=== PATIENT | male | born 1945 | race Caucasian/White ===

== ENCOUNTER 2017-10-17 12:38 | Outpatient (CLI) | payer MEDICARE ==
--- NOTE | 2017-10-17 15:01 | PET ---
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 Exam requested for restaging following chemoradiation therapy. TECHNIQUE: PET scanning with CT attenuation correction was performed from the base of the brain through the prox imal thighs following the intravenous administration of 11.2 mCi [id number] in the right antecubital fossa. Imaging was performed after an uptake interval of 49 minutes. COMPARISON: PET CT dated 11/20/16. FINDINGS: No lux hypermetabolism is seen in the neck, mediastinum, hilar regions, axillary, abdomen, pelvis, or inguinal regions. No hypermetabolic pulmonary nodules, liver, adrenal, or skeletal lesions are id entified. There is a focus of increased uptake in the sigmoid colon with an SUV of 5.8. There is physiologic activity in the GI and tracts and the visualized portions of the brain. The CT scan used for attenuation correction demonstrates no evidence of pleural effusions or ascites. An old left posterior rib fracture and sebaceous cyst in the upper right back are again seen. IMPRESSION: 1. No evidence of recurrent or metastatic disease. 2. Focal increased uptake in the sigmoid colon may either be due to an adenoma or cancer. Further e valuation with colonoscopy is recommended. POS: NEW
== END 2017-10-17 12:39 | disposition home or self-care (01) ==
LOC: PET 12:38
PROVIDERS: ATTEND Internal Medicine Hematology & Oncology
DX: C15.4 Malignant neoplasm of middle third of esophagus (principal)
CPT/HCPCS: 78815; A9552

== ENCOUNTER 2017-12-05 14:23 | Inpatient (IN) | payer MEDICARE ==
[2017-12-05 15:53] LABS: #Basophils 0.1 thou/uL (0.0-0.2); #Eosinphils 0.3 thou/uL (0.0-0.7); #Lymphocytes 1.6 thou/uL (1.20-3.40); #Monocytes 0.7 thou/uL (0.11-0.59); #Neutrophils 3.7 thou/uL (1.40-6.50); %Basophils 1.1 % (0.0-1.0); %Eosinophils 4.1 % (0.0-10.0); %Lymphocytes 24.9 % (21.0-51.0); %Monocytes 10.8 % (0.0-10.0); %Neutrophils 59.1 % (42.0-75.0); Hemoglobin 11.8 g/dL (14.0-18.0); Mean Corpuscular HGB CONC 32.3 g/dL (32.0-36.0); Mean Corpuscular Hemoglobin 30.2 pg (27.0-31.0); Mean Corpuscular Volume 93.3 fl (80.0-94.0); Mean Platelet Volume 6.1 fL (7.4-10.4); Platelet Count 282 thou/uL (130-400); RBC Distribution Width 14.2 % (11.5-14.5); Red Blood Cell (RBC) Count 3.93 mill/uL (4.70-6.10); White Blood Cell (WBC) Count 6.2 thou/uL (4.8-10.8)
[2017-12-05 16:12] LABS: ALT (SGPT) 21 U/L (8-55); AST (SGOT) 18 U/L (5-34); Albumin 3.8 g/dL (3.4-4.8); Alkaline Phosphatase 82 U/L (40-150); Anion Gap 13 mmol/L (10-20); BUN (Urea Nitrogen) 11 mg/dL (8.4-25.7); Bilirubin, Total 0.7 mg/dL (0.2-1.2); Calc. Creatinine Clearance 0 mL/min (70-130); Calcium 9.1 mg/dL (7.8-10.44); Carbon Dioxide 26 mmol/L (23-31); Chloride 99 mmol/L (98-107); Estimated GFR-MDRD 73; Globulin 3.5 g/dL (2.4-3.5); Glucose 95 mg/dL (83-110); Potassium 4.9 mmol/L (3.5-5.1); Protein, Total 7.3 g/dL (5.8-8.1); Sodium 133 mmol/L (136-145)
[2017-12-05] MEDS ORDERED: Gadobenate Dimeglumine 529 MG/1 ML (20ML VIAL) ONE (16:31)
[2017-12-05 16:43] LABS: INR-International Normal Ratio 1.1; Prothrombin Time 13.9 SEC (12.0-14.7)
[2017-12-05 16:44] LABS: PTT 29.1 SEC (22.9-36.1)
--- NOTE | 2017-12-05 18:01 | CT ---
BRAIN CT WITHOUT IV CONTRAST: 12/05/17 HISTORY: 72-year-old male with history of gradual onset of numbness and right leg weakness. No focal mass or midline shift. No intra or extra-axial hemorrhage. Sinuses and mastoids are clear. IMPRESSION: No acute intracranial process. No mass or bleed. POS: [facility]
[2017-12-05 19:48] LABS: Bilirubin Negative (Negative); Blood, Urine Trace (Negative); Clarity CLEAR (Clear); Glucose, Urine (Dipstick) Negative (Negative); Leukocyte Negative (Negative); Nitrite Negative (Negative); Protein, Urine (Dipstick) Negative (Neg-Trace); Specific Gravity, Urine 1.007 (1.002-1.036)
[2017-12-05 19:49] LABS: Bacteria/HPF None Seen HPF (None Seen); Hyaline Casts/LPF 0-3 HYALINE CAST LPF (0-3 Hyaline); Squamous Epithelial None Seen HPF (0-3); WBC/HPF None Seen HPF (0-3)
--- NOTE | 2017-12-05 20:48 | MRI ---
LUMBAR SPINE MRI WITH AND WITHOUT IV CONTRAST 12/05/17 HISTORY: 72-year-old male with right leg numbness with decreased rectal tone. History of esophageal cancer wit h prior chemotherapy and radiation which ended in September 2016. Multiplanar and multisequence MRI examination of the lumbar spine is performed. There is significant multilevel disc osteophytosis. The conus medullaris region is unremarkable terminating at L1. There i s some minimal disc bulging at T12-L1 with slight lateral recess narrowing. At L1-L2, there is diffuse disc bulging with mild lateral recess narrowing and mild foraminal narrowi ng. At L2-L3, there is moderate disc bulging with moderate central canal and bilateral lateral recess and bilateral foraminal stenosis. At L3-L4, there is diffuse disc bulging with moderate central canal, lateral recess, and foraminal st enosis. There is associated annular fissures. At L4-L5, there is diffuse disc bulging with moderate central canal and lateral recess stenosis and f oraminal stenosis. At L5-S1, there is diffuse disc bulging with bilateral foraminal stenosis, severe on the left side an d moderately severe on the right side. No abnormal contrast enhancement to suggest metastatic disease. There is some minimal type I end plat e changes involving the inferior aspect of T12. Very small bilateral renal T2 hyperintense, T1 hypoin tense foci, evidence for small bilateral renal cysts. IMPRESSION: Multilevel moderate to severe central canal, lateral recess, and foraminal stenosis as above. Minimal type I end plate changes involving the inferior aspect of T12. No evidence for metastatic disease. POS: NEW
[2017-12-05] MEDS ORDERED: Acetaminophen/Codeine 30-300mg Tablet PO PRN ×2 (22:15)
[2017-12-05] MEDS ORDERED: Morphine 4 MG/ML Carpuject SLOW IVP PRN (22:15)
[2017-12-05] MEDS ORDERED: Ondansetron HCl/PF 4 MG/2 ML Vial IVP PRN (22:16)
--- NOTE | 2017-12-05 22:44 | MRI ---
MRI CERVICAL SPINE WITHOUT CONTRAST: 12/05/17 This exam is labeled without contrast; however, patient was given IV gadolinium three hours ago for an MRI lumbar spine with and without study. The administration of IV contrast complicates interpretation of this study which shows high T2 signal within the cord. HISTORY: Right leg weakness and numbness. FINDINGS: Cervical vertebrae show degenerative change. There is loss of disc space at C4-5, C5-6, and C6-7. Ant erior osteophytes. Posterior disc bulge and spondylosis is seen throughout the cervical spine. These changes efface the anterior subarachnoid space abut the cord at C4-5, C5-6, and C6-7. There is abnormal cord signal. There is high T2 signal in the cord at C6 through T1 suggesting diffus e edema. There is also high T2 signal in the cord at the T2 level and below. T1 images show increased T1 signal in the cord at T1, T2 and T3 which may represent residual enhancement given the recent zoran olinium administration; however, other considerations include hemorrhage within the cord with high T1 signal. There is enlargement of the cord at the T1 and T2 level suggesting mass effect within the co rd which could be from either neoplasm or hemorrhage. There is evidence of diffuse cord edema below T 1. See the accompanying MRI of thoracic spine. IMPRESSION: 1. Spondylitic changes in the cervical spine with cervical canal stenosis at C3-4, C4-5 and C5-6 due to spondylosis as described above. 2. Abnormal cord signal is present. The recent administration of IV gadolinium three hours ago c omplicates interpretation of this study. There is evidence of cord edema extending from C6 through T2 . There is abnormal high T1 signal in the cord at T1, T2 and T3 which could represent residual enhanc ement which would indicate cord neoplasm. This degree of enhancement; however, is incomplete given th e three hour delay in contrast administration. Recommend a repeat exam with and without contrast for more accurate evaluation of the cord abnormality. POS: [facility]
--- NOTE | 2017-12-05 22:55 | MRI ---
MRI THORACIC SPINE WITHOUT CONTRAST: 12/05/17 Multiplanar and multisequential imaging obtained. This scan was designated without contrast; however, patient had recent IV gadolinium three hours ago which complicates the interpretation. HISTORY: Right leg weakness and numbness. FINDINGS: Thoracic vertebrae maintain height and alignment. Degenerative changes are seen throughout the thorac ic spine. There are disc bulges at several levels. A disc bulge/protrusion at T3-T4 impinges on the a nterior cord. Disc bulges are seen at T4-5, T5-6, T6-7, T7-8, and T8-9. These bulges at these levels efface the anterior subarachnoid space and are most pronounced at T7-8 and T8-9. There is abnormal cord signal identified. There is high T1 signal within the cord extending from T1 t hrough T3. This presumably represents residual contrast enhancement from the recent gadolinium admini stration. However, other considerations include hemorrhage with met hemoglobin in the cord producing high T1 signal. A true with and without study is necessary to adequately assess this signal. There is abnormal signal in the cord below the areas of enhancement which suggests diffuse cord edema . This diffuse increased T2 signal extends to the T5-T6 disc. The cord below T5-T6 disc appears unrem arkable on T2 imaging. IMPRESSION: The interpretation of the cord signal is complicated due to the recent administration of IV gadoliniu m three hours ago. There appears to be residual enhancement in the cord extending from T1 through T3, although accurate enhancement is not assessed due to the three hour delay and contrast administratio n. Other considerations include hemorrhage within the cord producing high T1 signal. There is evidenc e of cord edema below the contrast enhancement extending to the T5-T6 disc level. Recommend patient h ave a repeat MRI with and without contrast to get an accurate assessment of the T1 signal without rec ent contrast enhancement and to better assess true contrast enhancement with immediate contrast admin istration. POS: [facility]
--- NOTE | 2017-12-05 23:08 | PDOC.FPRHP ---
- History of Present Illness Chief Complaint: R leg weakness and numbness History of Present Illness: Stable 72 yo M comes in for evaluation of R leg numbness/weakness. He has a history of esophageal cancer with mets to the lung treated in 2016. Last PET in Oct 2017 showed no suspicion for lesions. Was referred from clinic for Neurology evaluation 1 weak ago. Sent to ER from Neurology clinic for neurosurgery evaluation. Patient states he has had progressively worsening numbness to the inside thigh of his R leg for the last month. Just this week he has started to use a walker because his leg was feeling weak. He denies any pain. He states he has had occasional muscle spasms in the legs bilaterally. He states he has had some constipation this week but no incontinence. States he has had no urinary incontinence or retention. ED Course: MRI of spine and called neurosurgery team for recommendations. - Allergies/Adverse Reactions Allergies Allergy/AdvReac Type Severity Reaction Status Date / Time No Known Allergies Allergy Verified 12/06/17 00:59 - Home Medications Medication Instructions Recorded Confirmed Type Aspirin [Ecotrin] 81 mg PO DAILY 11/11/15 12/06/17 History Budesonide-Formoterol [Symbicort 2 puff INH BID 11/11/15 12/06/17 History 80-4.5] Dapsone 100 mg PO DAILY 11/11/15 12/06/17 History Enalapril Maleate [Vasotec] 5 mg PO DAILY 11/11/15 12/06/17 History - History PMHx: Esophogeal cancer- has been cleared for months. Last PET scan was normal. See 's Dr. Armstrong. treated with radiation and chemo HTN PSHx: none FHx: Social: Patient smokes about a pack a day for 57 years. patient drinks 3-5 beers a night. denies recreational drugs. - Review of Systems General: denies: fever/chills, weight/appetite/sleep changes, night sweats, fatigue Eyes: denies: eye pain, vision changes ENT: denies: nasal congestion, rhinorrhea Respiratory: denies: cough, congestion, shortness of breath Cardiovascular: denies: chest pain, palpitation, edema Gastrointestinal: reports: constipation (difficulty forcing out. no incontinence). denies: nausea, vomiting, diarrhea, GI bleeding Genitourinary: denies: incontinence, dysuria, polyuria, discharge Skin: denies: rashes, lesions Musculoskeletal: denies: pain, tenderness Neurological: reports: numbness, weakness. denies: syncope, seizure Psychological: denies: anxiety, depression - Vital signs BP: 141/85 HR: 89 RR: 20 Tmax: 97.8 Pox: 96% on room air Wt: 96 kg - Physical Exam Constitutional: NAD, awake, alert and oriented HEENT: normocephalic and atraumatic, PERRLA, EOMI, MMM Neck: supple, FROM Heart: RRR, normal S1/S2, no murmurs/rubs/gallops Lungs: CTAB, no respiratory distress, good air movement Abdomen: soft, non-tender, bowel sounds present Musculoskeletal: normal structure, normal tone Neurological: no focal deficit, CN II-XII intact -Neurological: decreased sensation on the R calf, intact on R thigh strength 4/4 on L lower extremity, 3/4 on R DTRs +2 bilaterally Babinski unappreciable bilaterally FMR H&P: Results - Labs Result Diagrams: 12/06/17 03:16 12/06/17 03:16 Lab results: WBC 6.2 thou/uL (4.8-10.8) 12/05/17 15:43 Hgb 11.8 g/dL (14.0-18.0) L 12/05/17 15:43 Hct 36.6 % (42.0-52.0) L 12/05/17 15:43 MCV 93.3 fl (80.0-94.0) 12/05/17 15:43 Plt Count 282 thou/uL (130-400) 12/05/17 15:43 Neutrophils % 59.1 % (42.0-75.0) 12/05/17 15:43 ESR Westergren 11 mm/hr (Less than 20) 12/05/17 15:43 Sodium 133 mmol/L (136-145) L 12/05/17 15:43 Potassium 4.9 mmol/L (3.5-5.1) 12/05/17 15:43 Chloride 99 mmol/L (98-107) 12/05/17 15:43 Carbon Dioxide 26 mmol/L (23-31) 12/05/17 15:43 BUN 11 mg/dL (8.4-25.7) 12/05/17 15:43 Creatinine 1.00 mg/dL (0.6-1.3) 12/05/17 15:43 Glucose 95 mg/dL (83-110) 12/05/17 15:43 Calcium 9.1 mg/dL (7.8-10.44) 12/05/17 15:43 Total Bilirubin 0.7 mg/dL (0.2-1.2) 12/05/17 15:43 AST 18 U/L (5-34) 12/05/17 15:43 ALT 21 U/L (8-55) 12/05/17 15:43 Alkaline Phosphatase 82 U/L (40-150) 12/05/17 15:43 C-Reactive Protein Less than 0.50 mg/dL (= or < 0.5) 12/05/17 15:43 Serum Total Protein 7.3 g/dL (5.8-8.1) 12/05/17 15:43 Albumin 3.8 g/dL (3.4-4.8) 12/05/17 15:43 Urine Ketones Negative mg/dL (Negative) 12/05/17 19:25 Urine Blood Trace (Negative) H 12/05/17 19:25 Urine Nitrite Negative (Negative) 12/05/17 19:25 Ur Leukocyte Esterase Negative (Negative) 12/05/17 19:25 Urine RBC 4-6 HPF (0-3) 12/05/17 19:25 Urine WBC None Seen HPF (0-3) 12/05/17 19:25 Ur Squamous Epith Cells None Seen HPF (0-3) 12/05/17 19:25 Urine Bacteria None Seen HPF (None Seen) 12/05/17 19:25 - Radiology Interpretation Other Status: report reviewed by me Additional comment: MRI of spine- Cord enhancement concerning for cord swelling. T1-T3 but complicated by previous gadolinium. see full report for details. FMR H&P: A/P - Problem List (1) Hx of esophageal malignancy Current Visit: Yes Status: Acute Code(s): Z85.01 - PERSONAL HISTORY OF MALIGNANT NEOPLASM OF ESOPHAGUS (2) HTN (hypertension) Current Visit: Yes Status: Acute Code(s): I10 - ESSENTIAL (PRIMARY) HYPERTENSION (3) Right leg numbness Current Visit: Yes Status: Acute Code(s): R20.0 - ANESTHESIA OF SKIN (4) Dermatitis herpetiformis Current Visit: Yes Status: Acute Code(s): L13.0 - DERMATITIS HERPETIFORMIS (5) Alcohol abuse Current Visit: Yes Status: Acute Code(s): F10.10 - ALCOHOL ABUSE, UNCOMPLICATED - Plan # R leg numbness - suspected thoracic spine lesion - MRI lumbar shows central stenosis no acute process - thoracic spine MRI unappreciable 2/2 prior contrast - repeat in AM - PET negative oct 2017 - Hx of esophageal cancer w/ mets to lungs, 57 pack-year smoker - consult Onc Dr. Armstrong in AM - Neurosurgery consulted, recs appreciated - decadron, flexeril # Alcohol abuse - ASE protocol # COPD - home symbicort # Dermatits Herpetiformis - home dapsone # HTN - home enalapril # Code - full #PPx - lovenox # Dispo - >= 2 nights FMR H&P: Upper Level - Pertinent history Patient has R leg parasthesia for several months. This has been gradually worsening and expanding until he began to have shani weakness in his R leg in the last few days. He has not had pain in has back. He went to his primary care doctor who sent him to a neurologist who sent him to [facility] for neurosurgery consultation. - Pertinent findings Gen: WD/WN male in no acute distress HEENT: NC/AT, MANNY,EOMI, MMM Resp: CTA, normal work of breathing CV: RRR, normal S1, S2, no murmur ABD: Soft nontender, nondistended Extremities: no edema, pulses 2+ Psych: calm, normal affect and mood Neuro: CN exam normal. Normal touch sensation throughout. Normal strength in Left leg and bilateral UE. Patient is weak in r foot flexion and especially in great to strength 2/5. R hip flexors and extensors are 5/5. Knee flexors are 5 /5. Loss of proprioception in R toes. DTRs 2+. - Plan Date/Time: 12/05/17 [id number] Teresa Pastrana, have evaluated this patient and agree with findings/plan as outlined by quality assurance intern resident. Pertinent changes/additions are listed here. 1. Left leg weakness, concern for spinal lesions- Evaluated by neurosurgery who is recommending repeat scans tomorrow. Will await their reocmmendations. Patient is having some muscle cramping. Neurosurgery has added flexeril which has been helpful for this symptom. DDX on spinal lesions is pointed at malignancy. ESR and CRP are negative, so abscess or infectious process is unlikely. 2. hx of esophogeal cancer-will involve onc depending on results of repeat MRI 3. HTN- continue enalapril 4. COPD- continue home symbicort 5. Tobacco abuse- the [place] on cessation 6. Etoh abuse- Will start ASE protocol and the [place]. Attending Addendum - Attending Addendum Date/Time: 12/06/17 [id number] I personally evaluated the patient and discussed the management with Dr. Palmer/ [place]. I agree with the History, Examination, Assessment and Plan documented above with any addition or exceptions noted below. Patient with history of GI cancer admitted with subjective and objective R LE weakness that has been progressive. He had MRI overnight that showed potential for neoplastic process but unclear due to contrast issues. NSGY on board and has patient on steroids (that have led to some objective improvement in strength ) and recommending repeat MRI. That is scheduled for sometime today. Further recs and mgmt per results of MRI.
[2017-12-06] MEDS ORDERED: Cyclobenzaprine 10 MG TAB ONE (00:03)
[2017-12-06] MEDS: Sodium Chloride 0.9% 1,000 ML IV SCH ×3 (00:48→12:57)
[2017-12-06 00:53] VITALS: BMI 29.2
[2017-12-06] MEDS: Dexamethasone 4 MG in Sodium Chloride 0.9% 50 ML IVPB SCH ×5 (01:39→23:44)
[2017-12-06 04:21] LABS: #Eosinphils 0.2 thou/uL (0.0-0.7); #Lymphocytes 0.9 thou/uL (1.20-3.40); #Monocytes 0.6 thou/uL (0.11-0.59); %Basophils 0.6 % (0.0-1.0); %Eosinophils 3.1 % (0.0-10.0); %Lymphocytes 11.6 % (21.0-51.0); %Monocytes 7.5 % (0.0-10.0); %Neutrophils 77.2 % (42.0-75.0); Hemoglobin 10.8 g/dL (14.0-18.0); Mean Corpuscular HGB CONC 32.5 g/dL (32.0-36.0); Mean Corpuscular Hemoglobin 30.2 pg (27.0-31.0); Mean Corpuscular Volume 92.7 fl (80.0-94.0); Mean Platelet Volume 6.4 fL (7.4-10.4); Platelet Count 270 thou/uL (130-400); RBC Distribution Width 14.2 % (11.5-14.5); Red Blood Cell (RBC) Count 3.58 mill/uL (4.70-6.10); White Blood Cell (WBC) Count 7.7 thou/uL (4.8-10.8)
[2017-12-06 04:26] LABS: Anion Gap 11 mmol/L (10-20); BUN (Urea Nitrogen) 9 mg/dL (8.4-25.7); Calc. Creatinine Clearance 87 mL/min (70-130); Calcium 8.9 mg/dL (7.8-10.44); Carbon Dioxide 26 mmol/L (23-31); Chloride 102 mmol/L (98-107); Estimated GFR-MDRD 70; Glucose 90 mg/dL (83-110); Sodium 135 mmol/L (136-145)
--- NOTE | 2017-12-06 07:35 | PRG ---
DATE OF SERVICE: 12/06/2017 Mr. Hernandez is a 72-year-old male who I saw in his room this morning. There are no new neurologic defi cits on exam. He continues to have cramping in bilateral lower extremities and a right L5 radicular pain with paresthesias in the L5 dermatome. This morning whenever he can receive a new dose of gadol inium, we will get a repeat MRI scan with contrast of the thoracic and cervical spine as we investiga te for possible metastatic disease. We will wait until those results have arrived for further plans. Overnight his vital signs have been stable and labs are normal. If there are any further questions, please feel free to contact Neurosurgery.
[2017-12-06] MEDS: Folic Acid 1 MG TAB PO SCH (09:28)
[2017-12-06] MEDS: Thiamine HCl 200 MG/2 ML VIAL SLOW IVP SCH (09:37)
--- NOTE | 2017-12-06 10:18 | CON ---
DATE OF CONSULTATION: 12/06/2017 HISTORY OF PRESENT ILLNESS: Mr. Hernandez is a 72-year-old male who I saw in the ER this evening. He pr esents with history of numbness, pain into the right groin and right lower extremity for the past 6 d ays. The numbness is worse at the top of his feet and hypoesthesia is present in the hip. He states that he fell 3 days ago due to his unsteady gait. He currently denies incontinence and denies bowel and bladder incontinence. He is tender to palpation in midline of thoracic and lumbar spine. He cabezas s pain and paresthesias in the right L5 dermatome with weakness in the right tibialis anterior and ex tensor hallucis longus. Neurosurgery was consulted after MRI was completed of the lumbar spine. Lum bar spine showed a disk herniation at L4-L5 with contact of the right L5 dermatome. ALLERGIES: No known drug allergies. CURRENT MEDICATIONS: 1. Enalapril maleate 5 mg oral. 2. Symbicort HFA aerosol with adapter 80 mcg/4.5 mcg attenuation 2 puffs a day. 3. Aspirin 81 mg oral. PAST MEDICAL HISTORY: Includes hypertension, COPD, dermatitis, squamous cell cancer and esophagus an d lymph nodes, flu vaccine up-to-date, tetanus vaccine not up-to-date, pneumococcal vaccine not up-to -date. PAST SURGICAL HISTORY: Includes esophageal stretching performed 1 month ago. REVIEW OF SYSTEMS: Patient positive for right lower extremity paresthesias, weakness to the right ti bialis anterior and extensor hallus longus muscle. The patient reports being off balance. All other review of systems is negative, unless stated above HPI. PHYSICAL EXAMINATION: VITAL SIGNS: Blood pressure 149/91, pulse 89, respirations 18, temperature 97.9, O2 sat is 98% on ro om air. HEENT: Normocephalic, atraumatic. Hearing intact. Moist mucous membranes. Trachea is midline. Ey es: Pupils are equal and reactive to light. Extraocular muscles are intact. Sclerae are white, non icteric. CARDIOVASCULAR: The patient has regular rate and rhythm. Normal S1, S2 heart sounds. No distal cya nosis or clubbing noted. RESPIRATORY: Patient has bilateral symmetric chest rise. Appears to have no shortness of breath. NEUROLOGIC: Cranial nerves II through XII are grossly intact. Speech is fluent. He answers my ques tions appropriately. Right lower extremity, has paresthesias in the right L5 dermatome. He has 3/5 weakness in the right tibialis anterior, extensor hallucis longus compared to the left. The patient has unsteady gait and station. The patient also has some urinary retention. Mena was placed this e vening and 1100 mL was retrieved of urine. ASSESSMENT: Mr. Hernandez is a 72-year-old male with right lower extremity pain, weakness in the L5 derm atome and urinary retention. PLAN: Given Mr. 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 I will start Decadron, Protonix, consult Radiation Oncology. Dr. Canela will talk to him tomorrow and his family. However, the contrast MRI scan of the cervical and thoracic spine when he is able to have gadolinium. If there are any further questions, please feel free to contact Neuro surgery.
--- NOTE | 2017-12-06 11:04 | PRG ---
DATE OF SERVICE: 12/06/2017 I personally interviewed and examined the patient and agree with documentation of Lane Rubio PA-C, d ated 12/05/2017. Briefly, Ricky Hernandez is a 72-year-old gentleman with a year and a half history of stage IV esophagea l carcinoma, for which he has had chemoradiotherapy. A recent PET scan was positive in the sigmoid c olon, but not markedly positive elsewhere. It is with this history that he has had a subacute progre ssive myelopathy, especially weakness in the right lower extremity. Imaging of the lumbar spine done yesterday was unrevealing, but imaging of the cervical and thoracic spine showed a lesion in the spi nal cord lesion extends from T1 to the top of T3. There is extensive edema above and below the lesio n in the center of the cord. This is causing a myelopathy. Today, on examination, Mr. Dodd feels better with the steroids that we started. He has improving ant igravity strength in the right lower extremity. I had a long discussion with Mr. Hernandez and his daughter. 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 Other possibilities include ependymoma, astrocytoma, hemangioblastoma, or some other r are entities. However, it is primary lesions in the spinal cord have amenable to moderate vasogenic edema. This lesion has extensive vasogenic edema above and below it. I believe it represents a meta stasis. We are asking the oncology team to come restage him and talked about prognosis going forward. I edgar g to revisit with the patient myself on Saturday and talked at length about the removal of spinal cord tumors. There is a significant risk of permanent and complete paralysis with that operation. There is also a significant risk of temporary weakness that would require rehabilitation. If his tumor bur den elsewhere is low and his prognosis is for an extended period of a healthy life, but for this lesi on, then we may consider surgical intervention. We will need to arrange neuro monitoring for the van miller and get him on the schedule.
[2017-12-06] MEDS ORDERED: Sodium Chloride 0.9% 110 ML ONE (12:11)
--- NOTE | 2017-12-06 16:58 | CON ---
DATE OF CONSULTATION: 12/06/2017 REASON FOR CONSULTATION: Esophageal cancer. HISTORY OF PRESENT ILLNESS: Mr. 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 In 2016, he had a left pulmonary nodules and regional lymph nodes at time of diagnosis. He underwent treatment with carboplatin and Taxol. He e ventually had radiation to his esophagus in late 2015 early 2016. He has been in remission over the past year. He had a PET scan in 10/2017 which showed a focal increased uptake in the sigmoid colon w ith an SUV of 5.8. There was no hypermetabolic activity in the lung, liver, adrenal or skeletal suraj ons. He then underwent a colonoscopy by Dr. Jain, who found a large tubulovillous adenoma in the sig moid colon. It was removed as were several other polyps. The patient presented to the emergency [facility] yesterday with acute onset of inability to walk with right lower extremity weakness, numbness and t ingling. The patient admits that he initially felt numbness in his right leg over 2 months ago, but in the last several days it has progressively worsened to the point where he is unable to bear weight and walk. In the emergency room, he had a brain CT which was negative for any intracranial process. He was started on IV steroids admitted and Neurosurgery has seen the patient. He underwent a lumba r spine MRI, which showed a moderate to severe central canal, lateral recess and foraminal stenosis. Several hours later, he underwent a thoracic and cervical spine MRI, there was an abnormal cord sign al in T1 through T3; however, it was felt that imaging was inadequate and a repeat MRI has been sche duled. The patient denies any complaints at this time. He has no shortness of breath, no chest pain , no abdominal discomfort. He is taking p.o. without any problem. He has a significant weakness in his right leg. He is able to move his toes and lift his leg off the bed with maximal effort. PAST MEDICAL HISTORY: 1. 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 2. Hypertension. 3. Chronic obstructive pulmonary disease. 4. Dermatitis herpetiformis. PAST SURGICAL HISTORY: Esophageal dilation. ALLERGIES: No known drug allergies. HOME MEDICATIONS: 1. Aspirin 81 mg daily. 2. Symbicort daily. 3. Dapsone 100 mg daily. 4. Vasotec 5 mg daily. FAMILY HISTORY: Daughter has melanoma. SOCIAL HISTORY: . Has 3 children, lives alone. Current everyday smoker. No alcohol or illi cit drug use. REVIEW OF SYSTEMS: Twelve point review of systems is negative except for noted in HPI. PHYSICAL EXAMINATION: VITAL SIGNS: Temperature is 98.2, pulse is 89, respiratory rate 18, BP is 162/93. He is 92% on room air. GENERAL: Well-developed, well-nourished male, in no acute distress. HEENT: Normocephalic, atraumatic. Pupils equal and reactive to light. NECK: Supple. CARDIOVASCULAR: Regular rate and rhythm. LUNGS: Clear. ABDOMEN: Soft, nontender, bowel sounds are positive. EXTREMITIES: No clubbing, cyanosis or edema. SKIN: No rash. HEMATOLOGIC: No petechia or purpura. NEUROLOGIC: Right lower extremity weakness. PSYCHIATRIC: The patient is alert and oriented and appropriate. PERTINENT LABORATORY AND X-RAYS: Current WBCs are 7.7, hemoglobin 10.8, hematocrit 33.2, platelet co unt is 270,000. He has got 77% neutrophils, 12% lymphocytes. Sodium is 135, potassium 4.0, chloride 102, CO2 is 26, BUN 9, creatinine 1.04, calcium is 8.9, bilirubin is 0.7, AST is 18, ALT is 21, jerri line phosphatase is 682. C-reactive protein is less than 0.5. Serum total protein 7.3, albumin 3.8, globulin 3.1. Urine is negative for bacteria. Radiology per HPI. IMPRESSION: 1. Stage IV esophageal cancer. 2. 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 DISCUSSION: The patient is having repeat MRI this afternoon for a closer look at this thoracic lesio n. On the PET scan in October, he had no evidence of disease other than the sigmoid colon which was explained by this adenoma that has been removed. We will get a CT scan of his chest to confirm no o ther metastatic disease and I will consult Dr. Qiu for his opinion. Thank you for the consult.
--- NOTE | 2017-12-06 18:13 | CON ---
DATE OF CONSULTATION: 12/06/2017 REASON FOR CONSULTATION: Mr. Hernandez is a 72-year-old gentleman, known to me from his previous treatme nt for his esophageal cancer. He presents with a possible spinal cord lesion. HISTORY OF PRESENT ILLNESS: Mr. Hernandez is well known to me. 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 He was found to have lung metastasis at his initial presentation. He was treated with chemotherapy with resolution o f all of his disease. He then developed recurrent disease in the mid esophagus. He was treated with chemoradiotherapy with his radiation completed on 09/04/2016. He received 50.4 Huertas. Since that ti il, he has been disease free and been followed with PET scans. He just had a recent PET scan in 10/04. This PET scan showed some hypermetabolic activity in the sigmoid colon. He saw Dr. Jain for ev aluation of that. He was having some mild dysphagia at that time, and he underwent an EGD with dilat atbren. No evidence of cancer was seen in the esophagus. A large adenoma was removed from the sigmoi d colon with no evidence of cancer seen there. He presents with what he says is a several-month hist ory of progressive numbness in the right lower extremity. This began a couple months ago and was ini tially just a small spot on his thigh, but has progressed. He has had right leg weakness and more di fficulty with walking, especially over the past week. This led him to be evaluated and admitted for workup. He reports he was not having any difficulty with urination or with bowel movements prior to this admission. He did have some difficulty with urination when he was first admitted, which he attr ibutes to the crowd that was around him. He does have a Mena catheter placed. He underwent an MRI of the cervical and thoracic and lumbar spine. The MRIs were somewhat difficult to interpret, shey e he had had a gadolinium 3 hours before, which made the interpretation difficult. There was suggest ion of a lesion in the spinal cord extending from T1 through T3. However, the enhancement was also f elt that could be from hemorrhage. He had edema above and below the lesion. It was recommended that he have a repeat MRI, which is scheduled for later today. The patient has been seen by Neurosurgery . He has also been seen by Medical Oncology. I have been asked to see the patient also. Other than his right leg numbness and weakness, he denies any other complaints. He has no pain. He is eating and swallowing without difficulty. He has no shortness of breath. He has no recent weight loss and voices no other complaints. PAST MEDICAL HISTORY: 1. Hypertension. 2. Chronic obstructive pulmonary disease. 3. Dermatitis herpetiformis. 4. He denies other medical or surgical problems. MEDICATIONS: Symbicort, aspirin, dapsone, and Vasotec. ALLERGIES: No known medical allergies. SOCIAL HISTORY: He previously smoked 1-2 packs per day for 55 years. He also used to drink an appro ximate 6-pack per day. He lives by himself in [place], [place]. 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 FAMILY HISTORY: His daughter had melanoma. His father from myocardial infarction. There is no other family history of malignancy. REVIEW OF SYSTEMS: A 12-system review of systems is otherwise negative. PHYSICAL EXAMINATION: VITAL SIGNS: Height 5 feet 11 inches, weight 210 pounds, blood pressure is 109/68, pulse is 84, resp irations are 15, temperature is 98.5, O2 saturation is 89% on room air. GENERAL: He is alert and oriented and in no apparent distress. He is well-developed and well-nouris hed. Karnofsky performance status is 70%. HEENT: Eyes: Pupils are equal, round, and react to light. Extraocular movements are intact. ENT: Oral cavity and oropharynx normal without lesion or erythema. Palate elevates symmetrically. Gingiv a is intact. NECK: Supple, without or cervical adenopathy. No thyromegaly. Larynx midline. LUNGS: Breathing nonlabored. Clear to auscultation and percussion. CARDIOVASCULAR: Heart, regular rate and rhythm without murmur. No lower extremity edema. BACK: No tenderness on fist percussion of the spine. LYMPHATIC: No axillary or inguinal adenopathy. ABDOMEN: Bowel sounds present. Soft, nontender, nondistended, without mass or hepatosplenomegaly. Liver percussed to normal size. SKIN: Without rash or purpura. NEUROLOGIC: Cranial nerves II-XII grossly intact. Motor strength is 5/5 in both upper extremities i n all muscle groups tested. In the left lower extremity, motor strength is 5/5 in all groups tested. In the right lower extremity, his hip flexors are 2/5. Plantar flexion and dorsiflexion are 2/5. Reflexes are diminished, but symmetrical. Gait was not tested. LABORATORY AND X-RAY FINDINGS: CBC revealed a white blood count of 7700 with hemoglobin of 10.8, hem atocrit of 33.2, platelet count of 270,000. Chemistry group revealed normal electrolytes. Creatinin e was normal. PT was normal at 13.9. RADIOLOGIC: Recent PET scan was personally reviewed and again showed no evidence of systemic disease . It did show hypermetabolic activity in his sigmoid colon, which was later proved to be adenoma. M RI of the cervical and thoracic and lumbar spine were all personally reviewed. Again, there is some enhancement at the T1 through T3. There is edema above and below the cord. Because of the timing of the gadolinium contrast, it is not clear if this enhancement is residual enhancement from tumor vers us enhancement from hemorrhage. No other concerning lesion was identified. ASSESSMENT: Mr. Hernandez is a 72-year-old gentleman, who presents with a somewhat unusual situation. Rikki jimenez has a previous history of a stage 4 metastatic squamous cell carcinoma of the esophagus when he pre sented with a lung metastasis at diagnosis. However, these all resolved with treatment. He has not been on treatment for some time and has been disease free. PLAN: I had a discussion today with Mr. Hernandez regarding his present situation. The lesion in the sp inal cord is somewhat unusual. Esophageal cancer would be somewhat unusual to metastasize to the spi nal cord, but certainly there is a possibility that this could occur. I have reviewed his previous r adiation records. The area in question was partially in this previously radiated parham. I do not t hink the area in question is related to his previous radiation. This could be metastasis versus a ne w primary spinal cord tumor versus an area of hemorrhage. I agree with the dexamethasone that has be en administered. I agree with repeating the MRI of the thoracic spine to better evaluate this lesion . I have discussed the case with Dr. Canela in Neurosurgery and Dr. Mirian Miles in Medical Oncol ogy. We are going to stage him systemically, although I think there is a good chance that he is stil l going to be disease free systemically based on just a PET scan that is 2 months old. Since he had metastatic disease to the lungs to begin with, we will repeat a CT scan of the chest and make sure th at he does not have additional metastatic disease in the lungs or the liver. Once we get the MRI, we can better evaluate and characterize the lesion. In discussion with Dr. Canela a neurosurgical i ntervention with operation is a possibility depending on how his disease is doing systemically. Othe r options may be to consider radiation therapy. This radiation would partially overlap into his prev iously treated parham. Of course if this is hemorrhage, then radiation therapy would not be indicate d, but likely just a course of rehabilitation. If he is systemically disease free and does have what appears to be tumor in a spinal cord, then we may need to consider surgery just to make a diagnosis, also if it is feasible to make sure this is not a primary spinal cord lesion as opposed to metastati c disease. We will get the above tests and I will continue to follow the patient as well. We will d iscuss the case with Dr. Canela in Medical Oncology as more information becomes available and make decisions as to his treatment course. In the interim, he will continue with his dexamethasone. Thank you for this interesting consultation.
[2017-12-06] MEDS ORDERED: Ondansetron ODT 4 MG TAB PO PRN (20:46)
[2017-12-06] MEDS: Docusate 100 MG CAP PO SCH (21:21)
[2017-12-07] MEDS: Sodium Chloride 0.9% 1,000 ML IV SCH ×2 (02:09→13:24)
[2017-12-07] MEDS: Dexamethasone 4 MG in Sodium Chloride 0.9% 50 ML IVPB SCH ×4 (05:02→23:26)
--- NOTE | 2017-12-07 07:38 | PDOC.FM ---
- Subjective Subjective: Patient's main complaint this AM is in regards to his R leg. He reports decreased control of his R leg with weakness and decreased sensation. He has not had a BM since being in the hospital. He is tolerating PO well and not having any N/V. - Objective MAR Reviewed: Yes Vital Signs & Weight: Vital Signs (12 hours) Temp Pulse Resp BP BP Pulse Ox 12/07/17 04:05 98.2 F 73 15 147/71 H 93 L 12/07/17 00:19 98.5 F 85 13 149/74 H 92 L 12/06/17 20:12 98.7 F 97 12 146/80 H 90 L 12/06/17 20:00 98.7 F 97 12 Weight Weight 95.254 kg I&O: 12/06/17 12/07/17 12/08/17 06:59 06:59 06:59 Intake Total 450 2100 Output Total 1250 2150 Balance -800 -50 Result Diagrams: 12/06/17 03:16 12/06/17 03:16 <Randa Currie - Last Filed: 12/07/17 07:36> - Objective Vital Signs & Weight: Vital Signs (12 hours) Temp Pulse Resp BP BP Pulse Ox 12/08/17 11:09 97.9 F 72 16 134/71 92 L 12/08/17 08:57 147/83 H 12/08/17 07:58 69 18 92 L 12/08/17 07:28 97.8 F 68 16 147/83 H 92 L 12/08/17 03:52 97.8 F 66 16 157/73 H 93 L 12/07/17 23:36 98.3 F 77 20 135/74 90 L Weight Weight 210 lb I&O: 12/07/17 12/08/17 12/09/17 06:59 06:59 06:59 Intake Total 2100 2310 Output Total 2150 3550 Balance -50 -1240 Result Diagrams: 12/06/17 03:16 12/06/17 03:16 <Rivera Whyte - Last Filed: 12/08/17 11:15> Phys Exam - Physical Examination Constitutional: NAD HEENT: moist MMs Respiratory: no wheezing, no rales, no rhonchi, clear to auscultation bilateral Cardiovascular: RRR, no significant murmur, no rub Gastrointestinal: soft, non-tender, no distention, positive bowel sounds Musculoskeletal: no edema, pulses present decreased sensation on RLE, 3/5 mm strength on RLE, 5/5 on all other limbs Psychiatric: normal affect, A&O x 3 Skin: normal turgor, cap refill <2 seconds <Randa Currie - Last Filed: 12/07/17 07:36> Dx/Plan (1) Right leg numbness Code(s): R20.0 - ANESTHESIA OF SKIN Status: Acute (2) Right leg weakness Code(s): R29.898 - OTH SYMPTOMS AND SIGNS INVOLVING THE MUSCULOSKELETAL SYSTEM Status: Acute (3) Alcohol abuse Code(s): F10.10 - ALCOHOL ABUSE, UNCOMPLICATED Status: Acute (4) 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 - DERMATITIS HERPETIFORMIS Status: Acute (5) HTN (hypertension) Code(s): I10 - ESSENTIAL (PRIMARY) HYPERTENSION Status: Acute QualifierTitle: Hypertension type: essential hypertension Qualified Code( s): I10 - Essential (primary) hypertension (6) Hx of esophageal malignancy Code(s): Z85.01 - PERSONAL HISTORY OF MALIGNANT NEOPLASM OF ESOPHAGUS Status: Acute - Plan Plan: R Leg Numbness and Weakness Patient has a h/o Esophageal ca with mets to the lungs, 57 pack-year smoker. He has a suspected thoracic spine lesion. MRI lumbar shows central stenosis no acute process. Repeat cervical and thoracic spine MRI reads pending, there is concern on the initial for some lesion, but difficult to fully assess due to prior contrast that was given. Patient had a negative PET in Oct 2017. -Onc consulted, appreciate recs -Neurosurgery consulted, appreciate recs -Continue decadron per neurosurg -Continue flexeril -f/u pending MRI results Esophageal Ca w/ mets to the lungs See prior plan -Protonix Alcohol abuse -ASE protocol -Thiamine, folic acid COPD -home symbicort Dermatits Herpetiformis -home dapsone HTN -home enalapril <Randa Currie - Last Filed: 12/07/17 07:36> Attending Addendum - Attending Addendum Date/Time: 12/08/17 1113 I personally evaluated the patient and discussed the management with Dr. Currie I agree with the History, Examination, Assessment and Plan documented above with any addition or exceptions noted below. The patient is being evaluated for RLE numbness, weakness, and saddle anesthesia. Neurosurgery, Oncology, and Radiation Oncology have been consulted for concern for a spinal cord lesion. Repeat MRI has been performed, but the official read is not back yet. CT chest has been done to restage and showed no signs of metastasis. <Rivera Whyte - Last Filed: 12/08/17 11:15>
[2017-12-07] MEDS: Mometasone/Formoterol 120 PUFF INHALER INH SCH ×2 (08:01→18:45)
[2017-12-07] MEDS: Folic Acid 1 MG TAB PO SCH (09:45)
[2017-12-07] MEDS: Docusate 100 MG CAP PO SCH ×2 (09:45→20:14)
--- NOTE | 2017-12-07 10:38 | CT ---
CT CHEST WITH IV CONTRAST: Date: 12/07/17 Time: 0241 hours HISTORY: Chest pain. Esophageal cancer. COMPARISON: 05/07/17. FINDINGS: Lungs are hyperinflated with scattered small bullae and parenchymal scarring, most pronounced at the bases. Old, ununited left posterior rib fracture is again demonstrated. No mediastinal masses or mass es of the esophagus are apparent. No enlarged lymph nodes. Arterial calcification. Within the partial ly visualized upper abdomen, tiny cystic lesions are noted within the partially visualized liver. IMPRESSION: 1. No evidence of metastatic disease of the chest. 2. Atherosclerosis. 3. COPD. POS: [facility]
--- NOTE | 2017-12-07 11:34 | MRI ---
MRI CERVICAL SPINE WITH AND WITHOUT CONTRAST MRI THORACIC SPINE WITH AND WITHOUT CONTRAST: Date: 12/06/17 Time: 1782-6821 hours HISTORY: 72-year-old male with right lower extremity weakness and hypesthesia (numbness). Abnormal noncontrast MRI of cervical spine, obtained soon after IV Gadolinium contrast injection for MRI of lumbar spine with and without contrast. Repeat study. TECHNIQUE: Unfortunately, the waiting time between the previous study and current study was less than 24 hours. It would have been better to wait at least 36 hours after the prior Gadolinium injection. The degree of enhancement of the intramedullary lesion on the current study is not as strong as that of yesterda y's study. FINDINGS: Again noted is the cervical spondylosis, with multilevel high grade central spinal canal stenosis and high grade bilateral neural foraminal stenosis. Images are degraded by patient motion. The cervical spondylosis was described on the prior study. There is a heterogeneously enhancing intramedullary lesion that occupies almost the entire cross-sect ional area of the spinal cord, and expands the spinal cord, extending from upper C7 level to lower T3 . (The enhancement pattern is stronger on yesterday's MRI than on the current one for reasons mention ed above.) This appears to be a mass, with mixed intermediate and hyperintense T2 signal. There are n onenhancing T2-hyperintense intramedullary signal abnormalities, consistent with cord edema, that ext end cranially up to the lower C6 level, and continues inferiorly down to the upper T6 level, where it tapers off. The levels of upper cord edema (without enhancement) are also expanded. In the thoracic spine, as in the cervical spine, there is multilevel mild and moderate degenerative d isc disease, including disc-osteophyte complexes that abut and slightly indent the ventral surface of the spinal cord, at T2-3, T3-4, T4-5, and to a lesser degree at other levels in the mid and lower th oracic spine. There are Modic Type I end plate marrow changes at T7-8. Vertebral body heights are tristen ntained at all levels in the cervical and thoracic spine. There are also Modic Type I end plate juan pablo ow changes at C5-6 and T2-3 and T3-4. IMPRESSION: 1. Evidence for primary cord neoplasm, either astrocytoma or ependymoma (less likely hemangioblastom a). The enhancing portion of the tumor is from upper T1 to T3 level. Cord edema extends cranially and caudally many levels. 2. Cervical and thoracic spondylosis, with multilevel high grade central spinal canal stenosis and s evere bilateral neural foraminal stenosis. CODE T. ] POS: [facility]
[2017-12-07] MEDS: Thiamine HCl 200 MG/2 ML VIAL SLOW IVP SCH (13:22)
[2017-12-08] MEDS: Sodium Chloride 0.9% 1,000 ML IV SCH ×3 (04:54→21:11)
[2017-12-08] MEDS: Dexamethasone 4 MG in Sodium Chloride 0.9% 50 ML IVPB SCH ×3 (06:04→17:04)
--- NOTE | 2017-12-08 07:43 | PDOC.FM ---
- Subjective Subjective: Patient doing well this AM. Reports that he feels pins and needles in his R leg. He got up to the bedside commode yesterday and describes that he couldn't feel his bottom at all and it felt like he was sitting on a pillow. The patient reports some movement of his R leg, but very little and very little control when he does move it. He has no pain. He has not had a BM since Saturday. - Objective MAR Reviewed: Yes Vital Signs & Weight: Vital Signs (12 hours) Temp Pulse Resp BP Pulse Ox 12/08/17 07:28 97.8 F 68 16 147/83 H 92 L 12/08/17 03:52 97.8 F 66 16 157/73 H 93 L 12/07/17 23:36 98.3 F 77 20 135/74 90 L 12/07/17 20:14 98.4 F 82 20 Weight Weight 95.254 kg I&O: 12/07/17 12/08/17 12/09/17 06:59 06:59 06:59 Intake Total 2100 2310 Output Total 2150 3550 Balance -50 -1240 Result Diagrams: 12/06/17 03:16 12/06/17 03:16 <Randa Currie - Last Filed: 12/08/17 07:42> - Objective Vital Signs & Weight: Vital Signs (12 hours) Temp Pulse Resp BP BP Pulse Ox 12/08/17 11:09 97.9 F 72 16 134/71 92 L 12/08/17 08:57 147/83 H 12/08/17 08:30 97.8 F 69 18 12/08/17 07:58 69 18 92 L 12/08/17 07:28 97.8 F 68 16 147/83 H 92 L 12/08/17 03:52 97.8 F 66 16 157/73 H 93 L 12/07/17 23:36 98.3 F 77 20 135/74 90 L Weight Weight 210 lb I&O: 12/07/17 12/08/17 12/09/17 06:59 06:59 06:59 Intake Total 2100 2310 Output Total 2150 3550 Balance -50 -1240 Result Diagrams: 12/06/17 03:16 12/06/17 03:16 <Rivera Whyte - Last Filed: 12/08/17 11:17> Phys Exam - Physical Examination Constitutional: NAD HEENT: moist MMs Respiratory: no wheezing, no rales, no rhonchi, clear to auscultation bilateral Cardiovascular: RRR, no significant murmur, no rub Gastrointestinal: soft, non-tender, positive bowel sounds mildly distended Musculoskeletal: no edema, pulses present decreased sensation on RLE, 3/5 movement on RLE Psychiatric: normal affect, A&O x 3 Skin: normal turgor, cap refill <2 seconds <Randa Currie - Last Filed: 12/08/17 07:42> Dx/Plan (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 Code(s): C72.0 - MALIGNANT NEOPLASM OF SPINAL CORD Status: Acute (2) Right leg numbness Code(s): R20.0 - ANESTHESIA OF SKIN Status: Acute (3) Right leg weakness Code(s): R29.898 - OTH SYMPTOMS AND SIGNS INVOLVING THE MUSCULOSKELETAL SYSTEM Status: Acute (4) Alcohol abuse Code(s): F10.10 - ALCOHOL ABUSE, UNCOMPLICATED Status: Acute (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 Patient had a negative PET in Oct 2017. MRI showed primary cord neoplasm at level of T1-T3 with cord edema extending cranially and caudally. This is likely the cause of the patients RLE numbness, weakness, and saddle anesthesia. CT chest showed no signs of metastasis -Onc consulted, appreciate recs -Neurosurgery consulted, appreciate recs -Continue decadron per neurosurg -Continue flexeril h/o Esophageal Ca w/ mets to the lungs CT chest showed no signs of mets. Negative PET in Oct 2017. -Protonix Alcohol abuse -ASE protocol -Thiamine, folic acid COPD -home symbicort Dermatits Herpetiformis -home dapsone HTN -home enalapril Constipation Likely 2/2 saddle anesthesia. Patient having good bowel sounds and no N/V at this time. -Senna/Docusate -Miralax <Randa Currie - Last Filed: 12/08/17 07:42> Attending Addendum - Attending Addendum Date/Time: 12/08/17 1115 I personally evaluated the patient and discussed the management with Dr. Currie I agree with the History, Examination, Assessment and Plan documented above with any addition or exceptions noted below. The patient was found on MRI to have T1-T3 primary spinal cord lesion with surrounding edema. Will continue decadron per neurosurgery and await recommendations from neurosurgery and onc. Will give bowel regimen for constipation. <Rivera Whyte - Last Filed: 12/08/17 11:17>
[2017-12-08] MEDS: Mometasone/Formoterol 120 PUFF INHALER INH SCH ×2 (07:58→19:23)
[2017-12-08] MEDS: Folic Acid 1 MG TAB PO SCH (08:57)
[2017-12-08] MEDS: Docusate 100 MG CAP PO SCH ×2 (08:57→21:11)
[2017-12-08] MEDS: Polyethylene Glycol 3350 17 GM Packet PO SCH (08:58)
[2017-12-08] MEDS: Thiamine HCl 200 MG/2 ML VIAL SLOW IVP SCH (09:39)
[2017-12-09] MEDS: Dexamethasone 4 MG in Sodium Chloride 0.9% 50 ML IVPB SCH ×4 (01:21→19:58)
--- NOTE | 2017-12-09 05:57 | PDOC.FM ---
- Subjective Subjective: Patient doing well this AM. No significant overnight events. Patient states that the weakness in RLE is improving. He is now able to lift his leg. He still endorses weakness compared to his baseline, but has notable improvement with the steroids. Patient is in good spirits. He spoke to neurosurgery this morning. They are deciding whether to pursue surgical intervention vs. radiation. Patient states that he experiences numbness and tingling in right lower extremity, but sensation is intact to touch. - Objective MAR Reviewed: Yes Vital Signs & Weight: Vital Signs (12 hours) Temp Pulse Resp BP Pulse Ox 12/08/17 23:51 98.1 F 89 18 157/81 H 93 L 12/08/17 20:00 98.4 F 80 16 160/84 H 95 12/08/17 19:23 83 16 95 Weight Weight 95.254 kg I&O: 12/07/17 12/08/17 12/09/17 06:59 06:59 06:59 Intake Total 2100 2310 Output Total 2150 3550 2100 Balance -50 1240 -2099 Result Diagrams: 12/06/17 03:16 12/06/17 03:16 EKG Reviewed by me: No Radiology Reviewed by me: Yes <Rach Connors - Last Filed: 12/09/17 08:29> - Objective Vital Signs & Weight: Vital Signs (12 hours) Temp Pulse Pulse Resp BP BP BP 12/09/17 15:59 98.5 F 88 16 154/86 H 12/09/17 11:59 77 134/75 12/09/17 11:28 98.1 F 78 16 136/74 12/09/17 08:29 98.3 F 82 15 156/87 H 12/09/17 08:26 158/87 H 12/09/17 08:00 98.5 F 88 16 Pulse Ox Pulse Ox 12/09/17 15:59 91 L 12/09/17 11:59 94 L 12/09/17 11:28 94 L 12/09/17 08:29 94 L 12/09/17 08:26 12/09/17 08:00 94 L Weight Weight 95.254 kg I&O: 12/08/17 12/09/17 12/10/17 06:59 06:59 06:59 Intake Total 2310 1430 Output Total 3550 4550 Balance -1240 -3120 Result Diagrams: 12/06/17 03:16 12/06/17 03:16 <Manuela Dumont - Last Filed: 12/09/17 18:53> Phys Exam - Physical Examination Constitutional: NAD HEENT: moist MMs Neck: no nodes Respiratory: clear to auscultation bilateral Cardiovascular: RRR, no significant murmur Gastrointestinal: soft, non-tender, no distention, positive bowel sounds Musculoskeletal: no edema Neurological: normal sensation Weakness with dorsiflexion and plantarflexion against resistance on RLE Strength 2/5 on RLE Psychiatric: normal affect Skin: no rash, normal turgor <Rach Connors - Last Filed: 12/09/17 08:29> Dx/Plan (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 Code(s): C72.0 - MALIGNANT NEOPLASM OF SPINAL CORD Status: Acute (2) Right leg weakness Code(s): R29.898 - OTH SYMPTOMS AND SIGNS INVOLVING THE MUSCULOSKELETAL SYSTEM Status: Acute (3) Right leg numbness Code(s): R20.0 - ANESTHESIA OF SKIN Status: Acute (4) Alcohol abuse Code(s): F10.10 - ALCOHOL ABUSE, UNCOMPLICATED Status: Chronic (5) HTN (hypertension) Code(s): I10 - ESSENTIAL (PRIMARY) HYPERTENSION Status: Chronic QualifierTitle: Hypertension type: essential hypertension Qualified Code( s): I10 - Essential (primary) hypertension (6) Hx of esophageal malignancy Code(s): Z85.01 - PERSONAL HISTORY OF MALIGNANT NEOPLASM OF ESOPHAGUS Status: Chronic - Plan Plan: 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 Patient had a negative PET in Oct 2017. MRI showed primary cord neoplasm at level of T1-T3 with cord edema extending cranially and caudally. This is likely the cause of the patients RLE numbness, weakness, and saddle anesthesia. CT chest showed no signs of metastasis -Onc consulted, appreciate recs -Neurosurgery consulted, appreciate recs -Continue decadron per neurosurg -Continue flexeril -Will put in for case management and rehab screening -Patient showing some improvement in strength -Spoke with neurosurgery this AM; awaiting oncology recs regarding radiation vs. neurosurgery intervention h/o Esophageal Ca w/ mets to the lungs CT chest showed no signs of mets. Negative PET in Oct 2017. -Protonix Alcohol abuse -No signs of withdrawal since hospitalization -Thiamine, folic acid -Protonix COPD -Home symbicort Dermatitis Herpetiformis -Home dapsone HTN -Home enalapril Constipation Likely 2/2 saddle anesthesia. Patient having good bowel sounds and no N/V at this time. -No BM since Saturday -Senna/Docusate -Miralax -Add Milk of magnesia -If no BM despite above interventions, will consider enema Dispo: Patient doing well. Will follow recommendations of neurosurgery and oncology regarding further management of spinal cord lesion. <Rach Connors - Last Filed: 12/09/17 08:29> Attending Addendum - Attending Addendum Date/Time: 12/09/171851 I personally evaluated the patient and discussed the management with Dr. Connors. I agree with the History, Examination, Assessment and Plan documented above with any addition or exceptions noted below. The patient has gotten a little bit better strength in his lower extremities following steroids. He has met with both Dr. Qiu and Dr. Canela and is leaning towards biopsy. <Manuela Dumont - Last Filed: 12/09/17 18:53>
[2017-12-09] MEDS: Mometasone/Formoterol 120 PUFF INHALER INH SCH ×2 (06:34→18:49)
[2017-12-09] MEDS: Docusate 100 MG CAP PO SCH (08:26)
[2017-12-09] MEDS: Folic Acid 1 MG TAB PO SCH (08:26)
[2017-12-09] MEDS: Thiamine HCl 200 MG/2 ML VIAL SLOW IVP SCH (08:28)
[2017-12-09] MEDS: Polyethylene Glycol 3350 17 GM Packet PO SCH (08:28)
--- NOTE | 2017-12-09 09:34 | PRG ---
DATE OF SERVICE: 12/09/2017 SUBJECTIVE: Mr. Hernandez is feeling better this morning. He has been on steroids over the weekend, and his right leg is getting stronger. He is having a little less numbness. He has no new pain and voi marivel no new complaints. OBJECTIVE: VITAL SIGNS: Blood pressure 156/87, pulse is 82, respirations are 15, temperature is 98.3, O2 satura tion is 94%. GENERAL: He is alert and oriented and in no apparent distress. He is well-developed and well-nouris hed. Karnofsky performance status is 70%. NECK: Supple, without cervical or supraclavicular adenopathy. LUNGS: Breathing nonlabored. Clear to auscultation. HEART: Regular rate and rhythm without murmur. No lower extremity edema. ABDOMEN: Soft, nontender, nondistended, without mass or hepatosplenomegaly. Liver percussed to norm al size. Bowel sounds present. NEUROLOGIC: Cranial nerves II-XII grossly intact. Motor strength is 5/5 in both upper extremities i n all muscle groups tested. Motor strength in left lower extremity is normal also. In the right low er extremity he is able to lift his leg off the bed for a longer period of time and even offer some r esistance to strength testing. He can certainly hold it longer against gravity. Dorsiflexion is sti ll weak. Plantar flexion is stronger. A CT scan of the chest was personally reviewed as was his MRI of the cervical and thoracic spine whic h were done over the weekend. CT scan of the chest was negative for metastatic disease. MRI shows a lesion from C7 through T3. There is spinal cord edema. ASSESSMENT: Mr. Hernandez is a 72-year-old gentleman with a previously known esophageal cancer who appea rs to have no evidence of recurrence at the primary site or systemic disease from his esophageal canc er. He has a spinal cord lesion which is new and could be a metastasis from his esophageal cancer or alternatively could be a primary spinal cord tumor. PLAN: I think Mr. Hernandez's prognosis from his esophageal cancer is likely quite good. He has no evid ence of disease recurrence at the primary site or distantly. Therefore, I think we should be aggress jerrica regarding the spinal cord lesion. He has seen Dr. Canela, who has discussed with him possible surgical intervention. I am leaning towards surgical intervention. There are significant risks for surgical intervention, but surgical intervention would allow us to 1) establish a diagnosis and 2) p ossibly provide better long-term control. The lesion in question was partially in his previously rad iated field. [employer] customer [employer] control with radiation therapy would be difficult anyway, but certainly the f act that it had been previously treated before will limit some what we can do with radiation. Also, there would still be the uncertainty as to exactly what we were treating. If we do not get long-term control of the lesion then he is going to end up with paralysis. Therefore, the risks with surgery which are significant actually in the long-term may still be less than other options for treatment. Thus, I am favoring a possible surgical intervention. Ultimately this will be decided by Dr. Rowan floyd as well. I will discuss the case with Dr. Canela and Medical Oncology and we can come to a rec ommendation. We will continue to follow the patient with you.
--- NOTE | 2017-12-09 10:04 | PRG ---
DATE OF SERVICE: 12/09/2017 I saw Mr. Hernandez this morning in his hospital room. Over the weekend he had a postcontrast repeat MRI scan of the cervical and thoracic spine to delineate the area of abnormal tissue within the spinal c ord. His oral steroids have made a difference in his neurological function and he awaits decision mora gray with his family. On examination this morning he has good antigravity strength, he is weaker on the right lower extremi ty than the left; however, there is upper motor neuron weakness that is rather significant. I reviewed MR imaging and I see contrast enhancement within the spinal cord from the bottom of C7 to the top of T3. It is mostly behind T1 and T2. T2 signal change extends in the cord superiorly to th e mid cervical region and inferiorly to the mid thoracic region. On postcontrast images, there is T1 brightness and the T7 vertebral body. These may be endplate changes, but these lesions look comple tely dark on precontrast T1. This is in an area where previous radiation was delivered and there are marrow changes from that radiation. I reviewed with Mr. Hernandez my feelings about surgical intervention and the need for expert staging to understand his prognosis before putting him through a surgery that will require significant rehabilit ation. Surgical intervention will also delay any radiation treatment to that area as the spinal cord will need to recover. INFORMED CONSENT: I discussed the indications, risks, benefits, and alternatives to spinal cord tumo r resection. The risks I discussed included, but were not limited to paralysis, wheelchair dependenc e, incontinence, impotence, decubitus ulcers, loss of bladder control, pneumonia, wound healing issue s, CSF leak, bleeding, infection, cardiopulmonary complications of anesthesia and . He understa nds the risks. There is a significant for spinal cord dysfunction following surgery, but without treatment I believe the tumor will cause a precise dysfunction. He is going to decide with his family, Dr. Qiu and Dr Luz Maria Armstrong how to proceed. If he elects for surgical intervention and is willing to take the risks th ereof and understands that there will be a protracted rehabilitation, then we will get him on the [facility] this week with SSEP and MEP monitoring. As soon as that monitoring can be arranged we can brittny n the surgical intervention. We will do a laminectomy including C7, T1 and T2 and the reason to exte nd up to the top of C7 is there is some stenosis there, if he has postop radiation, he might need a l ittle bit of room for cord expansion. I do not find any instrumentation. I am going to revisit with David tomorrow morning.
--- NOTE | 2017-12-09 15:07 | PRG ---
DATE OF SERVICE: 12/09/2017 Mr. Hernandez is a 72-year-old male who I saw in his room this morning. Over the weekend, there have been no acute events. He has been afebrile and slightly hypertensive. His blood pressure this morning is 157/81. There are no new neurologic deficits on exam; however, he is still complaining of the right- sided L5 radicular pain and weakness. He is able to get up to bedside commode. He had some complaints this morning about a burning sensation around the catheter site in how it is very irritating to him. Since he is able to get up at the bedside commode. He would like his Mena catheter discontinued this morning. Cervical and thoracic MRI with gadolinium was completed and Dr. Qiu and Mirian Miles from Oncology and Radiation Oncology have assessed him. Dr. Canela will talk to him this morning about options for treatment, for the lesions of the cervical and upper thoracic spine. If there are any further questions, please feel free to contact Neurosurgery. ANCELMO
[2017-12-09] MEDS: Sodium Chloride 0.9% 1,000 ML IV SCH (15:58)
[2017-12-09] MEDS: Milk Of Magnesia 30 ML UDCUP PO SCH (17:55)
[2017-12-10] MEDS: Dexamethasone 4 MG in Sodium Chloride 0.9% 50 ML IVPB SCH ×2 (00:25→06:35)
[2017-12-10] MEDS: Docusate 100 MG CAP PO SCH ×3 (00:26→20:50)
--- NOTE | 2017-12-10 06:15 | PDOC.FM ---
- Subjective Subjective: Patient doing well this AM. No significant overnight events. Patient's lower extremity weakness on right is similar to what it was yesterday. He did have a spell when trying to transfer to toilet where he felt particularly weak and had to sit himself down on the floor. He denies any abdominal pain, dysuria, chest pain, cough or shortness of breath. Discussed surgical options with neurosurgery yesterday and this AM and is leaning toward surgery. - Objective MAR Reviewed: Yes Vital Signs & Weight: Vital Signs (12 hours) Temp Pulse Resp BP Pulse Ox 12/10/17 04:00 98.4 F 72 16 163/89 H 90 L 12/09/17 20:00 98.2 F 77 16 142/82 H 91 L 12/09/17 18:49 76 18 92 L Weight Weight 95.254 kg I&O: 12/08/17 12/09/17 12/10/17 06:59 06:59 06:59 Intake Total 2310 1430 2050 Output Total 3550 4550 1750 Balance -1240 -3120 300 Result Diagrams: 12/06/17 03:16 12/06/17 03:16 EKG Reviewed by me: No Radiology Reviewed by me: Yes <Rach Connors - Last Filed: 12/10/17 08:49> - Objective Vital Signs & Weight: Vital Signs (12 hours) Temp Pulse Resp BP BP Pulse Ox 12/10/17 15:55 98.4 F 78 16 152/87 H 94 L 12/10/17 11:39 98.1 F 79 15 160/90 H 92 L 12/10/17 08:27 117/67 12/10/17 08:00 98.2 F 87 17 117/67 95 Weight Weight 95.254 kg I&O: 12/09/17 12/10/17 12/11/17 06:59 06:59 06:59 Intake Total 1430 2747 Output Total 4550 2350 Balance -3120 397 Result Diagrams: 12/06/17 03:16 12/06/17 03:16 <Manuela Dumont - Last Filed: 12/10/17 17:50> Phys Exam - Physical Examination Constitutional: NAD HEENT: moist MMs, sclera anicteric Neck: supple Right anterior lobe rhonchi Cardiovascular: RRR, no significant murmur Gastrointestinal: soft, non-tender, positive bowel sounds mild distention Musculoskeletal: no edema, pulses present RLE weakness; strength 2/5 Psychiatric: normal affect Skin: no rash <Rach Connors - Last Filed: 12/10/17 08:49> Dx/Plan (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 Code(s): C72.0 - MALIGNANT NEOPLASM OF SPINAL CORD Status: Acute (2) Right leg weakness Code(s): R29.898 - OTH SYMPTOMS AND SIGNS INVOLVING THE MUSCULOSKELETAL SYSTEM Status: Acute (3) Right leg numbness Code(s): R20.0 - ANESTHESIA OF SKIN Status: Acute (4) Alcohol abuse Code(s): F10.10 - ALCOHOL ABUSE, UNCOMPLICATED Status: Chronic (5) HTN (hypertension) Code(s): I10 - ESSENTIAL (PRIMARY) HYPERTENSION Status: Chronic QualifierTitle: Hypertension type: essential hypertension Qualified Code( s): I10 - Essential (primary) hypertension (6) Hx of esophageal malignancy Code(s): Z85.01 - PERSONAL HISTORY OF MALIGNANT NEOPLASM OF ESOPHAGUS Status: Chronic - Plan Plan: 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 Patient had a negative PET in Oct 2017. MRI showed primary cord neoplasm at level of T1-T3 with cord edema extending cranially and caudally. This is likely the cause of the patients RLE numbness, weakness, and saddle anesthesia. 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 Negative PET in Oct 2017. 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 Patient having good bowel sounds and no N/V at this time. -No BM since Saturday -Senna/Docusate -Miralax -Milk of magnesia added yesterday -Fleet enema today Dispo: Patient doing well. Will follow recommendations of neurosurgery and oncology regarding further management of spinal cord lesion. <Rach Connors - Last Filed: 12/10/17 08:49> Attending Addendum - Attending Addendum Date/Time: 12/10/17 861 I personally evaluated the patient and discussed the management with Dr. Connors. I agree with the History, Examination, Assessment and Plan documented above with any addition or exceptions noted below. The patient is stable. He will have a biopsy tomorrow with neurosurgery. <Manuela Dumont - Last Filed: 12/10/17 17:50>
[2017-12-10] MEDS: Mometasone/Formoterol 120 PUFF INHALER INH SCH ×2 (06:51→19:11)
--- NOTE | 2017-12-10 07:07 | HP ---
DATE OF SERVICE: 12/10/2017 There were no acute events overnight for Mr. Hernandez. Dr. Canela talked to him this morning about possible surgery and doing a laminectomy from C7-T2 and tumor removal. He also expressed interest in the surgery as well. Overnight, there have been no acute events. He is hypertensive at 163/89. This morning there are no new labs. Today will go through the process of consenting him for surgery. I will make him n.p.o. after midnight in preparation for his surgery likely tomorrow. If there are any further questions, please feel free to contact Neurosurgery. ANCELMO
[2017-12-10] MEDS: Sodium Chloride 0.9% 1,000 ML IV SCH ×2 (07:17→20:50)
[2017-12-10] MEDS ORDERED: Fleet Enema 133 ML BOT FS SCH (07:45)
[2017-12-10 07:55] LABS: INR-International Normal Ratio 1.1; PTT 26.2 SEC (22.9-36.1); Prothrombin Time 14.3 SEC (12.0-14.7)
[2017-12-10] MEDS: Folic Acid 1 MG TAB PO SCH (08:30)
[2017-12-10] MEDS: Polyethylene Glycol 3350 17 GM Packet PO SCH (08:32)
[2017-12-10] MEDS ORDERED: Clopidogrel Bisulfate 75 MG TAB ONE (09:37)
[2017-12-10] MEDS: Thiamine HCl 200 MG/2 ML VIAL SLOW IVP SCH (10:23)
[2017-12-10] MEDS: Dexamethasone 4 mg/ml Vial SLOW IVP SCH ×2 (12:27→18:20)
--- NOTE | 2017-12-10 13:53 | PRG ---
NEUROSURGERY PROGRESS NOTE DATE OF SERVICE: 12/10/2017 I have spoke with Dr. Qiu yesterday, reviewed imaging once again. Spoke with the patient this john maier who had a chance to discuss things with his family. Due to limited disease elsewhere and the [facility] ertainty of diagnosis, I have offered Mr. Hernandez surgery. Overnight, his vitals have been stable. Hi s neurological examination is unchanging. He has a significant myelopathy affecting the lower extrem ities with imbalance, weakness, and decreased sensation. Contrast enhanced scan suggests a lesion in the center of the cord from T1-T3 with edema stretching a ll the way up to C5-C6 and down to T6. INFORMED CONSENT: I discussed indications, risks, benefits, alternatives expected outcomes from surg rose mary. The risks I discussed her included, but were not limited to complete paralysis, loss of leg fun ction, loss of hand function, wheelchair dependence, incontinence, resulting in bed sores and pneumon ia, resulting DVT, infection, CSF bleeding, cardiopulmonary complications of anesthesia, and . He understands all the risks. He understands this is a high risk surgery and that paralysis is one o f the outcomes that could be anticipated. He would like to proceed with surgery. He was taken to the operating room tomorrow for a laminectomy from the top of T7-T3. We will perform durotomy with monitoring and tumor removal. He will be n.p.o. after midnight. We will send antibiotics with the patient to the operating room wi th some steroids to the operating room. I will set up SSEP and MEP monitoring.
[2017-12-11] MEDS: Dexamethasone 4 mg/ml Vial SLOW IVP SCH ×4 (00:07→16:40)
--- NOTE | 2017-12-11 05:18 | PDOC.FM ---
- Subjective Subjective: Patient down for surgery this AM. Unable to evaluate. Will follow up with patient post-surgery. - Objective MAR Reviewed: Yes Vital Signs & Weight: Vital Signs (12 hours) Temp Pulse Resp BP Pulse Ox 12/11/17 04:26 97.9 F 73 16 167/82 H 91 L 12/10/17 23:31 98.2 F 72 15 153/81 H 92 L 12/10/17 20:24 98.8 F 75 16 158/80 H 92 L 12/10/17 20:00 98.2 F 72 15 92 L 12/10/17 19:11 78 16 93 L Weight Weight 95.254 kg I&O: 12/09/17 12/10/17 12/11/17 06:59 06:59 06:59 Intake Total 1430 2747 1650 Output Total 4550 2350 1830 Balance -3120 397 -180 Result Diagrams: 12/06/17 03:16 12/06/17 03:16 EKG Reviewed by me: No Radiology Reviewed by me: Yes <Rach Connors - Last Filed: 12/11/17 08:25> - Subjective Subjective: Pt seen in PACU at 1400 after surgery. He is responsive to questions, moving all extremities, states he has some pain in his back. - Objective Vital Signs & Weight: Vital Signs (12 hours) Temp Pulse Resp BP Pulse Ox 12/11/17 04:26 97.9 F 73 16 167/82 H 91 L Weight Weight 95.254 kg I&O: 12/10/17 12/11/17 12/12/17 06:59 06:59 06:59 Intake Total 2747 2900 Output Total 2350 4155 Balance 397 -1255 Result Diagrams: 12/06/17 03:16 12/06/17 03:16 <Jennifer Chi - Last Filed: 12/11/17 14:03> Phys Exam - Physical Examination Constitutional: NAD On facemask O2, still somewhat groggy after surgery, but responsive and follow commands HEENT: PERRLA, moist MMs Respiratory: no wheezing, no rales, no rhonchi, clear to auscultation bilateral Cardiovascular: RRR, no significant murmur Gastrointestinal: soft, non-tender Musculoskeletal: no edema Neurological: non-focal, normal sensation, moves all 4 limbs <Jennifer Chi - Last Filed: 12/11/17 14:03> Dx/Plan (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 Code(s): C72.0 - MALIGNANT NEOPLASM OF SPINAL CORD Status: Acute (2) Right leg weakness Code(s): R29.898 - OTH SYMPTOMS AND SIGNS INVOLVING THE MUSCULOSKELETAL SYSTEM Status: Acute (3) Right leg numbness Code(s): R20.0 - ANESTHESIA OF SKIN Status: Acute (4) Alcohol abuse Code(s): F10.10 - ALCOHOL ABUSE, UNCOMPLICATED Status: Chronic (5) HTN (hypertension) Code(s): I10 - ESSENTIAL (PRIMARY) HYPERTENSION Status: Chronic QualifierTitle: Hypertension type: essential hypertension Qualified Code( s): I10 - Essential (primary) hypertension (6) Hx of esophageal malignancy Code(s): Z85.01 - PERSONAL HISTORY OF MALIGNANT NEOPLASM OF ESOPHAGUS Status: Chronic - Plan Plan: 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 Patient had a negative PET in Oct 2017. MRI showed primary cord neoplasm at level of T1-T3 with cord edema extending cranially and caudally. This is likely the cause of the patients RLE numbness, weakness, and saddle anesthesia. CT chest showed no signs of metastasis -Onc consulted, appreciate recs -Neurosurgery consulted, appreciate recs -Continue decadron per neurosurg -Continue flexeril -Will put in for case management and rehab screening -Patient showing some improvement in strength with steroids; rn long term care prognosis poor without intervention -Patient down for surgery this AM h/o Esophageal Ca w/ mets to the lungs CT chest showed no signs of mets. Negative PET in Oct 2017. 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 Patient having good bowel sounds and no N/V at this time. -No BM since Saturday -Senna/Docusate -Miralax -Milk of magnesia -s/p BM x1 after fleet enema Dispo: Patient doing well. Will follow recommendations of neurosurgery and oncology regarding further management of spinal cord lesion. Plan for neurosurgical intervention today. <Rach Connors - Last Filed: 12/11/17 08:25>
[2017-12-11] MEDS ORDERED: Midazolam HCl 2 mg/2 ml Vial ONE (06:09)
[2017-12-11] MEDS ORDERED: Fentanyl 250 MCG/5 ML VIAL ONE (06:09)
[2017-12-11] MEDS ORDERED: Sodium Chloride 0.9% 30 ML ONE (06:16)
[2017-12-11] MEDS ORDERED: Bupivacaine HCl 0.5%/Epinephrine 1:200,000/PF 30 ml Vial ONE (06:16)
[2017-12-11] MEDS ORDERED: Bacitracin Zinc Ointment 30 gm TUBE ONE (06:17)
[2017-12-11] MEDS ORDERED: Thrombin 5000 UNITS/5 ML VIAL ONE (06:17)
[2017-12-11] MEDS ORDERED: CEFAZOLIN/Water 2 GM/20 ML SYRINGE ONE ×2 (06:27→15:28)
[2017-12-11] MEDS ORDERED: Propofol 1,000 MG/100 ML VIAL IV ONE (06:29)
[2017-12-11] MEDS ORDERED: Ketamine 50 MG/ML VIAL ONE (06:29)
[2017-12-11] MEDS ORDERED: Ondansetron HCl/PF 4 MG/2 ML Vial ONE ×2 (07:13→15:28)
[2017-12-11] MEDS: Mometasone/Formoterol 120 PUFF INHALER INH SCH ×2 (07:24→19:02)
[2017-12-11] MEDS ORDERED: Pantoprazole 40 MG VIAL ONE ×2 (08:17)
[2017-12-11] MEDS: Docusate 100 MG CAP PO SCH ×2 (11:47→21:22)
[2017-12-11] MEDS: Polyethylene Glycol 3350 17 GM Packet PO SCH (11:48)
[2017-12-11] MEDS: Folic Acid 1 MG TAB PO SCH (11:48)
[2017-12-11] MEDS: Thiamine HCl 200 MG/2 ML VIAL SLOW IVP SCH (11:48)
[2017-12-11] MEDS ORDERED: Fentanyl 100 MCG/2 ML VIAL ONE ×2 (12:17→13:44)
[2017-12-11] MEDS ORDERED: Morphine Sulfate 2 MG/ML SYRINGE SLOW IVP PRN ×2 (12:24)
[2017-12-11] MEDS ORDERED: Promethazine HCl 25 MG/ML VIAL SLOW IVP PRN ×2 (12:24)
[2017-12-11] MEDS ORDERED: Midazolam HCl 2 mg/2 ml Vial SLOW IVP PRN (13:48)
[2017-12-11] MEDS: Sodium Chloride 0.9% 1,000 ML IV SCH (14:14)
--- NOTE | 2017-12-11 14:49 | OP ---
DATE OF SURGERY: 12/11/2017 SURGEON: Yeimy Canela M.D. [facility] TECH: Lane Rubio PA-C. PREOPERATIVE INDICATION: Prevent neurological deterioration. 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 OPERATIVE PROCEDURE: Decompressive laminectomy, medial facetectomy and foraminotomy, C7, T1, T2, T3, durotomy, myelotomy, intramedullary spinal cord lesion, partial resection/biopsy, removal of posteri or shoulder sebaceous cyst. PREOPERATIVE MEDICATIONS: Ancef 2 grams IV, Decadron 20 mg IV, Protonix 40 mg IV. DRAIN NUMBER: Zero. DRAIN TYPE: None. OPERATIVE DICTATION: The patient was brought to the operating room. General endotracheal anesthesia was induced. The patient was positioned prone on the operating table with gel-filled chest rolls vera pporting the chest and hips. Under anesthesia in this position, we ran SSEPs and MEPs. There was no signal below the level of the hands in any of the neural monitoring. This was in spite of increase in the blood pressure, repositioning, removing the more proximal area of the lower extremities. We t ook a lateral fluoro radiograph to plan our incision. We planned a midline incision that would give us access from C6-T3 as well as an incision lateral to the posterior right shoulder sebaceous cyst on his back. The back of the neck and shoulder sterilely prepped and draped. We opened a midline inci caitlin with a 10 blade knife and controlled bleeding with bipolar cautery. We used monopolar cautery t o dissect through subcutaneous tissues to the ligamentum nuchae and the thoracodorsal fascia. We inc ised the fascia in the midline and reflected the paraspinal muscles off the spinous process and kamron a from C6-T3. Self-retaining retractors were placed and a lateral fluoro radiograph confirmed the le vels upon which we were operating. We then performed a laminectomy by first removing the spinous pro cesses of C7, T1, T2, and the top of T3 and then removed the lamina with Kerrison rongeurs, we widene d our laminectomy defect until we were flushed with the pedicles. At C6-C7, we removed the yellow li gament, inferior portion of C6 as well because of cervical spondylosis and stenosis at that segment a nd the possible need for future radiation. After decompression was secured, we turned our attention to myelotomy. The operative microscope was brought in the field. Using 15 blade knife, we opened the dura. We cecil gthened our dural opening until we are open from C7 to the top of T3 and then we tacked the dura late rally with silk tackup sutures. We incised the arachnoid and clipped it to the open dural leaflets a nd then using a monitoring probe, we stimulated the dorsal columns. We stimulated above where there was good signal on the left and the right to find the midline of the posterior cord and this was stim ulated below the lesion and there was signal through the level of the lesion on the right and the lef t, and this helped us identify the midline as well. There was some tamped fleshy tissue just under t he surface of the cord in the midline at bottom of T1. We opened here and extended myelotomy superio rly and inferiorly in the midline and reflected the dorsal columns away from each other. We entered a neoplastic looking tissue. This did not have that clear demarcating plane; however, the healthy wh ite spinal cord was a completely different color from the reddish, tannish neoplastic tissue in the c enter of the cord within 1 fragments for frozen section and pathology felt this was consistent mostly with necrosis, but there were some small round blue cells, packed closely together suggestive of agg ressive neoplasm. Multiple more fragments and we sent them for permanent section, rather than doing any frozen section on them. We debulked the center of the spinal cord in the area where a myelotomy was performed, but we did not extend superiorly and inferiorly. Because after discussion with the pa thologist, we both felt this was very unlikely to represent an ependymoma and the plane was not suita ble for a complete circumferential dissection. We irrigated copiously with bacitracin irrigation. W e controlled bleeding with gentle bipolar cautery. We closed the dura with a running 6-0 Prolene. W e reinforced our dural closure with DuraSeal tissue sealant. Vancomycin powder was used to treat the wound and we closed the wound in anatomic layers. We then turned our attention and sebaceous cyst r emoval. We made incision lateral to the cyst dissected around it and removed in its entirety. This was also sent to pathology. We irrigated here with bacitracin irrigation and closed this wound as well. Ster ile dressings were applied. This was a clean case and no contamination.
[2017-12-11] MEDS ORDERED: PROPOFOL 200 MG/20 ML VIAL ONE ×2 (15:28→15:30)
[2017-12-11] MEDS ORDERED: Dexamethasone 20 MG/5 ML VIAL ONE ×2 (15:28)
[2017-12-11] MEDS ORDERED: Succinylcholine Chloride 20 MG/ML 10 ml SYRINGE FS ONE (15:28)
[2017-12-11] MEDS ORDERED: Lidocaine 1% PF 5 ML VIAL ONE (15:28)
[2017-12-11] MEDS ORDERED: PHENYLEPHRINE-NS 100 MCG/ML 10 ML SYRINGE ONE (15:28)
[2017-12-11] MEDS ORDERED: Labetalol HCl 100 MG/20 ML VIAL SLOW IVP PRN (15:34)
[2017-12-11] MEDS: Cyclobenzaprine 10 MG TAB PO PRN (16:04)
[2017-12-11] MEDS: Morphine 4 MG/ML VIAL SLOW IVP PRN (16:39)
[2017-12-11] MEDS: hydrALAZINE 20 MG/ML VIAL SLOW IVP PRN (17:00)
[2017-12-12] MEDS: Dexamethasone 4 mg/ml Vial SLOW IVP SCH ×5 (00:32→23:38)
[2017-12-12] MEDS: Sodium Chloride 0.9% 1,000 ML IV SCH ×2 (00:34→16:29)
--- NOTE | 2017-12-12 01:34 | CON ---
DATE OF CONSULTATION: 12/11/2017 SERVICE: Pulmonary medicine. REASON FOR CONSULTATION: ICU patient. HISTORY OF PRESENT ILLNESS: The patient is a 72-year-old white male who presented to the hospital about a week ago with onset of right leg numbness and weakness. He does have a history of esophageal cancer. It was treated in 2016 , he was under surveillance period of roughly 1 week ago, he had onset of above- mentioned neurologic changes. He currently denies any fevers, chills, nausea, vomiting, or shortness of breath. He underwent for spine surgery today for evaluation the culprit lesion. PAST MEDICAL HISTORY: 1. Esophageal cancer. 2. Hypertension. 3. COPD. 4. Dermatitis herpetiformis. PAST SURGICAL HISTORY: Decompressive laminectomy, medial fasciotomy, and foraminotomy of C7, T1, T2, T3. Intramedullary spinal cord lesion with partial resection and biopsy with subsequent removal of posterior shoulder sebaceous cyst. FAMILY HISTORY: Noncontributory. SOCIAL HISTORY: He drinks 3-4 beers on a nightly basis. He has a greater than [id number] history of smoking, but none currently do so. He denies any illicit drug use. There is no exposure to chemicals, dust asbestos, or tuberculosis. REVIEW OF SYSTEMS: General, head, ears, eyes, nose, throat, cardiovascular, respiratory, GI, , musculoskeletal, neurologic, and skin are negative except as mentioned in the HPI. PHYSICAL EXAMINATION: VITAL SIGNS: Afebrile, pulse 84, blood pressure 140/58, respirations 18, saturation 92% on room air. GENERAL: The patient is awake, alert, in no apparent distress. LUNGS: Decent air entry. There is no prolonged expiratory phase, wheezing, rhonchi, or crackles present. HEART: Normal rate, regular. ABDOMEN: Soft, nontender, nondistended. Bowel sounds are positive. MUSCULOSKELETAL: No cyanosis or clubbing. There is no pitting in the bilateral lower extremities. NEUROLOGIC: Grossly nonfocal. He demonstrates symmetric strength in the bilateral lower extremities and upper extremities. Sensation was not tested, however. Reflexes are symmetric currently. LABORATORY DATA: WBC 7.7, hemoglobin 10.8, platelets 270,000. ESR 11. INR 1.1. Basic metabolic profile and liver function studies were previously unremarkable. CRP is below the assay limit of 0.50. Urinalysis is completely unremarkable. IMAGIN. CT of the chest demonstrates findings consistent with COPD. There is no evidence of metastatic disease of the chest. Atherosclerosis is otherwise identified. 2. His T-spine MRI demonstrates evidence of primary cord neoplasm, either astrocytoma or ependymoma. The enhancing portion of the tumor is from T1-T3 level. Cord edema is also present. Cervical and thoracic spondylosis also identified. 3. CT of the C-spine demonstrates the same findings. 4. CT of brain demonstrates no acute intracranial abnormality. ASSESSMENT: 1. History of esophageal cancer, currently in remission. 2. Spinal cord lesion, status post biopsy and partial resection. 3. Chronic obstructive pulmonary disease without current exacerbation. PLAN: We will continue nebulized medications. The steroids are on board for the cord edema associated with this mass. Currently, pathology is pending. We will keep him in the ICU and try to maintain blood pressures greater than 130 systolic. Pulmonary Critical Care will continue to follow while he remains in this location, but if things remain stable over the next 24 hours, we will transition him out of the ICU to the medical unit. 70 minutes have been devoted to this patient in various activities. I personally reviewed all imaging studies and laboratory data noted within this document. For fifty percent of this time, I was interacting with the patient at the bedside or coordinating care with the care team. For the remainder of the time I was immediately available to the patient in the hospital unit. ANCELMO
--- NOTE | 2017-12-12 06:23 | EKG ---
Test Reason : PREOP Blood Pressure : / mmHG Vent. Rate : 070 BPM Atrial Rate : 070 BPM P-R Int : 162 ms QRS Dur : 090 ms QT Int : 408 ms P-R-T Axes : -18 -36 040 degrees QTc Int : 440 ms Normal sinus rhythm Left axis deviation Abnormal ECG When compared with ECG of 11-NOV-2015 12:52, No significant change was found Confirmed by DAV PALM ([id number]) on 12/12/2017 6:12:39 AM Referred By: JENS Confirmed By:DAV PALM
--- NOTE | 2017-12-12 06:31 | PDOC.FM ---
- Subjective Subjective: Patient doing well. No significant overnight events. He is in good spirits. Pain is being managed appropriately. He is working well with nurses to help with early mobilization. - Objective MAR Reviewed: Yes Vital Signs & Weight: Vital Signs (12 hours) Temp Pulse Resp Pulse Ox 12/12/17 01:00 98.7 F 12/11/17 23:50 86 14 95 12/11/17 23:36 95 12/11/17 23:00 98.7 F 12/11/17 21:00 98.5 F 12/11/17 20:00 98.8 F 91 23 H 93 L 12/11/17 19:02 91 23 H 95 12/11/17 19:00 98.8 F Weight Weight 95.254 kg Most Recent Monitor Data Heart Rate from ECG 79 NIBP 133/69 NIBP BP-Mean 75 Respiration from ECG 17 SpO2 96 I&O: 12/10/17 12/11/17 12/12/17 06:59 06:59 06:59 Intake Total 7557 2900 371 Output Total 2409 6781 9394 Balance 815 -0697 -1593 Result Diagrams: 12/06/17 03:16 12/06/17 03:16 EKG Reviewed by me: No Radiology Reviewed by me: Yes <Rach Connors - Last Filed: 12/12/17 08:39> - Objective Vital Signs & Weight: Vital Signs (12 hours) Temp Pulse Pulse Pulse Resp BP BP 12/12/17 17:09 97.7 F 102 H 20 12/12/17 16:08 97.7 F 102 H 20 12/12/17 13:46 92 16 12/12/17 12:00 98.6 F 12/12/17 11:10 98 157/91 H 12/12/17 10:51 95 100 142/91 H 12/12/17 10:30 140/84 12/12/17 08:00 98.1 F 97 20 12/12/17 07:00 98.1 F 12/12/17 06:47 12/12/17 06:44 93 17 BP BP Pulse Ox Pulse Ox Pulse Ox 12/12/17 17:09 12/12/17 16:08 138/73 92 L 12/12/17 13:46 12/12/17 12:00 12/12/17 11:10 12/12/17 10:51 157/91 H 96 93 L 12/12/17 10:30 12/12/17 08:00 93 L 12/12/17 07:00 12/12/17 06:47 99 12/12/17 06:44 99 Weight Weight 95.254 kg Most Recent Monitor Data Heart Rate from ECG 98 NIBP 104/61 NIBP BP-Mean 75 Respiration from ECG 16 SpO2 96 I&O: 12/11/17 12/12/17 12/13/17 06:59 06:59 06:59 Intake Total 2900 451 519 Output Total 4155 2410 765 Balance -1255 -1959 -246 Result Diagrams: 12/12/17 09:46 12/12/17 09:46 <Manuela Dumont - Last Filed: 12/12/17 18:44> Phys Exam - Physical Examination Constitutional: NAD HEENT: moist MMs Neck: supple Respiratory: clear to auscultation bilateral Cardiovascular: RRR, no significant murmur Gastrointestinal: soft, non-tender, positive bowel sounds Musculoskeletal: no edema Minimal mobilization of RLE mostly at the level of the hip Able to withdrawal to pain and plantarflex Psychiatric: normal affect, A&O x 3 Skin: no rash Deviation from normal: Steristrips over posterior right shoulder where nayan. 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 Code(s): C72.0 - MALIGNANT NEOPLASM OF SPINAL CORD Status: Acute (2) Right leg weakness Code(s): R29.898 - OTH SYMPTOMS AND SIGNS INVOLVING THE MUSCULOSKELETAL SYSTEM Status: Acute (3) Right leg numbness Code(s): R20.0 - ANESTHESIA OF SKIN Status: Acute (4) Alcohol abuse Code(s): F10.10 - ALCOHOL ABUSE, UNCOMPLICATED Status: Chronic (5) HTN (hypertension) Code(s): I10 - ESSENTIAL (PRIMARY) HYPERTENSION Status: Chronic QualifierTitle: Hypertension type: essential hypertension Qualified Code( s): I10 - Essential (primary) hypertension (6) Hx of esophageal malignancy Code(s): Z85.01 - PERSONAL HISTORY OF MALIGNANT NEOPLASM OF ESOPHAGUS Status: Chronic - Plan Plan: 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 Partial resection/biopsy, removal of posterior shoulder sebaceous cyst -Plan for early mobilization and PT starting between now and next week -Stable for transfer to floor today -Await pathology results to guide further treatment h/o Esophageal Ca w/ mets to the lungs CT chest showed no signs of mets. Negative PET in Oct 2017. 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 Patient having good bowel sounds and no N/V at this time. -Senna/Docusate -Miralax -Milk of magnesia -s/p BM x1 after fleet enema Dispo: Patient doing well. Will follow recommendations of neurosurgery and oncology regarding further management of spinal cord lesion. Post-op day #1. <Rach Connors - Last Filed: 12/12/17 08:39> Attending Addendum - Attending Addendum Date/Time: 12/12/17 8204 I personally evaluated the patient and discussed the management with Dr. Connors. I agree with the History, Examination, Assessment and Plan documented above with any addition or exceptions noted below. The patient is s/p biopsy. Blood pressure is stable. Pathology report pending. Neuro mgmt per NS. <Manuela Dumont - Last Filed: 12/12/17 18:44>
[2017-12-12] MEDS: Cyclobenzaprine 10 MG TAB PO PRN ×2 (06:46→18:09)
[2017-12-12] MEDS: Morphine 4 MG/ML VIAL SLOW IVP PRN ×2 (06:46→16:37)
--- NOTE | 2017-12-12 07:45 | PRG ---
DATE OF SERVICE: 12/12/2017 NEUROSURGERY PROGRESS NOTE SUBJECTIVE: I saw Mr. Hernandez this morning. He is 1 day out from a cervical thoracic laminectomy for both stenosis and tumor as well as an intramedullary spinal cord tumor, partial resection/biopsy. Mr. Hernandez is recovering from a surgery in the ICU. We have kept his blood pressure between 130 and 1 60 overnight. He is now not requiring any medication to do so. Mr. Hernandez has some soreness from his surgery, which is understandable. He feels his leg function is the same as it was before surgery on examination, I agree with them. He has good antigravity strengt h in the left lower extremity. He has slow weakness on the right lower extremity upper motor neuron fashion and some spasticity, right greater than left. Mr. Hernandez's tumor, unfortunately, did not have a clear delineating plane that allow microdissection b etween the tumor and spinal cord and therefore a significant portion was left behind in order to pres erve neurological function. He will need chemoradiotherapy depending on final histopathology. Between now and next week, he will need physical therapy and mobilization. We will await pathology a nd then Dr. Qiu and Dr. Armstrong can design a treatment plan based on tissue diagnosis.
--- NOTE | 2017-12-12 07:56 | PRG ---
DATE OF SERVICE: 12/12/2017 The patient is doing reasonably well postoperatively. PHYSICAL EXAMINATION: VITAL SIGNS: Temperature is 98.1, pulse 96, blood pressure 127/98, currently on no vasopressors. 24 hour intake 451, output 2410. HEENT: Unremarkable. NECK: No JVD. CHEST: Chest with diffuse crackles. CARDIAC: S1 and S2 regular. ABDOMEN: Soft. EXTREMITIES: No edema. NEUROLOGIC: He has poor movement of his lower extremities. ASSESSMENT 1. History of esophageal cancer. 2. Spinal cord lesion, status post biopsy and partial resection. 3. Chronic obstructive pulmonary disease. PLAN: He should be stable for transfer to the floor today. Continue nebulization treatments. I francine l go ahead and restart Dulera as he is on Symbicort at home.
--- NOTE | 2017-12-12 08:39 | PRG ---
DATE OF SERVICE: 12/12/2017 SUBJECTIVE: Mr. Hernandez is status post 1 day from a cervical thoracic laminectomy and resection of int ramedullary spinal cord tumor. Mr. Hernandez is recovering well in the ICU. His systolic blood pressure s overnight have been between 130 and 160. He has a 3/5 strength in the left lower extremity and 1/5 strength in the right lower extremity. Bilateral upper extremities are unaffected, there are no new neurologic deficits in the upper extremity. He has some motor neuron spasticity in the right greate r than the left. Most of his symptoms are related to a preoperative neurologic condition of nerve co mpression and myelopathy. He will likely need radiation therapy depending on his histopathology. On cology and Radiation Oncology will be able to make further plans with treatment based on pathology. If there are any further questions, please feel free to contact Neurosurgery.
[2017-12-12 09:58] LABS: #Lymphocytes 0.6 thou/uL (1.20-3.40); #Monocytes 1.8 thou/uL (0.11-0.59); #Neutrophils 12.5 thou/uL (1.40-6.50); %Basophils 0.1 % (0.0-1.0); %Lymphocytes 3.8 % (21.0-51.0); %Monocytes 11.9 % (0.0-10.0); %Neutrophils 84.2 % (42.0-75.0); Hemoglobin 12.1 g/dL (14.0-18.0); Mean Corpuscular HGB CONC 32.1 g/dL (32.0-36.0); Mean Corpuscular Hemoglobin 29.9 pg (27.0-31.0); Mean Corpuscular Volume 93.2 fl (80.0-94.0); Platelet Count 202 thou/uL (130-400); RBC Distribution Width 14.3 % (11.5-14.5); Red Blood Cell (RBC) Count 4.05 mill/uL (4.70-6.10); White Blood Cell (WBC) Count 14.9 thou/uL (4.8-10.8)
[2017-12-12] MEDS: Folic Acid 1 MG TAB PO SCH (10:30)
[2017-12-12] MEDS: Polyethylene Glycol 3350 17 GM Packet PO SCH (10:30)
[2017-12-12] MEDS: Docusate 100 MG CAP PO SCH ×2 (10:30→20:14)
[2017-12-12 10:37] LABS: Anion Gap 12 mmol/L (10-20); BUN (Urea Nitrogen) 25 mg/dL (8.4-25.7); Calc. Creatinine Clearance 93 mL/min (70-130); Carbon Dioxide 26 mmol/L (23-31); Chloride 104 mmol/L (98-107); Estimated GFR-MDRD 76; Potassium 4.5 mmol/L (3.5-5.1); Sodium 137 mmol/L (136-145)
[2017-12-12 10:38] LABS: ALT (SGPT) 15 U/L (8-55); AST (SGOT) 14 U/L (5-34); Albumin 3.3 g/dL (3.4-4.8); Alkaline Phosphatase 69 U/L (40-150); Bilirubin, Total 0.9 mg/dL (0.2-1.2); Calcium 8.3 mg/dL (7.8-10.44); Glucose 108 mg/dL (83-110); Protein, Total 6.3 g/dL (5.8-8.1)
[2017-12-12] MEDS: Thiamine HCl 200 MG/2 ML VIAL SLOW IVP SCH (13:13)
[2017-12-12] MEDS: Mometasone/Formoterol 120 PUFF INHALER INH SCH (19:05)
[2017-12-13] MEDS: hydrALAZINE 20 MG/ML VIAL SLOW IVP PRN (00:22)
[2017-12-13] MEDS: Dexamethasone 4 mg/ml Vial SLOW IVP SCH ×4 (05:05→23:14)
[2017-12-13] MEDS: Sodium Chloride 0.9% 1,000 ML IV SCH ×2 (05:05→18:42)
[2017-12-13 06:02] LABS: Anion Gap 7 mmol/L (10-20); BUN (Urea Nitrogen) 26 mg/dL (8.4-25.7); Calc. Creatinine Clearance 106 mL/min (70-130); Calcium 8.4 mg/dL (7.8-10.44); Carbon Dioxide 28 mmol/L (23-31); Chloride 102 mmol/L (98-107); Estimated GFR-MDRD 89; Glucose 119 mg/dL (83-110); Potassium 4.2 mmol/L (3.5-5.1); Sodium 133 mmol/L (136-145)
[2017-12-13 06:05] LABS: Band 2 % (5-11); Hemoglobin 11.3 g/dL (14.0-18.0); Lymphocytes 3 % (21-51); MDiff Complete? YES; Mean Corpuscular HGB CONC 31.6 g/dL (32.0-36.0); Mean Corpuscular Hemoglobin 29.3 pg (27.0-31.0); Mean Corpuscular Volume 92.8 fl (80.0-94.0); Mean Platelet Volume 6.2 fL (7.4-10.4); Monocytes 9 % (0-10); Neutrophil 86 % (42-75); Platelet Count 171 thou/uL (130-400); RBC Distribution Width 14.2 % (11.5-14.5); Red Blood Cell (RBC) Count 3.87 mill/uL (4.70-6.10); White Blood Cell (WBC) Count 16.9 thou/uL (4.8-10.8)
[2017-12-13] MEDS: Mometasone/Formoterol 120 PUFF INHALER INH SCH ×2 (06:15→19:07)
--- NOTE | 2017-12-13 06:22 | PDOC.FM ---
- Subjective Subjective: No significant overnight events. Patient stable from yesterday. He was transferred to the surgical floor from the ICU. Patient endorses weakness and numbness of right lower extremity. He understands that at this point we are awaiting pathology results to guide further management. Patient is in good spirits despite his current situation. He denies any chest pain, shortness of breath, or lower extremity pain. - Objective MAR Reviewed: Yes Vital Signs & Weight: Vital Signs (12 hours) Temp Pulse Resp BP BP Pulse Ox 12/13/17 06:17 85 16 90 L 12/13/17 06:15 85 20 90 L 12/13/17 05:06 98 174/73 H 12/13/17 03:17 97.6 F 98 16 174/73 H 92 L 12/13/17 00:22 94 165/91 H 12/13/17 00:20 16 12/12/17 23:49 97.9 F 94 16 165/91 H 93 L 12/12/17 20:14 98.3 F 108 H 20 93 L 12/12/17 19:21 98.3 F 108 H 20 130/78 93 L 12/12/17 18:46 85 16 96 Weight Weight 95.254 kg Most Recent Monitor Data Heart Rate from ECG 98 NIBP 104/61 NIBP BP-Mean 75 Respiration from ECG 16 SpO2 96 I&O: 12/11/17 12/12/17 12/13/17 06:59 06:59 06:59 Intake Total 2900 451 519 Output Total 4155 2410 765 [facility] -1255 -1959 -246 Result Diagrams: 12/13/17 05:28 12/13/17 05:28 EKG Reviewed by me: No Radiology Reviewed by me: Yes <Rach Connors - Last Filed: 12/13/17 08:45> - Objective Vital Signs & Weight: Vital Signs (12 hours) Temp Pulse Resp BP BP Pulse Ox 12/13/17 12:59 104 H 18 92 L 12/13/17 11:00 97.6 F 100 18 148/84 H 96 12/13/17 09:03 159/89 H 12/13/17 08:00 97.6 F 90 19 159/89 H 93 L 12/13/17 06:17 85 16 90 L 12/13/17 06:15 85 20 90 L 12/13/17 05:30 145/89 H 94 L 12/13/17 05:06 98 174/73 H 12/13/17 03:17 97.6 F 98 16 174/73 H 92 L Weight Weight 95.254 kg Most Recent Monitor Data Heart Rate from ECG 98 NIBP 104/61 NIBP BP-Mean 75 Respiration from ECG 16 SpO2 96 I&O: 12/12/17 12/13/17 12/14/17 06:59 06:59 06:59 Intake Total 451 1119 Output Total 2410 4875 Balance -9 596 Result Diagrams: 12/13/17 05:28 12/13/17 05:28 <Manuela Dumont - Last Filed: 12/13/17 14:27> Phys Exam - Physical Examination Constitutional: NAD Lying flat in bed. Appears mildly uncomfortable. 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 Code(s): C72.0 - MALIGNANT NEOPLASM OF SPINAL CORD Status: Acute (2) Right leg weakness Code(s): R29.898 - OTH SYMPTOMS AND SIGNS INVOLVING THE MUSCULOSKELETAL SYSTEM Status: Acute (3) Right leg numbness Code(s): R20.0 - ANESTHESIA OF SKIN Status: Acute (4) Alcohol abuse Code(s): F10.10 - ALCOHOL ABUSE, UNCOMPLICATED Status: Chronic (5) HTN (hypertension) Code(s): I10 - ESSENTIAL (PRIMARY) HYPERTENSION Status: Chronic QualifierTitle: Hypertension type: essential hypertension Qualified Code( s): I10 - Essential (primary) hypertension (6) Hx of esophageal malignancy Code(s): Z85.01 - PERSONAL HISTORY OF MALIGNANT NEOPLASM OF ESOPHAGUS Status: Chronic - Plan Plan: 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 Negative PET in Oct 2017. 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 -Senna/Docusate -Miralax -Milk of magnesia Dispo: Patient doing well. Will follow recommendations of neurosurgery and oncology regarding further management of spinal cord lesion. Post-op day #2. <Rach Connors - Last Filed: 12/13/17 08:45> Attending Addendum - Attending Addendum Date/Time: 12/13/17 9787 I personally evaluated the patient and discussed the management with Dr. Connors. I agree with the History, Examination, Assessment and Plan documented above with any addition or exceptions noted below. The patient's rle weakness is unchanged. Increasing enalapril to better control bp. Further mgmt per neurosurgery and oncology. 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 <Manuela Dumont - Last Filed: 12/13/17 14:27>
--- NOTE | 2017-12-13 07:29 | PRG ---
DATE OF SERVICE: 12/13/2017 Mr. Hernandez is a 72-year-old male who I saw in his room this morning. Neurologically, there have been no new changes overnight and he has no new neurologic deficits. He does have some peripheral neuropa thy in the feet and he has some paresthesias around the pelvic area with no dermatomal sensory level in the low back or thoracic region. He is able to move his left lower extremity against gravity; how ever, he is able to move his right lower extremity against gravity. He is unable to move his left lo wer extremity against gravity. He is status post 2 days from a spinal cord tumor removal/biopsy. We currently still waiting for a path report for him. He can work with physical therapy today and they get him up out of bed into a chair. If there are any further questions, please feel free to contact Neurosurgery.
--- NOTE | 2017-12-13 08:07 | PRG ---
DATE OF SERVICE: 12/13/2017 NEUROSURGERY PROGRESS NOTE SUBJECTIVE: I saw Mr. Andre Hernandez in his hospital room today. He is 2 days out from a spinal cord surgery where we did a partial resection/biopsy of intramedullary spinal cord tumor. Mr. Hernandez's neurological examination is stable. He has relatively good strength in the left lower ex tremity, poor strength in the right lower extremity, spasticity and decreased sensation on the feet a nd including joint position sense. None of these are empirically changed from before his operation. We are awaiting final pathology and we should be vigilant in watching for any DVT.
--- NOTE | 2017-12-13 08:33 | PRG ---
DATE OF SERVICE: 12/13/2017 The patient has been moved to the 3rd floor. He is breathing well, has no complaints. PHYSICAL EXAMINATION: VITAL SIGNS: Temperature is 97.6, pulse 90, respirations 19, O2 sat 93%, blood pressure 159/89. HEENT: Unremarkable. NECK: No JVD. LUNGS: Clear. CARDIAC: S1 and S2 regular. ABDOMEN: Soft. EXTREMITIES: No edema. ASSESSMENT: 1. History of esophageal cancer. 2. Spinal cord metastasis - status post biopsy and partial resection. 3. Chronic obstructive pulmonary disease. PLAN: Continue nebulization therapy. Pulmonary status seems stable at this time. The remainder of his hospital course will be dictated by the need for therapy for strengthening. Pulmonary will be av ailable over the weekend as needed. Please call Dr. Davalos if anything comes up.
[2017-12-13] MEDS: Thiamine HCl 200 MG/2 ML VIAL SLOW IVP SCH (09:02)
[2017-12-13] MEDS: Polyethylene Glycol 3350 17 GM Packet PO SCH (09:03)
[2017-12-13] MEDS: Docusate 100 MG CAP PO SCH ×2 (09:03→22:45)
[2017-12-13] MEDS: Folic Acid 1 MG TAB PO SCH (09:03)
[2017-12-13] MEDS: Morphine 4 MG/ML VIAL SLOW IVP PRN (14:42)
--- NOTE | 2017-12-13 17:49 | PRG ---
DATE OF SERVICE: 12/13/2017 SUBJECTIVE: Mr. Hernandez was seen today. He underwent surgery for his spinal cord tumor. This was don e 2 days ago. He is having expected postoperative pain from his procedure, but this seems to be well controlled. He is having more pain at the present just because they got him out of bed and set him up. He does feel like he needs to go to the bathroom. OBJECTIVE: VITAL SIGNS: Blood pressure is 138/85, pulse is 106, respirations are 18, temperature is 98.0, O2 sa turation is 94% on 2 liters O2. Height 5 feet 11 inches, weight 210 pounds. CONSTITUTIONAL: He is alert and oriented, in no apparent distress. Karnofsky performance status is a 60%-70%, but expected to improve. NECK: Supple without adenopathy. LUNGS: Clear to auscultation. HEART: Regular rate and rhythm without murmur. ABDOMEN: Soft, nontender, nondistended without mass or hepatosplenomegaly. NEUROLOGIC: Motor strength is 5/5 in both upper extremities and all muscle groups tested. In the le ft lower extremity, his strength is 5/5. Right lower extremity strength is 3/5. This appears to be the same as preoperative. LABORATORY DATA: Today revealed a white blood count of 16,900 with a hemoglobin of 11.3, hematocrit of 35.9, platelet count 171,000. Chemistry group revealed sodium of 133. Potassium was 4.2. Creati nine was 0.85. Pathology from the spinal cord tumor returned today as metastatic poorly differentiated squamous cell carcinoma. ASSESSMENT: Mr. 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 He now has what appears to be an isolated metastasis to the spinal cord. Th is appears to be his only site of disease. PLAN: In reading Dr. Canela's operative report, the lesion was debulked but the entirety of the l esion was not removed because of concerns for damage to the spinal cord and the fact that intraoperat ively, it appeared by frozen section to be metastasis rather than a primary cord tumor. He is likely going to need a postoperative treatment. Likely, he is going to need some radiation therapy in the future. There is some difficulty since he has had some radiation to this area before, but additional radiation may need to be considered. It is my understanding that the patient will be going soon to rehabilitation. Hopefully, he can recover some strength in his right lower extremity. I would like to see him again as an outpatient in 2-3 weeks. We can then decide what treatment he will need with radiation therapy or even chemotherapy. He will need to fully heal from the surgery before any radia tion therapy could be initiated.
[2017-12-14] MEDS: Sodium Chloride 0.9% 1,000 ML IV SCH (06:00)
[2017-12-14] MEDS: Dexamethasone 4 mg/ml Vial SLOW IVP SCH ×4 (06:09→23:29)
[2017-12-14] MEDS: Mometasone/Formoterol 120 PUFF INHALER INH SCH ×2 (06:53→19:23)
--- NOTE | 2017-12-14 07:13 | PDOC.FM ---
- Subjective Subjective: Patient doing well this AM. No significant overnight events. Denies chest pain, calf pain, shortness of breath, nausea or vomiting. Awaiting placement at rehab. - Objective MAR Reviewed: Yes Vital Signs & Weight: Vital Signs (12 hours) Temp Pulse Resp BP Pulse Ox 12/14/17 06:53 88 16 95 12/14/17 03:06 98.2 F 91 16 129/75 92 L 12/14/17 00:26 89 16 95 12/13/17 23:29 98 F 99 16 135/75 96 12/13/17 20:00 98.1 F 109 H 16 95 12/13/17 19:31 98.1 F 109 H 20 136/82 95 Weight Weight 95.254 kg Most Recent Monitor Data Heart Rate from ECG 98 NIBP 104/61 NIBP BP-Mean 75 Respiration from ECG 16 SpO2 96 I&O: 12/13/17 12/14/17 12/15/17 06:59 06:59 06:59 Intake Total 1119 Output Total 1710 1840 Balance -111 -6767 Result Diagrams: 12/13/17 05:28 12/13/17 05:28 EKG Reviewed by me: Yes Radiology Reviewed by me: Yes <Rach Connors - Last Filed: 12/14/17 11:26> - Objective Vital Signs & Weight: Vital Signs (12 hours) Temp Pulse Resp BP BP Pulse Ox 12/14/17 12:07 86 16 96 12/14/17 11:58 98.2 F 98 18 140/79 94 L 12/14/17 08:40 174/95 H 12/14/17 08:39 98.2 F 92 16 174/95 H 93 L 12/14/17 08:23 98.2 F 92 16 178/93 H 93 L 12/14/17 06:53 88 16 95 Weight Weight 95.254 kg Most Recent Monitor Data Heart Rate from ECG 98 NIBP 104/61 NIBP BP-Mean 75 Respiration from ECG 16 SpO2 96 I&O: 12/13/17 12/14/17 12/15/17 06:59 06:59 06:59 Intake Total 1119 Output Total 1715 1840 Balance -754 -4433 Result Diagrams: 12/13/17 05:28 12/13/17 05:28 <Juni Mercado - Last Filed: 12/14/17 15:28> Phys Exam - Physical Examination Constitutional: NAD HEENT: moist MMs, sclera anicteric Neck: supple Respiratory: no wheezing Cardiovascular: RRR, no significant murmur Gastrointestinal: soft, non-tender, positive bowel sounds Musculoskeletal: no edema, pulses present Decreased strength against gravity RLE Psychiatric: normal affect Skin: no rash, cap refill <2 seconds <Waylon,Rach - Last Filed: 12/14/17 11:26> Dx/Plan (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 Code(s): C72.0 - MALIGNANT NEOPLASM OF SPINAL CORD Status: Acute (2) Right leg weakness Code(s): R29.898 - OTH SYMPTOMS AND SIGNS INVOLVING THE MUSCULOSKELETAL SYSTEM Status: Acute (3) Right leg numbness Code(s): R20.0 - ANESTHESIA OF SKIN Status: Acute (4) Alcohol abuse Code(s): F10.10 - ALCOHOL ABUSE, UNCOMPLICATED Status: Chronic (5) HTN (hypertension) Code(s): I10 - ESSENTIAL (PRIMARY) HYPERTENSION Status: Chronic QualifierTitle: Hypertension type: essential hypertension Qualified Code( s): I10 - Essential (primary) hypertension (6) Hx of esophageal malignancy Code(s): Z85.01 - PERSONAL HISTORY OF MALIGNANT NEOPLASM OF ESOPHAGUS Status: Chronic - Plan Plan: Spinal cord neoplasm at T1-T# -Onc consulted, appreciate recs -Neurosurgery consulted, appreciate recs -Continue decadron per neurosurg -Continue flexeril -Case management and rehab screen pending for placement -Post op day #3: decompressive laminectomy, medial facetectomy and foraminectomy of C7, T1, T2, and T3, durotomy, myelotomy, intramedullary spinal cord lesion. 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 Negative PET in Oct 2017. 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 -Senna/Docusate -Miralax -Milk of magnesia Dispo: Patient doing well. Will follow recommendations of neurosurgery and oncology regarding further management of spinal cord lesion. Post-op day #3. Plan for rehab with radiation/chemo to follow a few weeks later. Discharge pending rehab placement. <Rach Connors - Last Filed: 12/14/17 11:26> Attending Addendum - Attending Addendum Date/Time: 12/14/17 8810 I personally evaluated the patient and discussed the management with Dr. Connors. I agree with the History, Examination, Assessment and Plan documented above with any addition or exceptions noted below. He is doing ok. Ready to get on with therapy/treatment. Some flexion R knee, minimal movement R foot and toes. Post Op Day 3: decompressive laminectomy, medial facetectomy and foraminectomy of C7, T1, T2, and T3, for an intramedullary spinal cord lesion. Partial resection/biopsy. Path showed Metastatic Poorly Differentiated Squamous Cell Carcinoma, most likely esophageal due to his prior hx. P: He needs a few weeks to heal from the spinal surgery, undergo rehab and then come back to oncology for recommendations on treatment: radiation and/or chemotherapy. MD Rigo <Juni Mercado - Last Filed: 12/14/17 15:28>
[2017-12-14] MEDS ORDERED: Milk Of Magnesia 30 ML UDCUP PO SCH (07:15)
[2017-12-14] MEDS: Docusate 100 MG CAP PO SCH ×2 (08:39→20:02)
[2017-12-14] MEDS: Polyethylene Glycol 3350 17 GM Packet PO SCH (08:40)
[2017-12-14] MEDS: Folic Acid 1 MG TAB PO SCH (08:40)
[2017-12-14] MEDS: hydrALAZINE 20 MG/ML VIAL SLOW IVP PRN (08:40)
[2017-12-14] MEDS: Thiamine HCl 200 MG/2 ML VIAL SLOW IVP SCH (08:40)
[2017-12-14] MEDS: Cyclobenzaprine 10 MG TAB PO PRN (20:08)
[2017-12-15] MEDS: Sodium Chloride 0.9% 1,000 ML IV SCH ×3 (00:51→23:22)
[2017-12-15] MEDS: Dexamethasone 4 mg/ml Vial SLOW IVP SCH ×4 (05:09→23:25)
[2017-12-15] MEDS: Milk Of Magnesia 30 ML UDCUP PO SCH (05:09)
[2017-12-15] MEDS: Cyclobenzaprine 10 MG TAB PO PRN ×2 (05:17→20:45)
--- NOTE | 2017-12-15 06:26 | PDOC.FM ---
- Subjective Subjective: Patient doing well this AM. No significant overnight events. Patient has yet to have a BM since surgery despite bowel regimen. He does endorse feeling as though he needs to go. Patient complaining of mild amount of abdominal pain. Still awaiting placement at rehab. - Objective MAR Reviewed: Yes Vital Signs & Weight: Vital Signs (12 hours) Temp Pulse Resp BP Pulse Ox 12/15/17 03:31 97.8 F 84 16 131/79 93 L 12/15/17 00:41 95 12/15/17 00:05 97.8 F 86 16 120/74 94 L 12/14/17 20:02 98.3 F 100 16 99 12/14/17 19:43 98.3 F 100 16 110/75 99 12/14/17 19:24 95 12/14/17 19:23 95 12/14/17 19:22 95 Weight Weight 95.254 kg Most Recent Monitor Data Heart Rate from ECG 98 NIBP 104/61 NIBP BP-Mean 75 Respiration from ECG 16 SpO2 96 I&O: 12/13/17 12/14/17 12/15/17 06:59 06:59 06:59 Intake Total 1119 2230 Output Total 171 1840 1300 Balance -596 -1840 930 Result Diagrams: 12/15/17 06:37 12/15/17 06:37 EKG Reviewed by me: No Radiology Reviewed by me: Yes <Rach Connors - Last Filed: 12/15/17 07:45> - Objective Vital Signs & Weight: Vital Signs (12 hours) Temp Pulse Resp BP BP Pulse Ox 12/15/17 11:40 98.0 F 85 16 136/82 95 12/15/17 09:05 159/84 H 12/15/17 08:07 97.5 F L 83 18 159/84 H 93 L 12/15/17 07:47 97.5 F L 83 18 93 L 12/15/17 06:37 89 16 94 L 12/15/17 03:31 97.8 F 84 16 131/79 93 L 12/15/17 00:41 95 Weight Weight 95.254 kg Most Recent Monitor Data Heart Rate from ECG 98 NIBP 104/61 NIBP BP-Mean 75 Respiration from ECG 16 SpO2 96 I&O: 12/14/17 12/15/17 12/16/17 06:59 06:59 06:59 Intake Total 2230 Output Total 1840 1300 Balance -1840 930 Result Diagrams: 12/15/17 06:37 12/15/17 06:37 <Juni Mercado - Last Filed: 12/15/17 12:21> Phys Exam - Physical Examination Constitutional: NAD HEENT: moist MMs Neck: supple Respiratory: clear to auscultation bilateral Cardiovascular: RRR, no significant murmur Gastrointestinal: soft, no distention, positive bowel sounds mildly tendder Musculoskeletal: no edema, pulses present Decreased RLE strength; some flexion of right leg Psychiatric: normal affect Skin: no rash <Rach Connors - Last Filed: 12/15/17 07:45> Dx/Plan (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 Code(s): C72.0 - MALIGNANT NEOPLASM OF SPINAL CORD Status: Acute (2) Right leg weakness Code(s): R29.898 - OTH SYMPTOMS AND SIGNS INVOLVING THE MUSCULOSKELETAL SYSTEM Status: Acute (3) Right leg numbness Code(s): R20.0 - ANESTHESIA OF SKIN Status: Acute (4) Alcohol abuse Code(s): F10.10 - ALCOHOL ABUSE, UNCOMPLICATED Status: Chronic (5) HTN (hypertension) Code(s): I10 - ESSENTIAL (PRIMARY) HYPERTENSION Status: Chronic QualifierTitle: Hypertension type: essential hypertension Qualified Code( s): I10 - Essential (primary) hypertension (6) Hx of esophageal malignancy Code(s): Z85.01 - PERSONAL HISTORY OF MALIGNANT NEOPLASM OF ESOPHAGUS Status: Chronic - Plan Plan: Spinal cord neoplasm at T1-T# -Onc consulted, appreciate recs -Neurosurgery consulted, appreciate recs -Continue decadron per neurosurg -Continue flexeril -Case management and rehab screen pending for placement -Post op day #4: decompressive laminectomy, medial facetectomy and foraminectomy of C7, T1, T2, and T3, durotomy, myelotomy, intramedullary spinal cord lesion. 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 Negative PET in Oct 2017. 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 -Senna/Docusate -Miralax -Milk of magnesia -May consider enema today -May consider KUB Dispo: Patient doing well. Post-op day #4. Plan for rehab with radiation/chemo to follow a few weeks later. Discharge pending rehab placement. <Rach Connors - Last Filed: 12/15/17 07:45> Attending Addendum - Attending Addendum Date/Time: 12/15/17 1216 I personally evaluated the patient and discussed the management with Dr. Connors. I agree with the History, Examination, Assessment and Plan documented above with any addition or exceptions noted below. He feels all stopped up with constipation. Otherwise doing ok. Abdomen is distended. Agree with giving and enema and continuing oral Milk of Magnesia and Miralax. MD Rigo <Juni Mercado - Last Filed: 12/15/17 12:21>
[2017-12-15] MEDS: Mometasone/Formoterol 120 PUFF INHALER INH SCH ×2 (06:40→18:28)
[2017-12-15 06:47] LABS: #Lymphocytes 0.6 thou/uL (1.20-3.40); #Monocytes 1.3 thou/uL (0.11-0.59); #Neutrophils 10.7 thou/uL (1.40-6.50); %Basophils 0.1 % (0.0-1.0); %Eosinophils 0.1 % (0.0-10.0); %Lymphocytes 4.9 % (21.0-51.0); %Monocytes 10.3 % (0.0-10.0); %Neutrophils 84.7 % (42.0-75.0); Hemoglobin 11.6 g/dL (14.0-18.0); Mean Corpuscular HGB CONC 32.5 g/dL (32.0-36.0); Mean Corpuscular Hemoglobin 30.2 pg (27.0-31.0); Mean Corpuscular Volume 92.7 fl (80.0-94.0); Mean Platelet Volume 6.6 fL (7.4-10.4); Platelet Count 159 thou/uL (130-400); RBC Distribution Width 14.7 % (11.5-14.5); Red Blood Cell (RBC) Count 3.84 mill/uL (4.70-6.10); White Blood Cell (WBC) Count 12.7 thou/uL (4.8-10.8)
[2017-12-15 07:10] LABS: ALT (SGPT) 13 U/L (8-55); AST (SGOT) 7 U/L (5-34); Albumin 3.1 g/dL (3.4-4.8); Alkaline Phosphatase 64 U/L (40-150); Anion Gap 11 mmol/L (10-20); BUN (Urea Nitrogen) 33 mg/dL (8.4-25.7); Bilirubin, Total 1.1 mg/dL (0.2-1.2); Calc. Creatinine Clearance 108 mL/min (70-130); Calcium 8.7 mg/dL (7.8-10.44); Carbon Dioxide 27 mmol/L (23-31); Chloride 102 mmol/L (98-107); Estimated GFR-MDRD Greater than 90; Globulin 3.1 g/dL (2.4-3.5); Glucose 115 mg/dL (83-110); Magnesium 2.2 mg/dL (1.6-2.6); Phosphorus 3.9 mg/dL (2.3-4.7); Potassium 4.7 mmol/L (3.5-5.1); Protein, Total 6.2 g/dL (5.8-8.1); Sodium 135 mmol/L (136-145)
[2017-12-15] MEDS: Polyethylene Glycol 3350 17 GM Packet PO SCH (09:00)
[2017-12-15] MEDS: Folic Acid 1 MG TAB PO SCH (09:00)
[2017-12-15] MEDS: Docusate 100 MG CAP PO SCH ×2 (09:00→20:45)
[2017-12-15] MEDS: Thiamine HCl 200 MG/2 ML VIAL SLOW IVP SCH (09:01)
[2017-12-15] MEDS ORDERED: Fleet Enema 133 ML BOT PR SCH (11:00)
[2017-12-16] MEDS: Dexamethasone 4 mg/ml Vial SLOW IVP SCH ×2 (05:21→13:59)
[2017-12-16] MEDS: Cyclobenzaprine 10 MG TAB PO PRN (05:26)
--- NOTE | 2017-12-16 06:05 | PDOC.FM ---
- Subjective Subjective: Patient doing well this AM. No significant overnight events. Patient requesting to go home today with HH as opposed to rehab. He says this was discussed with neurosurgery and they were on board. I told patient I would run this by case management. Will discuss options today. - Objective MAR Reviewed: Yes Vital Signs & Weight: Vital Signs (12 hours) Temp Pulse Resp BP Pulse Ox 12/16/17 03:52 97.6 F 81 18 96 12/16/17 02:22 94 L 12/16/17 00:37 16 12/16/17 00:00 98 F 84 18 119/74 97 12/15/17 20:00 98 F 100 16 146/81 H 95 12/15/17 18:30 85 12 12/15/17 18:28 85 12 Weight Weight 95.254 kg Most Recent Monitor Data Heart Rate from ECG 98 NIBP 104/61 NIBP BP-Mean 75 Respiration from ECG 16 SpO2 96 I&O: 12/14/17 12/15/17 12/16/17 06:59 06:59 06:59 Intake Total 2230 1850 Output Total 1840 1300 700 Balance -6091 485 6238 Result Diagrams: 12/15/17 06:37 12/15/17 06:37 EKG Reviewed by me: No Radiology Reviewed by me: Yes Phys Exam - Physical Examination Constitutional: NAD HEENT: moist MMs Neck: supple Respiratory: clear to auscultation bilateral Cardiovascular: RRR, no significant murmur Gastrointestinal: soft, no distention, positive bowel sounds Musculoskeletal: no edema, pulses present Decreased strength in RLE (cannot lift against resistance). Some flexion at knee and hip Psychiatric: normal affect Skin: no rash, cap refill <2 seconds Dx/Plan (1) Spinal cord compression due to malignant neoplasm metastatic to spine Code(s): G95.20 - UNSPECIFIED CORD COMPRESSION; C79.51 - SECONDARY MALIGNANT NEOPLASM OF BONE Status: Acute (2) Right leg weakness Code(s): R29.898 - OTH SYMPTOMS AND SIGNS INVOLVING THE MUSCULOSKELETAL SYSTEM Status: Acute (3) Right leg numbness Code(s): R20.0 - ANESTHESIA OF SKIN Status: Acute (4) Alcohol abuse Code(s): F10.10 - ALCOHOL ABUSE, UNCOMPLICATED Status: Chronic (5) HTN (hypertension) Code(s): I10 - ESSENTIAL (PRIMARY) HYPERTENSION Status: Chronic Qualifiers: Hypertension type: essential hypertension Qualified Code(s): I10 - Essential (primary) hypertension (6) Hx of esophageal malignancy Code(s): Z85.01 - PERSONAL HISTORY OF MALIGNANT NEOPLASM OF ESOPHAGUS Status: Chronic - Plan Plan: Spinal cord neoplasm 2/2 SCC likely mets from esophageal cancer at T1-T3 -Onc consulted, appreciate recs -Neurosurgery consulted, appreciate recs -Continue decadron per neurosurg -Continue flexeril -Case management and rehab screen pending for placement -Post op day #5: decompressive laminectomy, medial facetectomy and foraminectomy of C7, T1, T2, and T3, durotomy, myelotomy, intramedullary spinal cord lesion. Partial resection/biopsy, removal of posterior shoulder sebaceous cyst -Early mobilization -Poorly differentiated squamous cell carcinoma likely from esophageal cancer mets; will likely need chemo/radiation after several weeks of rehab -Plan for rehab and chemo/radiation to follow a few weeks later; patient voiced desire to go home today. He states this was ok'd through neurosurgery. Will discuss options with CM. 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 Negative PET in Oct 2017. 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 -Senna/Docusate -Miralax -Milk of magnesia -Enema given yesterday -BM x2 yesterday Dispo: Patient doing well. Post-op day #5. Initial plan for rehab with radiation /chemo to follow a few weeks later. Discharge pending rehab placement/HH.
--- NOTE | 2017-12-16 06:40 | PRG ---
DATE OF SERVICE: 12/16/2017 Mr. 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 Mr. Hernandez had a reasonable weekend. He continues to have antigravity streng th in the left lower extremity and he can move it against some resistance. Right lower extremity dis jae muscles are performed better than the hip flexors. Joint position sense is poor. Mr. Hernandez's pathology has been reviewed. 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 Mr. Hernandez will need chemoradiotherapy. If there is a reasonable radiation window then that is the tr eatment of choice for local control and the systemic disease can be managed with chemotherapy for now . I am going to defer the arrangement of those treatments to Dr. Armstrong and Dr. Qiu and they can start soon. Full wound healing will take some time, but will leave the vertical mattress sutures in 3 weeks rather than 2 if the treatment starts. Mr. Hernandez's disposition is up in the air. He would like to go home. He has some hydraulic lifts at home and a hospital bed. He has a wheelchair that he can transfer himself into. He states he will g et more exercise at home than he will in the hospital. I think that is something to think about. We will talk to our physical therapist, mental health social worker about getting home health at home and to ensure t hat he is safe doing so.
--- NOTE | 2017-12-16 06:44 | PRG ---
DATE OF SERVICE: 12/16/2017 Mr. Hernandez is a 72-year-old male I saw in his room this morning. He is status post from a thoracic de compression and removal of spinal cord tumor. This morning he continues to have weakness in his righ t leg. He is unable to move it against gravity. He is able to move his left lower extremity against gravity. He has 5/5 strength in bilateral upper extremities and there are no new neurologic deficit s. Mr. Hernandez did not get up yesterday with physical therapy. I encouraged physical therapy to get h im up today and continue to keep him active. Mr. Hernandez would like to go home for a few days before h e starts chemotherapy and radiation therapy. I will talk this plan over with Dr. Canela and if th is seems reasonable we will make further disposition plans regarding his disposition. If there are any further questions, please feel free to contact Neurosurgery.
[2017-12-16] MEDS: Mometasone/Formoterol 120 PUFF INHALER INH SCH ×2 (06:59→19:06)
[2017-12-16] MEDS: Polyethylene Glycol 3350 17 GM Packet PO SCH (09:36)
[2017-12-16] MEDS: Docusate 100 MG CAP PO SCH ×2 (09:37→20:20)
[2017-12-16] MEDS: Folic Acid 1 MG TAB PO SCH (09:37)
--- NOTE | 2017-12-16 09:49 | PRG ---
DATE OF SERVICE: 12/16/2017 SUBJECTIVE: Mr. Hernandez thinks that his legs may be weaker today. He does voice some concerns about g oing to rehab. He is not sure that rehab is going to help him that much. He does state that he has plenty of help at home. He has no other complaints. His pain seems to be well controlled at the pre sent. OBJECTIVE: VITAL SIGNS: Blood pressure 138/75, pulse is 88, respirations are 15, temperature 98, O2 saturation is 93%. GENERAL: He is alert and oriented and in no apparent distress. He is well-developed and well-nouris hed. Karnofsky performance status is 60%. NEUROLOGIC: He is able to lift leg against gravity for a short period of time. He can offer some re sistance. His right lower extremity he cannot lift against gravity. He can move it and he does seem to have a little more strength distally than he does proximally. Pathology showed metastatic squamous cell carcinoma. LABORATORY: CBC yesterday showed a white blood cell count of 12,700 with hemoglobin 11.6, hematocrit 35.7, platelet count of 159,000. Chemistry group showed a sodium of 135 with a potassium of 4.7. C reatinine was 0.83. BUN was 33. Albumin was 3.1. ASSESSMENT: Mr. 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 This was debulked at the time of surgery. PLAN: I have some concerns since his leg strength may be weaker. He is on dexamethasone and will ne ed to be maintained on dexamethasone. I will discuss with Dr. Canela his situation. If his legs are getting weaker, we may have no choice, but to go on and start his radiation therapy. Ideally, we would wait for his incisions to completely healed, which would take a minimum of 2 weeks before star ting treatment. However, we may have to initiate treatment sooner if he is getting weaker. We may h ave to check our techniques and see if we can avoid his incision. I also have some concerns about hi m going to rehab, especially if he goes to [facility] in [place]. I have some concerns that he may not sta rt his radiation therapy timely and ultimately may progress and become paralyzed without having radia tion therapy initiated timely. He may still end up with paralysis even with radiation therapy, but c ertainly we would hate to delay the initiation of radiation therapy because of rehab. I will also di scuss this with Dr. Canela. The patient does not appear to want to go to rehab at this time. He does state that he has plenty of help and states even as an outpatient he would have people that woul d be able to bring him for treatment. This will all have to be considered.
--- NOTE | 2017-12-16 12:13 | ADD-PRG ---
DATE OF SERVICE: 12/16/2017 This is an addendum to the note of Dr. Rach Connors. Neurosurgery and radiation therapy have decided to begin Mr. Hernandez's treatments now as he is developi ng some weakness in the lower extremities. He will therefore be with us a few more days to initiate treatment. He, however, otherwise is doing well and anxious to go home. He has a metastatic lesion in the thoracic spine from esophageal cancer.
[2017-12-16] MEDS: Thiamine HCl 200 MG/2 ML VIAL SLOW IVP SCH (13:58)
[2017-12-16] MEDS: Sodium Chloride 0.9% 1,000 ML IV SCH (13:59)
[2017-12-16] MEDS: Dexamethasone 4 MG TAB PO SCH ×2 (18:37→23:36)
[2017-12-17] MEDS: Sodium Chloride 0.9% 1,000 ML IV SCH ×2 (00:59→03:45)
[2017-12-17] MEDS: Dexamethasone 4 MG TAB PO SCH ×3 (05:27→17:31)
[2017-12-17] MEDS: Mometasone/Formoterol 120 PUFF INHALER INH SCH ×2 (06:19→19:18)
--- NOTE | 2017-12-17 06:50 | PDOC.FM ---
- Subjective Subjective: Patient doing well this AM. No significant overnight events. Patient spoke with neurosurgery and oncology yesterday, and they both agree that radiation prior to rehab would be the best option. Patient is currently awaiting HH to be discharged home. Patient has new O2 requirement since hospitalization. He denies chest pain, shortness of breath, nausea or vomiting. - Objective MAR Reviewed: Yes Vital Signs & Weight: Vital Signs (12 hours) Temp Pulse Resp BP BP Pulse Ox 12/17/17 06:20 90 16 12/17/17 04:31 98.0 F 87 16 120/69 93 L 12/17/17 00:02 95 12/16/17 23:40 97.5 F L 89 16 116/70 91 L 12/16/17 19:49 97.9 F 101 H 16 119/70 93 L 12/16/17 19:34 98.1 F 96 16 95 12/16/17 19:11 95 12/16/17 19:06 95 Weight Admit Weight 95.254 kg Weight 95.254 kg Most Recent Monitor Data Heart Rate from ECG 98 NIBP 104/61 NIBP BP-Mean 75 Respiration from ECG 16 SpO2 96 I&O: 12/15/17 12/16/17 12/17/17 06:59 06:59 06:59 Intake Total 2230 2200 730 Output Total 1300 1350 700 Balance 930 850 30 Result Diagrams: 12/15/17 06:37 12/15/17 06:37 EKG Reviewed by me: No Radiology Reviewed by me: Yes Phys Exam - Physical Examination Constitutional: NAD HEENT: moist MMs Neck: supple Respiratory: clear to auscultation bilateral Cardiovascular: RRR, no significant murmur Gastrointestinal: soft, non-tender, positive bowel sounds Musculoskeletal: no edema, pulses present Cannot lift RLE against gravity. Some flexion at hip and knee. Decreased sensatio in b/l LE's Psychiatric: normal affect Skin: no rash, cap refill <2 seconds Dx/Plan (1) Spinal cord compression due to malignant neoplasm metastatic to spine Code(s): G95.20 - UNSPECIFIED CORD COMPRESSION; C79.51 - SECONDARY MALIGNANT NEOPLASM OF BONE Status: Acute (2) Acute respiratory failure with hypoxia Code(s): J96.01 - ACUTE RESPIRATORY FAILURE WITH HYPOXIA Status: Acute (3) Right leg weakness Code(s): R29.898 - [facility] SYMPTOMS AND SIGNS INVOLVING THE MUSCULOSKELETAL SYSTEM Status: Acute (4) Right leg numbness Code(s): R20.0 - ANESTHESIA OF SKIN Status: Acute (5) Alcohol abuse Code(s): F10.10 - ALCOHOL ABUSE, UNCOMPLICATED Status: Chronic (6) HTN (hypertension) Code(s): I10 - ESSENTIAL (PRIMARY) HYPERTENSION Status: Chronic Qualifiers: Hypertension type: essential hypertension Qualified Code(s): I10 - Essential (primary) hypertension (7) Hx of esophageal malignancy Code(s): Z85.01 - PERSONAL HISTORY OF MALIGNANT NEOPLASM OF ESOPHAGUS Status: Chronic (8) Urinary retention Code(s): R33.9 - RETENTION OF URINE, UNSPECIFIED Status: Acute - Plan Plan: 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 Partial resection/biopsy, removal of posterior shoulder sebaceous cyst -Early mobilization -Poorly differentiated squamous cell carcinoma likely from esophageal cancer mets; decision made by onc and neurosurgery to wait on rehab and start radiation /chemo right away due to progressive nature of tumor -Looks to be SCC, likely from esophageal cancer mets Acute hypoxic respiratory failure -Requiring 1-3 L of O2 since hospitalization -Attempts have been made at weaning O2, and patient's O2 sats have fallen into the 70's -Patient asymptomatic and no evidence of infection -Patient immobile and has malignancy; high risk for PE -Will first evaluate with D-dimer -Patient started back on lovenox for DVT/PE ppx h/o Esophageal Ca w/ mets to the lungs CT chest showed no signs of mets. Negative PET in Oct 2017. 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 -Senna/Docusate -Miralax -Milk of magnesia -Enema given yesterday -BM x3 since hospitalization; requiring enemas to have BM -Likely 2/2 spinal cord lesion Urinary retention -Requiring renee catheter -Will need to go home with renee -Likely 2/2 spinal cord lesion Dispo: Patient doing well. Post-op day #6. New plan to be sent home with . Discharge pending approval. Patient to receive radiation while hospitalized.
--- NOTE | 2017-12-17 07:08 | PRG ---
DATE OF SERVICE: 12/17/2017 Mr. Hernandez is a 72-year-old male who I saw in his room this morning. Overnight, there have been no ac [place] events. His vital signs have been stable and he has been afebrile. He started radiation therapy yesterday with Dr. Qiu. He still has significant weakness in his right leg and cannot lift it aga inst gravity. The left leg has full range of motion and he is able to lift it against gravity. He d oes have some sensation on the right leg, but it is blunted. We will continue to see Mr. Hernandez while he is in the hospital. If there are any further questions, please feel free to contact Neurosurgery. He will likely need re hab; however, he would like to go home. I will talk to Dr. Canela today about that possibility an d once we have a final plan for discharge disposition we can proceed.
--- NOTE | 2017-12-17 07:09 | PRG ---
DATE OF SERVICE: 12/17/2017 I saw Mr. Hernandez, he has been transferred to our oncology unit. He is preparing for external beam rad iation therapy today. He is pleased that treatment will start. He feels weaker in the legs. On exa mination, he still antigravity in the left lower extremity and moves that leg against resistance. Th e right lower extremity is marginally antigravity. He has better strength distally, neither leg has good joint position sense. These changes are stable from yesterday. I am pleased Mr. Dodd will start his radiation therapy. Dr. Qiu will do his best to keep the radia tion beams off of the incision and the muscle beneath it. We need this to heal. We will continue to follow while he is in the hospital.
[2017-12-17] MEDS ORDERED: Enoxaparin Sodium 40 MG/0.4 ML SYRINGE SC SCH (09:00)
[2017-12-17] MEDS: Docusate 100 MG CAP PO SCH ×2 (09:34→21:45)
[2017-12-17] MEDS: Folic Acid 1 MG TAB PO SCH (09:35)
[2017-12-17] MEDS: Polyethylene Glycol 3350 17 GM Packet PO SCH (09:36)
--- NOTE | 2017-12-17 11:27 | ADD-PRG ---
DATE OF SERVICE: 12/17/2017 This is an addendum to the note of Dr. Rach Connors. Mr. Hernandez is sitting quietly in bed this morning. He is in no distress. He does not complain of any shortness of breath or chest pain. However, his oxygen requirements have gradually increased and he is at risk for pulmonary embolus. In addition his D-dimer is elevated to greater than 20. We will probably go ahead and proceed with a CTA to rule out pulmonary embolus, even though at this time othe r than the increased oxygen requirements he is asymptomatic.
[2017-12-17] MEDS: Thiamine HCl 200 MG/2 ML VIAL SLOW IVP SCH (12:01)
--- NOTE | 2017-12-17 14:02 | CT ---
CTA CHEST WITH CONTRAST: HISTORY: Pulmonary embolism. Low O2 sats. COMPARISON: CT chest from 12/07/2017. TECHNIQUE: CT angiogram of the chest was performed after the intravenous administration of contrast, and 3D rend ering was provided. FINDINGS: New from the comparison examination there is what appears to be some post surgical changes from kamron ectomies of the thoracic spine with hematoma. This is incompletely evaluated on this examination. There is a large volume embolus within the left lung. There are emboli within the lingula, as well a left lower lobe pulmonary arteries, as well as right lower and right upper lobe segmental and right middle lobe pulmonary arteries. No significant bowing of the intraventricular septum. Minimal reflux of contrast on the IVC. The as cending aorta measures 43 mm. Severe emphysematous changes throughout the lungs. From the right lung base, there are some parenchy mal opacities. There are also some tree-in-bud opacities of the left lower lobe. IMPRESSION: 1. Extensive pulmonary emboli with a large volume burden throughout the segmental pulmonary arteries bilaterally. No significant bowing of the intraventricular septum, although it is mildly straighten ed and there is some very minimal contrast in the inferior vena cava, suggesting very low grade right heart strain. 2. Severe chronic obstructive pulmonary disease. 3. Worsening parenchymal opacity in the right lung base, as well as tree-in-bud opacities in the lef t lower lobe may be the sequelae of aspiration or infection. Followup is recommended. There is some mucus within the distal trachea and right mainstem bronchus. 4. Evidence of recent laminectomy changes above the thoracic spine, incompletely evaluated. POS: NWE
[2017-12-17] MEDS: Cyclobenzaprine 10 MG TAB PO PRN (15:52)
[2017-12-17] MEDS ORDERED: Iopamidol 370 76% 100 ML VIAL ONE (16:08)
[2017-12-17] MEDS: Morphine 4 MG/ML VIAL SLOW IVP PRN (16:45)
[2017-12-17] MEDS ORDERED: Enoxaparin Sodium 100 MG/ML SYRINGE SC SCH (21:00)
[2017-12-18] MEDS: Dexamethasone 4 MG TAB PO SCH ×5 (01:28→23:41)
[2017-12-18 05:05] LABS: Hemoglobin 11.5 g/dL (14.0-18.0); Platelet Count 136 thou/uL (130-400)
[2017-12-18] MEDS: Morphine 4 MG/ML VIAL SLOW IVP PRN ×4 (05:09→23:40)
[2017-12-18] MEDS: Cyclobenzaprine 10 MG TAB PO PRN ×2 (05:12→20:09)
[2017-12-18 05:14] LABS: Calc. Creatinine Clearance 117 mL/min (70-130); Estimated GFR-MDRD Greater than 90
--- NOTE | 2017-12-18 06:11 | PDOC.FM ---
- Subjective Subjective: Patient doing well this AM. No significant overnight events. Patient resting comfortably. Patient denies shortness of breath or chest pain. - Objective MAR Reviewed: Yes Vital Signs & Weight: Vital Signs (12 hours) Temp Pulse Resp BP Pulse Ox 12/17/17 21:00 98.3 F 106 H 16 93 L 12/17/17 19:49 98.3 F 106 H 16 132/85 93 L 12/17/17 19:03 92 16 94 L Weight Admit Weight 95.254 kg Weight 95.254 kg Most Recent Monitor Data Heart Rate from ECG 98 NIBP 104/61 NIBP BP-Mean 75 Respiration from ECG 16 SpO2 96 I&O: 12/16/17 12/17/17 12/18/17 06:59 06:59 06:59 Intake Total 2200 730 970 Output Total 7969 309 9485 Balance 850 30 -30 Result Diagrams: 12/18/17 04:53 12/18/17 04:53 EKG Reviewed by me: No Radiology Reviewed by me: Yes Phys Exam - Physical Examination Constitutional: NAD HEENT: moist MMs Neck: supple Respiratory: clear to auscultation bilateral Cardiovascular: RRR, no significant murmur Gastrointestinal: soft, no distention, positive bowel sounds Musculoskeletal: no edema, pulses present Unable to lift RLE against gravity. Progressive LLE decreased strength. Psychiatric: normal affect Skin: no rash, cap refill <2 seconds Dx/Plan (1) Pulmonary embolism Code(s): I26.99 - OTHER PULMONARY EMBOLISM WITHOUT ACUTE COR PULMONALE Status : Acute (2) Spinal cord compression due to malignant neoplasm metastatic to spine Code(s): G95.20 - UNSPECIFIED CORD COMPRESSION; C79.51 - SECONDARY MALIGNANT NEOPLASM OF BONE Status: Acute (3) Acute respiratory failure with hypoxia Code(s): J96.01 - ACUTE RESPIRATORY FAILURE WITH HYPOXIA Status: Acute (4) Right leg weakness Code(s): R29.898 - OTH SYMPTOMS AND SIGNS INVOLVING THE MUSCULOSKELETAL SYSTEM Status: Acute (5) Right leg numbness Code(s): R20.0 - ANESTHESIA OF SKIN Status: Acute (6) Alcohol abuse Code(s): F10.10 - ALCOHOL ABUSE, UNCOMPLICATED Status: Chronic (7) HTN (hypertension) Code(s): I10 - ESSENTIAL (PRIMARY) HYPERTENSION Status: Chronic Qualifiers: Hypertension type: essential hypertension Qualified Code(s): I10 - Essential (primary) hypertension (8) Hx of esophageal malignancy Code(s): Z85.01 - PERSONAL HISTORY OF MALIGNANT NEOPLASM OF ESOPHAGUS Status: Chronic (9) Urinary retention Code(s): R33.9 - RETENTION OF URINE, UNSPECIFIED Status: Acute - Plan Plan: Acute hypoxic respiratory failure 2/2 pulmonary emboli and possible infection -Requiring up to 3 L of O2 since hospitalization -Attempts have been made at weaning O2, and patient's O2 sats have fallen into the 70's -Patient asymptomatic and no evidence of infection clinically -Patient immobile and has malignancy; high risk for PE -D-dimer 20; CTA positive for multiple PE -Started therapeutic lovenox; will transition to eliquis for outpatient treatment -Patient stable at this time -Pulmonology consulted; appreciate recs -Patient will need follow up with pulmonology Spinal cord neoplasm 2/2 SCC likely mets from esophageal cancer at T1-T3 -Onc consulted, appreciate recs -Neurosurgery consulted, appreciate recs -Continue decadron per neurosurg; switched to PO -Continue flexeril -Waiting for HH to be set up -Post op day #7: decompressive laminectomy, medial facetectomy and foraminectomy of C7, T1, T2, and T3, durotomy, myelotomy, intramedullary spinal cord lesion. 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 Negative PET in Oct 2017. 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 -Senna/Docusate -Miralax -Milk of magnesia -Enema given yesterday -BM x3 since hospitalization; requiring enemas to have BM -Likely 2/2 spinal cord lesion Urinary retention -Requiring renee catheter -Will need to go home with renee -Likely 2/2 spinal cord lesion Dispo: Patient doing well. Post-op day #7. New plan to be sent home with . Discharge pending approval. Patient to receive radiation while hospitalized. Patient now being treated for pulmonary emboli. Can send home on therapeutic anticoagulation with close pulmonology follow up.
[2017-12-18] MEDS: Mometasone/Formoterol 120 PUFF INHALER INH SCH ×2 (07:22→19:18)
--- NOTE | 2017-12-18 07:57 | PRG ---
DATE OF SERVICE: 12/18/2017 Mr. Hernandez is 1 week out from laminectomy and spinal cord tumor partial resection/biopsy. Mr. Hernandez started radiation therapy yesterday and it went well. Mr. Hernandez is unaware of how many doses of radiation he is going to get or the duration of the treatme nt. He is not sure if he will stay in the hospital to finish his treatment or go to a senior care o r go home. Our office can make arrangements for suture removal. This should not be done until at least 3 weeks after his operation. We are 1 week out now, 2 more weeks from now, would be the earliest and somewhe re between 3 and 4 weeks seems reasonable, make sure by taking 1 or 2 sutures out that the rest of th e skin is going to hold after being irradiated.
--- NOTE | 2017-12-18 08:40 | PRG ---
DATE OF SERVICE: 12/18/2017 Mr. Hernandez is a 72-year-old male that I saw in his room this morning. It was found yesterday that he has an extensive bilateral PEs and he was treated with therapeutic Lovenox. This morning his incisio n is clean, dry, and intact with vertical mattress sutures. I talked to him about incisional care an d removing the sutures in approximately 3 weeks. We will leave the sutures in a little bit longer be cause he is getting radiation therapy and this may delay his wound healing. He has had slightly low O2 sats over the past day. This morning he is at 94% , he is afebrile. His pulse 98, respirations 1 8. He is on 3 liters of oxygen. He is still unable to lift his right leg off the bed; however, he d oes have some sensation in the right lower extremity. He is able to lift the left leg off the bed co mpletely and has no sensory deficits in the left leg. We will follow up in 3 weeks to remove the sut ures. If there are any further questions, please feel free to contact Neurosurgery.
[2017-12-18] MEDS: Apixaban 5 MG TAB PO SCH ×2 (09:29→20:10)
[2017-12-18] MEDS: Docusate 100 MG CAP PO SCH ×2 (09:33→20:10)
[2017-12-18] MEDS: Folic Acid 1 MG TAB PO SCH (09:34)
[2017-12-18] MEDS: Polyethylene Glycol 3350 17 GM Packet PO SCH (09:34)
--- NOTE | 2017-12-18 09:53 | PRG ---
DATE OF SERVICE: 12/18/2017 Mr. Hernandez is a 72-year-old male who I saw in his room this morning. In regards to the question of anticoagulation for extensive bilateral pulmonary embolism and being status post surgery. The use of therapeutic dose of low molecular weight heparin 1 week after intramedullary spinal cord surgery carries a significant risk of permanent paralysis from hematoma formation. This risk needs to be balanced against the risk of from a pulmonary embolism. Taking into account the current, cardiopulmonary function, source of pulmonary embolism and risk for more PEs and other types of prevention for future PEs, when the risk of not treating outweigh the risk of treatment, then the medication should be given. The ultimate decision will be made by the medical team and the patient. If there are any further questions, please feel free to contact Neurosurgery. ANCELMO
--- NOTE | 2017-12-18 11:36 | ADD-PRG ---
DATE OF SERVICE: 12/18/2017 This is an addendum to the note of Dr. Rach Connors. Mr. Hernandez was indeed found to have multiple pulmonary emboli yesterday. Dr. Connors had obtained a CTA of the chest, given that the patient's O2 sats were dropping and he was requiring more O2. He n ever had shortness of breath or chest pain. In any event, he was initiated treatment with Lovenox an d is now on Eliquis p.o. This will need to be maintained for at least 3 months or as long as he has active malignancy.
[2017-12-18] MEDS: Milk Of Magnesia 30 ML UDCUP PO SCH (23:41)
[2017-12-18] MEDS ORDERED: Morphine 4 MG/ML VIAL SLOW IVP SCH (23:45)
[2017-12-19] MEDS: Morphine 4 MG/ML VIAL SLOW IVP PRN ×3 (03:34→21:04)
--- NOTE | 2017-12-19 05:53 | PDOC.FM ---
- Subjective Subjective: Patient doing well this AM. No significant overnight events. Patient had an episode yesterday where he was being moved and suddenly had pain at the incision site. That has since resolved, and he is no longer in pain. We had a long discussion about the risks and benefits of using anticoagulation given his recent surgery. He understood the necessity of using anticoagulation for pulmonary emboli, and understood the risk of hematoma development and possible paralysis. At this point in time he is willing to take the risk of hematoma development to help treat the blood clots. Patient has not had a BM in several days. I offered to order him an enema, but he said he did not feel too distended or uncomfortable at this time. - Objective MAR Reviewed: Yes Vital Signs & Weight: Vital Signs (12 hours) Temp Pulse Resp BP BP Pulse Ox 12/19/17 04:59 90 L 12/19/17 02:02 103 H 18 90 L 12/18/17 23:26 98.0 F 88 16 122/77 92 L 12/18/17 20:00 97.9 F 76 16 116/93 H 92 L 12/18/17 19:22 103 H 18 92 L 12/18/17 19:18 103 H 18 92 L Weight Admit Weight 95.254 kg Weight 95.254 kg Most Recent Monitor Data Heart Rate from ECG 98 NIBP 104/61 NIBP BP-Mean 75 Respiration from ECG 16 SpO2 96 I&O: 12/17/17 12/18/17 12/19/17 06:59 06:59 06:59 Intake Total 438 862 3439 Output Total 700 1600 1550 Balance 30 630 -320 Result Diagrams: 12/18/17 04:53 12/18/17 04:53 EKG Reviewed by me: No Radiology Reviewed by me: Yes Phys Exam - Physical Examination Constitutional: NAD HEENT: moist MMs Neck: supple Respiratory: no wheezing, clear to auscultation bilateral Cardiovascular: RRR, no significant murmur Gastrointestinal: soft, non-tender, no distention, positive bowel sounds Musculoskeletal: no edema, pulses present Cannot lift RLE against gravity. Decreased sensation bilaterally. 4/5 strength LLE. Psychiatric: normal affect Skin: no rash, cap refill <2 seconds Dx/Plan (1) Pulmonary embolism Code(s): I26.99 - OTHER PULMONARY EMBOLISM WITHOUT ACUTE COR PULMONALE Status : Acute (2) Spinal cord compression due to malignant neoplasm metastatic to spine Code(s): G95.20 - UNSPECIFIED CORD COMPRESSION; C79.51 - SECONDARY MALIGNANT NEOPLASM OF BONE Status: Acute (3) Acute respiratory failure with hypoxia Code(s): J96.01 - ACUTE RESPIRATORY FAILURE WITH HYPOXIA Status: Acute (4) Right leg weakness Code(s): R29.898 - OTH SYMPTOMS AND SIGNS INVOLVING THE MUSCULOSKELETAL SYSTEM Status: Acute (5) Right leg numbness Code(s): R20.0 - ANESTHESIA OF SKIN Status: Acute (6) Alcohol abuse Code(s): F10.10 - ALCOHOL ABUSE, UNCOMPLICATED Status: Chronic (7) HTN (hypertension) Code(s): I10 - ESSENTIAL (PRIMARY) HYPERTENSION Status: Chronic Qualifiers: Hypertension type: essential hypertension Qualified Code(s): I10 - Essential (primary) hypertension (8) Hx of esophageal malignancy Code(s): Z85.01 - PERSONAL HISTORY OF MALIGNANT NEOPLASM OF ESOPHAGUS Status: Chronic (9) Urinary retention Code(s): R33.9 - RETENTION OF URINE, UNSPECIFIED Status: Acute - Plan Plan: Acute hypoxic respiratory failure 2/2 pulmonary emboli and possible infection -Requiring up to 3 L of O2 since hospitalization. Will need continuous O2 upon discharge for multiple pulmonary emboli. 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 Negative PET in Oct 2017. 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 -Senna/Docusate -Miralax -Milk of magnesia -BM x3 since hospitalization; requiring enemas to have BM -Likely 2/2 spinal cord lesion -Consider enema today -Patient will likely need enemas as outpatient as he is unable to have BM Urinary retention -Requiring renee catheter -Will need to go home with renee -Likely 2/2 spinal cord lesion Dispo: Patient doing well. Post-op day #8. New plan to be sent home with . Discharge pending approval. Patient to receive radiation while hospitalized. Patient now being treated for pulmonary emboli. Can send home on therapeutic anticoagulation with close pulmonology follow up. Risks and benefits of anticoagulation discussed with patient. Plan for d/c home today.
[2017-12-19] MEDS: Dexamethasone 4 MG TAB PO SCH ×3 (05:59→17:33)
[2017-12-19] MEDS: Mometasone/Formoterol 120 PUFF INHALER INH SCH ×2 (06:31→18:46)
[2017-12-19] MEDS: Polyethylene Glycol 3350 17 GM Packet PO SCH (10:21)
[2017-12-19] MEDS: Apixaban 5 MG TAB PO SCH ×2 (10:21→21:03)
[2017-12-19] MEDS: Docusate 100 MG CAP PO SCH ×2 (10:22→21:03)
[2017-12-19] MEDS: Folic Acid 1 MG TAB PO SCH (10:22)
--- NOTE | 2017-12-19 12:30 | ADD-PRG ---
Addendum to the note of Dr. Connors. Mr. Hernandez is resting quietly in no distress. He is not short of breath nor is he experiencing any ch est discomfort. His vital signs are stable with a blood pressure of 124/69, his pulse rate is 87 and regular. He is currently on Eliquis 10 mg b.i.d. for his multiple pulmonary emboli. Also receiving radiation therapy to the lesion on his back. We will continue to follow with Oncology and monitor h is PE status.
[2017-12-20] MEDS: Dexamethasone 4 MG TAB PO SCH ×3 (00:45→12:34)
[2017-12-20 05:48] LABS: Calc. Creatinine Clearance 114 mL/min (70-130); Estimated GFR-MDRD Greater than 90
--- NOTE | 2017-12-20 06:29 | PDOC.FM ---
- Subjective Subjective: Patient doing well this AM. No significant overnight events. Patient is ready to go home. Plan is for him to go home with family. - Objective MAR Reviewed: Yes Vital Signs & Weight: Vital Signs (12 hours) Temp Pulse Resp BP Pulse Ox 12/20/17 00:29 16 12/19/17 20:00 99.4 F 112 H 16 92 L 12/19/17 19:56 99.4 F 112 H 16 127/58 L 93 L Weight Admit Weight 95.254 kg Weight 95.254 kg Most Recent Monitor Data Heart Rate from ECG 98 NIBP 104/61 NIBP BP-Mean 75 Respiration from ECG 16 SpO2 96 I&O: 12/18/17 12/19/17 12/20/17 06:59 06:59 06:59 Intake Total 970 1230 1280 Output Total 1600 1550 1650 Balance -630 -320 -879 Result Diagrams: 12/18/17 04:53 12/20/17 05:11 EKG Reviewed by me: No Radiology Reviewed by me: No Phys Exam - Physical Examination Constitutional: NAD HEENT: moist MMs Neck: supple Respiratory: clear to auscultation bilateral Cardiovascular: RRR, no significant murmur Gastrointestinal: soft, no distention, positive bowel sounds Musculoskeletal: no edema Cannot lift right leg against gravity. Decreased strength in LLE. Psychiatric: A&O x 3 Skin: no rash, cap refill <2 seconds Dx/Plan (1) Pulmonary embolism Code(s): I26.99 - OTHER PULMONARY EMBOLISM WITHOUT ACUTE COR PULMONALE Status : Acute (2) Spinal cord compression due to malignant neoplasm metastatic to spine Code(s): G95.20 - UNSPECIFIED CORD COMPRESSION; C79.51 - SECONDARY MALIGNANT NEOPLASM OF BONE Status: Acute (3) Acute respiratory failure with hypoxia Code(s): J96.01 - ACUTE RESPIRATORY FAILURE WITH HYPOXIA Status: Acute (4) Right leg weakness Code(s): R29.898 - OTH SYMPTOMS AND SIGNS INVOLVING THE MUSCULOSKELETAL SYSTEM Status: Acute (5) Right leg numbness Code(s): R20.0 - ANESTHESIA OF SKIN Status: Acute (6) Alcohol abuse Code(s): F10.10 - ALCOHOL ABUSE, UNCOMPLICATED Status: Chronic (7) HTN (hypertension) Code(s): I10 - ESSENTIAL (PRIMARY) HYPERTENSION Status: Chronic Qualifiers: Hypertension type: essential hypertension Qualified Code(s): I10 - Essential (primary) hypertension (8) Hx of esophageal malignancy Code(s): Z85.01 - PERSONAL HISTORY OF MALIGNANT NEOPLASM OF ESOPHAGUS Status: Chronic (9) Urinary retention Code(s): R33.9 - RETENTION OF URINE, UNSPECIFIED Status: Acute - Plan Plan: Acute hypoxic respiratory failure 2/2 pulmonary emboli and possible infection -Requiring up to 3 L of O2 since hospitalization. Will need continuous O2 upon discharge for multiple pulmonary emboli. 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 Negative PET in Oct 2017. 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 -Senna/Docusate -Miralax -Milk of magnesia -BM x3 since hospitalization; requiring enemas to have BM -Likely 2/2 spinal cord lesion -Consider enema today -Patient will likely need enemas as outpatient as he is unable to have BM Urinary retention -Requiring renee catheter -Will need to go home with renee -Likely 2/2 spinal cord lesion Dispo: Patient doing well. Post-op day #9. New plan to be sent home with . Discharge pending approval. Patient to receive radiation while hospitalized. Patient now being treated for pulmonary emboli. Can send home on therapeutic anticoagulation with close pulmonology follow up. Risks and benefits of anticoagulation discussed with patient. Plan for d/c home today.
[2017-12-20] MEDS: Mometasone/Formoterol 120 PUFF INHALER INH SCH (06:37)
[2017-12-20 08:08] VITALS: TEMP 97.7
[2017-12-20] MEDS: Apixaban 5 MG TAB PO SCH (09:55)
[2017-12-20] MEDS: Docusate 100 MG CAP PO SCH (09:56)
[2017-12-20] MEDS: Folic Acid 1 MG TAB PO SCH (09:56)
[2017-12-20] MEDS: Polyethylene Glycol 3350 17 GM Packet PO SCH (09:56)
[2017-12-20 09:57] VITALS: BP 124/69
--- NOTE | 2017-12-20 10:23 | PQF ---
MARIO MARTINEZALONDRA [id number] [facility] [id number] CLINICAL DOCUMENTATION IMPROVEMENT CLARIFICATION FORM: ICD-10 Updated PLEASE DO AN ADDENDUM TO THE PROGRESS NOTE WITH ANY DOCUMENTATION UPDATES OR ADDITIONS AND CARRY THROUGH TO DC SUMMARY. THANK YOU. DATE: 12-20-17 ATTN: DR. BAZZI Please exercise your independent, professional judgment in responding to the clarification form. Clinical indicators are provided on the bottom of this form for your review Please check appropriate box(s): [ ] Multiple Pulmonary Embolism related to current/recent surgery [ ] Multiple Pulmonary Embolism not related to current/recent surgery [ ] Other diagnosis [x] Unable to determine In addition, please specify: Present on Admission (POA): [ ] Yes [ ] No [x] Unable to determine CLINICAL INDICATORS - SIGNS / SYMPTOMS / LABS H&P: O2 SAT 96% ON RA W/ NO RESP DISTRESS 4-7 CHEST CAT SCAN: NO EVIDENCE OF METASTATIC DX OF THE CHEST; ATHEROSCLEROSIS; COPD 4-[address] BAZZI: DENIES CP OR SOB 4-[address] BAZZI: DENIES CP; CALF PAIN, SOB 4-[address] BAZZI: PT HAS NEW O2 REQUIREMENT SINCE HOSPITALIZATION - ACUTE HYPOXIA RESP FAILURE 12-17 CAT SCAN CHEST: EXTENSIVE PULMONARY EMBOLI W/ LARGE VOLUME BURDEN THROUGHOUT THE SEGMENTAL PULMONARY ARTERIES BILATERALLY 4-[address] BAZZI: D-DIMER 20; CTA POSITIVE FOR MULTIPLE PE RISK FACTORS H&P: COPD H/O ESOPHAGEAL MALIGNANCY W/ MET TO THE LUNGS - PET NEGATIVE 12-08 PRIMARY SPINAL CORD NEOPLASM TO T1 - T3 4-11 OP NOTE: DECOMPRESSIVE LAMINECTOMY; MEDIAL FACETECTOMY AND FORAMINOTOMY, C7, T1 , T2, T3, DUROTOMY, MYELOTOMY, INTRAMEDULLARY SPINAL CORD LESION, PARTIAL RESECTION/BIOPSY 4-[address] BAZZI: POST OP DAY #6;PATIENT IMMOBILE AND HAD MALIGNANCY; DARIN RISK FOR PE TREATMENT: H&P: LOVENOX 4-[address] BAZZI: ENCOURAGE SPIROMETRY 4-[address] BAZZI: EVALUATE D-DIMER; START BACK ON LOVENOX FOR DVT/PE PPX 4-[address] BAZZI: STARTED THERAPEUTIC LOVENOX; WILL TRANSITION TO ELIQUIS FOR OP TREATMENT MAR: ELIQUIS 12-18 / -/ 12-20 LOVENOX -17 THANK YOU, MARQUITA (This form is maintained as a part of the permanent medical record) 2015 [employer]. All Rights Reserved Marquita Santana RN, BS [email or web address] [facility]
[2017-12-20] MEDS: Morphine 4 MG/ML VIAL SLOW IVP PRN ×2 (12:33→16:26)
[2017-12-20] MEDS: Fleet Enema 133 ML BOT PR SCH ×2 (13:00→13:33)
--- NOTE | 2017-12-20 14:02 | ADD-PRG ---
DATE OF SERVICE: 12/20/2017 ADDENDUM This is an addendum to the note of Dr. Rach Connors. Mr. Hernandez is fine this morning. He is awake, alert, in no distress. He will be discharged today for at least 3 months of anticoagulation with Eliquis given his recent multiple pulmonary emboli. He wi ll continue outpatient radiation therapy to the metastatic lesion in his back. He will follow up [facility] Oncology as well. Clinically, he is stable and improved, ready for discharge.
--- NOTE | 2017-12-20 17:41 | DIS-2 ---
DATE OF ADMISSION: 12/05/2017 DATE OF DISCHARGE: 12/20/2017 ADMITTING ATTENDING: Cecilio Herrera M.D. DISCHARGE ATTENDING: Jeovany Ricardo MD. RESIDENT: Rach Connors DO. CONSULTS: 1. Neurosurgery, Dr. Christian Canela. 2. Oncology, Sandee Main M.D. 3. Pulmonology, Andrae Morales M.D. PROCEDURES: 1. Brain CT, no acute intracranial process, no mass or bleed. 2. Initial lumbar spine MRI with and without IV contrast showed multilevel [id number]-[id number] centra l canal, lateral recess and foraminal stenosis. Minimal type 1 endplate changes involving the inferi or aspect of T12. No evidence for metastatic disease. 3. Initial thoracic spine MRI without contrast. The interpretation of the cord signal was complicat ed due to recent administration of IV gadolinium 3 hours prior to study. There appears to be residua l enhancement in the cord extending from T1 through T3, although accurate enhancement is not assessed due to 3-hour delay in contrast administration. Other considerations included hemorrhage within the cord producing high T1 signal. There was evidence of cord edema below the contrast enhancement exte nding to the T5-T6 disk level. 4. Initial cervical spine MRI showed spondylytic change in the cervical spine with cervical canal st enosis at C3-C4, C4-C5 and C5-C6 due to spondylosis. Abnormal cord signal present. Recent administr ation of IV gadolinium 3 hours prior to study complicates interpretation of study. There is evidence of cord edema extending from C6 through T2. There is abnormal high T1 signal at the cord at T1, T2 and T3, which could represent residual enhancement, which would indicate cord neoplasm. 5. Repeat cervical and thoracic spine MRI with and without contrast, there is evidence for primary c ord neoplasm, either astrocytoma or ependymoma (less likely hemangioblastoma). The enhancing portion of the tumor is from upper T1-T3 level. Cord edema extends cranially and caudally, many levels. Ce rvical and thoracic spondylosis with multilevel high grade central spinal canal stenosis and severe b ilateral neural foraminal stenosis is present. 6. Chest CT, no evidence of metastatic disease of the chest. There is evidence of COPD and atherosc lerosis. 7. Decompressive laminectomy, medial facetectomy and foraminotomy, C7, T1, T2, T3, durotomy, myeloto my, intramedullary spinal cord lesion, partial resection/biopsy, removal of posterior shoulder sebace ous cyst, was performed by Neurosurgery. 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 8. Chest/thorax CTA: Extensive pulmonary emboli with a large volume burden throughout the segmental pulmonary arteries bilaterally. No significant bowing of the intraventricular septum, although it i s mildly straightened and there is some very minimal contrast in the inferior cava, suggesting very l ow grade right heart strain. Severe chronic obstructive pulmonary disease. Worsening parenchymal op acity in right lung base, as well as tree-in-bud opacities in left lower lobe, which may be sequelae of aspiration or infection. There is evidence of recent laminectomy changes above the thoracic spine , which was incompletely evaluated. PRIMARY DIAGNOSES: 1. 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 2. Acute hypoxic respiratory failure secondary to pulmonary emboli. 3. History of esophageal cancer. 4. Urinary retention secondary to spinal cord lesion. SECONDARY DIAGNOSES: 1. Chronic obstructive pulmonary disease. 2. Dermatitis herpetiformis. 3. Hypertension. 4. Constipation. DISCHARGE MEDICATIONS: 1. Eliquis 10 mg p.o. b.i.d. for 4 days and then 5 mg p.o. b.i.d. thereafter. 2. Cyclobenzaprine 10 mg p.o. q.8 hours for muscle spasms. 3. Decadron 4 mg p.o. q.6 hours. The patient is to take this until follow up with Neurosurgery in 2 weeks. 4. Colace 100 mg p.o. b.i.d. 5. Folic acid 1 mg p.o. daily. 6. Polyethylene glycol 3350, 17 g p.o. daily. 7. Thiamine 100 mg p.o. daily. 8. Aspirin 81 mg daily. 9. Budesonide/formoterol 80 mg/4.5 mg aerosol 2 puffs inhalation b.i.d. 10. Dapsone 50 mg p.o. q.2 days. 11. Enalapril maleate 5 mg p.o. daily. 12. Magnesium hydroxide 30 mL p.o. daily. HISTORY OF PRESENT ILLNESS/HOSPITAL COURSE: This is a 72-year-old male that came in for evaluation o f right leg numbness and weakness. He has a history of esophageal cancer with metastasis to the lung s, treated in 2016. Last PET scan in 10/2017 showed no suspicion for lesions. He was referred from his primary care physician to Neurology for evaluation approximately 1 week ago. From Neurology, he was then sent to the ER for neurosurgical evaluation. The patient states he has had progressively wo rsening numbness in the inside thigh of his right leg the last month. Just the week prior to admissi on, he had to use a walker because his leg was feeling weak. He denied any pain. He did endorse occ asional muscle spasms in the legs bilaterally. He also has had some constipation with no incontinenc e. He denied any urinary incontinence or retention at that time. MRI of the spine was performed in the emergency department and Neurosurgery team was consulted for recommendations. The patient was then admitted to the hospital. He was evaluated by Neurosurgery who repeated MRI of the cervical and thoracic spine to better assess the spinal cord lesion. Upon reevaluation of the im ages, it was presumed that there was a primary spinal cord neoplasm in the levels of T1 through T3. The patient was started on Decadron immediately and this did help with some of his right lower extrem ity weakness initially; however, over the course of the next few days, the lower extremity weakness s tarted to progress. Neurosurgery took the patient back for surgical evaluation at which time they we re able to perform a biopsy. The biopsy resulted as poorly differentiated squamous cell carcinoma, l ikely secondary from esophageal metastasis. Radiation Oncology was already on the case and they dete rmined that likely the patient would need radiation and/or chemotherapy in addition to the neurosurgi frandy intervention. The initial plan was to have the patient go to [facility] for inpatient and rehabilitation to regain some s trength prior to radiation; however, the patient did start to have worsening lower extremity weakness that was progressing bilaterally and thus Neurosurgery and Radiation Oncology decided to go through with immediate radiation as opposed to trying rehabilitation first. The patient received several ses sions of radiation therapy while hospitalized and decision was made for the patient to go home with [facility] at the patient and the patient's family's request. They do have all the necessary modalit ies to help care for the patient at home and PT will be involved to help with some rehabilitation whi le patient is undergoing radiation therapy. During the course of his hospital stay, the patient was noted to have gradually increasing oxygen req uirement. The patient did not come in on oxygen and has not needed it in the past. He does have a h istory of COPD, although he never appeared to be in exacerbation. Additionally, the patient did not appear to have an infection that could explain these findings both clinically or on laboratory findin gs. The patient never complained of shortness of breath or chest pain at any point during his hospit alization, but due to this new oxygen requirement, a D-dimer was performed to rule out pulmonary embo lism as the patient is high risk secondary to surgery and cancer history. D-dimer was noted to be el evated at 20, thus a CTA was performed, which did show evidence for multiple segmental pulmonary embo li. Due to the nature of these pulmonary emboli, it was recommended that the patient be started on t herapeutic Lovenox and/or Eliquis. After talking to Neurosurgery, they agreed that the patient would likely need anticoagulation, but they did warn that the patient could develop a hematoma at the site of the neurosurgical site that could further lead to paralysis. The risks and benefits were explain ed to patient in detail by both the neurosurgical team as well as the primary team and the patient ag tara that treating the pulmonary emboli was in his best interest at this time. Thus, the therapy was continued and the patient will be discharged home on Eliquis to take 10 mg p.o. b.i.d. for a total o f 7 days and then 5 mg b.i.d. for the remainder of the time. Dr. Reyes is the patient's pulmonolog ist and he had seen the patient while he was here in the hospital on several occasions. It was recom mended that the patient follow very closely with Dr. Reyes to follow the course of his pulmonary em boli and to ensure that there is some sort of resolution. The patient was discharged home with oxyge n as we were unable to wean him from the oxygen during his hospital stay, likely secondary to the pul monary emboli that he had developed. Of note, the patient was having trouble with urinary retention as well as bowel function during his h ospital stay. A Mena catheter had to be placed. It was removed at one point, but the patient was u nable to void. Thus, it was decided to keep the Mena catheter in place as his urinary retention is likely secondary to spinal cord lesion and thus would likely not improve at this time. The patient w as understanding that he had to be sent home with the Mena and home health was notified also that he would have Mena care. Additionally, the patient was unable to have bowel movements on his own duri ng the hospitalization. He is on extensive bowel regimen, but required several enemas in order to cabezas ve a bowel movement. It was explained to the patient that he would likely need these upon going home . This was also explained to the home health agency to help further guide the patient's care once he leaves the hospital. Likely, this constipation is related to spinal cord lesion as well as exacerba tommy by the fact that the patient required opiates for pain control. The patient did remain stable throughout his hospital course despite the unfortunate circumstances th at surrounded his stay. He has been discharged home and will continue with radiation therapy schedul ed by Dr. Qiu, his radiation oncologist. The patient is to follow up with Neurosurgery in 2 weeks to have his stitches removed. He will also benefit from following closely with Dr. Reyes, his pulm onologist as well as Dr. Armstrong, his oncologist. DISPOSITION: Fair. DISCHARGE INSTRUCTIONS: 1. Location: Home with home health and PT. 2. Activity: Orthopedic limitations secondary to lower extremity weakness. 3. Diet: Regular. 4. Followup: The patient is to follow up with his primary care physician within 7 days of discharge from the hospital. Additionally, he is to continue radiation therapy per Dr. Qiu and to follow wi th him accordingly. The patient is to follow up with Dr. Armstrong, his oncologist as well as Dr. Shanna manzo, his ammonia technician shortly after discharge from the hospital. The patient will have an appointme nt 14 days from discharge to have stitches removed per Neurosurgery. This was all explained with the patient at length and he was in understanding and agreeable with the plan.
== END 2017-12-20 17:08 | disposition home health service (06) | DRG 28 ==
LOC: ERS 14:23 → SJJU 23:00 → SURG A 12-06 18:20 → CCU 12-11 14:25 → SURG A 12-12 14:23 → ONC 12-16 14:06
PROVIDERS: ADMIT Family Medicine; ATTEND Family Medicine
PROC: 00NX0ZZ Release Thoracic Spinal Cord, Open Approach (ICD-10-PCS; principal; 2017-12-11)
PROC: 008 Central Nervous System and Cranial Nerves, Division (ICD-10-PCS; 2017-12-11)
PROC: 0PB40ZX Excision of Thoracic Vertebra, Open Approach, Diagnostic (ICD-10-PCS; 2017-12-11)
PROC: 0HBBXZX Excision of Right Upper Arm Skin, External Approach, Diagnostic (ICD-10-PCS; 2017-12-11)
DX: G95.9 Disease of spinal cord, unspecified (principal); J96.01 Acute respiratory failure with hypoxia; I26.99 Other pulmonary embolism without acute cor pulmonale; C79.51 Secondary malignant neoplasm of bone; C78.89 Secondary malignant neoplasm of other digestive organs; C78.00 Secondary malignant neoplasm of unspecified lung; G95.20 Unspecified cord compression; C44.92 Squamous cell carcinoma of skin, unspecified; R33.9 Retention of urine, unspecified; J44.9 Chronic obstructive pulmonary disease, unspecified; L13.0 Dermatitis herpetiformis; I10 Essential (primary) hypertension; K59.00 Constipation, unspecified; Z79.82 Long term (current) use of aspirin; R20.0 Anesthesia of skin; F10.10 Alcohol abuse, uncomplicated; Z99.81 Dependence on supplemental oxygen; R53.1 Weakness; F17.210 Nicotine dependence, cigarettes, uncomplicated; Z79.01 Long term (current) use of anticoagulants; Z92.3 Personal history of irradiation; M54.16 Radiculopathy, lumbar region; L72.3 Sebaceous cyst
CPT/HCPCS: 36415; 51702; 51798; 70450; 71260; 71275; 72141; 72146; 72156; 72157; 72158; 76001; 77014; 77280; 77290; 77334; 77336; 77412; 80048; 80053; 81003; 81015; 82565; 83735; 84100; 85014; 85018; 85025; 85049; 85379; 85610; 85652; 85730; 86140; 86850; 86900; 86901; 88304; 88307; 88313; 88331; 88341; 88342; 93005; 93010; 94640; 94760; A4216; A9579; C9113; G8978-GP-CM; G8979-GP-CJ; G8979-GP-CL; G8987-GO-CK; G8987-GO-CL; G8988-GO-CI; G8988-GO-CJ; J0360; J0670; J1100; J1642; J1650; J2001; J2250; J2270; J2405; J2704; J3010; J3370; J3411; J3490; J7050; J7620; J8540

== ENCOUNTER 2018-01-13 11:01 | Emergency (ER) | payer MEDICARE ==
[2018-01-13 11:49] LABS: Bilirubin Moderate (Negative); Blood, Urine Large (Negative); Clarity TURBID (Clear); Glucose, Urine (Dipstick) Negative (Negative); Leukocyte Large (Negative); Nitrite Positive (Negative); Protein, Urine (Dipstick) 100 mg/dL (Neg-Trace); Specific Gravity, Urine 1.022 (1.002-1.036); pH, Urine 6.5 (5.0-9.0)
[2018-01-13 11:52] LABS: Bacteria/HPF Rare-Few HPF (None Seen); Hyaline Casts/LPF 4-6 HYALINE CAST LPF (0-3 Hyaline); Pathc Cast-AUWi Flag 0.91 (0-2.49); Squamous Epithelial None Seen HPF (0-3)
[2018-01-13 11:54] LABS: Yeast-AUWi Flag 133.9 (0-25.0)
[2018-01-13 12:06] LABS: RBC/HPF GREATER THAN 50-TNTC HPF (0-3)
[2018-01-13 13:30] LABS: #Eosinphils 0.1 thou/uL (0.0-0.7); #Lymphocytes 0.8 thou/uL (1.20-3.40); #Monocytes 0.9 thou/uL (0.11-0.59); #Neutrophils 10.1 thou/uL (1.40-6.50); %Eosinophils 0.6 % (0.0-10.0); %Lymphocytes 6.3 % (21.0-51.0); %Monocytes 7.7 % (0.0-10.0); %Neutrophils 85.3 % (42.0-75.0); Hemoglobin 9.9 g/dL (14.0-18.0); Mean Corpuscular HGB CONC 31.8 g/dL (32.0-36.0); Mean Corpuscular Hemoglobin 32.2 pg (27.0-31.0); Mean Platelet Volume 5.6 fL (7.4-10.4); Platelet Count 329 thou/uL (130-400); RBC Distribution Width 17.9 % (11.5-14.5); Red Blood Cell (RBC) Count 3.07 mill/uL (4.70-6.10); White Blood Cell (WBC) Count 11.9 thou/uL (4.8-10.8)
[2018-01-13 13:49] LABS: ALT (SGPT) 25 U/L (8-55); AST (SGOT) 11 U/L (5-34); Albumin 2.6 g/dL (3.4-4.8); Alkaline Phosphatase 112 U/L (40-150); Anion Gap 9 mmol/L (10-20); BUN (Urea Nitrogen) 22 mg/dL (8.4-25.7); Bilirubin, Total 0.7 mg/dL (0.2-1.2); Calc. Creatinine Clearance 0 mL/min (70-130); Calcium 8.3 mg/dL (7.8-10.44); Carbon Dioxide 27 mmol/L (23-31); Chloride 100 mmol/L (98-107); Estimated GFR-MDRD Greater than 90; Globulin 3.8 g/dL (2.4-3.5); Glucose 93 mg/dL (83-110); Potassium 4.3 mmol/L (3.5-5.1); Protein, Total 6.4 g/dL (5.8-8.1); Sodium 132 mmol/L (136-145)
== END 2018-01-13 14:36 | disposition home or self-care (01) ==
LOC: ERS 11:01
DX: N39.0 Urinary tract infection, site not specified (principal); R31.9 Hematuria, unspecified; I10 Essential (primary) hypertension; J44.9 Chronic obstructive pulmonary disease, unspecified; Z87.891 Personal history of nicotine dependence
CPT/HCPCS: 36415; 80053; 81003; 81015; 83605; 85025; 87040; 87077; 87086; 87186; 96361; 96374; J0696

== ENCOUNTER 2018-01-22 16:33 | Emergency (ER) | payer MEDICARE ==
[2018-01-22 17:20] LABS: #Basophils 0.1 thou/uL (0.0-0.2); #Eosinphils 0.2 thou/uL (0.0-0.7); #Neutrophils 7.6 thou/uL (1.40-6.50); %Basophils 0.6 % (0.0-1.0); %Eosinophils 1.6 % (0.0-10.0); %Lymphocytes 18.4 % (21.0-51.0); %Neutrophils 70.4 % (42.0-75.0); Hemoglobin 11.8 g/dL (14.0-18.0); Mean Corpuscular HGB CONC 31.7 g/dL (32.0-36.0); Mean Corpuscular Hemoglobin 31.8 pg (27.0-31.0); Mean Platelet Volume 5.4 fL (7.4-10.4); Platelet Count 435 thou/uL (130-400); RBC Distribution Width 17.3 % (11.5-14.5); Red Blood Cell (RBC) Count 3.73 mill/uL (4.70-6.10); White Blood Cell (WBC) Count 10.8 thou/uL (4.8-10.8)
[2018-01-22 17:43] LABS: ALT (SGPT) 31 U/L (8-55); AST (SGOT) 16 U/L (5-34); Alkaline Phosphatase 135 U/L (40-150); Anion Gap 12 mmol/L (10-20); BUN (Urea Nitrogen) 23 mg/dL (8.4-25.7); Bilirubin, Total 0.6 mg/dL (0.2-1.2); Calc. Creatinine Clearance 0 mL/min (70-130); Calcium 8.8 mg/dL (7.8-10.44); Carbon Dioxide 27 mmol/L (23-31); Chloride 99 mmol/L (98-107); Estimated GFR-MDRD 74; Globulin 4.3 g/dL (2.4-3.5); Glucose 84 mg/dL (83-110); Potassium 4.3 mmol/L (3.5-5.1); Protein, Total 7.3 g/dL (5.8-8.1); Sodium 134 mmol/L (136-145)
--- NOTE | 2018-01-22 18:56 | RAD ---
PORTABLE CHEST: Date: 01-22-18 Provided Clinical History: Swelling. FINDINGS: Comparison 11-14-15. Cardiac and mediastinal silhouette is unchanged in appearance. Right sided implan tommy port is seen in similar position. There is no focal consolidation, pleural fluid, or pneumothorax apparent. IMPRESSION: No evidence for an acute cardiopulmonary process. POS: [facility]
[2018-01-22 20:01] LABS: Bilirubin Negative (Negative); Blood, Urine Trace (Negative); Glucose, Urine (Dipstick) Negative (Negative); Leukocyte Negative (Negative); Nitrite Negative (Negative); Protein, Urine (Dipstick) Trace mg/dL (Neg-Trace); Urobilinogen 0.2 mg/dL (0.2-1.0)
[2018-01-22 20:03] LABS: Clarity CLEAR (Clear)
[2018-01-22 20:04] LABS: Specific Gravity, Urine Greater than 1.060 (1.002-1.036)
[2018-01-22 20:10] LABS: Bacteria/HPF Rare-Few HPF (None Seen); Crystals/HPF 1+ CA OXALATE HPF (Negative); Hyaline Casts/LPF NONE SEEN LPF (0-3 Hyaline); RBC/HPF None Seen HPF (0-3); Squamous Epithelial 0-3 HPF (0-3); WBC/HPF None Seen HPF (0-3)
--- NOTE | 2018-01-22 20:28 | CT ---
CT THORACIC SPINE WITH CONTRAST: 01/22/2018 PROVIDED CLINICAL HISTORY: Status post recent spine surgery with swelling and redness. FINDINGS: Postoperative changes of posterior element removal are noted from C7 through T2. There is partial re section of the posterior elements of T3. There is a large fluid collection, which is contiguous with the dorsal aspect of the spinal canal within the subcutaneous tissues dorsal to the upper thoracic a nd lower cervical spine. This extends from approximately C3 through approximately T4. This measures about 11.5 x 7.6 cm in greatest axial dimensions and at least 15.4 cm in craniocaudal dimension. Th ere is no peripheral enhancement identified. The relationship of this fluid collection with the thec al sac is not well established by CT. There are emphysematous changes seen involving the lung parenchyma. There are bilateral pleural effu sions partially visualized. Degenerative changes are seen involving the thoracic spine and lower cervical spine. No lytic or jen stic bony processes are seen. No inflammatory fat stranding is evident. IMPRESSION: 1. Postoperative changes of the lower cervical and upper thoracic spine, as described above, with a large dorsal soft tissue fluid collection. This does not demonstrate CT features typical for an infe cted fluid collection. A seroma or cerebrospinal fluid leak could be considered. 2. Small bilateral pleural effusions. POS: [facility]
[2018-01-22 21:00] LABS: Lactic Acid 1.1 mmol/L (0.5-2.2)
== END 2018-01-22 21:53 | disposition home or self-care (01) ==
LOC: ERS 16:33
DX: M96.89 Other intraoperative and postprocedural complications and disorders of the musculoskeletal system (principal); R00.0 Tachycardia, unspecified; I10 Essential (primary) hypertension; J44.9 Chronic obstructive pulmonary disease, unspecified; Z98.890 Other specified postprocedural states; Z87.891 Personal history of nicotine dependence
CPT/HCPCS: 36415; 71045; 72129; 80053; 81003; 81015; 83605; 85025; 87040; 93005; 94760; 96360; 96361

== ENCOUNTER 2018-01-25 14:23 | Inpatient (IN) | payer MEDICARE ==
[2018-01-25] MEDS ORDERED: traMADol HCl 50 MG TAB PO PRN (15:04)
[2018-01-25] MEDS ORDERED: Morphine 4 MG/ML VIAL SLOW IVP PRN (15:04)
[2018-01-25] MEDS ORDERED: Mag-Al 1200 mg/1200 mg/30 ML UDCUP PO PRN (15:04)
[2018-01-25] MEDS ORDERED: Milk Of Magnesia 30 ML UDCUP PO PRN (15:04)
[2018-01-25] MEDS ORDERED: Ondansetron HCl/PF 4 MG/2 ML Vial IVP PRN (15:04)
[2018-01-25] MEDS ORDERED: Bisacodyl 10 MG SUPP PR PRN (15:04)
[2018-01-25] MEDS ORDERED: diphenhydrAMINE 50 MG/ML VIAL IVP PRN (15:04)
[2018-01-25 15:21] LABS: #Eosinphils 0.2 thou/uL (0.0-0.7); #Lymphocytes 1.5 thou/uL (1.20-3.40); #Neutrophils 7.6 thou/uL (1.40-6.50); %Basophils 0.1 % (0.0-1.0); %Eosinophils 1.9 % (0.0-10.0); %Lymphocytes 14.3 % (21.0-51.0); %Monocytes 9.9 % (0.0-10.0); %Neutrophils 73.8 % (42.0-75.0); Hemoglobin 10.7 g/dL (14.0-18.0); Mean Corpuscular HGB CONC 31.7 g/dL (32.0-36.0); Mean Corpuscular Hemoglobin 32.1 pg (27.0-31.0); Mean Platelet Volume 5.4 fL (7.4-10.4); Platelet Count 376 thou/uL (130-400); RBC Distribution Width 17.1 % (11.5-14.5); Red Blood Cell (RBC) Count 3.34 mill/uL (4.70-6.10); White Blood Cell (WBC) Count 10.3 thou/uL (4.8-10.8)
[2018-01-25 15:31] LABS: INR-International Normal Ratio 1.3; PTT 40.6 SEC (22.9-36.1); Prothrombin Time 16.5 SEC (12.0-14.7)
--- NOTE | 2018-01-25 15:35 | CT ---
HEAD CT WITHOUT CONTRAST: HISTORY: Previous spine surgery. Worsening swelling. COMPARISON: None. TECHNIQUE: Noncontrast head CT is performed from the skull base to the skull vertex. FINDINGS: No parenchymal hemorrhage. No extraaxial hematoma. No midline shift. Basilar cisterns are patent. Brain volume is age appropriate. Cortical medina-white matter differentiation is preserved. There is right maxillary sinus mucosal disease. Adequate aeration of the mastoid air cells. Calvari um is intact. IMPRESSION: No acute intracranial process. POS: [facility]
[2018-01-25 15:48] LABS: Anion Gap 10 mmol/L (10-20); BUN (Urea Nitrogen) 14 mg/dL (8.4-25.7); Calc. Creatinine Clearance 0 mL/min (70-130); Calcium 8.6 mg/dL (7.8-10.44); Carbon Dioxide 25 mmol/L (23-31); Chloride 99 mmol/L (98-107); Estimated GFR-MDRD Greater than 90; Glucose 100 mg/dL (83-110); Potassium 4.7 mmol/L (3.5-5.1); Sodium 129 mmol/L (136-145)
[2018-01-25 16:56] LABS: Hemoglobin 10.7 g/dL (14.0-18.0); Platelet Count 383 thou/uL (130-400)
[2018-01-25] MEDS: Sodium Chloride 0.9% 1,000 ML IV SCH (17:06)
[2018-01-25] MEDS ORDERED: Cyclobenzaprine 10 MG TAB PO PRN (17:12)
[2018-01-25 17:13] LABS: CKMB 0.9 ng/mL (0-6.6); Troponin I Less than 0.010 ng/mL (< 0.028)
[2018-01-25] MEDS: Mometasone/Formoterol 120 PUFF INHALER INH SCH (19:17)
--- NOTE | 2018-01-25 21:24 | HP ---
ATTENDING PHYSICIAN: Angel West MD HISTORY OF PRESENT ILLNESS: The patient is a 72-year-old male with a past medical history of esophageal squamous cell carcinoma, COPD who presented to the ER tonight for incisional swelling. The patient is status post T1-T2 tumor resection for squamous cell carcinoma metastases. During his prior admission, his case was complicated by development of pulmonary embolism seen on CT on 018, and the patient is currently on Eliquis for this event. He was seen in the ER on 01/22/2018 for evaluation of some incisional swelling and a CT of the thoracic spine was done at that time, which s howed a large fluid collection, seroma versus CSF collection. He was discharged to home later that d ay and planned for office followup on 02/03/2018; however, he reports significantly increased swellin g at the site with development of postural headache, which prompted his return to the ER tonight. I am seeing the patient at the bedside. He is awake and alert. He appears to be in no acute distres s. He is tachycardic in the 130s and 91% on 2 liters nasal cannula. There is a large fluctuant soft tissue swelling beneath the incision site in the lower cervical and upper thoracic spine region. Th ere is slight redness overlying the incision, but it is not warm and not tender to palpation. The pa mary has significant lower extremity weakness consistent with his prior admission. PAST MEDICAL HISTORY: Esophageal cancer with metastases to the thoracic spine at T1-T2, status post resection on 12/11/2017; hypertension; COPD; dermatitis herpetiform; pulmonary embolism seen on CTA o n 12/17/2017, currently on Eliquis. PAST SURGICAL HISTORY: Decompressive laminectomy, medial fasciotomy and foraminotomy of C7, T1, T2, and T3 for intramedullary spinal cord lesion, suspected to be esophageal cancer metastases. FAMILY HISTORY: Noncontributory. SOCIAL HISTORY: The patient drinks 3-4 beers a day. He is a former smoker, approximately 50-pack-ye ar history. He does not use any drugs. REVIEW OF SYSTEMS: Per HPI. ALLERGIES: The patient has no known drug allergies. PHYSICAL EXAMINATION: CONSTITUTIONAL: Awake, alert, in no acute distress. HEENT: Normocephalic, atraumatic. EYES: PERRLA. Extraocular movements are intact. ENT: Oral mucosa is pink, intact, and moist. CARDIAC: He is tachycardic. Regular rhythm. LUNGS: He is breathing comfortably. He does not appear to have any dyspnea. He is saturating 91% o n 2 liters nasal cannula. NECK: Incision is intact over the lower cervical and upper thoracic spine. There is a large fluctua nt collection over this region. It is nontender to palpation. It is slightly red. It is not warm. MUSCULOSKELETAL: The patient has significant lower extremity weakness and dysesthesias. This is unc hanged from his baseline per the family. NEUROLOGIC: He is A&O x4. Lower extremity weakness and sensation changes consistent with his prior admission. 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 PLAN: We will admit to the IMCU for monitoring. We will get MRI of the C and T-spine for evaluation of suspected pseudomeningocele. I have consulted my medical colleagues for evaluation of tachycardi a and hypoxia with a known pulmonary embolism. I suspect the patient will require eventual placement of lumbar drain versus surgical revision of the surgical site. This would require the patient to be off Eliquis for a time. We will get my medical colleagues opinion in this regard. I have discussed this plan with Dr. West, who is in agreement. Please reach out to Neurosurgery for additional ques tions or concerns.
[2018-01-25] MEDS ORDERED: CEFAZOLIN/Water 2 GM/20 ML SYRINGE SLOW IVP SCH (22:00)
--- NOTE | 2018-01-25 23:32 | CON ---
DATE OF CONSULTATION: 01/25/2018 PRIMARY CARE PHYSICIAN: Out of town. CONSULTING PHYSICIAN: Aury Martin for Dr. West is the primary team. REASON FOR CONSULTATION: Pulmonary embolism, on anticoagulation, needing surgery. 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 He had a decompressive laminectomy and partial resection and biopsy of the mass in the spinal cord. During his last hospitalization, he also was diagnosed with bilateral extensive pulmonary emboli, placed on Eliquis, and was eventually discharged. He has been doing well with some minimal improvement in the feeling and strength in his lower extremities, but still not able to walk or even sit up. He was just able to use his upper extremities, and then a few days ago, he developed a swelling over his upper T-spine. This progressed rapidly over the last few days and so he was seen in the emergency room. Neurosurgery was consulted and are admitting him for a possible pseudomeningocele that will require drainage. The patient was discharged on Eliquis and at some point, the patient and his family thought he was supposed to be on 2 tablets of the 5 mg once a day in the morning for a while, and then he was switched to 1 tablet in the morning. As far as I know, he has never been on twice a day Eliquis. In the emergency room, he was noted to be severely tachycardic in the 120s-130s, although is asymptomatic at this time. He is not having shortness of breath or chest pain. PAST MEDICAL HISTORY: Reviewed with the patient and from chart. 1. 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 2. Hypertension. 3. Dermatitis herpetiformis. 4. Chronic obstructive pulmonary disease. 5. Constipation. 6. 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 PAST SURGICAL HISTORY: 1. Decompressive laminectomy, medial facetectomy, foraminotomy, durotomy, myotomy, and intramedullary spinal cord lesion partial resection and biopsy. 2. Removal of posterior shoulder sebaceous cyst. SOCIAL HISTORY: The patient used to smoke cigarettes, a pack per day for 57 years, quit last year. No illicit drug use. Previously drank 3-5 beers a night. He is a . FAMILY HISTORY: Grandmother had diabetes. No other significant family history. ALLERGIES: No known drug allergies. CURRENT MEDICATIONS: 1. Eliquis 5 mg p.o. daily each morning, last one this morning. 2. Cyclobenzaprine 10 mg every 8 hours as needed for muscle spasms. 3. Enalapril 5 mg daily. 4. Folic acid 1 mg daily. 5. Thiamine 100 mg daily. 6. Docusate 100 mg twice a day. 7. Jorje Aspirin 81 mg daily. 8. Dapsone 50 mg every other day. 9. Dexamethasone, unknown dose currently. REVIEW OF SYSTEMS: Constitutional: No fevers, no chills. Eyes: He had a little bit of blurred vision, seems to be worse recently. No double vision. ENT: No congestion, drainage, sore throat. Cardiac: No chest pain. No palpitations or racing heart. Pulmonary: No coughing, wheezing, or shortness of breath. Gastrointestinal: No abdominal pain. No nausea or vomiting. No diarrhea. He does have some constipation, which was controlled with Colace. Genitourinary: The patient has indwelling Mena. Musculoskeletal: No muscle aches or joint pains. He does have the swelling behind his T-spine, but is not tender. Skin: No rashes or other lesions noted. Neurologic: He has numbness from his nipples down, worse on the right side. His right leg is still very numb and had significantly decreased strength. He is able to move his left leg , but not lift it up in air with better strength and has improved sensation on that side. No trouble swallowing or speaking. No confusion. He did have a little headache earlier, which has resolved now. PHYSICAL EXAMINATION: VITAL SIGNS: Blood pressure 104/71, pulse 137, temperature 99.3, respirations 20, O2 sat 95% on 3 liters of oxygen. GENERAL: This is a well-developed, well-nourished, white male in no apparent distress. HEENT: Pupils equal, round, reactive to light. Oropharynx is clear without lesions, erythema, or exudate. NECK: Supple. No lymphadenopathy. No thyroid nodules or enlargement. HEART: Regular rhythm. He has tachycardic rate. No murmurs. LUNGS: Clear to auscultation bilaterally. No wheezes, crackles, or rhonchi. ABDOMEN: Soft. Nontender to palpation. Normoactive bowel sounds. No hepatosplenomegaly or masses. EXTREMITIES: No clubbing, cyanosis, or edema. SKIN: No rashes or other lesions noted. He does have some very soft swelling of about 10 cm in length over his T-spine. This appears fluid filled, but has no redness or external lesions and is not tender to palpation. NEUROLOGIC: The patient has 2/5 strength in his right lower extremity, 3/5 strength in his left lower extremity. He has deep tendon reflexes 2+ in bilateral lower extremities and 1+ in bilateral upper extremities. Strength 5/ 5 in bilateral upper extremities, a little bit weaker on the right. Cranial nerves intact and equal bilaterally without any facial droop. LABORATORY DATA: Basic metabolic panel was notable only for a sodium of 129. This is actually down from his previous admission and even from 3 days ago when it was 134. Coagulation profile shows an INR of 1.3. CBC shows a white blood cell count of 10, hemoglobin of 10, hematocrit of 33, platelet count of 376. CT of the brain done in the emergency room showed no evidence of intracranial process. EKG done in the emergency room shows sinus tachycardia without any ST- segment changes or T-wave inversions. Normal axis. No evidence of other arrhythmias or sinus tachycardia. ASSESSMENT: 1. Pseudomeningocele. Neurosurgery is planning for surgery as soon as the patient is stable, possibly in the next 1-2 days. 2. Persistent tachycardia likely secondary to inadequately treated pulmonary embolism. We will go ahead and get an echocardiogram, check his brain natriuretic peptide as well. There is always a concern for progression of pulmonary emboli with development of heart failure. 3. Bilateral pulmonary emboli on inadequate Eliquis dose. The patient will need to be switched to a short-acting anticoagulant anyway to allow for him to have surgery. I will go ahead and bolus heparin, IV heparin infusion. Has not been quite few hours after last dose of medicine, but he was inadequately treated with his Eliquis. So, we will go ahead and start the heparin now. I did discuss the case with Dr. Cedeno and he will see the patient as well. We will give oxygen as needed. 4. Hyponatremia. Possibly related to the pulmonary emboli. Will recheck after fluids bolused in the ER. 5. Hypertension. Resume the patient's home blood pressure medications. 6. Chronic obstructive pulmonary disease. We will give breathing treatments as needed. I think we will also continue the patient who is supposed to be on budesonide/formoterol from his last hospitalization. We will continue that. 7. Dermatitis herpetiformis. We will continue the patient's dapsone. 8. Gastrointestinal prophylaxis. We will put the patient on Protonix. 9. Code status. I did discuss this with the patient. He is a FULL CODE. Should he be incapacitated, he states that his medical decision maker would be his sister, Mary Anne Garcia. [email or web address]
--- NOTE | 2018-01-26 00:31 | CON ---
DATE OF CONSULTATION: 01/25/2018 SERVICE: Pulmonary Medicine. REASON FOR CONSULTATION: Recent pulmonary embolism. HISTORY OF PRESENT ILLNESS: The patient is a 72-year-old white male with past medical history significant for esophageal cancer. He was in his usual state of health until he started having neurologic changes. He presented to the emergency department and ultimately, underwent an elective resection of the tumor off the spinal cord. Later on that hospital stay, he developed increasing hypoxemic failure. He was sent for a CTA of the chest, which demonstrated extensive pulmonary emboli. He was discharged from the hospital on Eliquis. He was supposed to be on full-dose anticoagulation, but for some reason, he was only taking 5 mg once daily. He was discharged from the hospital roughly 1 month prior to this admission. Over the last month, he noticed increasing swelling in the back of his neck. There was concern for a myelocele. He was tucked into the hospital, but he was being asked to be cleared for moving forward with the surgical procedure. He currently denies any shortness of breath or chest discomfort. He has no wheezing, rhonchi, or crackles. Otherwise, he feels like he is in his usual state of health. PAST MEDICAL HISTORY: 1. Esophageal cancer. 2. Hypertension. 3. Dermatitis herpetiformis. 4. Chronic obstructive pulmonary disease. 5. History of pulmonary embolism, recent. PAST SURGICAL HISTORY: Decompressive laminectomy, mediastinal fasciotomy, and foraminotomy of C7, T1, T2, and T3. Intramedullary spinal cord lesion with partial resection and biopsy with subsequent removal of posterior shoulder sebaceous cyst. FAMILY HISTORY: Noncontributory. SOCIAL HISTORY: He drinks 3-4 beers on a nightly basis. He has a greater than [id number] history of smoking, but quit roughly one month ago. He denies any illicit drug use. He has no exposure to chemicals, dust, asbestos, or tuberculosis. REVIEW OF SYSTEMS: General, head, ears, eyes, nose, throat, cardiovascular, respiratory, GI, , musculoskeletal, neurologic, and skin is negative except as mentioned in the HPI. ALLERGIES: No known drug allergies. MEDICATIONS: List of his inpatient medications were reviewed. No specific updates were made. PHYSICAL EXAMINATION: VITAL SIGNS: Afebrile, pulse 76, blood pressure 145/82, respirations 18, saturation 98% on 3 liters nasal cannula. GENERAL: The patient is awake and alert, in no apparent distress. LUNGS: Decent air entry bilaterally. There is no prolonged expiratory phase, wheezing, rhonchi, or crackles present. HEART: Normal rate, regular. ABDOMEN: Soft, nontender, nondistended. Bowel sounds are positive. MUSCULOSKELETAL: No cyanosis or clubbing. There is no pitting in the bilateral lower extremities. NEUROLOGIC: Grossly nonfocal. LABORATORY DATA: CBC is essentially unremarkable with the hemoglobin stable at 10.7, platelets 376,000. INR is 1.3. Basic metabolic profile is unremarkable. Recent liver function studies were also unremarkable. Lactate is negative. Cardiac enzyme is negative x1. TSH and BNP are unremarkable. Urinalysis was recently negative. Recent blood cultures are negative to date. IMAGIN. CT of the brain demonstrates no acute intracranial process. 2. CT of the thoracic spine demonstrates postoperative changes in the lower cervical and upper thoracic spine with large dorsal soft tissue fluid collection. This does not appear to be an infected fluid. Seroma or CSF leak is suspected. Small bilateral pleural effusions are noted. Heart structures could not be identified. 3. Chest x-ray from 01/22/2018 demonstrates no acute cardiopulmonary abnormality. Heart is small. There is a port catheter, which terminates in good position without migration. No obvious pleural effusions or parenchymal opacifications are identified. ASSESSMENT: 1. Acute hypoxic respiratory failure. 2. Recent pulmonary embolism, requiring anticoagulation, recently on subtherapeutic dose of Eliquis. 3. Pseudomeningocele. 4. Recent resection of tumor from spinal cord. 5. Esophageal cancer, metastatic. DISCUSSION AND PLAN: Ideally, the patient will be on anticoagulation for a brief period of time before proceeding with any type of elective procedure. That being said, this is an urgent procedure. As such, I agree with the heparin window. We will have to discuss with Neurosurgery when it is going to be safe to resume anticoagulation following the procedure. Ultimately, on discharge from the hospital, he will need a therapeutic dose of Eliquis. We will need to reload him with that medication for a week prior to dropping back down to the maintenance dose. There does not appear to be any stress on the right ventricle as his BNP and troponin are normal. We will get a limited echocardiogram looking at RV function to make certain that it does not appear to be under any stress. If it is not, he will be optimized for a surgical procedure. Of note, after the patient was on full-dose anticoagulation for several days, he was discharged from the hospital with a heart rate of 112, so the current tachycardia is unlikely to represent exacerbation of the embolus. Pulmonary Critical Care will continue to follow along while the patient remains in this hospital. 70 minutes have been devoted to this patient in various activities. I personally reviewed all imaging studies and laboratory data noted within this document. For fifty percent of this time, I was interacting with the patient at the bedside or coordinating care with the care team. For the remainder of the time I was immediately available to the patient in the hospital unit. ANCELMO
[2018-01-26] MEDS: Docusate 100 MG CAP PO SCH ×3 (01:00→22:01)
[2018-01-26] MEDS: Heparin 10,000 UNITS/ 10 ML VIAL SLOW IVP SCH (01:00)
[2018-01-26] MEDS: Heparin 25,000 units/D5W 500 ML IVPB SCH (01:06)
[2018-01-26] MEDS: Sodium Chloride 0.9% 1,000 ML IV SCH ×2 (06:30→17:35)
[2018-01-26 07:13] LABS: INR-International Normal Ratio 1.3; Prothrombin Time 16.4 SEC (12.0-14.7)
[2018-01-26 07:33] LABS: PTT Greater than 250.0 SEC (22.9-36.1)
[2018-01-26] MEDS: Mometasone/Formoterol 120 PUFF INHALER INH SCH ×2 (07:54→18:24)
[2018-01-26] MEDS ORDERED: Chloraseptic Spray 180 ml Bottle PO PRN (08:12)
[2018-01-26] MEDS ORDERED: Ondansetron ODT 4 MG TAB PO PRN (08:12)
[2018-01-26] MEDS ORDERED: Sodium Chloride 0.65% Nasal 44 ML BOT EA NARE PRN (08:12)
[2018-01-26] MEDS ORDERED: Diabetic Tussin 200 MG/10 ML UDCUP PO PRN (08:12)
[2018-01-26] MEDS ORDERED: Temazepam 15 MG CAP PO PRN (08:12)
[2018-01-26] MEDS ORDERED: Eucerin (Mineral Oil/Petrolatum,White) 30 gm Jar TOP PRN (08:12)
[2018-01-26] MEDS ORDERED: Loratadine 10 MG TAB PO PRN (08:12)
[2018-01-26] MEDS ORDERED: Loperamide HCl 2 MG CAP PO PRN (08:12)
[2018-01-26] MEDS ORDERED: Artificial Tears 18 DROP/0.9 ML EA EYE PRN (08:12)
[2018-01-26] MEDS ORDERED: hydrALAZINE 20 MG/ML VIAL SLOW IVP PRN (08:12)
[2018-01-26] MEDS: Famotidine 20 MG TAB PO SCH ×2 (09:20→22:01)
[2018-01-26] MEDS: Folic Acid 1 MG TAB PO SCH (09:20)
[2018-01-26] MEDS: Polyethylene Glycol 3350 17 GM Packet PO SCH (09:21)
--- NOTE | 2018-01-26 11:13 | PDOC.PN ---
- Subjective Encounter Start Date: 01/26/18 Encounter Start Time: 08:10 -: old records requested/rev Patient seen and examined for pulmonary embolism. No new complaints. No overnight events - Objective MAR Reviewed: Yes Vital Signs & Weight: Vital Signs (12 hours) Temp Pulse Resp BP Pulse Ox 01/26/18 07:58 93 L 01/26/18 07:54 105 H 12 01/26/18 07:53 97.9 F 99 16 137/86 92 L 01/26/18 04:00 98.0 F 105 H 20 133/82 93 L 01/26/18 00:00 98.2 F 89 16 113/74 93 L Weight Weight 197 lb 7 oz I&O: 01/25/18 01/26/18 01/27/18 06:59 06:59 06:59 Intake Total 1542 Output Total 650 Balance 892 Result Diagrams: 01/25/18 14:55 01/25/18 14:55 Phys Exam - Physical Examination Constitutional: NAD HEENT: PERRLA, moist MMs, sclera anicteric Neck: no JVD, supple Respiratory: no wheezing, no rales, no rhonchi Cardiovascular: RRR, no significant murmur, no rub Gastrointestinal: soft, non-tender, no distention, positive bowel sounds Musculoskeletal: no edema, pulses present Neurological: non-focal, normal sensation pt has reduced sensation below umbilicus Lymphatic: no nodes Psychiatric: normal affect, A&O x 3 Skin: no rash, normal turgor Dx/Plan (1) Acute respiratory failure with hypoxia Code(s): J96.01 - ACUTE RESPIRATORY FAILURE WITH HYPOXIA Status: Acute (2) Fluid collection at surgical site Code(s): T88.8XXA - OTH COMPLICATIONS OF SURGICAL AND MEDICAL CARE, NEC, INIT Status: Acute (3) History of pulmonary embolism Code(s): Z86.711 - PERSONAL HISTORY OF PULMONARY EMBOLISM Status: Acute (4) Hyponatremia Code(s): E87.1 - HYPO-OSMOLALITY AND HYPONATREMIA Status: Acute (5) Alcohol abuse Code(s): F10.10 - ALCOHOL ABUSE, UNCOMPLICATED Status: Chronic (6) COPD (chronic obstructive pulmonary disease) Status: Chronic (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 - DERMATITIS HERPETIFORMIS Status: Chronic (8) HTN (hypertension) Code(s): I10 - ESSENTIAL (PRIMARY) HYPERTENSION Status: Chronic Qualifiers: (9) Hx of esophageal malignancy Code(s): Z85.01 - PERSONAL HISTORY OF MALIGNANT NEOPLASM OF ESOPHAGUS Status: Chronic (10) Macrocytic anemia Code(s): D53.9 - NUTRITIONAL ANEMIA, UNSPECIFIED Status: Chronic (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 - OTHER DISORDERS OF MENINGES, NOT ELSEWHERE CLASSIFIED Status : Suspected - Plan cont current plan of care, PT/OT, social worker * continue heparin drip for now as per protocol * today plan for MRI spine * if there is no need or plan for surgery, then will resume elliquis at therapeutic dose if neurosurgeon allows * medication reviewed as below * symptomatic treatment. * echo pending result Review of Systems - Review of Systems Eyes: negative: Pain, Vision Change, Conjunctivae Inflammation, Eyelid Inflammation, Redness, Other ENT: negative: Ear Pain, Ear Discharge, Nose Pain, Nose Discharge, Nose Congestion, Mouth Pain, Mouth Swelling, Throat Pain, Throat Swelling, Other Respiratory: negative: Cough, Dry, Shortness of Breath, Hemoptysis, SOB with Excertion, Pleuritic Pain, Sputum, Wheezing Cardiovascular: negative: chest pain, palpitations, orthopnea, paroxysmal nocturnal dyspnea, edema, light headedness, other Gastrointestinal: negative: Nausea, Vomiting, Abdominal Pain, Diarrhea, Constipation, Melena, Hematochezia, Other Genitourinary: negative: Dysuria, Frequency, Incontinence, Hematuria, Retention , Other Musculoskeletal: negative: Neck Pain, Shoulder Pain, Arm Pain, Back Pain, Hand Pain, Leg Pain, Foot Pain, Other Skin: negative: Rash, Lesions, Oren, Bruising, Other Neurological: Numbness. negative: Weakness, Incoordination, Change in Speech, Confusion, Seizures, Other - Medications/Allergies Allergies/Adverse Reactions: Allergies Allergy/AdvReac Type Severity Reaction Status Date / Time No Known Allergies Allergy Verified 12/06/17 00:59 Medications: Current Medications Acetaminophen (Tylenol) 650 mg PO Q4H PRN PRN Reason: WILLIAM/Fever Or Mild Pain (1-3) Hydrocodone Bitart/Acetaminophen ([place] 10/325) 1 tab PO Q4H PRN PRN Reason: Mild Pain (1-3) Al Hydroxide/Mg Hydroxide (Maalox) 30 ml PO Q4H PRN PRN Reason: Indigestion Albuterol/Ipratropium (Duoneb) 3 ml NEB [id number] PRN PRN Reason: SOB &/or Wheezing Artificial Tears (Tears Naturale) 0 drop EA EYE PRN PRN PRN Reason: Dry Eyes Bisacodyl (Dulcolax) [address] Q12H PRN PRN Reason: Constipation Cyclobenzaprine HCl (Flexeril) 10 mg PO Q8H PRN PRN Reason: Muscle Spasm Dapsone (Dapsone) 50 mg PO Q2D@0900 NGUYEN Diphenhydramine HCl (Benadryl) 25 mg IVP Q6H PRN PRN Reason: Itching Docusate Sodium (Colace) 100 mg PO BID [facility] Last Admin: 01/26/18 09:20 Dose: 100 mg Enalapril Maleate (Vasotec) 5 mg PO DAILY [facility] Last Admin: 01/26/18 09:19 Dose: 5 mg Famotidine (Pepcid) 20 mg PO BID [facility] Last Admin: 01/26/18 09:20 Dose: 20 mg Folic Acid (Folvite) 1 mg PO DAILY [facility] Last Admin: 01/26/18 09:20 Dose: 1 mg Guaifenesin (Robitussin Sf) 200 mg PO Q4H PRN PRN Reason: Cough Heparin Sodium (Porcine) (Heparin 1,000 Units/Ml (10 Ml)) 0 units SLOW IVP ASDIR NGUYEN PRN Reason: Protocol Last Admin: 01/26/18 01:00 Dose: 7,164.48 unit Hydralazine HCl (Apresoline) 10 mg SLOW IVP Q4H PRN PRN Reason: Systolic BP > 180 Sodium Chloride (Normal Saline 0.9%) 1,000 mls @ 75 mls/hr IV [id number] [facility] Last Admin: 01/26/18 06:30 Dose: 1,000 mls Heparin Sodium/Dextrose (Heparin 25,000 Units/D5w 500 Ml) 500 mls @ 0 mls/hr IVPB INF NGUYEN; Per Protocol PRN Reason: Protocol Last Admin: 01/26/18 01:06 Dose: 500 mls Loperamide HCl (Imodium) 2 mg PO PRN PRN PRN Reason: Diarrhea/Loose Stools Loratadine (Claritin) 10 mg PO DAILYPRN PRN PRN Reason: Sinus Symptoms Magnesium Hydroxide (Milk Of Magnesium) 30 ml PO Q12H PRN PRN Reason: Constipation Mineral Oil/White Petrolatum (Eucerin Cream) 0 gm TOP BIDPRN PRN PRN Reason: Dry Skin Mometasone Furoate/Formoterol Fumar (Dulera 100 Mcg/5 Mcg Inhaler) 2 puff INH BID-RT [facility] Last Admin: 01/26/18 07:54 Dose: 2 puff Morphine Sulfate (Morphine) 2 mg SLOW IVP Q1H PRN PRN Reason: Moderate Breakthrough Pain Ondansetron HCl (Zofran) 4 mg IVP DAILYPRN PRN PRN Reason: Nausea Ondansetron HCl (Zofran Odt) 4 mg PO Q6H PRN PRN Reason: Nausea/Vomiting Pantoprazole Sodium (Protonix) 40 mg PO DAILY [facility] Last Admin: 01/26/18 09:20 Dose: 40 mg Phenol (Chloraseptic [place] 180 Ml Bot) 0 ml PO PRN PRN PRN Reason: Sore Throat Polyethylene Glycol (Miralax) 17 gm PO DAILY [facility] Last Admin: 01/26/18 09:21 Dose: 17 gm Sodium Chloride (Flush - Normal Saline) 10 ml IVF PRN PRN PRN Reason: Saline Flush Sodium Chloride ([place] Nasal [place] 0.65%) 0 ml EA NARE QIDPRN PRN PRN Reason: Nasal Congestion Temazepam (Restoril) 15 mg PO HSPRN PRN PRN Reason: Insomnia Thiamine HCl (Thiamine) 100 mg PO DAILY [facility] Last Admin: 01/26/18 09:20 Dose: 100 mg Tramadol HCl (Ultram) 50 mg PO Q6H PRN PRN Reason: Mild Pain (1-3)
--- NOTE | 2018-01-26 11:32 | PRG ---
DATE OF SERVICE: 01/26/2018 Mr. Hernandez was admitted yesterday for enlarging cervicothoracic pseudomeningocele. He had presented a few days prior to the ER for the same problem, although at that time it was much smaller in nature. He had a CT scan performed at that time which did show fluid collection consistent with meningocele. This had continued to enlarge and he had started to develop postural headache. We brought him into the hospital for further management. Of note, he did develop a pulmonary embolus at the time of the last admission, at which time he was p laced on Eliquis. He had been taking that in the outpatient setting. He is now off the Eliquis and we are now bridging him with unfractionated heparin. Neurologically, he is intact. The incision is quite protuberant, but it is intact and there is no leakage of spinal fluid. The pulmonary critical care colleagues as well as her Hospitalist colleagues are seeing Mr. Hernandez as well to continue evalua te him with respect to his pulmonary embolism. He is scheduled to undergo additional studies today i nclude an MRI scan as well as echo. Anticipate Mr. Hernandez will need surgical revision of this pseudom eningocele. This is not likely to happen before Saturday or Saturday of next week.
--- NOTE | 2018-01-26 12:51 | PRG ---
DATE OF SERVICE: 01/26/2018 SERVICE: Pulmonary Medicine. INTERVAL HISTORY: The patient is doing fine from a cardiovascular and respiratory standpoint. He is breathing comfortably. Denies any chest pain, nausea, vomiting, fevers or chills. Otherwise, there has been no interval change to his condition. He went down for an MRI of the neck today. He did not know the results of that. PHYSICAL EXAMINATION: VITAL SIGNS: Afebrile, pulse 99, blood pressure 137/86, respirations 16, saturation 92% on 3 liters nasal cannula. GENERAL: The patient is awake and alert, in no apparent distress. LUNGS: Decent air entry without prolonged expiratory phase, wheezing, rhonchi or crackles. HEART: Normal rate and regular. ABDOMEN: Soft, nontender, and nondistended. Bowel sounds are positive. MUSCULOSKELETAL: No cyanosis or clubbing. No pitting in the bilateral lower extremities. NEUROLOGIC: Grossly nonfocal. LABORATORY DATA: PTT greater than 250. Troponin negative, BNP unremarkable. TSH is also unremarkable. Blood cultures x2 and urine culture remain negative to date. ASSESSMENT: 1. Acute hypoxic respiratory failure. 2. Recent pulmonary embolism requiring anticoagulation, recently on a subtherapeutic dose of Eliquis, currently on heparin drip. 3. Pseudomeningocele following recent T-spine surgery. 4. Esophageal cancer with recent resection of tumor metastasis from spinal cord. PLAN: We will continue heparin window. The patient will need to be back on anticoagulation as soon as he can tolerate it after his surgical intervention. From a lung standpoint, he is a high-risk patient for a medium risk procedure. That being said, he is currently optimized from a respiratory standpoint to proceed with this procedure. There does not appear to be any RV dysfunction on the echocardiogram. MTDD
--- NOTE | 2018-01-26 12:55 | MRI ---
MRI CERVICAL SPINE WITH AND WITHOUT CONTRAST: HISTORY: Status post surgery for tumor removal. Posterior neck mass. COMPARISON: 12/06/17. TECHNIQUE: MRI cervical spine was performed with and without intravenous Gadolinium administration. Multisequen tial, multiplanar imaging is performed. FINDINGS: Interval surgery with posterior decompression at C6, C7, T1, T2, and T3. There is a large fluid sonali ection with CSF signal intensity that spans the posterior midline structures from C4 down to T3. Thi s collection measures 0.6 cm craniocaudal x 8.7 cm mediolateral x 9.5 cm anterior posterior. There i s peripheral enhancement. This fluid collection abuts the posterior margin of the thecal sac and may represent a large pseudomeningocele. There is also evidence of prominent cerebrospinal fluid in the extraaxial space in the left and right posterior fossa. There is stable degenerative change throughout the cervical spine. With regard to the cervical cord, there is no T2 hyperintensity. No abnormal enhancement. There is intramedullary enhancement involving the upper thoracic cord at the T1 and T2 level. The de gree of enhancement has slightly decreased when compared to the previous examination. IMPRESSION: 1. Large cerebrospinal fluid signal intensity collection in the posterior midline soft tissues corre sponding to recent CT. 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 Postoperative changes defined above. 2. Enhancement of the upper thoracic cord may represent residual tumor. Scar tissue could not be com pletely excluded. POS: NEW
[2018-01-26 18:45] LABS: PTT 241.6 SEC (22.9-36.1)
[2018-01-27 03:56] LABS: #Eosinphils 0.3 thou/uL (0.0-0.7); #Lymphocytes 1.1 thou/uL (1.20-3.40); #Monocytes 0.6 thou/uL (0.11-0.59); #Neutrophils 4.2 thou/uL (1.40-6.50); %Basophils 0.6 % (0.0-1.0); %Eosinophils 4.2 % (0.0-10.0); %Lymphocytes 17.8 % (21.0-51.0); %Monocytes 9.8 % (0.0-10.0); %Neutrophils 67.6 % (42.0-75.0); Hemoglobin 9.3 g/dL (14.0-18.0); Mean Corpuscular HGB CONC 32.4 g/dL (32.0-36.0); Mean Platelet Volume 5.5 fL (7.4-10.4); Platelet Count 308 thou/uL (130-400); RBC Distribution Width 16.7 % (11.5-14.5); Red Blood Cell (RBC) Count 2.82 mill/uL (4.70-6.10); White Blood Cell (WBC) Count 6.1 thou/uL (4.8-10.8)
[2018-01-27 04:12] LABS: ALT (SGPT) 16 U/L (8-55); AST (SGOT) 10 U/L (5-34); Albumin 2.3 g/dL (3.4-4.8); Alkaline Phosphatase 111 U/L (40-150); Anion Gap 7 mmol/L (10-20); BUN (Urea Nitrogen) 12 mg/dL (8.4-25.7); Bilirubin, Total 0.6 mg/dL (0.2-1.2); Calc. Creatinine Clearance 139 mL/min (70-130); Carbon Dioxide 25 mmol/L (23-31); Chloride 102 mmol/L (98-107); Estimated GFR-MDRD Greater than 90; Glucose 99 mg/dL (83-110); Protein, Total 5.3 g/dL (5.8-8.1); Sodium 130 mmol/L (136-145)
[2018-01-27] MEDS: Heparin 10,000 UNITS/ 10 ML VIAL SLOW IVP SCH (04:40)
[2018-01-27] MEDS: Heparin 25,000 units/D5W 500 ML IVPB SCH (04:41)
[2018-01-27] MEDS: Mometasone/Formoterol 120 PUFF INHALER INH SCH ×2 (08:01→18:34)
[2018-01-27] MEDS: Sodium Chloride 0.9% 1,000 ML IV SCH ×2 (09:18→20:49)
[2018-01-27] MEDS: Famotidine 20 MG TAB PO SCH ×2 (09:18→20:51)
[2018-01-27] MEDS: Folic Acid 1 MG TAB PO SCH (09:19)
[2018-01-27] MEDS: Polyethylene Glycol 3350 17 GM Packet PO SCH (09:19)
[2018-01-27] MEDS: Docusate 100 MG CAP PO SCH ×2 (09:19→20:52)
--- NOTE | 2018-01-27 10:02 | PDOC.PN ---
- Subjective Encounter Start Date: 01/27/18 Encounter Start Time: 08:10 Patient seen and examined for pulmonary embolism. No new complaints. No overnight events - Objective MAR Reviewed: Yes Vital Signs & Weight: Vital Signs (12 hours) Temp Pulse Resp BP Pulse Ox 01/27/18 08:02 98 01/27/18 08:01 74 12 01/27/18 08:00 97.7 F 88 16 167/85 H 92 L 01/27/18 04:00 97.8 F 83 16 162/90 H 91 L 01/27/18 00:00 98.3 F 90 16 136/80 90 L Weight Weight 197 lb 7 oz I&O: 01/26/18 01/27/18 01/28/18 06:59 06:59 06:59 Intake Total 1542 3550 Output Total 650 1925 Balance 892 1625 Result Diagrams: 01/27/18 03:01 01/27/18 03:01 Radiology Reviewed by me: Yes (MRI cervical spine noted) Phys Exam - Physical Examination Constitutional: NAD HEENT: PERRLA, moist MMs, sclera anicteric Neck: no JVD, supple pseudomenigocele Respiratory: no wheezing, no rales, no rhonchi Cardiovascular: RRR, no significant murmur, no rub Gastrointestinal: soft, non-tender, no distention, positive bowel sounds Musculoskeletal: no edema, pulses present he has numbness below chest Psychiatric: normal affect, A&O x 3 Skin: no rash, normal turgor Dx/Plan (1) Acute respiratory failure with hypoxia Code(s): J96.01 - ACUTE RESPIRATORY FAILURE WITH HYPOXIA Status: Acute (2) Fluid collection at surgical site Code(s): T88.8XXA - OT COMPLICATIONS OF SURGICAL AND MEDICAL CARE, NEC, INIT Status: Acute Comment: pseudomenigocele (3) History of pulmonary embolism Code(s): Z86.711 - PERSONAL HISTORY OF PULMONARY EMBOLISM Status: Acute (4) Hyponatremia Code(s): E87.1 - HYPO-OSMOLALITY AND HYPONATREMIA Status: Acute (5) Alcohol abuse Code(s): F10.10 - ALCOHOL ABUSE, UNCOMPLICATED Status: Chronic (6) COPD (chronic obstructive pulmonary disease) Status: Chronic (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 - DERMATITIS HERPETIFORMIS Status: Chronic (8) HTN (hypertension) Code(s): I10 - ESSENTIAL (PRIMARY) HYPERTENSION Status: Chronic Qualifiers: (9) Hx of esophageal malignancy Code(s): Z85.01 - PERSONAL HISTORY OF MALIGNANT NEOPLASM OF ESOPHAGUS Status: Chronic (10) Macrocytic anemia Code(s): D53.9 - NUTRITIONAL ANEMIA, UNSPECIFIED Status: Chronic (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 Review of Systems - Review of Systems Constitutional: negative: fever, chills, sweats, weakness, malaise, other Eyes: negative: Pain, Vision Change, Conjunctivae Inflammation, Eyelid Inflammation, Redness, Other ENT: negative: Ear Pain, Ear Discharge, Nose Pain, Nose Discharge, Nose Congestion, Mouth Pain, Mouth Swelling, Throat Pain, Throat Swelling, Other Respiratory: negative: Cough, Dry, Shortness of Breath, Hemoptysis, SOB with Excertion, Pleuritic Pain, Sputum, Wheezing Cardiovascular: negative: chest pain, palpitations, orthopnea, paroxysmal nocturnal dyspnea, edema, light headedness, other Gastrointestinal: negative: Nausea, Vomiting, Abdominal Pain, Diarrhea, Constipation, Melena, Hematochezia, Other Genitourinary: negative: Dysuria, Frequency, Incontinence, Hematuria, Retention , Other Musculoskeletal: negative: Neck Pain, Shoulder Pain, Arm Pain, Back Pain, Hand Pain, Leg Pain, Foot Pain, Other Skin: negative: Rash, Lesions, Oren, Bruising, Other Neurological: Numbness. negative: Weakness, Incoordination, Change in Speech, Confusion, Seizures, Other - Medications/Allergies Allergies/Adverse Reactions: Allergies Allergy/AdvReac Type Severity Reaction Status Date / Time No Known Allergies Allergy Verified 12/06/17 00:59 Medications: Current Medications Acetaminophen (Tylenol) 650 mg PO Q4H PRN PRN Reason: WILLIAM/Fever Or Mild Pain (1-3) Hydrocodone Bitart/Acetaminophen ([place] 10/325) 1 tab PO Q4H PRN PRN Reason: Mild Pain (1-3) Al Hydroxide/Mg Hydroxide (Maalox) 30 ml PO Q4H PRN PRN Reason: Indigestion Albuterol/Ipratropium (Duoneb) 3 ml NEB [id number] PRN PRN Reason: SOB &/or Wheezing Artificial Tears (Tears Naturale) 0 drop EA EYE PRN PRN PRN Reason: Dry Eyes Bisacodyl (Dulcolax) 10 mg DC Q12H PRN PRN Reason: Constipation Cyclobenzaprine HCl (Flexeril) 10 mg PO Q8H PRN PRN Reason: Muscle Spasm Dapsone (Dapsone) 50 mg PO Q2D@0900 NGUYEN Diphenhydramine HCl (Benadryl) 25 mg IVP Q6H PRN PRN Reason: Itching Docusate Sodium (Colace) 100 mg PO BID [facility] Last Admin: 01/27/18 09:19 Dose: 100 mg Enalapril Maleate (Vasotec) 5 mg PO DAILY [facility] Last Admin: 01/27/18 09:18 Dose: 5 mg Famotidine (Pepcid) 20 mg PO BID [facility] Last Admin: 01/27/18 09:18 Dose: 20 mg Folic Acid (Folvite) 1 mg PO DAILY [facility] Last Admin: 01/27/18 09:19 Dose: 1 mg Guaifenesin (Robitussin Sf) 200 mg PO Q4H PRN PRN Reason: Cough Heparin Sodium (Porcine) (Heparin 1,000 Units/Ml (10 Ml)) 0 units SLOW IVP ASDIR NGUYEN PRN Reason: Protocol Last Admin: 01/27/18 04:40 Dose: 3,582.24 unit Hydralazine HCl (Apresoline) 10 mg SLOW IVP Q4H PRN PRN Reason: Systolic BP > 180 Sodium Chloride (Normal Saline 0.9%) 1,000 mls @ 75 mls/hr IV .[id number] [facility] Last Admin: 01/27/18 09:18 Dose: 1,000 mls Heparin Sodium/Dextrose (Heparin 25,000 Units/D5w 500 Ml) 500 mls @ 0 mls/hr IVPB INF NGUYEN; Per Protocol PRN Reason: Protocol Last Admin: 01/27/18 04:41 Dose: 500 mls Loperamide HCl (Imodium) 2 mg PO PRN PRN PRN Reason: Diarrhea/Loose Stools Loratadine (Claritin) 10 mg PO DAILYPRN PRN PRN Reason: Sinus Symptoms Magnesium Hydroxide (Milk Of Magnesium) 30 ml PO Q12H PRN PRN Reason: Constipation Mineral Oil/White Petrolatum (Eucerin Cream) 0 gm TOP BIDPRN PRN PRN Reason: Dry Skin Mometasone Furoate/Formoterol Fumar (Dulera 100 Mcg/5 Mcg Inhaler) 2 puff INH BID-RT [facility] Last Admin: 01/27/18 08:01 Dose: 2 puff Morphine Sulfate (Morphine) 2 mg SLOW IVP Q1H PRN PRN Reason: Moderate Breakthrough Pain Ondansetron HCl (Zofran) 4 mg IVP DAILYPRN PRN PRN Reason: Nausea Ondansetron HCl (Zofran Odt) 4 mg PO Q6H PRN PRN Reason: Nausea/Vomiting Pantoprazole Sodium (Protonix) 40 mg PO DAILY [facility] Last Admin: 01/27/18 09:19 Dose: 40 mg Phenol (Chloraseptic [place] 180 Ml Bot) 0 ml PO PRN PRN PRN Reason: Sore Throat Polyethylene Glycol (Miralax) 17 gm PO DAILY [facility] Last Admin: 01/27/18 09:19 Dose: 17 gm Sodium Chloride (Flush - Normal Saline) 10 ml IVF PRN PRN PRN Reason: Saline Flush Sodium Chloride ([place] Nasal Newborn 0.65%) 0 ml EA NARE QIDPRN PRN PRN Reason: Nasal Congestion Temazepam (Restoril) 15 mg PO HSPRN PRN PRN Reason: Insomnia Thiamine HCl (Thiamine) 100 mg PO DAILY [facility] Last Admin: 01/27/18 09:19 Dose: 100 mg Tramadol HCl (Ultram) 50 mg PO Q6H PRN PRN Reason: Mild Pain (1-3)
--- NOTE | 2018-01-27 10:42 | PRG ---
DATE OF SERVICE: 01/27/2018 SUBJECTIVE: Mr. Hernandez has now been in the hospital for 2 days. He has been transitioning off of his Eliquis to a heparin drip. He has a pulmonary embolism and presented with tachycardia as well as an enlarging cervical, thoracic myelomeningocele. He had an MRI of the cervical spine performed yester day, which shows what is almost certainly to be a spinal fluid collection consistent with a myelomeni ngocele. Neurologically, he has remained unchanged. The incision remains intact without evidence of leakage. He is undergoing additional medical testing from our sounds, colleagues and our pulmonary colleagues. I anticipate he will be able to undergo potential elective surgical repair as deemed carlyn ropriate this week with respect to his myelomeningocele.
[2018-01-27 11:42] VITALS: BMI 27.5
--- NOTE | 2018-01-27 12:33 | PRG ---
DATE OF SERVICE: 01/27/2018 SUBJECTIVE: Mr. Hernandez has no complaints, afebrile, heart rate 80, respiratory rate 16, oximetry is 9 2 on 3 liters, blood pressure 167/85. LUNGS: Clear. LABORATORY DATA: PTT today is 59 at 3:00 this morning, 96 at 11:00 this morning. IMPRESSION: Anticoagulation. PLAN: We are awaiting surgery for a pseudomeningocele. Continue with heparin drip for now.
[2018-01-27 17:02] LABS: Hemoglobin 9.6 g/dL (14.0-18.0); Platelet Count 284 thou/uL (130-400)
[2018-01-27] MEDS: Nitrofurantoin Monohyd/M-Cryst 100 MG CAP PO SCH (20:51)
[2018-01-28] MEDS: Heparin 25,000 units/D5W 500 ML IVPB SCH (00:52)
[2018-01-28 06:14] LABS: PTT 124.9 SEC (22.9-36.1)
[2018-01-28] MEDS: Mometasone/Formoterol 120 PUFF INHALER INH SCH ×2 (07:10→20:13)
--- NOTE | 2018-01-28 07:23 | PRG ---
DATE OF SERVICE: 01/28/2018 I saw Mr. Hernandez this morning in his hospital room. He was admitted over the weekend. On Saturday he came to the emergency department with increased swelling at the site of his previous spinal cord van angela and imaging has documented a pseudomeningocele. When I ask Mr. Hernandez this morning whether this is painful, he says only when pressure is applied to t he skin and sleeping, does get a headache if he rolls from one shoulder to the other and does not carlyn lied pressure there are no symptoms. He continues to have the leg weakness he had before his operati on. There has been no significant improvement with radiation therapy. He has done with that radiati on, but has not yet started chemotherapy. On examination this morning I do not find the profound upper motor neuron weakness in the lower extre mities that he had before. It is worse on the right than the left. There is swelling in the right l eg. He has a known DVT there for which he was taking Eliquis therapy prior to his readmission. He i s now on heparin therapy. ASSESSMENT: 1. 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 2. Radiated parham complicating healing. I am not planning on operating until he has been off Eliquis for a week. The very earliest that I wo uld consider operation would be this Saturday and perhaps even safer the following Saturday. He can be i n the hospital until then. However, we need to think carefully about the operation. Reopening the upper thoracic incision and trying to reclose the dura either with a fascia beth patch graft or a bovine pericardial patch would be complicated by the radiation of the tissues there. The radiation is most likely the reason for that his dura did not heal in the first place and the lack of healing could continue the CSF leak, even after attempts to repair it directly. In fact, I think th at risk is a rather high. The operation may contain pseudomeningocele into 1 leaking through the inc ision which would put him at risk for meningitis. I honestly do not like that idea. Other ideas include aspiration of the fluid and attempted blood patch with taping of the skin to see if a nonoperative treatment would seal this. I think there is a low chance of helping, but is low ri sk compared to other interventions and something to consider. Another option would be to shunt the pseudomeningocele into the peritoneal cavity. We can leave a va lveless tube connecting those two areas under the skin to divert any fluid that collects outside the spinal region into the peritoneal cavity for reabsorption. Adding a valve to that system may provide a small bit of back pressure to encourage healing of the dura, but I think it would be unnecessary. Two final options would be a lumbar peritoneal shunt or ventriculoperitoneal shunt to lower the CSF pressure to a point that it is not leaking. I think this has the added advantage of decreasing impe tus for CSF to accumulate. Given the Eliquis therapy and conversion to heparin, I think we have some time to think about the bes t intervention and I will continue to do so. In the meantime cancer staging seems reasonable. If he has widely metastatic cancer now and multiple organs that were not previously affected then we could consider not doing anything at all. I will have his oncologist visit while he is in the hospital.
[2018-01-28] MEDS: Folic Acid 1 MG TAB PO SCH (08:19)
[2018-01-28] MEDS: Famotidine 20 MG TAB PO SCH ×2 (08:19→20:34)
[2018-01-28] MEDS: Nitrofurantoin Monohyd/M-Cryst 100 MG CAP PO SCH ×2 (08:19→20:35)
[2018-01-28] MEDS: Docusate 100 MG CAP PO SCH ×2 (08:25→20:35)
[2018-01-28] MEDS: Polyethylene Glycol 3350 17 GM Packet PO SCH (08:30)
--- NOTE | 2018-01-28 08:49 | PRG ---
DATE OF SERVICE: 01/28/2018 Mr. Hernandez is in good spirits. He is currently on the floor on a heparin drip. He showed me an area swelling in his neck which is from CSF leak. PHYSICAL EXAMINATION: VITAL SIGNS: On exam, his temperature 98.0, pulse 86, respiratory 16, O2 sat 94% on 2 liters, blood pressure 130/75. HEENT: Unremarkable. NECK: No JVD. CHEST: Fairly clear. CARDIAC: S1 and S2 regular. ABDOMEN: Soft. EXTREMITIES: No edema. LABORATORY DATA: PTT is 124.9. Last hemoglobin 29.6, platelet count 284. ASSESSMENT: 1. History of pulmonary embolus and deep venous thrombosis. 2. Pseudomeningocele. PLAN: Continuing heparin drip. I read Dr. Canela's note, he is not planning on operating until l ater this week or early next week because of the recent Eliquis use.
--- NOTE | 2018-01-28 09:32 | PDOC.PN ---
- Subjective Encounter Start Date: 01/28/18 Encounter Start Time: 08:20 Patient seen and examined for pulmonary embolism. No new complaints. No overnight events - Objective MAR Reviewed: Yes Vital Signs & Weight: Vital Signs (12 hours) Temp Pulse Resp BP Pulse Ox 01/28/18 08:00 98.0 F 86 16 138/75 94 L 01/28/18 05:11 95 01/28/18 03:43 98.1 F 89 14 148/82 H 91 L 01/27/18 23:41 98.3 F 87 12 139/75 97 Weight Admit Weight 197 lb 7 oz Weight 197 lb 7 oz I&O: 01/27/18 01/28/18 01/29/18 06:59 06:59 06:59 Intake Total 3550 3153 Output Total 1925 4150 Balance 1625 -997 Result Diagrams: 01/27/18 16:51 01/27/18 03:01 Phys Exam - Physical Examination Constitutional: NAD HEENT: PERRLA, moist MMs, sclera anicteric Neck: no JVD, supple Respiratory: no wheezing, no rales, no rhonchi mediport+ Cardiovascular: RRR, no significant murmur, no rub Gastrointestinal: soft, non-tender, no distention, positive bowel sounds renee+ Musculoskeletal: no edema, pulses present numbness below chest Psychiatric: normal affect, A&O x 3 Skin: no rash, normal turgor Dx/Plan (1) Acute respiratory failure with hypoxia Code(s): J96.01 - ACUTE RESPIRATORY FAILURE WITH HYPOXIA Status: Resolved (2) Fluid collection at surgical site Code(s): T88.8XXA - OTH COMPLICATIONS OF SURGICAL AND MEDICAL CARE, NEC, INIT Status: Acute Comment: pseudomenigocele (3) History of pulmonary embolism Code(s): Z86.711 - PERSONAL HISTORY OF PULMONARY EMBOLISM Status: Acute (4) Hyponatremia Code(s): E87.1 - HYPO-OSMOLALITY AND HYPONATREMIA Status: Acute (5) Alcohol abuse Code(s): F10.10 - ALCOHOL ABUSE, UNCOMPLICATED Status: Chronic (6) COPD (chronic obstructive pulmonary disease) Status: Chronic (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 - DERMATITIS HERPETIFORMIS Status: Chronic (8) HTN (hypertension) Code(s): I10 - ESSENTIAL (PRIMARY) HYPERTENSION Status: Chronic Qualifiers: (9) Hx of esophageal malignancy Code(s): Z85.01 - PERSONAL HISTORY OF MALIGNANT NEOPLASM OF ESOPHAGUS Status: Chronic (10) Macrocytic anemia Code(s): D53.9 - NUTRITIONAL ANEMIA, UNSPECIFIED Status: Chronic (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 Review of Systems - Review of Systems Eyes: negative: Pain, Vision Change, Conjunctivae Inflammation, Eyelid Inflammation, Redness, Other ENT: negative: Ear Pain, Ear Discharge, Nose Pain, Nose Discharge, Nose Congestion, Mouth Pain, Mouth Swelling, Throat Pain, Throat Swelling, Other Respiratory: negative: Cough, Dry, Shortness of Breath, Hemoptysis, SOB with Excertion, Pleuritic Pain, Sputum, Wheezing Cardiovascular: negative: chest pain, palpitations, orthopnea, paroxysmal nocturnal dyspnea, edema, light headedness, other Gastrointestinal: negative: Nausea, Vomiting, Abdominal Pain, Diarrhea, Constipation, Melena, Hematochezia, Other Genitourinary: negative: Dysuria, Frequency, Incontinence, Hematuria, Retention , Other Musculoskeletal: negative: Neck Pain, Shoulder Pain, Arm Pain, Back Pain, Hand Pain, Leg Pain, Foot Pain, Other Skin: negative: Rash, Lesions, Oren, Bruising, Other Neurological: Numbness. negative: Weakness, Incoordination, Change in Speech, Confusion, Seizures, Other - Medications/Allergies Allergies/Adverse Reactions: Allergies Allergy/AdvReac Type Severity Reaction Status Date / Time No Known Allergies Allergy Verified 12/06/17 00:59 Medications: Current Medications Acetaminophen (Tylenol) 650 mg PO Q4H PRN PRN Reason: WILLIAM/Fever Or Mild Pain (1-3) Hydrocodone Bitart/Acetaminophen ([place] 10/325) 1 tab PO Q4H PRN PRN Reason: Mild Pain (1-3) Al Hydroxide/Mg Hydroxide (Maalox) 30 ml PO Q4H PRN PRN Reason: Indigestion Albuterol/Ipratropium (Duoneb) 3 ml NEB [id number] PRN PRN Reason: SOB &/or Wheezing Artificial Tears (Tears Naturale) 0 drop EA EYE PRN PRN PRN Reason: Dry Eyes Bisacodyl (Dulcolax) 10 mg UT Q12H PRN PRN Reason: Constipation Cyclobenzaprine HCl (Flexeril) 10 mg PO Q8H PRN PRN Reason: Muscle Spasm Dapsone (Dapsone) 50 mg PO Q2D@0900 [facility] Last Admin: 01/27/18 10:33 Dose: 50 mg Diphenhydramine HCl (Benadryl) 25 mg IVP Q6H PRN PRN Reason: Itching Docusate Sodium (Colace) 100 mg PO BID [facility] Last Admin: 01/28/18 08:25 Dose: 100 mg Enalapril Maleate (Vasotec) 5 mg PO DAILY [facility] Last Admin: 01/28/18 08:40 Dose: 5 mg Famotidine (Pepcid) 20 mg PO BID [facility] Last Admin: 01/28/18 08:19 Dose: 20 mg Folic Acid (Folvite) 1 mg PO DAILY [facility] Last Admin: 01/28/18 08:19 Dose: 1 mg Guaifenesin (Robitussin Sf) 200 mg PO Q4H PRN PRN Reason: Cough Heparin Sodium (Porcine) (Heparin 1,000 Units/Ml (10 Ml)) 0 units SLOW IVP ASDIR [facility] PRN Reason: Protocol Last Admin: 01/27/18 04:40 Dose: 3,582.24 unit Hydralazine HCl (Apresoline) 10 mg SLOW IVP Q4H PRN PRN Reason: Systolic BP > 180 Heparin Sodium/Dextrose (Heparin 25,000 Units/D5w 500 Ml) 500 mls @ 0 mls/hr IVPB INF [facility]; Per Protocol PRN Reason: Protocol Last Admin: 01/28/18 00:52 Dose: 500 mls Loperamide HCl (Imodium) 2 mg PO PRN PRN PRN Reason: Diarrhea/Loose Stools Loratadine (Claritin) 10 mg PO DAILYPRN PRN PRN Reason: Sinus Symptoms Magnesium Hydroxide (Milk Of Magnesium) 30 ml PO Q12H PRN PRN Reason: Constipation Mineral Oil/White Petrolatum (Eucerin Cream) 0 gm TOP BIDPRN PRN PRN Reason: Dry Skin Mometasone Furoate/Formoterol Fumar (Dulera 100 Mcg/5 Mcg Inhaler) 2 puff INH BID-RT [facility] Last Admin: 01/28/18 07:10 Dose: 2 puff Morphine Sulfate (Morphine) 2 mg SLOW IVP Q1H PRN PRN Reason: Moderate Breakthrough Pain Nitrofurantoin Macrocrystals (Macrobid) 100 mg PO BID [facility] Last Admin: 01/28/18 08:19 Dose: 100 mg Ondansetron HCl (Zofran) 4 mg IVP DAILYPRN PRN PRN Reason: Nausea Ondansetron HCl (Zofran Odt) 4 mg PO Q6H PRN PRN Reason: Nausea/Vomiting Pantoprazole Sodium (Protonix) 40 mg PO DAILY [facility] Last Admin: 01/28/18 08:19 Dose: 40 mg Phenol (Chloraseptic [place] 180 Ml Bot) 0 ml PO PRN PRN PRN Reason: Sore Throat Polyethylene Glycol (Miralax) 17 gm PO DAILY [facility] Last Admin: 01/28/18 08:30 Dose: Not Given Sodium Chloride (Flush - Normal Saline) 10 ml IVF PRN PRN PRN Reason: Saline Flush Sodium Chloride ([place] Nasal [place] 0.65%) 0 ml EA NARE QIDPRN PRN PRN Reason: Nasal Congestion Temazepam (Restoril) 15 mg PO HSPRN PRN PRN Reason: Insomnia Thiamine HCl (Thiamine) 100 mg PO DAILY [facility] Last Admin: 01/28/18 08:19 Dose: 100 mg Tramadol HCl (Ultram) 50 mg PO Q6H PRN PRN Reason: Mild Pain (1-3)
[2018-01-28] MEDS: Heparin 10,000 UNITS/ 10 ML VIAL SLOW IVP SCH (16:35)
--- NOTE | 2018-01-28 18:51 | CON ---
DATE OF CONSULTATION: 01/28/2018 REASON FOR CONSULTATION: Metastatic esophageal carcinoma. HISTORY OF PRESENT ILLNESS: Mr. Hernandez is a pleasant 72-year-old male with a past history of squamous cell carcinoma of the esophagus. Approximately 2 months ago, he had a right lower extremity weakness and motor dysfunction. He was admitted to this facility and a CT scan showed a lesion on his spinal cord. He had a decompressive laminectomy, medial fasciotomy and foraminotomy with a partial resection and biopsy. Pathology revealed an invasive squamous cell carcinoma likely from his esophageal cancer. Patient underwent radiation to this lesion and was completed on 01/09/2018. He has been at home with family recovering. Approximately 1 week ago, he began to have swelling in his neck area. He was seen in the ER on 01/22/[address] of the thoracic spine revealed a large fluid collection. He was discharged home to follow up in the clinic with Dr. Canela. Unfortunately, he had increased swelling and presented again to the emergency room, he was not having headaches. He underwent a brain CT which showed no acute findings and a cervical spine MRI which showed a myelomeningocele. Patient had a recent pulmonary embolism and was on Eliquis. Dr. Canela had the patient and his Eliquis has been held and he is currently on heparin drip. PAST MEDICAL HISTORY: 1. Metastatic esophageal squamous cell carcinoma. 2. Recent pulmonary embolism. 3. Hypertension. 4. COPD. 5. Dermatitis herpetiformis. 6. Urinary retention. PAST SURGICAL HISTORY: 1. Recent spinal cord surgery for an intramedullary lesion. 2. Esophageal dilation. ALLERGIES: No known drug allergies. HOME MEDICATIONS: 1. Eliquis 5 mg b.i.d. 2. Aspirin 81 mg daily. 3. Dapsone 50 mg every other day. 4. Decadron 4 mg q.6 hours. 5. Colace b.i.d. 6. Folic acid daily. 7. MiraLax daily. 8. Thiamine daily. FAMILY HISTORY: Daughter had melanoma. SOCIAL HISTORY: . Has 3 children, lives with his daughter. No alcohol , tobacco or illicit drug use. REVIEW OF SYSTEMS: Ten-point review of systems is negative except for noted in HPI. PHYSICAL EXAMINATION: VITAL SIGNS: Temperature is 98.5, pulse is 90, respiratory rate 16, BP is 146/ 86. He is 92% on 2 liters. GENERAL: Well-developed, well-nourished male in no acute distress. HEENT: He is normocephalic, atraumatic. Pupils equal and reactive to light. He has poor dentition. NECK: Supple. He has a large swelling on posterior neck and spine. CARDIOVASCULAR: Regular rate and rhythm. LUNGS: Clear. ABDOMEN: Soft, nontender, bowel sounds are positive. GENITOURINARY: He has a Mena catheter in place with clear yellow urine. EXTREMITIES: No clubbing, cyanosis or edema. SKIN: No rash. HEMATOLOGIC: No petechia or purpura. NEUROLOGIC: Bilateral lower extremity weakness, right greater than left. PSYCHIATRIC: He is alert and oriented and appropriate. PERTINENT LABORATORY AND X-RAYS: Current WBCs are 6.1, hemoglobin 9.6, hematocrit 29.6, platelet count is 284,000, 67% neutrophils, 18% lymphocytes. Sodium is 130, potassium 4.0, chloride 102, CO2 is 25, BUN is 12, creatinine 0.61, calcium is 8.0, total bilirubin is 0.6, AST is 10, ALT 16, alkaline phosphatase is 111. Serum total protein is 5.3, albumin 2.3, globulin 3. RADIOLOGY: Per HPI. IMPRESSION: 1. New pseudomeningocele. 2. 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 3. Recent pulmonary embolism, on anticoagulation. DISCUSSION: Patient's oral anticoagulation has been stopped and he is on IV heparin. Dr. Canela had seen the patient and patient will likely need procedure for his pseudomeningocele at which point he can go to rehabilitation to gain some upper body strength. Chemotherapy may be an option at some point, if he can regain his function. The hope is that this surgical procedure and radiation has destroyed the spinal cord lesion. We will provide supportive care while he is in the hospital. Thank you for the consultation. ANCELMO
[2018-01-29] MEDS: Heparin 25,000 units/D5W 500 ML IVPB SCH ×2 (01:40→23:29)
[2018-01-29] MEDS: Mometasone/Formoterol 120 PUFF INHALER INH SCH ×2 (06:21→18:20)
--- NOTE | 2018-01-29 07:00 | PRG ---
DATE OF SERVICE: 01/29/2018 I saw Mr. Hernandez in his hospital room this morning. He remains on his heparin drip. He has been off Eliquis since Saturday. His neurological examination is unchanging. His vital signs have been stabl e overnight. Pseudomeningocele is the same as it was yesterday. The open reexploration of his durotomy and biopsy site carries risk. The main one would be a nonheal ing wound, continued CSF leak due to radiation to the dura and possible external leak of CSF which co uld put him at risk for meningitis. I would prefer not to explore the wound again. Tomorrow I will attempt Radiology assist with a tapping procedure where CSF could be removed in the pseudomeningocele and fresh blood added to have formed an inflammatory patch over the leak which may work. We will tr y to tape down the skin at the same time. If this does not work, we could place a lumboperitoneal sh unt to decrease the CSF pressure within the spinal canal. I plan on ordering imaging of the rest of the neural axis to make sure there are no drop metastases or other lesions in the spinal canal preven ting CSF circulation.
[2018-01-29] MEDS: Folic Acid 1 MG TAB PO SCH (08:32)
[2018-01-29] MEDS: Famotidine 20 MG TAB PO SCH ×2 (08:32→20:20)
[2018-01-29] MEDS: Docusate 100 MG CAP PO SCH ×2 (08:32→20:20)
[2018-01-29] MEDS: Nitrofurantoin Monohyd/M-Cryst 100 MG CAP PO SCH ×2 (08:32→20:20)
[2018-01-29] MEDS: Polyethylene Glycol 3350 17 GM Packet PO SCH (08:33)
--- NOTE | 2018-01-29 10:49 | PDOC.PN ---
- Subjective Encounter Start Date: 01/29/18 Encounter Start Time: 08:40 Patient seen and examined. No new complaints. No overnight events - Objective MAR Reviewed: Yes Vital Signs & Weight: Vital Signs (12 hours) Temp Pulse Resp BP Pulse Ox 01/29/18 09:12 97.4 F L 86 18 92 L 01/29/18 08:00 97.4 F L 86 18 136/75 92 L 01/29/18 03:38 97.7 F 74 16 128/79 92 L 01/29/18 00:17 94 L 01/29/18 00:00 97.8 F 79 14 134/78 94 L Weight Admit Weight 197 lb 7 oz Weight 197 lb 7 oz I&O: 01/28/18 01/29/18 01/30/18 06:59 06:59 06:59 Intake Total 3153 Output Total 4157 Balance -459 -3433 Result Diagrams: 01/27/18 16:51 01/27/18 03:01 Phys Exam - Physical Examination Constitutional: NAD HEENT: PERRLA, moist MMs, sclera anicteric Neck: no JVD, supple Respiratory: no wheezing, no rales, no rhonchi Cardiovascular: RRR, no significant murmur, no rub Gastrointestinal: soft, non-tender, no distention, positive bowel sounds numbness in below chest area Psychiatric: normal affect Skin: no rash, normal turgor Dx/Plan (1) Acute respiratory failure with hypoxia Code(s): J96.01 - ACUTE RESPIRATORY FAILURE WITH HYPOXIA Status: Resolved (2) Fluid collection at surgical site Code(s): T88.8XXA - [facility] COMPLICATIONS OF SURGICAL AND MEDICAL CARE, NEC, INIT Status: Acute Comment: pseudomenigocele (3) History of pulmonary embolism Code(s): Z86.711 - PERSONAL HISTORY OF PULMONARY EMBOLISM Status: Acute (4) Hyponatremia Code(s): E87.1 - HYPO-OSMOLALITY AND HYPONATREMIA Status: Acute (5) Alcohol abuse Code(s): F10.10 - ALCOHOL ABUSE, UNCOMPLICATED Status: Chronic (6) COPD (chronic obstructive pulmonary disease) Status: Chronic (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 - DERMATITIS HERPETIFORMIS Status: Chronic (8) HTN (hypertension) Code(s): I10 - ESSENTIAL (PRIMARY) HYPERTENSION Status: Chronic Qualifiers: (9) Hx of esophageal malignancy Code(s): Z85.01 - PERSONAL HISTORY OF MALIGNANT NEOPLASM OF ESOPHAGUS Status: Chronic (10) Macrocytic anemia Code(s): D53.9 - NUTRITIONAL ANEMIA, UNSPECIFIED Status: Chronic (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 - OTHER DISORDERS OF MENINGES, NOT ELSEWHERE CLASSIFIED Status : Suspected - Plan cont current plan of care * medication reviewed as below * symptomatic treatment * continue heparin drip for now * neurosurgeon planning to do intervention for pseudomenigomyelocele * stop heparin drip for 12 hours before surgical intervention. Review of Systems - Review of Systems Eyes: negative: Pain, Vision Change, Conjunctivae Inflammation, Eyelid Inflammation, Redness, Other ENT: negative: Ear Pain, Ear Discharge, Nose Pain, Nose Discharge, Nose Congestion, Mouth Pain, Mouth Swelling, Throat Pain, Throat Swelling, Other Respiratory: negative: Cough, Dry, Shortness of Breath, Hemoptysis, SOB with Excertion, Pleuritic Pain, Sputum, Wheezing Cardiovascular: negative: chest pain, palpitations, orthopnea, paroxysmal nocturnal dyspnea, edema, light headedness, other Gastrointestinal: negative: Nausea, Vomiting, Abdominal Pain, Diarrhea, Constipation, Melena, Hematochezia, Other Genitourinary: negative: Dysuria, Frequency, Incontinence, Hematuria, Retention , Other Musculoskeletal: negative: Neck Pain, Shoulder Pain, Arm Pain, Back Pain, Hand Pain, Leg Pain, Foot Pain, Other - Medications/Allergies Allergies/Adverse Reactions: Allergies Allergy/AdvReac Type Severity Reaction Status Date / Time No Known Allergies Allergy Verified 12/06/17 00:59 Medications: Current Medications Acetaminophen (Tylenol) 650 mg PO Q4H PRN PRN Reason: WILLIAM/Fever Or Mild Pain (1-3) Hydrocodone Bitart/Acetaminophen ([place] 10/325) 1 tab PO Q4H PRN PRN Reason: Mild Pain (1-3) Al Hydroxide/Mg Hydroxide (Maalox) 30 ml PO Q4H PRN PRN Reason: Indigestion Albuterol/Ipratropium (Duoneb) 3 ml NEB [id number] PRN PRN Reason: SOB &/or Wheezing Artificial Tears (Tears Naturale) 0 drop EA EYE PRN PRN PRN Reason: Dry Eyes Bisacodyl (Dulcolax) 10 mg MO Q12H PRN PRN Reason: Constipation Cyclobenzaprine HCl (Flexeril) 10 mg PO Q8H PRN PRN Reason: Muscle Spasm Dapsone (Dapsone) 50 mg PO Q2D@0900 [facility] Last Admin: 01/29/18 08:32 Dose: 50 mg Diphenhydramine HCl (Benadryl) 25 mg IVP Q6H PRN PRN Reason: Itching Docusate Sodium (Colace) 100 mg PO BID [facility] Last Admin: 01/29/18 08:32 Dose: 100 mg Enalapril Maleate (Vasotec) 5 mg PO DAILY [facility] Last Admin: 01/29/18 08:32 Dose: 5 mg Famotidine (Pepcid) 20 mg PO BID [facility] Last Admin: 01/29/18 08:32 Dose: 20 mg Folic Acid (Folvite) 1 mg PO DAILY [facility] Last Admin: 01/29/18 08:32 Dose: 1 mg Guaifenesin (Robitussin Sf) 200 mg PO Q4H PRN PRN Reason: Cough Heparin Sodium (Porcine) (Heparin 1,000 Units/Ml (10 Ml)) 0 units SLOW IVP ASDIR [facility] PRN Reason: Protocol Last Admin: 01/28/18 16:35 Dose: 3,582.24 unit Hydralazine HCl (Apresoline) 10 mg SLOW IVP Q4H PRN PRN Reason: Systolic BP > 180 Heparin Sodium/Dextrose (Heparin 25,000 Units/D5w 500 Ml) 500 mls @ 0 mls/hr IVPB INF [facility]; Per Protocol PRN Reason: Protocol Last Admin: 01/29/18 01:40 Dose: 500 mls Loperamide HCl (Imodium) 2 mg PO PRN PRN PRN Reason: Diarrhea/Loose Stools Loratadine (Claritin) 10 mg PO DAILYPRN PRN PRN Reason: Sinus Symptoms Magnesium Hydroxide (Milk Of Magnesium) 30 ml PO Q12H PRN PRN Reason: Constipation Mineral Oil/White Petrolatum (Eucerin Cream) 0 gm TOP BIDPRN PRN PRN Reason: Dry Skin Mometasone Furoate/Formoterol Fumar (Dulera 100 Mcg/5 Mcg Inhaler) 2 puff INH BID-RT [facility] Last Admin: 01/29/18 06:21 Dose: 2 puff Morphine Sulfate (Morphine) 2 mg SLOW IVP Q1H PRN PRN Reason: Moderate Breakthrough Pain Nitrofurantoin Macrocrystals (Macrobid) 100 mg PO BID [facility] Last Admin: 01/29/18 08:32 Dose: 100 mg Ondansetron HCl (Zofran) 4 mg IVP DAILYPRN PRN PRN Reason: Nausea Ondansetron HCl (Zofran Odt) 4 mg PO Q6H PRN PRN Reason: Nausea/Vomiting Pantoprazole Sodium (Protonix) 40 mg PO DAILY [facility] Last Admin: 01/29/18 08:32 Dose: 40 mg Phenol (Chloraseptic [place] 180 Ml Bot) 0 ml PO PRN PRN PRN Reason: Sore Throat Polyethylene Glycol (Miralax) 17 gm PO DAILY [facility] Last Admin: 01/29/18 08:33 Dose: Not Given Sodium Chloride (Flush - Normal Saline) 10 ml IVF PRN PRN PRN Reason: Saline Flush Sodium Chloride ([place] Nasal [place] 0.65%) 0 ml EA NARE QIDPRN PRN PRN Reason: Nasal Congestion Temazepam (Restoril) 15 mg PO HSPRN PRN PRN Reason: Insomnia Thiamine HCl (Thiamine) 100 mg PO DAILY [facility] Last Admin: 01/29/18 08:32 Dose: 100 mg Tramadol HCl (Ultram) 50 mg PO Q6H PRN PRN Reason: Mild Pain (1-3)
--- NOTE | 2018-01-29 11:03 | PRG ---
DATE OF SERVICE: 01/29/2018 SUBJECTIVE: The patient is doing well, has no complaints except for the swelling on the back side of his neck. He continues on a heparin drip for DVT/PE. OBJECTIVE: VITAL SIGNS: Temperature 97.4, pulse 86, respiratory rate 18, O2 sat 93% on 3 liters, blood pressure 136/75. HEENT: Unremarkable. NECK: No JVD. CHEST: Clear. CARDIAC: S1 and S2 regular. ABDOMEN: Soft. EXTREMITIES: No edema. ASSESSMENT: History of pulmonary embolism, deep venous thrombosis, pseudomeningocele. PLAN: Continue with heparin drip until the time of his operation where he can be held for several ho urs. 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 He is supposed to have a blood patch put in tomorro w to see if this will seal the pseudomeningocele.
--- NOTE | 2018-01-29 13:34 | MRI ---
MRI LUMBAR SPINE WITH AND WITHOUT CONTRAST: INDICATIONS: Spinal metastasis. Staging. History of esophageal cancer. COMPARISON: MRI lumbar spine dated 12/05/2017. TECHNIQUE: Multiplanar, multisequence imaging of the lumbar spine obtained. FINDINGS: Lumbar vertebrae maintain normal height and alignment. There are degenerative disk changes at all le vels. Loss of disk space most prominent at L1-L2 and at L2-L3. Vertebral body signal appears normal with no evidence of bony metastasis. L1-L2: There is increased T2 signal in the disk space since the prior study of unknown significance. No evidence of endplate erosion or destruction. Mild disk bulge with mild central canal stenosis. L2-L3: Disk bulge and facet hypertrophy result in mild to moderate central canal stenosis, stable. L3-L4: Annular fissure with diffuse disk bulge and facet hypertrophy result in mild to moderate cent ral canal stenosis, stable from prior exam. L4-L5: Diffuse disk bulge and facet hypertrophy. Posterior laminectomy change. Mild central canal stenosis. Foraminal encroachment due to diffuse disk bulge, more prominent on the right. L5-S1: Diffuse disk bulge and facet arthrosis. No significant central canal stenosis. Left foramin al stenosis secondary to asymmetric disk bulge and facet hypertrophy. IMPRESSION: 1. Multilevel degenerative disk change with central canal and foraminal stenosis at multiple levels, as described above, similar to prior exam of 12/05/2017. 2. No evidence of osseous metastasis. POS: NEW
--- NOTE | 2018-01-29 13:35 | MRI ---
PRE AND POST CONTRAST ENHANCED MRI IMAGES OF THE THORACIC SPINE: Date: 01-29-18 Comparison: 12-06-17 Technique: Multiplanar, multisequence pre and post contrast enhanced MRI images of the thoracic spine . FINDINGS: There is extensive cervicothoracic posterior decompression. There has been posterior decompression ex tending from the posterior aspect of C7 involving T1, T2, and portions of the T3 level. Previously noted area of cord heterogeneity has significantly reduced when compared to the previous e xam. The overall expansile and T2 signal characteristics within the cord have significantly reduced. However, there is extensive motion artifact which does degrade this exam in the cervicothoracic regio n. There is a post-operative seroma which compresses the exposed posterior aspect of the thecal sac w hich extends from the laminectomy site at the C2 level extending inferiorly all the way to the T4 lev el. I cannot determine whether this collection of fluid represents post-surgical seroma versus a pseu domeningocele. There does appear to be decreased signal within the vertebral bodies on the contrast enhanced images and some slight marrow increased fatty changes extending from the C5 level all the way to the T9 leve l. This may represent possible post radiation changes. IMPRESSION: Extensive posterior cervicothoracic decompression with post-operative seroma or pseudomeningocele. POS: [facility]
[2018-01-29] MEDS ORDERED: Gadobenate Dimeglumine 529 MG/1 ML (20ML VIAL) ONE (13:40)
[2018-01-29 17:05] LABS: Hemoglobin 9.9 g/dL (14.0-18.0); Platelet Count 347 thou/uL (130-400)
--- NOTE | 2018-01-30 07:19 | PRG ---
DATE OF SERVICE: 01/30/2018 I am seeing Mr. Hernandez in his hospital room this morning. I had a long discussion with Dr. Armstrong ab out his care yesterday. Dr. Armstrong agrees with me that we should do the most minimally invasive pro cedures possible to treat the pseudomeningocele. Before a big operation to reexplored and attempt at another dural closure at the site of his operation I would have to have a very long discussion about his overall prognosis. I think we should start with a CSF withdrawal via a needle later today and i njection in some blood products into the space. We will take the cavity down to see if we can get it to be obliterated with the inflammation caused by a blood patch. If that does not work, we can cons ider a lumbar drain placement. I am very hesitant to reoperate. Before any needle based procedure w e will have to have the heparin stopped and the PTT return to normal.
--- NOTE | 2018-01-30 08:48 | PRG ---
DATE OF SERVICE: 01/30/2018 SUBJECTIVE: Patient is still complaining of headache and has swelling in the back of his neck. OBJECTIVE: VITAL SIGNS: Temperature is 97.8, pulse 76, respiration 16, O2 sat 92% on 3 liters, blood pressure 1 55/80. HEENT: Unremarkable. NECK: Fluid density in the back of the neck. CARDIAC: S1 and S2 regular. ABDOMEN: Soft. LUNGS: Clear. EXTREMITIES: No edema. LABORATORY DATA: PTT is 90.4. ASSESSMENT: 1. Pseudomeningocele. 2. Deep venous thrombosis/pulmonary embolism. PLAN: Heparin drip can be stopped when the procedure is performed, but needs to be restarted shortly thereafter. Following with you.
[2018-01-30] MEDS: Famotidine 20 MG TAB PO SCH ×2 (09:15→20:33)
[2018-01-30] MEDS: Nitrofurantoin Monohyd/M-Cryst 100 MG CAP PO SCH ×2 (09:15→20:33)
[2018-01-30] MEDS: Docusate 100 MG CAP PO SCH ×2 (09:15→20:33)
[2018-01-30] MEDS: Polyethylene Glycol 3350 17 GM Packet PO SCH (09:15)
[2018-01-30] MEDS: Folic Acid 1 MG TAB PO SCH (09:15)
[2018-01-30] MEDS: Mometasone/Formoterol 120 PUFF INHALER INH SCH ×2 (10:00→19:28)
--- NOTE | 2018-01-30 10:38 | PDOC.PN ---
- Subjective Encounter Start Date: 01/30/18 Encounter Start Time: 08:40 Patient seen and examined. No new complaints. No overnight events - Objective MAR Reviewed: Yes Vital Signs & Weight: Vital Signs (12 hours) Temp Pulse Resp BP Pulse Ox 01/30/18 10:00 82 12 01/30/18 08:53 97.8 F 76 18 92 L 01/30/18 07:33 97.8 F 76 18 155/80 H 92 L 01/30/18 04:02 97.8 F 78 16 133/77 93 L 01/29/18 23:54 97.9 F 93 16 133/79 92 L Weight Admit Weight 197 lb 7 oz Weight 197 lb 7 oz I&O: 01/29/18 01/30/18 01/31/18 06:59 06:59 06:59 Intake Total 240 Output Total 2074 1949 Balance -2074 Result Diagrams: 01/29/18 16:46 01/27/18 03:01 Radiology Reviewed by me: Yes (MRI cervical and thorecic spine) Phys Exam - Physical Examination Constitutional: NAD HEENT: PERRLA, moist MMs, sclera anicteric Neck: no JVD, supple pseudomenigomyelocele Respiratory: no wheezing, no rales, no rhonchi Cardiovascular: RRR, no significant murmur, no rub Gastrointestinal: soft, non-tender, no distention, positive bowel sounds Musculoskeletal: no edema, pulses present renee+ Lymphatic: no nodes Psychiatric: normal affect, A&O x 3 Dx/Plan (1) Acute respiratory failure with hypoxia Code(s): J96.01 - ACUTE RESPIRATORY FAILURE WITH HYPOXIA Status: Resolved (2) Fluid collection at surgical site Code(s): T88.8XXA - OT COMPLICATIONS OF SURGICAL AND MEDICAL CARE, NEC, INIT Status: Acute Comment: pseudomenigocele (3) History of pulmonary embolism Code(s): Z86.711 - PERSONAL HISTORY OF PULMONARY EMBOLISM Status: Acute (4) Hyponatremia Code(s): E87.1 - HYPO-OSMOLALITY AND HYPONATREMIA Status: Acute (5) Alcohol abuse Code(s): F10.10 - ALCOHOL ABUSE, UNCOMPLICATED Status: Chronic (6) COPD (chronic obstructive pulmonary disease) Status: Chronic (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 - DERMATITIS HERPETIFORMIS Status: Chronic (8) HTN (hypertension) Code(s): I10 - ESSENTIAL (PRIMARY) HYPERTENSION Status: Chronic Qualifiers: (9) Hx of esophageal malignancy Code(s): Z85.01 - PERSONAL HISTORY OF MALIGNANT NEOPLASM OF ESOPHAGUS Status: Chronic (10) Macrocytic anemia Code(s): D53.9 - NUTRITIONAL ANEMIA, UNSPECIFIED Status: Chronic (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 - OTHER DISORDERS OF MENINGES, NOT ELSEWHERE CLASSIFIED Status : Suspected (12) History of urinary retention Code(s): Z87.898 - PERSONAL HISTORY OF OTHER SPECIFIED CONDITIONS Status: Acute (13) SCC (spinal cord compression) Code(s): G95.20 - UNSPECIFIED CORD COMPRESSION Status: Acute (14) UTI (urinary tract infection) due to Enterococcus Code(s): N39.0 - URINARY TRACT INFECTION, SITE NOT SPECIFIED; B95.2 - ENTEROCOCCUS THE CAUSE OF DISEASES CLASSIFIED ELSEWHERE Status: Acute Comment: 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 Review of Systems - Review of Systems ENT: negative: Ear Pain, Ear Discharge, Nose Pain, Nose Discharge, Nose Congestion, Mouth Pain, Mouth Swelling, Throat Pain, Throat Swelling, Other Respiratory: negative: Cough, Dry, Shortness of Breath, Hemoptysis, SOB with Excertion, Pleuritic Pain, Sputum, Wheezing Cardiovascular: negative: chest pain, palpitations, orthopnea, paroxysmal nocturnal dyspnea, edema, light headedness, other Gastrointestinal: negative: Nausea, Vomiting, Abdominal Pain, Diarrhea, Constipation, Melena, Hematochezia, Other Genitourinary: negative: Dysuria, Frequency, Incontinence, Hematuria, Retention , Other Musculoskeletal: negative: Neck Pain, Shoulder Pain, Arm Pain, Back Pain, Hand Pain, Leg Pain, Foot Pain, Other Skin: negative: Rash, Lesions, Oren, Bruising, Other - Medications/Allergies Allergies/Adverse Reactions: Allergies Allergy/AdvReac Type Severity Reaction Status Date / Time No Known Allergies Allergy Verified 12/06/17 00:59 Medications: Current Medications Acetaminophen (Tylenol) 650 mg PO Q4H PRN PRN Reason: WILLIAM/Fever Or Mild Pain (1-3) Hydrocodone Bitart/Acetaminophen ([place] 10/325) 1 tab PO Q4H PRN PRN Reason: Mild Pain (1-3) Al Hydroxide/Mg Hydroxide (Maalox) 30 ml PO Q4H PRN PRN Reason: Indigestion Albuterol/Ipratropium (Duoneb) 3 ml NEB [id number] PRN PRN Reason: SOB &/or Wheezing Artificial Tears (Tears Naturale) 0 drop EA EYE PRN PRN PRN Reason: Dry Eyes Bisacodyl (Dulcolax) 10 mg [place] Q12H PRN PRN Reason: Constipation Cyclobenzaprine HCl (Flexeril) 10 mg PO Q8H PRN PRN Reason: Muscle Spasm Dapsone (Dapsone) 50 mg PO Q2D@0900 [facility] Last Admin: 01/29/18 08:32 Dose: 50 mg Diphenhydramine HCl (Benadryl) 25 mg IVP Q6H PRN PRN Reason: Itching Docusate Sodium (Colace) 100 mg PO BID [facility] Last Admin: 01/30/18 09:15 Dose: Not Given Enalapril Maleate (Vasotec) 5 mg PO DAILY [facility] Last Admin: 01/30/18 09:15 Dose: 5 mg Famotidine (Pepcid) 20 mg PO BID [facility] Last Admin: 01/30/18 09:15 Dose: 20 mg Folic Acid (Folvite) 1 mg PO DAILY [facility] Last Admin: 01/30/18 09:15 Dose: 1 mg Guaifenesin (Robitussin Sf) 200 mg PO Q4H PRN PRN Reason: Cough Heparin Sodium (Porcine) (Heparin 1,000 Units/Ml (10 Ml)) 0 units SLOW IVP ASDIR [facility] PRN Reason: Protocol Last Admin: 01/28/18 16:35 Dose: 3,582.24 unit Hydralazine HCl (Apresoline) 10 mg SLOW IVP Q4H PRN PRN Reason: Systolic BP > 180 Heparin Sodium/Dextrose (Heparin 25,000 Units/D5w 500 Ml) 500 mls @ 0 mls/hr IVPB INF [facility]; Per Protocol PRN Reason: Protocol Last Admin: 01/29/18 23:29 Dose: 500 mls Loperamide HCl (Imodium) 2 mg PO PRN PRN PRN Reason: Diarrhea/Loose Stools Loratadine (Claritin) 10 mg PO DAILYPRN PRN PRN Reason: Sinus Symptoms Magnesium Hydroxide (Milk Of Magnesium) 30 ml PO Q12H PRN PRN Reason: Constipation Mineral Oil/White Petrolatum (Eucerin Cream) 0 gm TOP BIDPRN PRN PRN Reason: Dry Skin Mometasone Furoate/Formoterol Fumar (Dulera 100 Mcg/5 Mcg Inhaler) 2 puff INH BID-RT [facility] Last Admin: 01/30/18 10:00 Dose: 2 puff Morphine Sulfate (Morphine) 2 mg SLOW IVP Q1H PRN PRN Reason: Moderate Breakthrough Pain Nitrofurantoin Macrocrystals (Macrobid) 100 mg PO BID [facility] Last Admin: 01/30/18 09:15 Dose: 100 mg Ondansetron HCl (Zofran) 4 mg IVP DAILYPRN PRN PRN Reason: Nausea Ondansetron HCl (Zofran Odt) 4 mg PO Q6H PRN PRN Reason: Nausea/Vomiting Pantoprazole Sodium (Protonix) 40 mg PO DAILY [facility] Last Admin: 01/30/18 09:15 Dose: 40 mg Phenol (Chloraseptic [place] 180 Ml Bot) 0 ml PO PRN PRN PRN Reason: Sore Throat Polyethylene Glycol (Miralax) 17 gm PO DAILY [facility] Last Admin: 01/30/18 09:15 Dose: Not Given Sodium Chloride (Flush - Normal Saline) 10 ml IVF PRN PRN PRN Reason: Saline Flush Sodium Chloride ([place] Nasal [place] 0.65%) 0 ml EA NARE QIDPRN PRN PRN Reason: Nasal Congestion Temazepam (Restoril) 15 mg PO HSPRN PRN PRN Reason: Insomnia Thiamine HCl (Thiamine) 100 mg PO DAILY [facility] Last Admin: 01/30/18 09:15 Dose: 100 mg Tramadol HCl (Ultram) 50 mg PO Q6H PRN PRN Reason: Mild Pain (1-3)
[2018-01-30] MEDS: Acetaminophen 325 MG TAB PO PRN (12:58)
[2018-01-30] MEDS ORDERED: CEFAZOLIN/Water 2 GM/20 ML SYRINGE SLOW IVP SCH (17:00)
[2018-01-31] MEDS: Heparin 25,000 units/D5W 500 ML IVPB SCH ×2 (02:58→23:57)
--- NOTE | 2018-01-31 07:15 | PRG ---
DATE OF SERVICE: 01/31/2018 Yesterday on Mr. Hernandez we performed a small bedside procedure. We sterilely prepped the back and the wrist. We withdrew about 120 mL of spinal fluid from the pseudomeningocele and injected about 10 mL of blood in an attempt to cause just enough inflammation to seal the dura and perhaps have a blood l eloisa over the dura as a biological patch. He tolerated the procedure well. We taped his skin down i n a cruciate fashion to give just a bit of back pressure and prevent further enlargement. He did wel l overnight, he was able to sleep on his back without the same headache that he had previously. Othe rwise, the pseudomeningocele is asymptomatic. Mr. Hernandez has vital signs that are quite reasonable. He has had the same neurological deficits that he had at the completion of his spinal cord biopsy. My plan for Mr. Hernandez is to get a feeling as to whether the pseudomeningocele meningocele will enlarg e or decrease in size over time. I think he needs to be watched at least for a few more days. If it enlarges, my next plan would be to place a lumbar drain. Both his oncologist and I are very hesitan t to put him through any big operation given the cancer history and the radiation to the field. A shae mbar drain may tip the balance in favor of a sealing off any CSF leak and if we have to go to that pr ocedure, we would drain for about a week and then clamped it off and see if the pseudomeningocele has gone away permanently.
[2018-01-31 07:20] LABS: Platelet Count 355 thou/uL (130-400)
[2018-01-31] MEDS: Mometasone/Formoterol 120 PUFF INHALER INH SCH ×2 (07:48→19:46)
--- NOTE | 2018-01-31 08:42 | PRG ---
DATE OF SERVICE: 01/31/2018 He underwent the blood patch procedure yesterday. He still has swelling in the back of his neck, but is otherwise doing well. His breathing is okay and he has no complaints. PHYSICAL EXAMINATION: VITAL SIGNS: His temperature is 98.0, pulse 90, respirations 18, O2 sat 90% on 3 liters, blood press ure 127/81. HEENT: Unremarkable. NECK: No adenopathy, no JVD. LUNGS: Clear. CARDIAC: S1 and S2 regular. ABDOMEN: Soft. EXTREMITIES: No edema. LABORATORY DATA: PTT 79.6, hematocrit 30.9, platelet count 355. Sodium 130. ASSESSMENT: 1. Pulmonary embolus/deep venous thrombosis. 2. Pseudomeningocele. PLAN: At some point, he will need to restart longer acting anticoagulants such as warfarin or Eliqui s. For the time being, he is on heparin drip until it is clear that he can tolerate his anticoagulat ion with his neurologic situation.
[2018-01-31] MEDS: Polyethylene Glycol 3350 17 GM Packet PO SCH (09:50)
[2018-01-31] MEDS: Nitrofurantoin Monohyd/M-Cryst 100 MG CAP PO SCH ×2 (09:50→20:05)
[2018-01-31] MEDS: Famotidine 20 MG TAB PO SCH ×2 (09:50→20:07)
[2018-01-31] MEDS: Folic Acid 1 MG TAB PO SCH (09:50)
[2018-01-31] MEDS: Docusate 100 MG CAP PO SCH ×2 (09:50→20:07)
--- NOTE | 2018-01-31 10:34 | PDOC.PN ---
- Subjective Encounter Start Date: 01/31/18 Encounter Start Time: 08:00 Patient seen and examined for pulmonary embolism. No new complaints. No overnight events - Objective MAR Reviewed: Yes Vital Signs & Weight: Vital Signs (12 hours) Temp Pulse Resp BP Pulse Ox 01/31/18 08:00 98.0 F 90 18 127/81 92 L 01/31/18 04:00 98 F 80 16 130/75 94 L 01/30/18 23:55 98 F 90 22 H 128/84 92 L Weight Admit Weight 197 lb 7 oz Weight 197 lb 7 oz I&O: 01/30/18 01/31/18 02/01/18 06:59 06:59 06:59 Intake Total 240 519.6 Output Total 1950 2000 Balance -1710 -1480.4 Result Diagrams: 01/31/18 07:06 01/27/18 03:01 Phys Exam - Physical Examination Constitutional: NAD HEENT: PERRLA, moist MMs, sclera anicteric Neck: no JVD, supple Respiratory: no wheezing, no rales, no rhonchi Cardiovascular: RRR, no significant murmur, no rub Gastrointestinal: soft, non-tender, no distention, positive bowel sounds renee+ Musculoskeletal: no edema, pulses present Psychiatric: normal affect, A&O x 3 Skin: no rash, normal turgor Dx/Plan (1) Acute respiratory failure with hypoxia Code(s): J96.01 - ACUTE RESPIRATORY FAILURE WITH HYPOXIA Status: Resolved (2) Fluid collection at surgical site Code(s): T88.8XXA - OTH COMPLICATIONS OF SURGICAL AND MEDICAL CARE, NEC, INIT Status: Acute Comment: pseudomenigocele (3) History of pulmonary embolism Code(s): Z86.711 - PERSONAL HISTORY OF PULMONARY EMBOLISM Status: Acute (4) Hyponatremia Code(s): E87.1 - HYPO-OSMOLALITY AND HYPONATREMIA Status: Acute (5) Alcohol abuse Code(s): F10.10 - ALCOHOL ABUSE, UNCOMPLICATED Status: Chronic (6) COPD (chronic obstructive pulmonary disease) Status: Chronic (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 - DERMATITIS HERPETIFORMIS Status: Chronic (8) HTN (hypertension) Code(s): I10 - ESSENTIAL (PRIMARY) HYPERTENSION Status: Chronic Qualifiers: (9) Hx of esophageal malignancy Code(s): Z85.01 - PERSONAL HISTORY OF MALIGNANT NEOPLASM OF ESOPHAGUS Status: Chronic (10) Macrocytic anemia Code(s): D53.9 - NUTRITIONAL ANEMIA, UNSPECIFIED Status: Chronic (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 - OTHER DISORDERS OF MENINGES, NOT ELSEWHERE CLASSIFIED Status : Suspected (12) History of urinary retention Code(s): Z87.898 - PERSONAL HISTORY OF OTHER SPECIFIED CONDITIONS Status: Acute (13) SCC (spinal cord compression) Code(s): G95.20 - UNSPECIFIED CORD COMPRESSION Status: Acute (14) UTI (urinary tract infection) due to Enterococcus Code(s): N39.0 - URINARY TRACT INFECTION, SITE NOT SPECIFIED; B95.2 - ENTEROCOCCUS THE CAUSE OF DISEASES CLASSIFIED ELSEWHERE Status: Acute Comment: 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 Review of Systems - Review of Systems Constitutional: negative: fever, chills, sweats, weakness, malaise, other Eyes: negative: Pain, Vision Change, Conjunctivae Inflammation, Eyelid Inflammation, Redness, Other ENT: negative: Ear Pain, Ear Discharge, Nose Pain, Nose Discharge, Nose Congestion, Mouth Pain, Mouth Swelling, Throat Pain, Throat Swelling, Other Respiratory: negative: Cough, Dry, Shortness of Breath, Hemoptysis, SOB with Excertion, Pleuritic Pain, Sputum, Wheezing Cardiovascular: negative: chest pain, palpitations, orthopnea, paroxysmal nocturnal dyspnea, edema, light headedness, other Gastrointestinal: negative: Nausea, Vomiting, Abdominal Pain, Diarrhea, Constipation, Melena, Hematochezia, Other Skin: negative: Rash, Lesions, Oren, Bruising, Other - Medications/Allergies Allergies/Adverse Reactions: Allergies Allergy/AdvReac Type Severity Reaction Status Date / Time No Known Allergies Allergy Verified 12/06/17 00:59 Medications: Current Medications Acetaminophen (Tylenol) 650 mg PO Q4H PRN PRN Reason: WILLIAM/Fever Or Mild Pain (1-3) Last Admin: 01/30/18 12:58 Dose: 650 mg Hydrocodone Bitart/Acetaminophen ([place] 10/325) 1 tab PO Q4H PRN PRN Reason: Mild Pain (1-3) Al Hydroxide/Mg Hydroxide (Maalox) 30 ml PO Q4H PRN PRN Reason: Indigestion Albuterol/Ipratropium (Duoneb) 3 ml NEB [id number] PRN PRN Reason: SOB &/or Wheezing Artificial Tears (Tears Naturale) 0 drop EA EYE PRN PRN PRN Reason: Dry Eyes Bisacodyl (Dulcolax) 10 mg [place] Q12H PRN PRN Reason: Constipation Cyclobenzaprine HCl (Flexeril) 10 mg PO Q8H PRN PRN Reason: Muscle Spasm Dapsone (Dapsone) 50 mg PO Q2D@0900 [facility] Last Admin: 01/31/18 09:50 Dose: 50 mg Diphenhydramine HCl (Benadryl) 25 mg IVP Q6H PRN PRN Reason: Itching Docusate Sodium (Colace) 100 mg PO BID [facility] Last Admin: 01/31/18 09:50 Dose: 100 mg Enalapril Maleate (Vasotec) 5 mg PO DAILY [facility] Last Admin: 01/31/18 09:51 Dose: 5 mg Famotidine (Pepcid) 20 mg PO BID [facility] Last Admin: 01/31/18 09:50 Dose: 20 mg Folic Acid (Folvite) 1 mg PO DAILY [facility] Last Admin: 01/31/18 09:50 Dose: 1 mg Guaifenesin (Robitussin Sf) 200 mg PO Q4H PRN PRN Reason: Cough Heparin Sodium (Porcine) (Heparin 1,000 Units/Ml (10 Ml)) 0 units SLOW IVP ASDIR [facility] PRN Reason: Protocol Last Admin: 01/28/18 16:35 Dose: 3,582.24 unit Hydralazine HCl (Apresoline) 10 mg SLOW IVP Q4H PRN PRN Reason: Systolic BP > 180 Heparin Sodium/Dextrose (Heparin 25,000 Units/D5w 500 Ml) 500 mls @ 0 mls/hr IVPB INF [facility]; Per Protocol PRN Reason: Protocol Last Admin: 01/31/18 02:58 Dose: 500 mls Loperamide HCl (Imodium) 2 mg PO PRN PRN PRN Reason: Diarrhea/Loose Stools Loratadine (Claritin) 10 mg PO DAILYPRN PRN PRN Reason: Sinus Symptoms Magnesium Hydroxide (Milk Of Magnesium) 30 ml PO Q12H PRN PRN Reason: Constipation Mineral Oil/White Petrolatum (Eucerin Cream) 0 gm TOP BIDPRN PRN PRN Reason: Dry Skin Mometasone Furoate/Formoterol Fumar (Dulera 100 Mcg/5 Mcg Inhaler) 2 puff INH BID-RT [facility] Last Admin: 01/31/18 07:48 Dose: 2 puff Morphine Sulfate (Morphine) 2 mg SLOW IVP Q1H PRN PRN Reason: Moderate Breakthrough Pain Nitrofurantoin Macrocrystals (Macrobid) 100 mg PO BID [facility] Last Admin: 01/31/18 09:50 Dose: 100 mg Ondansetron HCl (Zofran) 4 mg IVP DAILYPRN PRN PRN Reason: Nausea Ondansetron HCl (Zofran Odt) 4 mg PO Q6H PRN PRN Reason: Nausea/Vomiting Pantoprazole Sodium (Protonix) 40 mg PO DAILY [facility] Last Admin: 01/31/18 09:50 Dose: 40 mg Phenol (Chloraseptic [place] 180 Ml Bot) 0 ml PO PRN PRN PRN Reason: Sore Throat Polyethylene Glycol (Miralax) 17 gm PO DAILY [facility] Last Admin: 01/31/18 09:50 Dose: 17 gm Sodium Chloride (Flush - Normal Saline) 10 ml IVF PRN PRN PRN Reason: Saline Flush Sodium Chloride ([place] Nasal [place] 0.65%) 0 ml EA NARE QIDPRN PRN PRN Reason: Nasal Congestion Temazepam (Restoril) 15 mg PO HSPRN PRN PRN Reason: Insomnia Thiamine HCl (Thiamine) 100 mg PO DAILY [facility] Last Admin: 01/31/18 09:50 Dose: 100 mg Tramadol HCl (Ultram) 50 mg PO Q6H PRN PRN Reason: Mild Pain (1-3)
[2018-01-31 17:00] LABS: Hemoglobin 10.3 g/dL (14.0-18.0); Platelet Count 354 thou/uL (130-400)
[2018-01-31] MEDS: Acetaminophen 325 MG TAB PO PRN (20:06)
[2018-01-31] MEDS: Heparin 10,000 UNITS/ 10 ML VIAL SLOW IVP SCH (21:34)
[2018-02-01 01:47] LABS: PTT 176.3 SEC (22.9-36.1)
[2018-02-01] MEDS: Famotidine 20 MG TAB PO SCH ×2 (08:20→20:51)
[2018-02-01] MEDS: Nitrofurantoin Monohyd/M-Cryst 100 MG CAP PO SCH ×2 (08:20→20:50)
[2018-02-01] MEDS: Docusate 100 MG CAP PO SCH ×2 (08:20→20:51)
[2018-02-01] MEDS: Folic Acid 1 MG TAB PO SCH (08:20)
[2018-02-01] MEDS: Polyethylene Glycol 3350 17 GM Packet PO SCH (08:21)
--- NOTE | 2018-02-01 09:37 | PDOC.PN ---
- Subjective Encounter Start Date: 02/01/18 Encounter Start Time: 07:40 Patient seen and examined for pulmonary embolism. No new complaints. No overnight events - Objective MAR Reviewed: Yes Vital Signs & Weight: Vital Signs (12 hours) Temp Pulse Resp BP Pulse Ox 02/01/18 07:39 97.7 F 85 16 122/76 95 02/01/18 05:04 98.1 F 76 16 124/77 96 02/01/18 00:54 98.1 F 79 16 128/80 95 Weight Admit Weight 197 lb 7 oz Weight 197 lb 7 oz I&O: 01/31/18 02/01/18 02/02/18 06:59 06:59 06:59 Intake Total 519.6 1000 Output Total 2000 1300 Balance -1480.4 -300 Result Diagrams: 01/31/18 16:47 01/27/18 03:01 Phys Exam - Physical Examination Constitutional: NAD HEENT: PERRLA, moist MMs, sclera anicteric Neck: no JVD, supple Respiratory: no wheezing, no rales, no rhonchi Cardiovascular: RRR, no significant murmur, no rub Gastrointestinal: soft, non-tender, no distention, positive bowel sounds renee+ Musculoskeletal: no edema, pulses present Psychiatric: normal affect, A&O x 3 Skin: no rash, normal turgor Dx/Plan (1) Acute respiratory failure with hypoxia Code(s): J96.01 - ACUTE RESPIRATORY FAILURE WITH HYPOXIA Status: Resolved (2) Fluid collection at surgical site Code(s): T88.8XXA - OTH COMPLICATIONS OF SURGICAL AND MEDICAL CARE, NEC, INIT Status: Acute Comment: pseudomenigocele (3) History of pulmonary embolism Code(s): Z86.711 - PERSONAL HISTORY OF PULMONARY EMBOLISM Status: Acute (4) Hyponatremia Code(s): E87.1 - HYPO-OSMOLALITY AND HYPONATREMIA Status: Acute (5) Alcohol abuse Code(s): F10.10 - ALCOHOL ABUSE, UNCOMPLICATED Status: Chronic (6) COPD (chronic obstructive pulmonary disease) Status: Chronic (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 - DERMATITIS HERPETIFORMIS Status: Chronic (8) HTN (hypertension) Code(s): I10 - ESSENTIAL (PRIMARY) HYPERTENSION Status: Chronic Qualifiers: (9) Hx of esophageal malignancy Code(s): Z85.01 - PERSONAL HISTORY OF MALIGNANT NEOPLASM OF ESOPHAGUS Status: Chronic (10) Macrocytic anemia Code(s): D53.9 - NUTRITIONAL ANEMIA, UNSPECIFIED Status: Chronic (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 - OTHER DISORDERS OF MENINGES, NOT ELSEWHERE CLASSIFIED Status : Suspected (12) History of urinary retention Code(s): Z87.898 - PERSONAL HISTORY OF OTHER SPECIFIED CONDITIONS Status: Acute (13) SCC (spinal cord compression) Code(s): G95.20 - UNSPECIFIED CORD COMPRESSION Status: Acute (14) UTI (urinary tract infection) due to Enterococcus Code(s): N39.0 - URINARY TRACT INFECTION, SITE NOT SPECIFIED; B95.2 - ENTEROCOCCUS THE CAUSE OF DISEASES CLASSIFIED ELSEWHERE Status: Acute Comment: 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 Review of Systems - Review of Systems Constitutional: negative: fever, chills, sweats, weakness, malaise, other ENT: negative: Ear Pain, Ear Discharge, Nose Pain, Nose Discharge, Nose Congestion, Mouth Pain, Mouth Swelling, Throat Pain, Throat Swelling, Other Respiratory: negative: Cough, Dry, Shortness of Breath, Hemoptysis, SOB with Excertion, Pleuritic Pain, Sputum, Wheezing Cardiovascular: negative: chest pain, palpitations, orthopnea, paroxysmal nocturnal dyspnea, edema, light headedness, other Gastrointestinal: negative: Nausea, Vomiting, Abdominal Pain, Diarrhea, Constipation, Melena, Hematochezia, Other Genitourinary: negative: Dysuria, Frequency, Incontinence, Hematuria, Retention , Other Musculoskeletal: negative: Neck Pain, Shoulder Pain, Arm Pain, Back Pain, Hand Pain, Leg Pain, Foot Pain, Other - Medications/Allergies Allergies/Adverse Reactions: Allergies Allergy/AdvReac Type Severity Reaction Status Date / Time No Known Allergies Allergy Verified 12/06/17 00:59 Medications: Current Medications Acetaminophen (Tylenol) 650 mg PO Q4H PRN PRN Reason: WILLIAM/Fever Or Mild Pain (1-3) Last Admin: 01/31/18 20:06 Dose: 650 mg Hydrocodone Bitart/Acetaminophen ([place] 10/325) 1 tab PO Q4H PRN PRN Reason: Mild Pain (1-3) Al Hydroxide/Mg Hydroxide (Maalox) 30 ml PO Q4H PRN PRN Reason: Indigestion Albuterol/Ipratropium (Duoneb) 3 ml NEB [id number] PRN PRN Reason: SOB &/or Wheezing Artificial Tears (Tears Naturale) 0 drop EA EYE PRN PRN PRN Reason: Dry Eyes Bisacodyl (Dulcolax) 10 mg ND Q12H PRN PRN Reason: Constipation Cyclobenzaprine HCl (Flexeril) 10 mg PO Q8H PRN PRN Reason: Muscle Spasm Dapsone (Dapsone) 50 mg PO Q2D@0900 [facility] Last Admin: 01/31/18 09:50 Dose: 50 mg Diphenhydramine HCl (Benadryl) 25 mg IVP Q6H PRN PRN Reason: Itching Docusate Sodium (Colace) 100 mg PO BID [facility] Last Admin: 02/01/18 08:20 Dose: 100 mg Enalapril Maleate (Vasotec) 5 mg PO DAILY [facility] Last Admin: 02/01/18 08:20 Dose: 5 mg Famotidine (Pepcid) 20 mg PO BID [facility] Last Admin: 02/01/18 08:20 Dose: 20 mg Folic Acid (Folvite) 1 mg PO DAILY [facility] Last Admin: 02/01/18 08:20 Dose: 1 mg Guaifenesin (Robitussin Sf) 200 mg PO Q4H PRN PRN Reason: Cough Heparin Sodium (Porcine) (Heparin 1,000 Units/Ml (10 Ml)) 0 units SLOW IVP ASDIR [facility] PRN Reason: Protocol Last Admin: 01/31/18 21:34 Dose: 3,584 unit Hydralazine HCl (Apresoline) 10 mg SLOW IVP Q4H PRN PRN Reason: Systolic BP > 180 Heparin Sodium/Dextrose (Heparin 25,000 Units/D5w 500 Ml) 500 mls @ 0 mls/hr IVPB INF [facility]; Per Protocol PRN Reason: Protocol Last Admin: 01/31/18 23:57 Dose: 500 mls Loperamide HCl (Imodium) 2 mg PO PRN PRN PRN Reason: Diarrhea/Loose Stools Loratadine (Claritin) 10 mg PO DAILYPRN PRN PRN Reason: Sinus Symptoms Magnesium Hydroxide (Milk Of Magnesium) 30 ml PO Q12H PRN PRN Reason: Constipation Mineral Oil/White Petrolatum (Eucerin Cream) 0 gm TOP BIDPRN PRN PRN Reason: Dry Skin Mometasone Furoate/Formoterol Fumar (Dulera 100 Mcg/5 Mcg Inhaler) 2 puff INH BID-RT [facility] Last Admin: 01/31/18 19:46 Dose: 2 puff Morphine Sulfate (Morphine) 2 mg SLOW IVP Q1H PRN PRN Reason: Moderate Breakthrough Pain Nitrofurantoin Macrocrystals (Macrobid) 100 mg PO BID [facility] Last Admin: 02/01/18 08:20 Dose: 100 mg Ondansetron HCl (Zofran) 4 mg IVP DAILYPRN PRN PRN Reason: Nausea Ondansetron HCl (Zofran Odt) 4 mg PO Q6H PRN PRN Reason: Nausea/Vomiting Pantoprazole Sodium (Protonix) 40 mg PO DAILY [facility] Last Admin: 02/01/18 08:20 Dose: 40 mg Phenol (Chloraseptic [place] 180 Ml Bot) 0 ml PO PRN PRN PRN Reason: Sore Throat Polyethylene Glycol (Miralax) 17 gm PO DAILY [facility] Last Admin: 02/01/18 08:21 Dose: 17 gm Sodium Chloride (Flush - Normal Saline) 10 ml IVF PRN PRN PRN Reason: Saline Flush Sodium Chloride ([place] Nasal [place] 0.65%) 0 ml EA NARE QIDPRN PRN PRN Reason: Nasal Congestion Temazepam (Restoril) 15 mg PO HSPRN PRN PRN Reason: Insomnia Thiamine HCl (Thiamine) 100 mg PO DAILY [facility] Last Admin: 02/01/18 08:20 Dose: 100 mg Tramadol HCl (Ultram) 50 mg PO Q6H PRN PRN Reason: Mild Pain (1-3)
[2018-02-01] MEDS: Mometasone/Formoterol 120 PUFF INHALER INH SCH ×2 (11:07→19:06)
[2018-02-01] MEDS: HYDROcodone/Acetaminophen 10/325 mg Tablet PO PRN (16:35)
[2018-02-01] MEDS: Heparin 10,000 UNITS/ 10 ML VIAL SLOW IVP SCH (17:56)
--- NOTE | 2018-02-01 20:04 | PRG ---
DATE OF SERVICE: 02/01/2018 OBJECTIVE: VITAL SIGNS: David is afebrile, heart rate 87, respiratory rate is 18, oximetry is 94% on room air, blood pressure 163/91. LUNGS: Clear. HEART: Regular rhythm. ABDOMEN: Soft. I have told he way to go to rehabilitation next week. Hemoglobin is stable at 10.3 yesterday. There is no lab today. Electrolytes have not been checked s shanti the , he was mildly hyponatremic. IMPRESSION: 1. Status post blood patch for pseudomeningocele. 2. History of pulmonary embolism and a venous thrombus. He remains on a heparin drip. His PTT 63.
[2018-02-01] MEDS: Heparin 25,000 units/D5W 500 ML IVPB SCH (23:36)
[2018-02-02 00:29] LABS: PTT 117.5 SEC (22.9-36.1)
[2018-02-02] MEDS: Heparin 10,000 UNITS/ 10 ML VIAL SLOW IVP SCH (07:12)
[2018-02-02] MEDS: Docusate 100 MG CAP PO SCH ×2 (08:57→20:59)
[2018-02-02] MEDS: Famotidine 20 MG TAB PO SCH ×2 (08:57→20:59)
[2018-02-02] MEDS: Nitrofurantoin Monohyd/M-Cryst 100 MG CAP PO SCH ×2 (08:57→20:59)
[2018-02-02] MEDS: Folic Acid 1 MG TAB PO SCH (08:57)
[2018-02-02] MEDS: Polyethylene Glycol 3350 17 GM Packet PO SCH (08:58)
[2018-02-02] MEDS: Mometasone/Formoterol 120 PUFF INHALER INH SCH ×2 (10:43→19:12)
[2018-02-02] MEDS: HYDROcodone/Acetaminophen 10/325 mg Tablet PO PRN (10:55)
--- NOTE | 2018-02-02 11:40 | PDOC.PN ---
- Subjective Encounter Start Date: 02/02/18 Encounter Start Time: 08:45 Subjective: no sob or chest pain -: moves all extremities well except right LE - Objective MAR Reviewed: Yes Vital Signs & Weight: Vital Signs (12 hours) Temp Pulse Resp BP Pulse Ox 02/02/18 10:44 94 L 02/02/18 10:43 100 18 9 L 02/02/18 08:50 98 F 83 16 94 L 02/02/18 07:35 98 F 83 16 155/80 H 94 L 02/02/18 04:00 98.1 F 86 16 148/88 H 95 02/01/18 23:54 98.0 F 87 16 147/81 H 95 Weight Admit Weight 197 lb 7 oz Weight 197 lb 7 oz I&O: 02/01/18 02/02/18 02/03/18 06:59 06:59 06:59 Intake Total 1000 700 Output Total 1300 1400 Balance -300 -700 Result Diagrams: 01/31/18 16:47 01/27/18 03:01 Phys Exam - Physical Examination HEENT: PERRLA, moist MMs Neck: no JVD, supple Respiratory: no wheezing, no rales Cardiovascular: RRR, no significant murmur Gastrointestinal: soft, non-tender, positive bowel sounds Musculoskeletal: no edema, pulses present Neurological: non-focal moves all extre well except right LE Psychiatric: normal affect, A&O x 3 Dx/Plan (1) Fluid collection at surgical site Code(s): T88.8XXA - OTH COMPLICATIONS OF SURGICAL AND MEDICAL CARE, NEC, INIT Status: Acute Comment: pseudomenigocele due to post op seroma (2) History of pulmonary embolism Code(s): Z86.711 - PERSONAL HISTORY OF PULMONARY EMBOLISM Status: Chronic Comment: diag 12/17/2017 (3) History of urinary retention Code(s): Z87.898 - PERSONAL HISTORY OF OTHER SPECIFIED CONDITIONS Status: Chronic Comment: with chronic renee (4) COPD (chronic obstructive pulmonary disease) Status: Chronic Qualifiers: COPD type: unspecified COPD Qualified Code(s): J44.9 - Chronic obstructive pulmonary disease, unspecified (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 Has not amb yet but sat in chair yesterday, still weak -: on right LE, is on heparin drip for h/o PE, may switch to eliquis if no van -: -angela is planned await till sees him in am. Will need rehab/sn * . Review of Systems - Medications/Allergies Allergies/Adverse Reactions: Allergies Allergy/AdvReac Type Severity Reaction Status Date / Time No Known Allergies Allergy Verified 12/06/17 00:59 Medications: Current Medications Acetaminophen (Tylenol) 650 mg PO Q4H PRN PRN Reason: WILLIAM/Fever Or Mild Pain (1-3) Last Admin: 01/31/18 20:06 Dose: 650 mg Hydrocodone Bitart/Acetaminophen ([place] 10/325) 1 tab PO Q4H PRN PRN Reason: Mild Pain (1-3) Last Admin: 02/02/18 10:55 Dose: 1 tab Al Hydroxide/Mg Hydroxide (Maalox) 30 ml PO Q4H PRN PRN Reason: Indigestion Albuterol/Ipratropium (Duoneb) 3 ml NEB [id number] PRN PRN Reason: SOB &/or Wheezing Artificial Tears (Tears Naturale) 0 drop EA EYE PRN PRN PRN Reason: Dry Eyes Bisacodyl (Dulcolax) 10 mg HI Q12H PRN PRN Reason: Constipation Cyclobenzaprine HCl (Flexeril) 10 mg PO Q8H PRN PRN Reason: Muscle Spasm Dapsone (Dapsone) 50 mg PO Q2D@0900 [facility] Last Admin: 02/02/18 08:58 Dose: 50 mg Diphenhydramine HCl (Benadryl) 25 mg IVP Q6H PRN PRN Reason: Itching Docusate Sodium (Colace) 100 mg PO BID [facility] Last Admin: 02/02/18 08:57 Dose: 100 mg Enalapril Maleate (Vasotec) 5 mg PO DAILY [facility] Last Admin: 02/02/18 08:57 Dose: 5 mg Famotidine (Pepcid) 20 mg PO BID [facility] Last Admin: 02/02/18 08:57 Dose: 20 mg Folic Acid (Folvite) 1 mg PO DAILY [facility] Last Admin: 02/02/18 08:57 Dose: 1 mg Guaifenesin (Robitussin Sf) 200 mg PO Q4H PRN PRN Reason: Cough Heparin Sodium (Porcine) (Heparin 1,000 Units/Ml (10 Ml)) 0 units SLOW IVP ASDIR [facility] PRN Reason: Protocol Last Admin: 02/02/18 07:12 Dose: 3,584 unit Hydralazine HCl (Apresoline) 10 mg SLOW IVP Q4H PRN PRN Reason: Systolic BP > 180 Heparin Sodium/Dextrose (Heparin 25,000 Units/D5w 500 Ml) 500 mls @ 0 mls/hr IVPB INF [facility]; Per Protocol PRN Reason: Protocol Last Admin: 02/01/18 23:36 Dose: 500 mls Loperamide HCl (Imodium) 2 mg PO PRN PRN PRN Reason: Diarrhea/Loose Stools Loratadine (Claritin) 10 mg PO DAILYPRN PRN PRN Reason: Sinus Symptoms Magnesium Hydroxide (Milk Of Magnesium) 30 ml PO Q12H PRN PRN Reason: Constipation Mineral Oil/White Petrolatum (Eucerin Cream) 0 gm TOP BIDPRN PRN PRN Reason: Dry Skin Mometasone Furoate/Formoterol Fumar (Dulera 100 Mcg/5 Mcg Inhaler) 2 puff INH BID-RT [facility] Last Admin: 02/02/18 10:43 Dose: 2 puff Morphine Sulfate (Morphine) 2 mg SLOW IVP Q1H PRN PRN Reason: Moderate Breakthrough Pain Nitrofurantoin Macrocrystals (Macrobid) 100 mg PO BID [facility] Last Admin: 02/02/18 08:57 Dose: 100 mg Ondansetron HCl (Zofran) 4 mg IVP DAILYPRN PRN PRN Reason: Nausea Ondansetron HCl (Zofran Odt) 4 mg PO Q6H PRN PRN Reason: Nausea/Vomiting Pantoprazole Sodium (Protonix) 40 mg PO DAILY [facility] Last Admin: 02/02/18 08:57 Dose: 40 mg Phenol (Chloraseptic [place] 180 Ml Bot) 0 ml PO PRN PRN PRN Reason: Sore Throat Polyethylene Glycol (Miralax) 17 gm PO DAILY [facility] Last Admin: 02/02/18 08:58 Dose: 17 gm Sodium Chloride (Flush - Normal Saline) 10 ml IVF PRN PRN PRN Reason: Saline Flush Sodium Chloride ([place] Nasal [place] 0.65%) 0 ml EA NARE QIDPRN PRN PRN Reason: Nasal Congestion Temazepam (Restoril) 15 mg PO HSPRN PRN PRN Reason: Insomnia Thiamine HCl (Thiamine) 100 mg PO DAILY [facility] Last Admin: 02/02/18 08:57 Dose: 100 mg Tramadol HCl (Ultram) 50 mg PO Q6H PRN PRN Reason: Mild Pain (1-3)
[2018-02-02 16:57] LABS: Hemoglobin 10.2 g/dL (14.0-18.0); Platelet Count 342 thou/uL (130-400)
[2018-02-02] MEDS: Heparin 25,000 units/D5W 500 ML IVPB SCH (21:16)
--- NOTE | 2018-02-03 06:52 | PRG ---
DATE OF SERVICE: 02/03/2018 I saw Mr. Hernandez in his hospital room this morning. He had a relatively uneventful weekend. He remai ns on a heparin drip for his history of DVT with PE and he has been off Eliquis in anticipation of pr ocedures to treat a pseudomeningocele. He is not having any headache when he lays on the fluid colle ction now. He has not had any neurological decline from the fluid collection, and overall his vitals have been stable. In examining the back, I think the fluid collection is slightly less tense today than it was on Saturday. I offered him a lumbar drain placement and 1 week of lumbar spinal fluid proter patel to see if we can get it to seal off in the hospital. He is not very excited about that idea and wants to leave. If we get him out of the hospital, he can go back on his anticoagulation now. He w ould like to see us in 3 weeks to assess the size of the fluid collection. I think it is less tense and there may be a chance that it goes away slowly over time. He knows that if it begins to cause sy mptoms he should come to our office sooner and we will readmit him to the hospital for a lumbar drain age in a prolonged fashion and maybe attempt another blood patch. We will make arrangements for him to be discharged as soon as the medical team assisting in his care feel comfortable with his anticoagulation status.
[2018-02-03] MEDS: HYDROcodone/Acetaminophen 10/325 mg Tablet PO PRN ×3 (07:22→17:47)
[2018-02-03] MEDS: Mometasone/Formoterol 120 PUFF INHALER INH SCH ×2 (07:40→18:26)
[2018-02-03] MEDS: Famotidine 20 MG TAB PO SCH ×2 (10:12→20:02)
[2018-02-03] MEDS: Polyethylene Glycol 3350 17 GM Packet PO SCH (10:12)
[2018-02-03] MEDS: Docusate 100 MG CAP PO SCH ×2 (10:12→20:01)
[2018-02-03] MEDS: Folic Acid 1 MG TAB PO SCH (10:12)
[2018-02-03] MEDS: Nitrofurantoin Monohyd/M-Cryst 100 MG CAP PO SCH ×2 (10:12→20:01)
[2018-02-03] MEDS: Apixaban 5 MG TAB PO SCH ×2 (10:16→20:02)
--- NOTE | 2018-02-03 11:30 | PDOC.PN ---
- Subjective Encounter Start Date: 02/03/18 Encounter Start Time: 09:00 Subjective: no sob or chest pain -: feels better -: was evaluated by this am - Objective MAR Reviewed: Yes Vital Signs & Weight: Vital Signs (12 hours) Temp Pulse Resp BP Pulse Ox 02/03/18 11:05 98 F 89 20 160/94 H 95 02/03/18 07:50 97.9 F 82 20 149/88 H 95 02/03/18 07:40 98 16 96 02/03/18 03:51 98.3 F 92 16 149/77 H 91 L Weight Admit Weight 197 lb 7 oz Weight 197 lb 7 oz I&O: 02/02/18 02/03/18 02/04/18 06:59 06:59 06:59 Intake Total 700 920 Output Total 1400 1400 Balance -700 -480 Result Diagrams: 02/02/18 16:48 01/27/18 03:01 Phys Exam - Physical Examination HEENT: PERRLA, moist MMs Neck: no JVD, supple Respiratory: no wheezing, no rales Cardiovascular: RRR, no significant murmur Gastrointestinal: soft, non-tender, positive bowel sounds Musculoskeletal: no edema, pulses present moves all extre well except right LE Psychiatric: normal affect, A&O x 3 Dx/Plan (1) Fluid collection at surgical site Code(s): T88.8XXA - OTH COMPLICATIONS OF SURGICAL AND MEDICAL CARE, NEC, INIT Status: Acute Comment: pseudomenigocele due to post op seroma (2) History of pulmonary embolism Code(s): Z86.711 - PERSONAL HISTORY OF PULMONARY EMBOLISM Status: Chronic Comment: diag 12/17/2017 (3) History of urinary retention Code(s): Z87.898 - PERSONAL HISTORY OF OTHER SPECIFIED CONDITIONS Status: Chronic Comment: with chronic renee (4) COPD (chronic obstructive pulmonary disease) Status: Chronic Qualifiers: COPD type: unspecified COPD Qualified Code(s): J44.9 - Chronic obstructive pulmonary disease, unspecified (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 - DERMATITIS HERPETIFORMIS Status: Chronic (6) HTN (hypertension) Code(s): I10 - ESSENTIAL (PRIMARY) HYPERTENSION Status: Chronic Qualifiers: Hypertension type: essential hypertension (7) Hx of esophageal malignancy Code(s): Z85.01 - PERSONAL HISTORY OF MALIGNANT NEOPLASM OF ESOPHAGUS Status: Chronic Comment: with mets to T1,2 s/p resection 12/11/2017 (8) Macrocytic anemia Code(s): D53.9 - NUTRITIONAL ANEMIA, UNSPECIFIED Status: Chronic - Plan hemo/neuro stable -: no procedures are planned per nsx note today -: will dc heparin drip, place him back on eliquis -: may dc anytime to rehab if accepted -: is on dapsone, dc macrobid on discharge * . Review of Systems - Medications/Allergies Allergies/Adverse Reactions: Allergies Allergy/AdvReac Type Severity Reaction Status Date / Time No Known Allergies Allergy Verified 12/06/17 00:59 Medications: Current Medications Acetaminophen (Tylenol) 650 mg PO Q4H PRN PRN Reason: WILLIAM/Fever Or Mild Pain (1-3) Last Admin: 01/31/18 20:06 Dose: 650 mg Hydrocodone Bitart/Acetaminophen ([place] 10/325) 1 tab PO Q4H PRN PRN Reason: Mild Pain (1-3) Last Admin: 02/03/18 11:19 Dose: 1 tab Al Hydroxide/Mg Hydroxide (Maalox) 30 ml PO Q4H PRN PRN Reason: Indigestion Albuterol/Ipratropium (Duoneb) 3 ml NEB [id number] PRN PRN Reason: SOB &/or Wheezing Apixaban (Eliquis) 10 mg PO BID [facility] Stop: 02/09/18 21:01 Last Admin: 02/03/18 10:16 Dose: 10 mg Apixaban (Eliquis) 5 mg PO BID [facility] Artificial Tears (Tears Naturale) 0 drop EA EYE PRN PRN PRN Reason: Dry Eyes Bisacodyl (Dulcolax) 10 mg NE Q12H PRN PRN Reason: Constipation Cyclobenzaprine HCl (Flexeril) 10 mg PO Q8H PRN PRN Reason: Muscle Spasm Dapsone (Dapsone) 50 mg PO Q2D@0900 [facility] Last Admin: 02/02/18 08:58 Dose: 50 mg Diphenhydramine HCl (Benadryl) 25 mg IVP Q6H PRN PRN Reason: Itching Docusate Sodium (Colace) 100 mg PO BID [facility] Last Admin: 02/03/18 10:12 Dose: 100 mg Enalapril Maleate (Vasotec) 5 mg PO DAILY [facility] Last Admin: 02/03/18 10:16 Dose: 5 mg Famotidine (Pepcid) 20 mg PO BID [facility] Last Admin: 02/03/18 10:12 Dose: 20 mg Folic Acid (Folvite) 1 mg PO DAILY [facility] Last Admin: 02/03/18 10:12 Dose: 1 mg Guaifenesin (Robitussin Sf) 200 mg PO Q4H PRN PRN Reason: Cough Hydralazine HCl (Apresoline) 10 mg SLOW IVP Q4H PRN PRN Reason: Systolic BP > 180 Loperamide HCl (Imodium) 2 mg PO PRN PRN PRN Reason: Diarrhea/Loose Stools Loratadine (Claritin) 10 mg PO DAILYPRN PRN PRN Reason: Sinus Symptoms Magnesium Hydroxide (Milk Of Magnesium) 30 ml PO Q12H PRN PRN Reason: Constipation Mineral Oil/White Petrolatum (Eucerin Cream) 0 gm TOP BIDPRN PRN PRN Reason: Dry Skin Mometasone Furoate/Formoterol Fumar (Dulera 100 Mcg/5 Mcg Inhaler) 2 puff INH BID-RT [facility] Last Admin: 02/03/18 07:40 Dose: 2 puff Morphine Sulfate (Morphine) 2 mg SLOW IVP Q1H PRN PRN Reason: Moderate Breakthrough Pain Nitrofurantoin Macrocrystals (Macrobid) 100 mg PO BID [facility] Last Admin: 02/03/18 10:12 Dose: 100 mg Ondansetron HCl (Zofran) 4 mg IVP DAILYPRN PRN PRN Reason: Nausea Ondansetron HCl (Zofran Odt) 4 mg PO Q6H PRN PRN Reason: Nausea/Vomiting Pantoprazole Sodium (Protonix) 40 mg PO DAILY [facility] Last Admin: 02/03/18 10:12 Dose: 40 mg Phenol (Chloraseptic [place] 180 Ml Bot) 0 ml PO PRN PRN PRN Reason: Sore Throat Polyethylene Glycol (Miralax) 17 gm PO DAILY [facility] Last Admin: 02/03/18 10:12 Dose: 17 gm Sodium Chloride (Flush - Normal Saline) 10 ml IVF PRN PRN PRN Reason: Saline Flush Sodium Chloride ([place] Nasal [place] 0.65%) 0 ml EA NARE QIDPRN PRN PRN Reason: Nasal Congestion Temazepam (Restoril) 15 mg PO HSPRN PRN PRN Reason: Insomnia Thiamine HCl (Thiamine) 100 mg PO DAILY [facility] Last Admin: 02/03/18 10:12 Dose: 100 mg Tramadol HCl (Ultram) 50 mg PO Q6H PRN PRN Reason: Mild Pain (1-3)
[2018-02-04] MEDS: HYDROcodone/Acetaminophen 10/325 mg Tablet PO PRN ×2 (05:38→09:17)
--- NOTE | 2018-02-04 07:01 | PRG ---
DATE OF SERVICE: 02/04/2018 I am seeing Mr. Hernandez in his hospital room this morning. He does not complain of any discomfort at t he base of his neck, but asks whether the fluid collection is bigger or smaller than yesterday. He i s anticipating discharge to a care facility. I do not see any recorded fevers overnight. Other vital signs look stable. Mr. Hernandez's pseudomening ocele in my view, is a bit larger than it was yesterday, but is not terribly tense. There is a small area of skin irritation over the fluid collection and will have to keep pressure off the skin to giv e it the best chance to maintain its integrity. I will ask the nurse to have him sleep on one side o r the other rather than directly on his back. We will make a transition to a care facility. In a fe w weeks we will check the fluid collection. If it is larger or more tense then will readmitted him t o the hospital, at that time stop his anticoagulation and place a lumbar drain for a week or longer t o divert CSF. We will make arrangements for transfer to happen as soon as possible.
[2018-02-04] MEDS: Mometasone/Formoterol 120 PUFF INHALER INH SCH ×2 (07:07→19:34)
[2018-02-04] MEDS: Apixaban 5 MG TAB PO SCH ×2 (09:17→21:24)
[2018-02-04] MEDS: Polyethylene Glycol 3350 17 GM Packet PO SCH (09:18)
[2018-02-04] MEDS: Famotidine 20 MG TAB PO SCH ×2 (09:18→21:24)
[2018-02-04] MEDS: Nitrofurantoin Monohyd/M-Cryst 100 MG CAP PO SCH ×2 (09:19→21:24)
[2018-02-04] MEDS: Folic Acid 1 MG TAB PO SCH (09:19)
[2018-02-04] MEDS: Docusate 100 MG CAP PO SCH ×2 (09:19→21:24)
--- NOTE | 2018-02-04 13:33 | PDOC.PN ---
- Subjective Encounter Start Date: 02/04/18 Encounter Start Time: 10:25 Subjective: c/o mild neck pain -: no trouble swallowing or chest pain or sob - Objective MAR Reviewed: Yes Vital Signs & Weight: Vital Signs (12 hours) Temp Pulse Resp BP Pulse Ox 02/04/18 12:05 98.5 F 97 14 126/75 93 L 02/04/18 11:58 98.5 F 97 14 126/75 93 L 02/04/18 07:40 98.7 F 102 H 18 94 L 02/04/18 07:25 98.7 F 102 H 18 157/89 H 94 L 02/04/18 04:55 98.1 F 90 14 147/88 H 90 L Weight Admit Weight 197 lb 7 oz Weight 197 lb 7 oz I&O: 02/03/18 02/04/18 02/05/18 06:59 06:59 06:59 Intake Total 920 Output Total 1400 2200 Balance -480 -2200 Result Diagrams: 02/02/18 16:48 01/27/18 03:01 Phys Exam - Physical Examination HEENT: PERRLA, moist MMs Neck: no JVD, supple Respiratory: no wheezing, no rales Cardiovascular: RRR, no significant murmur Gastrointestinal: soft, non-tender, positive bowel sounds Musculoskeletal: no edema, pulses present Neurological: non-focal Psychiatric: normal affect, A&O x 3 Dx/Plan (1) Fluid collection at surgical site Code(s): T88.8XXA - OTH COMPLICATIONS OF SURGICAL AND MEDICAL CARE, NEC, INIT Status: Acute Comment: pseudomenigocele due to post op seroma (2) History of pulmonary embolism Code(s): Z86.711 - PERSONAL HISTORY OF PULMONARY EMBOLISM Status: Chronic Comment: diag 12/17/2017 (3) History of urinary retention Code(s): Z87.898 - PERSONAL HISTORY OF OTHER SPECIFIED CONDITIONS Status: Chronic Comment: with chronic renee (4) COPD (chronic obstructive pulmonary disease) Status: Chronic Qualifiers: COPD type: unspecified COPD Qualified Code(s): J44.9 - Chronic obstructive pulmonary disease, unspecified (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 - DERMATITIS HERPETIFORMIS Status: Chronic (6) HTN (hypertension) Code(s): I10 - ESSENTIAL (PRIMARY) HYPERTENSION Status: Chronic Qualifiers: Hypertension type: essential hypertension (7) Hx of esophageal malignancy Code(s): Z85.01 - PERSONAL HISTORY OF MALIGNANT NEOPLASM OF ESOPHAGUS Status: Chronic Comment: with mets to T1,2 s/p resection 12/11/2017 (8) Macrocytic anemia Code(s): D53.9 - NUTRITIONAL ANEMIA, UNSPECIFIED Status: Chronic - Plan on eliquis 5mg bid -: awaiting rehab placement -: may dc anytime if placement is ready -: dc macrobid -: chronic renee with retention, needs outpt appt with onc * . Review of Systems - Medications/Allergies Allergies/Adverse Reactions: Allergies Allergy/AdvReac Type Severity Reaction Status Date / Time No Known Allergies Allergy Verified 12/06/17 00:59 Medications: Current Medications Acetaminophen (Tylenol) 650 mg PO Q4H PRN PRN Reason: WILLIAM/Fever Or Mild Pain (1-3) Last Admin: 01/31/18 20:06 Dose: 650 mg Hydrocodone Bitart/Acetaminophen ([place] 10/325) 1 tab PO Q4H PRN PRN Reason: Mild Pain (1-3) Last Admin: 02/04/18 09:17 Dose: 1 tab Al Hydroxide/Mg Hydroxide (Maalox) 30 ml PO Q4H PRN PRN Reason: Indigestion Albuterol/Ipratropium (Duoneb) 3 ml NEB [id number] PRN PRN Reason: SOB &/or Wheezing Apixaban (Eliquis) 5 mg PO BID [facility] Last Admin: 02/04/18 09:17 Dose: 5 mg Artificial Tears (Tears Naturale) 0 drop EA EYE PRN PRN PRN Reason: Dry Eyes Bisacodyl (Dulcolax) 10 mg [place] Q12H PRN PRN Reason: Constipation Cyclobenzaprine HCl (Flexeril) 10 mg PO Q8H PRN PRN Reason: Muscle Spasm Dapsone (Dapsone) 50 mg PO Q2D@0900 [facility] Last Admin: 02/04/18 09:18 Dose: 50 mg Diphenhydramine HCl (Benadryl) 25 mg IVP Q6H PRN PRN Reason: Itching Docusate Sodium (Colace) 100 mg PO BID [facility] Last Admin: 02/04/18 09:19 Dose: 100 mg Enalapril Maleate (Vasotec) 5 mg PO DAILY [facility] Last Admin: 02/04/18 09:18 Dose: 5 mg Famotidine (Pepcid) 20 mg PO BID [facility] Last Admin: 02/04/18 09:18 Dose: 20 mg Folic Acid (Folvite) 1 mg PO DAILY [facility] Last Admin: 02/04/18 09:19 Dose: 1 mg Guaifenesin (Robitussin Sf) 200 mg PO Q4H PRN PRN Reason: Cough Hydralazine HCl (Apresoline) 10 mg SLOW IVP Q4H PRN PRN Reason: Systolic BP > 180 Loperamide HCl (Imodium) 2 mg PO PRN PRN PRN Reason: Diarrhea/Loose Stools Loratadine (Claritin) 10 mg PO DAILYPRN PRN PRN Reason: Sinus Symptoms Magnesium Hydroxide (Milk Of Magnesium) 30 ml PO Q12H PRN PRN Reason: Constipation Mineral Oil/White Petrolatum (Eucerin Cream) 0 gm TOP BIDPRN PRN PRN Reason: Dry Skin Mometasone Furoate/Formoterol Fumar (Dulera 100 Mcg/5 Mcg Inhaler) 2 puff INH BID-RT [facility] Last Admin: 02/04/18 07:07 Dose: 2 puff Morphine Sulfate (Morphine) 2 mg SLOW IVP Q1H PRN PRN Reason: Moderate Breakthrough Pain Nitrofurantoin Macrocrystals (Macrobid) 100 mg PO BID [facility] Last Admin: 02/04/18 09:19 Dose: 100 mg Ondansetron HCl (Zofran) 4 mg IVP DAILYPRN PRN PRN Reason: Nausea Ondansetron HCl (Zofran Odt) 4 mg PO Q6H PRN PRN Reason: Nausea/Vomiting Pantoprazole Sodium (Protonix) 40 mg PO DAILY [facility] Last Admin: 02/04/18 09:19 Dose: 40 mg Phenol (Chloraseptic [place] 180 Ml Bot) 0 ml PO PRN PRN PRN Reason: Sore Throat Polyethylene Glycol (Miralax) 17 gm PO DAILY [facility] Last Admin: 02/04/18 09:18 Dose: 17 gm Sodium Chloride (Flush - Normal Saline) 10 ml IVF PRN PRN PRN Reason: Saline Flush Sodium Chloride ([place] Nasal [place] 0.65%) 0 ml EA NARE QIDPRN PRN PRN Reason: Nasal Congestion Temazepam (Restoril) 15 mg PO HSPRN PRN PRN Reason: Insomnia Thiamine HCl (Thiamine) 100 mg PO DAILY [facility] Last Admin: 02/04/18 09:18 Dose: 100 mg Tramadol HCl (Ultram) 50 mg PO Q6H PRN PRN Reason: Mild Pain (1-3)
[2018-02-04 17:04] LABS: Hemoglobin 11.6 g/dL (14.0-18.0); Platelet Count 402 thou/uL (130-400)
[2018-02-05 05:28] LABS: Hemoglobin 11.3 g/dL (14.0-18.0); Platelet Count 416 thou/uL (130-400)
[2018-02-05 05:45] LABS: Calc. Creatinine Clearance 123 mL/min (70-130); Estimated GFR-MDRD Greater than 90
--- NOTE | 2018-02-05 06:42 | PRG ---
DATE OF SERVICE: 02/05/2018 I saw Mr. Hernandez in his hospital room this morning. He has not left the hospital yet. He is watching television and feeling well. The fluid collection is not painful, he is not having any headaches wh en he puts any pressure on it. He has been rolled side to side to keep pressure off of the fluid col lection. His vital signs remain stable with the exception of mild tachycardia yesterday. 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 The fluid collection on the surgical site is a CSF, the dura has a hard time healing when it has been irradiated and there is not any significant muscle to sew to, to repair the wound. Mr. Hernandez and I decided to watch this fluid collection over the next few weeks. He will remain on El iquis for prophylaxis against DVT and PE for treatment of a DVT and PE and if it is expanding and get ting symptomatic, we will readmit to the hospital, stop his Eliquis. Wait [address] a shae mbar drain. We will keep the drain in for a week and decrease the CSF egress pressure and hopefully that tilts the balance in favor of healing. If that does not help, then a lumbar peritoneal shunt, a pseudomeningocele of the peritoneal shunt or direct repair with the assistance of Plastic Surgery to mobilize tissue would be considered. All those are much more invasive, however. Mr. Hernandez is ready for discharge or placement if that can be done today.
[2018-02-05] MEDS: Mometasone/Formoterol 120 PUFF INHALER INH SCH ×2 (07:15→19:33)
[2018-02-05 07:55] LABS: Bilirubin Negative (Negative); Blood, Urine Negative (Negative); Clarity CLOUDY (Clear); Glucose, Urine (Dipstick) Negative (Negative); Leukocyte Negative (Negative); Nitrite Positive (Negative); Protein, Urine (Dipstick) Negative (Neg-Trace); Specific Gravity, Urine 1.018 (1.002-1.036); pH, Urine 6.5 (5.0-9.0)
[2018-02-05 07:57] LABS: Bacteria/HPF 1+ HPF (None Seen); Hyaline Casts/LPF 4-6 HYALINE CAST LPF (0-3 Hyaline); Pathc Cast-AUWi Flag 0.58 (0-2.49); RBC/HPF 0-3 HPF (0-3); Squamous Epithelial 0-3 HPF (0-3); WBC/HPF 0-3 HPF (0-3)
[2018-02-05 08:19] LABS: Renal Epithelial 0-3 HPF (0-3)
[2018-02-05 08:20] LABS: Crystals/HPF None Seen HPF (Negative)
[2018-02-05] MEDS: Apixaban 5 MG TAB PO SCH ×2 (08:53→20:53)
[2018-02-05] MEDS: Docusate 100 MG CAP PO SCH ×2 (08:53→20:53)
[2018-02-05] MEDS: Famotidine 20 MG TAB PO SCH ×2 (08:54→20:53)
[2018-02-05] MEDS: Folic Acid 1 MG TAB PO SCH (08:54)
[2018-02-05] MEDS: Polyethylene Glycol 3350 17 GM Packet PO SCH (08:54)
--- NOTE | 2018-02-05 12:47 | PDOC.PN ---
- Subjective Encounter Start Date: 02/05/18 Encounter Start Time: 08:15 Subjective: awake, no sob, feels better - Objective MAR Reviewed: Yes Vital Signs & Weight: Vital Signs (12 hours) Temp Pulse Resp BP Pulse Ox 02/05/18 11:53 98.2 F 107 H 16 139/87 94 L 02/05/18 08:00 98.0 F 108 H 14 138/83 96 02/05/18 07:17 93 L 02/05/18 07:15 104 H 16 93 L 02/05/18 04:00 97.7 F 100 16 131/87 97 Weight Admit Weight 197 lb 7 oz Weight 197 lb 7 oz I&O: 02/04/18 02/05/18 02/06/18 06:59 06:59 06:59 Intake Total 1370 Output Total 2200 1665 Balance -2200 -295 Result Diagrams: 02/05/18 05:07 02/05/18 05:07 Phys Exam - Physical Examination HEENT: PERRLA, moist MMs Neck: no JVD, supple Respiratory: no wheezing, no rales Cardiovascular: RRR, no significant murmur Gastrointestinal: soft, non-tender, positive bowel sounds Musculoskeletal: no edema, pulses present Neurological: non-focal renee+ right LE minimal movement Psychiatric: normal affect, A&O x 3 Dx/Plan (1) Fluid collection at surgical site Code(s): T88.8XXA - OTH COMPLICATIONS OF SURGICAL AND MEDICAL CARE, NEC, INIT Status: Acute Qualifiers: Encounter type: sequela Qualified Code(s): T88.8XXS - Other specified complications of surgical and medical care, not elsewhere classified, sequela Comment: pseudomenigocele (2) History of pulmonary embolism Code(s): Z86.711 - PERSONAL HISTORY OF PULMONARY EMBOLISM Status: Chronic Comment: diag 12/17/2017 (3) History of urinary retention Code(s): Z87.898 - PERSONAL HISTORY OF OTHER SPECIFIED CONDITIONS Status: Chronic Comment: with chronic renee (4) COPD (chronic obstructive pulmonary disease) Status: Chronic Qualifiers: COPD type: unspecified COPD Qualified Code(s): J44.9 - Chronic obstructive pulmonary disease, unspecified (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 - DERMATITIS HERPETIFORMIS Status: Chronic (6) HTN (hypertension) Code(s): I10 - ESSENTIAL (PRIMARY) HYPERTENSION Status: Chronic Qualifiers: Hypertension type: essential hypertension (7) Hx of esophageal malignancy Code(s): Z85.01 - PERSONAL HISTORY OF MALIGNANT NEOPLASM OF ESOPHAGUS Status: Chronic Comment: with mets to T1,2 s/p resection 12/11/2017 (8) Macrocytic anemia Code(s): D53.9 - NUTRITIONAL ANEMIA, UNSPECIFIED Status: Chronic - Plan hemo/neurostable -: awaiting placement to rehab -: may dc anytime if accepted -: has chronic renee would not do urinalysis unless febrile and symptomatic -: on eliquis, norco and flexeril prn * . Review of Systems - Medications/Allergies Allergies/Adverse Reactions: Allergies Allergy/AdvReac Type Severity Reaction Status Date / Time No Known Allergies Allergy Verified 12/06/17 00:59 Medications: Current Medications Acetaminophen (Tylenol) 650 mg PO Q4H PRN PRN Reason: WILLIAM/Fever Or Mild Pain (1-3) Last Admin: 01/31/18 20:06 Dose: 650 mg Hydrocodone Bitart/Acetaminophen ([place] 10/325) 1 tab PO Q4H PRN PRN Reason: Mild Pain (1-3) Last Admin: 02/04/18 09:17 Dose: 1 tab Al Hydroxide/Mg Hydroxide (Maalox) 30 ml PO Q4H PRN PRN Reason: Indigestion Albuterol/Ipratropium (Duoneb) 3 ml NEB [id number] PRN PRN Reason: SOB &/or Wheezing Apixaban (Eliquis) 5 mg PO BID [facility] Last Admin: 02/05/18 08:53 Dose: 5 mg Artificial Tears (Tears Naturale) 0 drop EA EYE PRN PRN PRN Reason: Dry Eyes Bisacodyl (Dulcolax) 10 mg [place] Q12H PRN PRN Reason: Constipation Cyclobenzaprine HCl (Flexeril) 10 mg PO Q8H PRN PRN Reason: Muscle Spasm Last Admin: 02/04/18 21:24 Dose: 10 mg Diphenhydramine HCl (Benadryl) 25 mg IVP Q6H PRN PRN Reason: Itching Docusate Sodium (Colace) 100 mg PO BID [facility] Last Admin: 02/05/18 08:53 Dose: 100 mg Enalapril Maleate (Vasotec) 5 mg PO DAILY [facility] Last Admin: 02/05/18 08:53 Dose: 5 mg Famotidine (Pepcid) 20 mg PO BID [facility] Last Admin: 02/05/18 08:54 Dose: 20 mg Folic Acid (Folvite) 1 mg PO DAILY [facility] Last Admin: 02/05/18 08:54 Dose: 1 mg Guaifenesin (Robitussin Sf) 200 mg PO Q4H PRN PRN Reason: Cough Hydralazine HCl (Apresoline) 10 mg SLOW IVP Q4H PRN PRN Reason: Systolic BP > 180 Loperamide HCl (Imodium) 2 mg PO PRN PRN PRN Reason: Diarrhea/Loose Stools Loratadine (Claritin) 10 mg PO DAILYPRN PRN PRN Reason: Sinus Symptoms Magnesium Hydroxide (Milk Of Magnesium) 30 ml PO Q12H PRN PRN Reason: Constipation Mineral Oil/White Petrolatum (Eucerin Cream) 0 gm TOP BIDPRN PRN PRN Reason: Dry Skin Mometasone Furoate/Formoterol Fumar (Dulera 100 Mcg/5 Mcg Inhaler) 2 puff INH BID-RT [facility] Last Admin: 02/05/18 07:15 Dose: 2 puff Morphine Sulfate (Morphine) 2 mg SLOW IVP Q1H PRN PRN Reason: Moderate Breakthrough Pain Ondansetron HCl (Zofran) 4 mg IVP DAILYPRN PRN PRN Reason: Nausea Ondansetron HCl (Zofran Odt) 4 mg PO Q6H PRN PRN Reason: Nausea/Vomiting Pantoprazole Sodium (Protonix) 40 mg PO DAILY [facility] Last Admin: 02/05/18 08:54 Dose: 40 mg Phenol (Chloraseptic [place] 180 Ml Bot) 0 ml PO PRN PRN PRN Reason: Sore Throat Polyethylene Glycol (Miralax) 17 gm PO DAILY [facility] Last Admin: 02/05/18 08:54 Dose: 17 gm Sodium Chloride (Flush - Normal Saline) 10 ml IVF PRN PRN PRN Reason: Saline Flush Sodium Chloride ([place] Nasal [place] 0.65%) 0 ml EA NARE QIDPRN PRN PRN Reason: Nasal Congestion Thiamine HCl (Thiamine) 100 mg PO DAILY [facility] Last Admin: 02/05/18 08:54 Dose: 100 mg Tramadol HCl (Ultram) 50 mg PO Q6H PRN PRN Reason: Mild Pain (1-3)
--- NOTE | 2018-02-06 06:57 | PRG ---
DATE OF SERVICE: 02/06/2018 I saw Mr. Hernandez in his hospital room. His discharge placement is pending. A fluid collection at the base of his neck has returned, but he and I arranged a visit later this month to assess it and decid e whether readmission 1 week of lumbar drainage, a repeat blood patch would be worth it. I am still very hesitant to explore that wound again given its irradiated status. He will keep pressure off of it for me between now and then and followup arrangements will be made in our office. He can be disch arged or transferred any time.
[2018-02-06] MEDS: Mometasone/Formoterol 120 PUFF INHALER INH SCH ×2 (07:51→19:30)
[2018-02-06] MEDS: Polyethylene Glycol 3350 17 GM Packet PO SCH (08:52)
[2018-02-06] MEDS: Famotidine 20 MG TAB PO SCH ×2 (08:53→20:46)
[2018-02-06] MEDS: Folic Acid 1 MG TAB PO SCH (08:54)
[2018-02-06] MEDS: Apixaban 5 MG TAB PO SCH ×2 (08:54→20:46)
[2018-02-06] MEDS: Docusate 100 MG CAP PO SCH ×2 (08:54→20:46)
--- NOTE | 2018-02-06 11:24 | PDOC.PN ---
- Subjective Encounter Start Date: 02/06/18 Encounter Start Time: 08:45 Subjective: no sob, feels better, no new complaints - Objective MAR Reviewed: Yes Vital Signs & Weight: Vital Signs (12 hours) Temp Pulse Resp BP Pulse Ox 02/06/18 07:33 97.5 F L 96 18 150/89 H 97 02/06/18 04:59 92 L 02/06/18 04:00 97.9 F 103 H 16 143/89 H 97 Weight Admit Weight 197 lb 7 oz Weight 197 lb 7 oz I&O: 02/05/18 02/06/18 02/07/18 06:59 06:59 06:59 Intake Total 1370 1430 Output Total 1665 750 Balance -295 680 Result Diagrams: 02/05/18 05:07 02/05/18 05:07 Phys Exam - Physical Examination HEENT: PERRLA, moist MMs Neck: no JVD, supple Respiratory: no wheezing, no rales Cardiovascular: RRR, no significant murmur Gastrointestinal: soft, non-tender, positive bowel sounds Musculoskeletal: no edema, pulses present Neurological: non-focal, moves all 4 limbs Psychiatric: A&O x 3 Dx/Plan (1) Fluid collection at surgical site Code(s): T88.8XXA - OTH COMPLICATIONS OF SURGICAL AND MEDICAL CARE, NEC, INIT Status: Acute Qualifiers: Encounter type: sequela Qualified Code(s): T88.8XXS - Other specified complications of surgical and medical care, not elsewhere classified, sequela Comment: pseudomenigocele (2) History of pulmonary embolism Code(s): Z86.711 - PERSONAL HISTORY OF PULMONARY EMBOLISM Status: Chronic Comment: diagnosed 12/17/2017 (3) History of urinary retention Code(s): Z87.898 - PERSONAL HISTORY OF OTHER SPECIFIED CONDITIONS Status: Chronic Comment: with chronic renee (4) COPD (chronic obstructive pulmonary disease) Status: Chronic Qualifiers: COPD type: unspecified COPD Qualified Code(s): J44.9 - Chronic obstructive pulmonary disease, unspecified (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 Review of Systems - Medications/Allergies Allergies/Adverse Reactions: Allergies Allergy/AdvReac Type Severity Reaction Status Date / Time No Known Allergies Allergy Verified 12/06/17 00:59 Medications: Current Medications Acetaminophen (Tylenol) 650 mg PO Q4H PRN PRN Reason: WILLIAM/Fever Or Mild Pain (1-3) Last Admin: 01/31/18 20:06 Dose: 650 mg Hydrocodone Bitart/Acetaminophen ([place] 10/325) 1 tab PO Q4H PRN PRN Reason: Mild Pain (1-3) Last Admin: 02/04/18 09:17 Dose: 1 tab Al Hydroxide/Mg Hydroxide (Maalox) 30 ml PO Q4H PRN PRN Reason: Indigestion Albuterol/Ipratropium (Duoneb) 3 ml NEB [id number] PRN PRN Reason: SOB &/or Wheezing Apixaban (Eliquis) 5 mg PO BID [facility] Last Admin: 02/06/18 08:54 Dose: 5 mg Artificial Tears (Tears Naturale) 0 drop EA EYE PRN PRN PRN Reason: Dry Eyes Bisacodyl (Dulcolax) 10 mg [place] Q12H PRN PRN Reason: Constipation Cyclobenzaprine HCl (Flexeril) 10 mg PO Q8H PRN PRN Reason: Muscle Spasm Last Admin: 02/04/18 21:24 Dose: 10 mg Diphenhydramine HCl (Benadryl) 25 mg IVP Q6H PRN PRN Reason: Itching Docusate Sodium (Colace) 100 mg PO BID [facility] Last Admin: 02/06/18 08:54 Dose: 100 mg Enalapril Maleate (Vasotec) 5 mg PO DAILY [facility] Last Admin: 02/06/18 09:18 Dose: 5 mg Famotidine (Pepcid) 20 mg PO BID [facility] Last Admin: 02/06/18 08:53 Dose: 20 mg Folic Acid (Folvite) 1 mg PO DAILY [facility] Last Admin: 02/06/18 08:54 Dose: 1 mg Guaifenesin (Robitussin Sf) 200 mg PO Q4H PRN PRN Reason: Cough Hydralazine HCl (Apresoline) 10 mg SLOW IVP Q4H PRN PRN Reason: Systolic BP > 180 Loperamide HCl (Imodium) 2 mg PO PRN PRN PRN Reason: Diarrhea/Loose Stools Loratadine (Claritin) 10 mg PO DAILYPRN PRN PRN Reason: Sinus Symptoms Magnesium Hydroxide (Milk Of Magnesium) 30 ml PO Q12H PRN PRN Reason: Constipation Mineral Oil/White Petrolatum (Eucerin Cream) 0 gm TOP BIDPRN PRN PRN Reason: Dry Skin Mometasone Furoate/Formoterol Fumar (Dulera 100 Mcg/5 Mcg Inhaler) 2 puff INH BID-RT [facility] Last Admin: 02/06/18 07:51 Dose: 2 puff Morphine Sulfate (Morphine) 2 mg SLOW IVP Q1H PRN PRN Reason: Moderate Breakthrough Pain Ondansetron HCl (Zofran) 4 mg IVP DAILYPRN PRN PRN Reason: Nausea Ondansetron HCl (Zofran Odt) 4 mg PO Q6H PRN PRN Reason: Nausea/Vomiting Pantoprazole Sodium (Protonix) 40 mg PO DAILY [facility] Last Admin: 02/06/18 08:54 Dose: 40 mg Phenol (Chloraseptic [place] 180 Ml Bot) 0 ml PO PRN PRN PRN Reason: Sore Throat Polyethylene Glycol (Miralax) 17 gm PO DAILY [facility] Last Admin: 02/06/18 08:52 Dose: 17 gm Sodium Chloride (Flush - Normal Saline) 10 ml IVF PRN PRN PRN Reason: Saline Flush Sodium Chloride ([place] Nasal [place] 0.65%) 0 ml EA NARE QIDPRN PRN PRN Reason: Nasal Congestion Thiamine HCl (Thiamine) 100 mg PO DAILY [facility] Last Admin: 02/06/18 08:57 Dose: 100 mg Tramadol HCl (Ultram) 50 mg PO Q6H PRN PRN Reason: Mild Pain (1-3)
--- NOTE | 2018-02-06 22:35 | DIS ---
DATE OF ADMISSION: 01/25/2018 DATE OF DISCHARGE: 02/06/2018 DISCHARGE DISPOSITION: To rehabilitation. 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 SECONDARY DISCHARGE DIAGNOSES: History of esophageal cancer likely recurrence now in the spine, chronic obstructive pulmonary disease, dermatitis herpetiformis, hypertension, chronic microcytic anemia. PROCEDURES DONE DURING HOSPITALIZATION: Cervical spine MRI done on 01/26/2018, showed large CSF signal intensity collection in the posterior midline soft tissues corresponding to recent CAT scan, a large pseudomeningocele is favored. Lumbar spine MRI with and without contrast done showed multilevel degenerative disk change with central canal and foraminal stenosis at multiple levels. No evidence of osseous metastasis seen. Lumbar spine MRI done showed extensive posterior cervical thoracic decompression with postoperative seroma or pseudomeningocele. Echo with 2D Doppler showed EF of 50-55%. There are signs of diastolic dysfunction. Urine culture on 01/25/2018, grew Enterococcus sensitive to Macrobid. Blood cultures x2 no growth. Discharge H and H 11 and 35 with a platelet count of 416,000. Albumin was 2.3 on 01/27/2018. TSH 2.0. Cardiac enzymes x1 was negative. INPATIENT CONSULTS: Dr. Canela for Neurosurgery, Dr. Cedeno for Pulmonology. BRIEF COURSE DURING HOSPITALIZATION: Patient initially got admitted on the with complaints of swelling around the incisional site from his T1-T2 tumor resection site. He had multiple imaging studies done which all revealed pseudomeningocele. This likely is due to him receiving radiation therapy with inadequate healing of the meninges. He has had anesthesia consultation and has had blood patch placed. The pseudomeningocele seems to be stable at present. He was closely monitored over a long period of time here. The patient has refused another procedure at this time. He was also treated for Enterococcus UTI with Macrobid. The patient has chronic indwelling Mena catheter and likely has colonization. He is still deconditioned and a decision was made to send him to rehabilitation. The plan is to watch him over a week or two weeks and see if the pseudomeningocele resolves. If this were to get worse, patient will be readmitted by Dr. Canela and likely will need further procedures towards the same. He is agreeable to current plan and patient will be discharged today. He was on heparin drip all through his stay and has been transitioned over to Eliquis from last 48 hours for his history of PE diagnosed in December. He is otherwise hemodynamically stable and has been cleared for discharge by Neurosurgery team. A total of 35 minutes was spent on discharge plan. Please see a [id number] documentation on [facility] for the day of discharge. ANCELMO
[2018-02-07 03:51] LABS: Hemoglobin 10.9 g/dL (14.0-18.0); Platelet Count 490 thou/uL (130-400)
[2018-02-07 04:11] LABS: Calc. Creatinine Clearance 134 mL/min (70-130); Estimated GFR-MDRD Greater than 90
[2018-02-07] MEDS: Mometasone/Formoterol 120 PUFF INHALER INH SCH (06:43)
--- NOTE | 2018-02-07 06:56 | PRG ---
DATE OF SERVICE: 02/07/2018 I saw Mr. Hernandez this morning. He is unsure of why he is still in the hospital. Two days ago, a Pseu domonas UTI was noted. Vital signs have remained stable. There are certainly no fevers recorded, bl ood pressures have been stable. This pseudomeningocele in the back of his neck does not look any bigger to me. He is keeping pressur e off it by rolling from one side to the other while he sleeps. His neurological function is unchang ed. Mr. Hernandez needs placement or a discharge home. We will make sure that the medical team has addressed the colonization or infection of the urinary tract and have recommendations for that before discharg e.
[2018-02-07] MEDS: Apixaban 5 MG TAB PO SCH (09:29)
[2018-02-07] MEDS: Famotidine 20 MG TAB PO SCH (09:29)
[2018-02-07] MEDS: Polyethylene Glycol 3350 17 GM Packet PO SCH (09:30)
[2018-02-07] MEDS: Folic Acid 1 MG TAB PO SCH (09:30)
[2018-02-07] MEDS: Docusate 100 MG CAP PO SCH (09:30)
[2018-02-07] MEDS ORDERED: Colchicine 0.6 MG TAB PO SCH (10:45)
--- NOTE | 2018-02-07 10:52 | PDOC.PN ---
- Subjective Encounter Start Date: 02/07/18 Encounter Start Time: 07:40 Subjective: no c/o lower abd pain, fever -: feels better, not drinking enough fluids - Objective MAR Reviewed: Yes Vital Signs & Weight: Vital Signs (12 hours) Temp Pulse Resp BP Pulse Ox 02/07/18 08:00 97.6 F 94 14 136/85 93 L 02/07/18 03:34 97.7 F 116 H 20 142/91 H 97 02/07/18 02:15 98 02/06/18 23:40 97.5 F L 116 H 17 128/90 100 Weight Admit Weight 197 lb 7 oz Weight 197 lb 7 oz I&O: 02/06/18 02/07/18 02/08/18 06:59 06:59 06:59 Intake Total 1430 1170 Output Total 750 650 Balance 680 520 Result Diagrams: 02/07/18 03:35 02/07/18 03:35 Phys Exam - Physical Examination HEENT: PERRLA, sclera anicteric Neck: no JVD, supple Respiratory: no wheezing, no rales Cardiovascular: RRR, no significant murmur Gastrointestinal: soft, non-tender, positive bowel sounds Musculoskeletal: no edema, pulses present Neurological: non-focal chronic right lower extr weakness Psychiatric: normal affect, A&O x 3 Dx/Plan (1) Fluid collection at surgical site Code(s): T88.8XXA - OTH COMPLICATIONS OF SURGICAL AND MEDICAL CARE, NEC, INIT Status: Acute Qualifiers: Encounter type: sequela Qualified Code(s): T88.8XXS - Other specified complications of surgical and medical care, not elsewhere classified, sequela Comment: pseudomenigocele (2) History of pulmonary embolism Code(s): Z86.711 - PERSONAL HISTORY OF PULMONARY EMBOLISM Status: Chronic Comment: diagnosed 12/17/2017 (3) History of urinary retention Code(s): Z87.898 - PERSONAL HISTORY OF OTHER SPECIFIED CONDITIONS Status: Chronic Comment: with chronic renee (4) COPD (chronic obstructive pulmonary disease) Status: Chronic Qualifiers: COPD type: unspecified COPD Qualified Code(s): J44.9 - Chronic obstructive pulmonary disease, unspecified (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 - DERMATITIS HERPETIFORMIS Status: Chronic (6) HTN (hypertension) Code(s): I10 - ESSENTIAL (PRIMARY) HYPERTENSION Status: Chronic Qualifiers: Hypertension type: essential hypertension (7) Hx of esophageal malignancy Code(s): Z85.01 - PERSONAL HISTORY OF MALIGNANT NEOPLASM OF ESOPHAGUS Status: Chronic Comment: with mets to T1,2 s/p resection 12/11/2017 (8) Macrocytic anemia Code(s): D53.9 - NUTRITIONAL ANEMIA, UNSPECIFIED Status: Chronic - Plan had 1 full course of Rx for enterococcus in urine from admission -: is growing pseudomonas now likely colonized, has no clinical signs of infec -: -tion including fever, pain or elevated wbc, will not treat unless symptoma -: may dc anytime to rehab -: encourage po intake, has right wrist pain, likely gout, colchicine daily * . Review of Systems - Medications/Allergies Allergies/Adverse Reactions: Allergies Allergy/AdvReac Type Severity Reaction Status Date / Time No Known Allergies Allergy Verified 12/06/17 00:59 Medications: Current Medications Acetaminophen (Tylenol) 650 mg PO Q4H PRN PRN Reason: WILLIAM/Fever Or Mild Pain (1-3) Last Admin: 01/31/18 20:06 Dose: 650 mg Hydrocodone Bitart/Acetaminophen ([place] 10/325) 1 tab PO Q4H PRN PRN Reason: Mild Pain (1-3) Last Admin: 02/04/18 09:17 Dose: 1 tab Al Hydroxide/Mg Hydroxide (Maalox) 30 ml PO Q4H PRN PRN Reason: Indigestion Albuterol/Ipratropium (Duoneb) 3 ml NEB [id number] PRN PRN Reason: SOB &/or Wheezing Apixaban (Eliquis) 5 mg PO BID [facility] Last Admin: 02/07/18 09:29 Dose: 5 mg Artificial Tears (Tears Naturale) 0 drop EA EYE PRN PRN PRN Reason: Dry Eyes Bisacodyl (Dulcolax) 10 mg MA Q12H PRN PRN Reason: Constipation Colchicine (Colcrys) 0.6 mg PO 1045 [facility] Stop: 02/07/18 14:00 Cyclobenzaprine HCl (Flexeril) 10 mg PO Q8H PRN PRN Reason: Muscle Spasm Last Admin: 02/04/18 21:24 Dose: 10 mg Diphenhydramine HCl (Benadryl) 25 mg IVP Q6H PRN PRN Reason: Itching Docusate Sodium (Colace) 100 mg PO BID [facility] Last Admin: 02/07/18 09:30 Dose: 100 mg Enalapril Maleate (Vasotec) 5 mg PO DAILY [facility] Last Admin: 02/07/18 09:29 Dose: 5 mg Famotidine (Pepcid) 20 mg PO BID [facility] Last Admin: 02/07/18 09:29 Dose: 20 mg Folic Acid (Folvite) 1 mg PO DAILY [facility] Last Admin: 02/07/18 09:30 Dose: 1 mg Guaifenesin (Robitussin Sf) 200 mg PO Q4H PRN PRN Reason: Cough Hydralazine HCl (Apresoline) 10 mg SLOW IVP Q4H PRN PRN Reason: Systolic BP > 180 Loperamide HCl (Imodium) 2 mg PO PRN PRN PRN Reason: Diarrhea/Loose Stools Loratadine (Claritin) 10 mg PO DAILYPRN PRN PRN Reason: Sinus Symptoms Magnesium Hydroxide (Milk Of Magnesium) 30 ml PO Q12H PRN PRN Reason: Constipation Mineral Oil/White Petrolatum (Eucerin Cream) 0 gm TOP BIDPRN PRN PRN Reason: Dry Skin Mometasone Furoate/Formoterol Fumar (Dulera 100 Mcg/5 Mcg Inhaler) 2 puff INH BID-RT [facility] Last Admin: 02/07/18 06:43 Dose: 2 puff Morphine Sulfate (Morphine) 2 mg SLOW IVP Q1H PRN PRN Reason: Moderate Breakthrough Pain Ondansetron HCl (Zofran) 4 mg IVP DAILYPRN PRN PRN Reason: Nausea Ondansetron HCl (Zofran Odt) 4 mg PO Q6H PRN PRN Reason: Nausea/Vomiting Pantoprazole Sodium (Protonix) 40 mg PO DAILY [facility] Last Admin: 02/07/18 09:30 Dose: 40 mg Phenol (Chloraseptic [place] 180 Ml Bot) 0 ml PO PRN PRN PRN Reason: Sore Throat Polyethylene Glycol (Miralax) 17 gm PO DAILY [facility] Last Admin: 02/07/18 09:30 Dose: 17 gm Sodium Chloride (Flush - Normal Saline) 10 ml IVF PRN PRN PRN Reason: Saline Flush Sodium Chloride (Hyde Nasal Webster 0.65%) 0 ml EA NARE QIDPRN PRN PRN Reason: Nasal Congestion Thiamine HCl (Thiamine) 100 mg PO DAILY [facility] Last Admin: 02/07/18 09:29 Dose: 100 mg Tramadol HCl (Ultram) 50 mg PO Q6H PRN PRN Reason: Mild Pain (1-3)
[2018-02-07] MEDS ORDERED: Milk Of Magnesia 30 ML UDCUP PO SCH ×2 (11:15)
[2018-02-07 13:16] VITALS: BP 154/95; TEMP 97.9
[2018-02-08] MEDS ORDERED: Colchicine 0.6 MG TAB PO SCH (09:00)
== END 2018-02-07 12:52 | DRG 91 ==
LOC: ERS 14:23 → SURG A 15:57
PROVIDERS: ADMIT Neurological Surgery; ATTEND Neurological Surgery
PROC: 3E0R3GC Introduction of Other Therapeutic Substance into Spinal Canal, Percutaneous Approach (ICD-10-PCS; principal; 2018-01-30)
DX: G97.82 Other postprocedural complications and disorders of nervous system (principal); J96.01 Acute respiratory failure with hypoxia; C79.51 Secondary malignant neoplasm of bone; N39.0 Urinary tract infection, site not specified; E87.1 Hypo-osmolality and hyponatremia; G82.20 Paraplegia, unspecified; T88.8XXA Other specified complications of surgical and medical care, not elsewhere classified, initial encounter; R33.8 Other retention of urine; J44.9 Chronic obstructive pulmonary disease, unspecified; L13.0 Dermatitis herpetiformis; I10 Essential (primary) hypertension; R29.818 Other symptoms and signs involving the nervous system; B95.2 Enterococcus as the cause of diseases classified elsewhere; R00.0 Tachycardia, unspecified; F10.10 Alcohol abuse, uncomplicated; D53.9 Nutritional anemia, unspecified; Z79.01 Long term (current) use of anticoagulants; Z86.711 Personal history of pulmonary embolism; Z87.891 Personal history of nicotine dependence; Z85.01 Personal history of malignant neoplasm of esophagus; Z86.718 Personal history of other venous thrombosis and embolism; Z92.3 Personal history of irradiation; Z79.82 Long term (current) use of aspirin; Y83.8 Other surgical procedures as the cause of abnormal reaction of the patient, or of later complication, without mention of misadventure at the time of the procedure; Y75.3 Surgical instruments, materials and neurological devices (including sutures) associated with adverse incidents; Y92.009 Unspecified place in unspecified non-institutional (private) residence as the place of occurrence of the external cause
CPT/HCPCS: 36415; 70450; 71045; 72129; 72156; 72157; 72158; 80048; 80053; 81001; 81003; 81015; 82553; 82565; 83605; 83880; 84443; 84484; 85014; 85018; 85025; 85049; 85610; 85730; 87040; 87077; 87086; 87186; 93005; 93306; 94760; 96360; 96361; A9579; G8978-GP-CM; G8979-GP-CL; G8981-GP-CN; G8982-GP-CK; G8987-GO-CM; G8988-GO-CM; G8989-GO-CM; J1642; J1644; Q0162

== ENCOUNTER 2018-04-02 21:57 | Inpatient (IN) | payer MEDICARE ==
[2018-04-02] MEDS ORDERED: Acetaminophen 500 MG TAB ONE (22:21)
[2018-04-02 23:49] LABS: ALT (SGPT) 13 U/L (8-55); AST (SGOT) 13 U/L (5-34); Albumin 2.6 g/dL (3.4-4.8); Alkaline Phosphatase 53 U/L (40-150); Anion Gap 11 mmol/L (10-20); BUN (Urea Nitrogen) 13 mg/dL (8.4-25.7); Bilirubin, Total 0.7 mg/dL (0.2-1.2); Calc. Creatinine Clearance 0 mL/min (70-130); Calcium 7.5 mg/dL (7.8-10.44); Carbon Dioxide 19 mmol/L (23-31); Chloride 111 mmol/L (98-107); Estimated GFR-MDRD 74; Globulin 2.6 g/dL (2.4-3.5); Glucose 101 mg/dL (83-110); Protein, Total 5.2 g/dL (5.8-8.1); Sodium 137 mmol/L (136-145)
[2018-04-02 23:52] LABS: Band 31 % (5-11); Hemoglobin 8.8 g/dL (14.0-18.0); Lymphocytes 3 % (21-51); MDiff Complete? YES; Mean Corpuscular HGB CONC 31.7 g/dL (32.0-36.0); Mean Corpuscular Hemoglobin 28.4 pg (27.0-31.0); Mean Corpuscular Volume 89.5 fL (78.0-98.0); Mean Platelet Volume 6.6 fL (7.4-10.4); Monocytes 3 % (0-10); Neutrophil 63 % (42-75); Platelet Count 328 thou/uL (130-400); Red Blood Cell (RBC) Count 3.11 mill/uL (4.70-6.10); White Blood Cell (WBC) Count 30.5 thou/uL (4.8-10.8)
[2018-04-03] MEDS ORDERED: Ondansetron HCl/PF 4 MG/2 ML Vial IVP PRN (00:50)
[2018-04-03] MEDS ORDERED: Acetaminophen 325 MG TAB PO PRN (00:50)
[2018-04-03] MEDS ORDERED: Cyclobenzaprine 10 MG TAB PO PRN (00:52)
[2018-04-03] MEDS ORDERED: Meropenem 1,000 MG in Sodium Chloride 0.9% 100 ML IVPB SCH ×2 (01:00→06:00)
[2018-04-03] MEDS: Meropenem 1 GM in Sodium Chloride 0.9% 100 ML IVPB SCH ×2 (02:59→10:08)
[2018-04-03 03:03] VITALS: BMI 28.1
[2018-04-03] MEDS ORDERED: Vancomycin HCl 1.25 GM in Sodium Chloride 0.9% 250 ML 250 ML IVPB SCH (04:00)
[2018-04-03 05:01] LABS: Anion Gap 11 mmol/L (10-20); BUN (Urea Nitrogen) 12 mg/dL (8.4-25.7); Calc. Creatinine Clearance 96 mL/min (70-130); Calcium 7.8 mg/dL (7.8-10.44); Carbon Dioxide 18 mmol/L (23-31); Chloride 111 mmol/L (98-107); Estimated GFR-MDRD 84; Glucose 86 mg/dL (83-110); Sodium 136 mmol/L (136-145)
[2018-04-03] MEDS: Vancomycin HCl 1.25 GM in Sodium Chloride 0.9% 250 ML 250 ML IVPB SCH ×2 (05:10→17:38)
[2018-04-03 05:51] LABS: Band 21 % (5-11); Hemoglobin 8.5 g/dL (14.0-18.0); Lymphocytes 3 % (21-51); MDiff Complete? YES; Mean Corpuscular HGB CONC 31.9 g/dL (32.0-36.0); Mean Corpuscular Hemoglobin 28.6 pg (27.0-31.0); Mean Corpuscular Volume 89.7 fL (78.0-98.0); Mean Platelet Volume 6.6 fL (7.4-10.4); Monocytes 5 % (0-10); Myelocyte 1 % (0-0); Neutrophil 70 % (42-75); Platelet Count 298 thou/uL (130-400); Red Blood Cell (RBC) Count 2.97 mill/uL (4.70-6.10); White Blood Cell (WBC) Count 26.7 thou/uL (4.8-10.8)
[2018-04-03] MEDS: Mometasone/Formoterol 120 PUFF INHALER INH SCH ×2 (08:25→19:31)
--- NOTE | 2018-04-03 08:45 | HP ---
CODE STATUS: FULL CODE. PRIMARY CARE PHYSICIAN: Jimmie William M.D. TIME OF EVALUATION: 12:20 a.m. CHIEF COMPLAINT: Fever and low blood pressure. HISTORY OF PRESENT ILLNESS: This is a 73 years old male patient transferred from [place]. He has a past medical history of paraplegia due to status post spine surgery in the thoracic area, due to ca ncer, the patient came to the hospital complaining of generalized weakness, patient also had fever, c hills, associated with low blood pressure. The patient received aggressive hydration in [place]. Also here in the ER, he has recovery of the blood pressure and lactic acid has come down. As of now the patient has also a positive urine. The patient has an indwelling catheter, patient has had in past, pseudomonas infection in the urine, patient was treated initially with vancomycin, gentamicin , Rocephin, blood pressure has been in the 90s during my examination. For that reason, we will place him in IMCU and we will monitor closely. He has got so far, I believe 5 liters of NS. If blood pre ssure drops later on, we will need to put him on vasopressors. We will start the patient on the pseu domonal dose of meropenem, vancomycin will be kept for now given history of recent procedure where pr evious surgery was due to seroma. REVIEW OF SYSTEMS: Constitutional: The patient has fever, chills, generalized weakness. Respirator y: No cough, sputum production, or shortness of breath. Cardiovascular: No chest pain, palpitation s, or shortness of breath. Gastrointestinal: No nausea, no vomiting, diarrhea or abdominal pain. C entral nervous system: No dizziness, headache, or feeling lightheaded. Genitourinary: The patient has an indwelling catheter. Extremities: No leg swelling. All other systems were reviewed and nega tive except for the findings mentioned above. 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 PAST SURGICAL HISTORY: Esophageal stretching, spinal surgery. PSYCHIATRIC HISTORY: No previous psychiatric history. SOCIAL HISTORY: No alcohol, no drugs. The patient is a former smoker. ALLERGIES: No known drug allergies. REPORTED MEDICATIONS: The patient is on Eliquis given history of pulmonary embolism, cyclobenzaprine , dexamethasone, enalapril, folic acid, vitamin B1, docusate calcium and aspirin. PHYSICAL EXAMINATION: VITAL SIGNS: On presentation, blood pressure 101/56 initially presented with blood pressure in the 8 0s, heart rate 108, respiratory rate 18, temperature 99.7, oxygen saturation was 94 on 3 liters. GENERAL APPEARANCE: The patient is alert, oriented, not in any acute distress. HEENT: Normal conjunctivae. Moist oral mucosa. Anicteric. NECK: No JVD. RESPIRATORY: Bilateral air entry. No rales, no wheezing. Symmetric expansion. CARDIOVASCULAR: Normal rate, regular rhythm. No murmurs. No gallop. No edema. ABDOMEN: Soft, normal bowel sounds. MUSCULOSKELETAL: Baseline range of motion and strength. No tenderness. SKIN: Warm and intact. No pallor, no rash, no redness. NEUROLOGIC: Baseline sensory. No evidence of any new focal weakness. Baseline speech. Cranial ner ves seem to be intact. PSYCHIATRIC: The patient is in a good mood. No anxiety, oriented, optimal judgment. LABORATORY DATA: Reviewed. White count 30.5, hemoglobin 8.8, MCV 89.5, platelet count 328. [employer] ry: Sodium 137, potassium 4, chloride 111, carbon dioxide 19, anion gap 11, BUN 13, creatinine 0.9, GFR 74, glucose 101. Lactic acid 1.6, calcium 7.5, total bilirubin 0.7, AST 13, ALT 13, alkaline etelvina sphatase 53, serum total protein 5.2, albumin 2.6. ASSESSMENT AND PLAN: The patient will be placed in the hospital with following medical problems: 1. Severe sepsis. The patient has hypotension, lactic acidosis, has resolved with aggressive hydrat ion as he received a total of 5 liters since initial presentation in [place] [facility], patient's mentati on has improved, initially reported being occasionally confused. The patient has been started on rose openem since there are recurrent episodes of urinary tract infection including infection by pseudomon as, we will follow cultures, we will adjust treatment as needed. Also covered with vancomycin given severe sepsis. 2. History of paraplegia secondary to spinal surgery, patient will need patient. 3. Lactic acidosis, initial value 2.9 which has improved, likely secondary to severe sepsis. We francine l treat the underlying etiology. 4. History of hypertension, reconcile home medications, we will not treat at this point given presen tation with hypotension. 5. Deep venous thrombosis prophylaxis. 6. Risk assessment, the patient is high risk given presentation with severe sepsis and hypotension.
[2018-04-03] MEDS: Colchicine 0.6 MG TAB PO SCH (09:47)
[2018-04-03] MEDS: Aspirin 81 mg Enteric Coated Tablet PO SCH (09:47)
[2018-04-03] MEDS: Apixaban 5 MG TAB PO SCH ×2 (09:47→20:43)
--- NOTE | 2018-04-03 11:49 | RAD ---
PORTABLE CHEST: Date: 04-03-18 Provided Clinical History: Fever. FINDINGS: Comparison 01-22-18. Cardiac and mediastinal silhouette is unchanged in appearance. Right sided implanted port is again no tommy in similar position. There is patchy opacity at the left lung base suspected. The lungs appear ot herwise clear. No pleural fluid or pneumothorax apparent. IMPRESSION: Possible left basilar airspace disease. Follow up is recommended. POS: NEW
--- NOTE | 2018-04-03 15:08 | PDOC.PN ---
- Subjective Encounter Start Date: 04/03/18 Encounter Start Time: 10:30 Subjective: pt up in bed no complains - Objective Vital Signs & Weight: Vital Signs (12 hours) Temp Pulse Resp BP Pulse Ox 04/03/18 13:52 106 H 20 93 L 04/03/18 11:26 98.7 F 97 16 126/64 97 04/03/18 08:00 98.7 F 93 16 97 04/03/18 07:24 98.7 F 93 16 114/58 L 97 04/03/18 04:41 97.5 F L 80 21 H 113/59 L 97 04/03/18 03:56 97 Weight Weight 202 lb I&O: 04/02/18 04/03/18 04/04/18 06:59 06:59 06:59 Intake Total 550 Output Total 750 Balance -200 Result Diagrams: 04/03/18 03:52 04/03/18 03:52 Phys Exam - Physical Examination HEENT: PERRLA, moist MMs, sclera anicteric, TM's clear, oral pharynx no lesions , 2+ tonsils Respiratory: no wheezing, no rales, no rhonchi, wheezing present, clear to auscultation bilateral Cardiovascular: RRR, no significant murmur, no rub, gallop, irregular Gastrointestinal: soft, non-tender, no distention, positive bowel sounds Musculoskeletal: no edema, pulses present, edema present Dx/Plan (1) Sepsis Code(s): A41.9 - SEPSIS, UNSPECIFIED ORGANISM Status: Acute (2) UTI (urinary tract infection) due to Enterococcus Code(s): N39.0 - URINARY TRACT INFECTION, SITE NOT SPECIFIED; B95.2 - ENTEROCOCCUS THE CAUSE OF DISEASES CLASSIFIED ELSEWHERE Status: Acute Comment: with chronic indweliing renee catheter for retention of urine (3) History of urinary retention Code(s): Z87.898 - PERSONAL HISTORY OF OTHER SPECIFIED CONDITIONS Status: Chronic Comment: with chronic renee (4) Paraplegia Code(s): G82.20 - PARAPLEGIA, UNSPECIFIED Status: Acute - Plan will continue broad spectrum abx for now. -: pt's renee was changed in ER * . Review of Systems - Review of Systems ENT: negative: Ear Pain, Ear Discharge, Nose Pain, Nose Discharge, Nose Congestion, Mouth Pain, Mouth Swelling, Throat Pain, Throat Swelling, Other Respiratory: negative: Cough, Dry, Shortness of Breath, Hemoptysis, SOB with Excertion, Pleuritic Pain, Sputum, Wheezing Cardiovascular: negative: chest pain, palpitations, orthopnea, paroxysmal nocturnal dyspnea, edema, light headedness, other Gastrointestinal: negative: Nausea, Vomiting, Abdominal Pain, Diarrhea, Constipation, Melena, Hematochezia, Other - Medications/Allergies Allergies/Adverse Reactions: Allergies Allergy/AdvReac Type Severity Reaction Status Date / Time No Known Allergies Allergy Verified 12/06/17 00:59 Medications: Current Medications Acetaminophen (Tylenol) 650 mg PO Q4H PRN PRN Reason: Headache/Fever or Pain Albuterol/Ipratropium (Duoneb) 3 ml NEB [id number] [facility] Last Admin: 04/03/18 13:52 Dose: 3 ml Apixaban (Eliquis) 10 mg PO BID [facility] [place] Stop: 04/09/18 21:01 Last Admin: 04/03/18 09:47 Dose: 10 mg Apixaban (Eliquis) 5 mg PO BID [facility] Aspirin (Ecotrin) 81 mg PO DAILY [facility] Last Admin: 04/03/18 09:47 Dose: 81 mg Colchicine (Colcrys) 0.6 mg PO DAILY [facility] Last Admin: 04/03/18 09:47 Dose: 0.6 mg Cyclobenzaprine HCl (Flexeril) 10 mg PO Q8H PRN PRN Reason: Muscle Spasm Meropenem 1 gm/ Device 50 mls @ 100 mls/hr IVPB 0100,0900,1700 [facility] Vancomycin HCl 1.25 gm/ Sodium (Chloride) 250 mls @ 166.667 mls/hr IVPB 0500, 1700 [facility] Last Admin: 04/03/18 05:10 Dose: 250 mls Mometasone Furoate/Formoterol Fumar (Dulera 100 Mcg/5 Mcg Inhaler) 2 puff INH BID-RT [facility] Last Admin: 04/03/18 08:25 Dose: 2 puff Ondansetron HCl (Zofran) 4 mg IVP Q6H PRN PRN Reason: Nausea/Vomiting
[2018-04-03] MEDS: MEROPENEM 1 GM/50 ML 1 GM in Premix Bag 1 BAG IVPB SCH (17:02)
--- NOTE | 2018-04-03 18:38 | CON ---
DATE OF CONSULTATION: 04/03/2018 HISTORY OF PRESENT ILLNESS: He is a 73-year-old gentleman from [place], [place], who states that the nurse came to check his Mena catheter and found that he was bleeding, unable to pass the catheter a nd he subsequently developed fever, chills, and sweats. He was hypotensive and was transferred here with a diagnosis of urosepsis. Patient has been paraplegic ever since he had his thoracic surgery for carcinoma, but he is getting s ome ____ back. He is complaining of some spasm of his back. Extensive history well outlined in his multiple medical records. In fact, he was just discharged fro m the hospital, no more than 2 months ago. PAST MEDICAL HISTORY: History of metastatic spinal disease, status post surgery, history of pulmonar y emboli, history of chronic urinary retention, Mena catheter, history of esophageal cancer, history of COPD, history of chronic anemia, hypertension, history of pseudomeningocele. PAST SURGICAL HISTORY: Previous extensive history is well outlined from his medical records, decompr essive laminectomy, Mena catheter, posterior shoulder sebaceous cyst removal. SOCIAL HISTORY: Tobacco abuse for 57 years, quit smoking about a year ago. [facility] Lives [facility]. PRESENT MEDICATIONS: From home includes thiamine, folic acid, vitamin, Vasotec 5 a day, Colace, Flex eril 10, colchicine 0.6, Symbicort, aspirin, Eliquis 5 twice a day. This morning, he is on meropenem , vancomycin and Dulera. PHYSICAL EXAMINATION: GENERAL: He appears to be in no acute distress. VITAL SIGNS: Temperature is 98, sats are 97% on 3 liters, blood pressure 140/58. CHEST: Reveals extensive rhonchi and crackles. CARDIAC: Sinus tachycardia. LABORATORY DATA: White count is 26,000, H&H is 8 and 26, platelet count 298. All cultures are negat jerrica. IMPRESSION: 1. Urosepsis, hypotension, resolved. 2. Pulmonary embolism. 3. Paraplegia. 4. Metastatic cancer. PLAN: Agree with present treatment. We would deescalate antibiotics once we have all the cultures b ack. PT and supportive care. We will follow. This is a consultation note of 70 minutes, in which 50% spent in direct patient care.
[2018-04-04] MEDS: MEROPENEM 1 GM/50 ML 1 GM in Premix Bag 1 BAG IVPB SCH ×3 (01:03→17:04)
[2018-04-04] MEDS: Vancomycin HCl 1.25 GM in Sodium Chloride 0.9% 250 ML 250 ML IVPB SCH ×2 (04:43→17:38)
[2018-04-04] MEDS: Sodium Chloride 0.9% 1,000 ML IV SCH ×3 (05:55→21:29)
[2018-04-04] MEDS: Mometasone/Formoterol 120 PUFF INHALER INH SCH ×2 (07:29→19:30)
[2018-04-04] MEDS: Colchicine 0.6 MG TAB PO SCH (08:44)
[2018-04-04] MEDS: Aspirin 81 mg Enteric Coated Tablet PO SCH (08:44)
[2018-04-04] MEDS: Apixaban 5 MG TAB PO SCH ×2 (08:44→21:29)
--- NOTE | 2018-04-04 08:48 | PRG ---
DATE OF SERVICE: 04/04/2018 This morning, he is better, he less short of breath. No further chills and sweats. PHYSICAL EXAMINATION: VITAL SIGNS: Sats are 96 on 2 liters. His temperature is 98, pulse 75, respirations 16, blood press ure 93/53. CHEST: Chest reveals bilateral rhonchi. CARDIAC: Normal S1, S2. No gallops masses. ABDOMEN: Soft, no masses. IMPRESSION: 1. Sepsis syndrome. 2. Respiratory failure. 3. Paraplegia. 4. Recurrent urinary tract infection. Cultures so far are still negative. She is still on broad-spectrum antibiotics, meropenem, vancomycin, adjust for culture sensitivities. We will follow while in the IMCU.
[2018-04-04] MEDS ORDERED: HYDROcodone/Acetaminophen 5/325 mg Tablet PO PRN (09:17)
[2018-04-04] MEDS ORDERED: hydrALAZINE 20 MG/ML VIAL SLOW IVP PRN (09:17)
[2018-04-04] MEDS ORDERED: Loperamide HCl 2 MG CAP PO PRN (09:17)
[2018-04-04] MEDS ORDERED: Famotidine 20 MG TAB PO PRN (09:17)
[2018-04-04] MEDS ORDERED: Artificial Tears 18 DROP/0.9 ML EA EYE PRN (09:17)
[2018-04-04] MEDS ORDERED: Ondansetron ODT 4 MG TAB PO PRN (09:17)
[2018-04-04] MEDS ORDERED: Mag-Al 1200 mg/1200 mg/30 ML UDCUP PO PRN (09:17)
[2018-04-04] MEDS ORDERED: Zolpidem Tartrate 5 MG TAB PO PRN (09:17)
[2018-04-04] MEDS ORDERED: Sodium Chloride 0.65% Nasal 44 ML BOT EA NARE PRN (09:17)
[2018-04-04] MEDS ORDERED: Chloraseptic Spray 180 ml Bottle PO PRN (09:17)
[2018-04-04] MEDS ORDERED: Eucerin (Mineral Oil/Petrolatum,White) 30 gm Jar TOP PRN (09:17)
[2018-04-04] MEDS ORDERED: Diabetic Tussin 200 MG/10 ML UDCUP PO PRN (09:17)
[2018-04-04] MEDS ORDERED: Senokot 8.6 MG TAB PO PRN (09:17)
[2018-04-04] MEDS ORDERED: Milk Of Magnesia 30 ML UDCUP PO PRN (09:17)
[2018-04-04] MEDS ORDERED: Loratadine 10 MG TAB PO PRN (09:17)
--- NOTE | 2018-04-04 13:54 | PDOC.PN ---
- Subjective Encounter Start Date: 04/04/18 Encounter Start Time: 09:40 -: old records requested/rev Patient seen and examined. No new complaints. No overnight events - Objective MAR Reviewed: Yes Vital Signs & Weight: Vital Signs (12 hours) Temp Pulse Resp BP Pulse Ox 04/04/18 12:53 96 18 96 04/04/18 11:00 98.4 F 99 20 125/63 90 L 04/04/18 08:00 98.1 F 98 19 125/73 91 L 04/04/18 07:29 85 16 96 04/04/18 07:26 85 16 96 04/04/18 04:35 98.0 F 90 24 H 93/53 L 93 L Weight Weight 202 lb I&O: 04/03/18 04/04/18 04/05/18 06:59 06:59 06:59 Intake Total 550 2380 Output Total 750 2100 Balance -200 280 Result Diagrams: 04/03/18 03:52 04/03/18 03:52 Radiology Reviewed by me: Yes EKG Reviewed by me: Yes Phys Exam - Physical Examination Constitutional: NAD HEENT: PERRLA, moist MMs, sclera anicteric Neck: no JVD, supple Respiratory: no wheezing, no rales, no rhonchi Cardiovascular: RRR, no significant murmur, no rub Gastrointestinal: soft, non-tender, no distention, positive bowel sounds renee+ Musculoskeletal: no edema, pulses present paraplegia Lymphatic: no nodes Psychiatric: normal affect, A&O x 3 Skin: no rash, normal turgor Dx/Plan (1) Encephalopathy acute Code(s): G93.40 - ENCEPHALOPATHY, UNSPECIFIED Status: Resolved (2) Lactic acidosis Code(s): E87.2 - ACIDOSIS Status: Resolved (3) Sepsis associated hypotension Code(s): A41.9 - SEPSIS, UNSPECIFIED ORGANISM; I95.9 - HYPOTENSION, UNSPECIFIED Status: Resolved (4) Sepsis with acute organ dysfunction Code(s): A41.9 - SEPSIS, UNSPECIFIED ORGANISM; R65.20 - SEVERE SEPSIS WITHOUT SEPTIC SHOCK Status: Acute (5) Alcohol abuse Code(s): F10.10 - ALCOHOL ABUSE, UNCOMPLICATED Status: Chronic (6) COPD (chronic obstructive pulmonary disease) Status: Chronic Qualifiers: COPD type: unspecified COPD Qualified Code(s): J44.9 - Chronic obstructive pulmonary disease, unspecified (7) HTN (hypertension) Code(s): I10 - ESSENTIAL (PRIMARY) HYPERTENSION Status: Chronic Qualifiers: Hypertension type: essential hypertension (8) History of pulmonary embolism Code(s): Z86.711 - PERSONAL HISTORY OF PULMONARY EMBOLISM Status: Chronic Comment: diagnosed 12/17/2017 (9) Hx of esophageal malignancy Code(s): Z85.01 - PERSONAL HISTORY OF MALIGNANT NEOPLASM OF ESOPHAGUS Status: Chronic Comment: with mets to T1,2 s/p resection 12/11/2017 (10) Macrocytic anemia Code(s): D53.9 - NUTRITIONAL ANEMIA, UNSPECIFIED Status: Chronic (11) Paraplegia Code(s): G82.20 - PARAPLEGIA, UNSPECIFIED Status: Chronic (12) SCC (spinal cord compression) Code(s): G95.20 - UNSPECIFIED CORD COMPRESSION Status: Chronic (13) Bacteremia due to Pseudomonas Code(s): R78.81 - BACTEREMIA Status: Acute (14) UTI (urinary tract infection) due to urinary indwelling catheter Code(s): T83.511A - I/I REACT D/T INDWELLING URETHRAL CATHETER, INIT; N39.0 - URINARY TRACT INFECTION, SITE NOT SPECIFIED Status: Acute Qualifiers: Indwelling urinary catheter type: indwelling urethral catheter - Plan cont current plan of care, continue antibiotics * medication reviewed as below * symptomatic treatment * continue meropenam * will dc vancomycin tomorrow * medically stable for transfer to medical floor. Review of Systems - Review of Systems Eyes: negative: Pain, Vision Change, Conjunctivae Inflammation, Eyelid Inflammation, Redness, Other ENT: negative: Ear Pain, Ear Discharge, Nose Pain, Nose Discharge, Nose Congestion, Mouth Pain, Mouth Swelling, Throat Pain, Throat Swelling, Other Respiratory: negative: Cough, Dry, Shortness of Breath, Hemoptysis, SOB with Excertion, Pleuritic Pain, Sputum, Wheezing Cardiovascular: negative: chest pain, palpitations, orthopnea, paroxysmal nocturnal dyspnea, edema, light headedness, other Gastrointestinal: negative: Nausea, Vomiting, Abdominal Pain, Diarrhea, Constipation, Melena, Hematochezia, Other Genitourinary: negative: Dysuria, Frequency, Incontinence, Hematuria, Retention , Other Musculoskeletal: negative: Neck Pain, Shoulder Pain, Arm Pain, Back Pain, Hand Pain, Leg Pain, Foot Pain, Other - Medications/Allergies Allergies/Adverse Reactions: Allergies Allergy/AdvReac Type Severity Reaction Status Date / Time No Known Allergies Allergy Verified 12/06/17 00:59 Medications: Current Medications Acetaminophen (Tylenol) 650 mg PO Q4H PRN PRN Reason: Headache/Fever or Pain Hydrocodone Bitart/Acetaminophen ([place] 5/325) 1 tab PO Q4H PRN PRN Reason: Moderate Pain (4-6) Al Hydroxide/Mg Hydroxide (Maalox) 15 ml PO Q4H PRN PRN Reason: Heartburn or Indigestion Albuterol/Ipratropium (Duoneb) 3 ml NEB [id number] [facility] Last Admin: 04/04/18 12:53 Dose: 3 ml Apixaban (Eliquis) 10 mg PO BID [facility] Stop: 04/09/18 21:01 Last Admin: 04/04/18 08:44 Dose: 10 mg Apixaban (Eliquis) 5 mg PO BID [facility] Artificial Tears (Tears Naturale) 0 drop EA EYE PRN PRN PRN Reason: Dry Eyes Aspirin (Ecotrin) 81 mg PO DAILY [facility] Last Admin: 04/04/18 08:44 Dose: 81 mg Colchicine (Colcrys) 0.6 mg PO DAILY [facility] Last Admin: 04/04/18 08:44 Dose: 0.6 mg Cyclobenzaprine HCl (Flexeril) 10 mg PO Q8H PRN PRN Reason: Muscle Spasm Famotidine (Pepcid) 20 mg PO BIDPRN PRN PRN Reason: Heartburn or Indigestion Guaifenesin (Robitussin Sf) 200 mg PO Q4H PRN PRN Reason: Cough Hydralazine HCl (Apresoline) 10 mg SLOW IVP Q4H PRN PRN Reason: Systolic BP > 180 Meropenem 1 gm/ Device 50 mls @ 100 mls/hr IVPB 0100,0900,1700 [facility] Last Admin: 04/04/18 08:44 Dose: 50 mls Vancomycin HCl 1.25 gm/ Sodium (Chloride) 250 mls @ 166.667 mls/hr IVPB 0500, 1700 [facility] Last Admin: 04/04/18 04:43 Dose: 250 mls Sodium Chloride (Normal Saline 0.9%) 1,000 mls @ 100 mls/hr IV .Q10H [facility] Last Admin: 04/04/18 05:55 Dose: 1,000 mls Loperamide HCl (Imodium) 2 mg PO PRN PRN PRN Reason: Diarrhea/Loose Stools Loratadine (Claritin) 10 mg PO DAILYPRN PRN PRN Reason: Sinus Symptoms Magnesium Hydroxide (Milk Of Magnesium) 30 ml PO DAILYPRN PRN PRN Reason: Constipation Mineral Oil/White Petrolatum (Eucerin Cream) 0 gm TOP BIDPRN PRN PRN Reason: Dry Skin Mometasone Furoate/Formoterol Fumar (Dulera 100 Mcg/5 Mcg Inhaler) 2 puff INH BID-RT [facility] Last Admin: 04/04/18 07:29 Dose: 2 puff Ondansetron HCl (Zofran) 4 mg IVP Q6H PRN PRN Reason: Nausea/Vomiting Ondansetron HCl (Zofran Odt) 4 mg PO Q6H PRN PRN Reason: Nausea/Vomiting Phenol (Chloraseptic [place] 180 Ml Bot) 0 ml PO PRN PRN PRN Reason: Sore Throat Saccharomyces Boulardii (Florastor) 250 mg PO DAILY [facility] Senna (Senokot) 2 tab PO HSPRN PRN PRN Reason: Constipation Sodium Chloride ([place] Nasal [place] 0.65%) 0 ml EA NARE QIDPRN PRN PRN Reason: Nasal Congestion Zolpidem Tartrate (Ambien) 5 mg PO HSPRN PRN PRN Reason: Insomnia
[2018-04-04] MEDS: Vancomycin HCl 1 GM in Premix Bag 1 BAG IVPB SCH (17:42)
[2018-04-05] MEDS: MEROPENEM 1 GM/50 ML 1 GM in Premix Bag 1 BAG IVPB SCH ×3 (00:14→17:18)
[2018-04-05] MEDS: Vancomycin HCl 1 GM in Premix Bag 1 BAG IVPB SCH (05:06)
[2018-04-05 05:56] LABS: ALT (SGPT) 19 U/L (8-55); AST (SGOT) 28 U/L (5-34); Albumin 2.5 g/dL (3.4-4.8); Alkaline Phosphatase 84 U/L (40-150); Anion Gap 11 mmol/L (10-20); BUN (Urea Nitrogen) 8 mg/dL (8.4-25.7); Bilirubin, Total 0.7 mg/dL (0.2-1.2); Calc. Creatinine Clearance 127 mL/min (70-130); Calcium 8.4 mg/dL (7.8-10.44); Carbon Dioxide 23 mmol/L (23-31); Chloride 107 mmol/L (98-107); Estimated GFR-MDRD Greater than 90; Glucose 99 mg/dL (83-110); Potassium 3.4 mmol/L (3.5-5.1); Protein, Total 5.5 g/dL (5.8-8.1); Sodium 138 mmol/L (136-145)
[2018-04-05] MEDS ORDERED: Potassium Chloride 20 MEQ TAB PO SCH (06:45)
[2018-04-05] MEDS: Mometasone/Formoterol 120 PUFF INHALER INH SCH ×2 (07:50→18:36)
[2018-04-05 08:41] LABS: Band 34 % (5-11); Eosinophils 2 % (0-10); Hemoglobin 8.7 g/dL (14.0-18.0); Lymphocytes 2 % (21-51); MDiff Complete? YES; Mean Corpuscular HGB CONC 32.3 g/dL (32.0-36.0); Mean Corpuscular Hemoglobin 28.6 pg (27.0-31.0); Mean Corpuscular Volume 88.4 fL (78.0-98.0); Mean Platelet Volume 6.8 fL (7.4-10.4); Monocytes 4 % (0-10); Neutrophil 56 % (42-75); Platelet Count 278 thou/uL (130-400); RBC Distribution Width 14.9 % (11.5-14.5); Red Blood Cell (RBC) Count 3.06 mill/uL (4.70-6.10); Toxic Granulation SLIGHT; Vacuoles SLIGHT; White Blood Cell (WBC) Count 9.4 thou/uL (4.8-10.8)
[2018-04-05] MEDS: Saccharomyces boulardii 250 MG CAP PO SCH (09:42)
[2018-04-05] MEDS: Aspirin 81 mg Enteric Coated Tablet PO SCH (09:42)
[2018-04-05] MEDS: Sodium Chloride 0.9% 1,000 ML IV SCH (10:55)
--- NOTE | 2018-04-05 11:13 | PDOC.PN ---
- Subjective Encounter Start Date: 04/05/18 Encounter Start Time: 07:00 Patient seen and examined. today feels some sore throat, no fever . No overnight events - Objective MAR Reviewed: Yes Vital Signs & Weight: Vital Signs (12 hours) Temp Pulse Resp BP Pulse Ox 04/05/18 07:55 98.4 F 96 18 126/76 90 L 04/05/18 07:50 110 H 20 92 L 04/05/18 07:34 92 L 04/05/18 07:32 110 H 20 92 L 04/05/18 01:34 99 18 92 L Weight Weight 202 lb I&O: 04/04/18 04/05/18 04/06/18 06:59 06:59 06:59 Intake Total 2380 1540 Output Total 2100 5400 Balance 280 -3860 Result Diagrams: 04/05/18 05:10 04/05/18 05:10 Phys Exam - Physical Examination Constitutional: NAD HEENT: PERRLA, moist MMs, sclera anicteric, oral pharynx no lesions Neck: no JVD, supple Respiratory: no wheezing, no rales, no rhonchi Cardiovascular: RRR, no significant murmur, no rub Gastrointestinal: soft, non-tender, no distention, positive bowel sounds renee+ Musculoskeletal: no edema, pulses present paraplegia Psychiatric: normal affect, A&O x 3 Skin: no rash, normal turgor Dx/Plan (1) UTI (urinary tract infection) due to urinary indwelling catheter Code(s): T83.511A - I/I REACT D/T INDWELLING URETHRAL CATHETER, INIT; N39.0 - URINARY TRACT INFECTION, SITE NOT SPECIFIED Status: Acute Qualifiers: Indwelling urinary catheter type: indwelling urethral catheter (2) Bacteremia due to Pseudomonas Code(s): R78.81 - BACTEREMIA Status: Acute (3) Encephalopathy acute Code(s): G93.40 - ENCEPHALOPATHY, UNSPECIFIED Status: Resolved (4) Lactic acidosis Code(s): E87.2 - ACIDOSIS Status: Resolved (5) Sepsis associated hypotension Code(s): A41.9 - SEPSIS, UNSPECIFIED ORGANISM; I95.9 - HYPOTENSION, UNSPECIFIED Status: Resolved (6) Sepsis with acute organ dysfunction Code(s): A41.9 - SEPSIS, UNSPECIFIED ORGANISM; R65.20 - SEVERE SEPSIS WITHOUT SEPTIC SHOCK Status: Acute (7) Alcohol abuse Code(s): F10.10 - ALCOHOL ABUSE, UNCOMPLICATED Status: Chronic (8) COPD (chronic obstructive pulmonary disease) Status: Chronic Qualifiers: COPD type: unspecified COPD Qualified Code(s): J44.9 - Chronic obstructive pulmonary disease, unspecified (9) HTN (hypertension) Code(s): I10 - ESSENTIAL (PRIMARY) HYPERTENSION Status: Chronic Qualifiers: Hypertension type: essential hypertension (10) History of pulmonary embolism Code(s): Z86.711 - PERSONAL HISTORY OF PULMONARY EMBOLISM Status: Chronic Comment: diagnosed 12/17/2017 (11) Hx of esophageal malignancy Code(s): Z85.01 - PERSONAL HISTORY OF MALIGNANT NEOPLASM OF ESOPHAGUS Status: Chronic Comment: with mets to T1,2 s/p resection 12/11/2017 (12) Macrocytic anemia Code(s): D53.9 - NUTRITIONAL ANEMIA, UNSPECIFIED Status: Chronic (13) Paraplegia Code(s): G82.20 - PARAPLEGIA, UNSPECIFIED Status: Chronic (14) SCC (spinal cord compression) Code(s): G95.20 - UNSPECIFIED CORD COMPRESSION Status: Chronic (15) Hypokalemia Code(s): E87.6 - HYPOKALEMIA Status: Acute - Plan cont current plan of care, continue antibiotics * dc vancomycin * follow on culture and sensitivity result * will repeat blood culture * continue meropenam * will replace potassium * medication reviewed as below * symptomatic treatment * DC IVF * start PT/OT Review of Systems - Review of Systems Eyes: negative: Pain, Vision Change, Conjunctivae Inflammation, Eyelid Inflammation, Redness, Other ENT: negative: Ear Pain, Ear Discharge, Nose Pain, Nose Discharge, Nose Congestion, Mouth Pain, Mouth Swelling, Throat Pain, Throat Swelling, Other Respiratory: negative: Cough, Dry, Shortness of Breath, Hemoptysis, SOB with Excertion, Pleuritic Pain, Sputum, Wheezing Cardiovascular: negative: chest pain, palpitations, orthopnea, paroxysmal nocturnal dyspnea, edema, light headedness, other Gastrointestinal: negative: Nausea, Vomiting, Abdominal Pain, Diarrhea, Constipation, Melena, Hematochezia, Other Genitourinary: negative: Dysuria, Frequency, Incontinence, Hematuria, Retention , Other Musculoskeletal: negative: Neck Pain, Shoulder Pain, Arm Pain, Back Pain, Hand Pain, Leg Pain, Foot Pain, Other Skin: negative: Rash, Lesions, Oren, Bruising, Other - Medications/Allergies Allergies/Adverse Reactions: Allergies Allergy/AdvReac Type Severity Reaction Status Date / Time No Known Allergies Allergy Verified 12/06/17 00:59 Medications: Current Medications Acetaminophen (Tylenol) 650 mg PO Q4H PRN PRN Reason: Headache/Fever or Pain Last Admin: 04/04/18 14:38 Dose: 650 mg Hydrocodone Bitart/Acetaminophen ([place] 5/325) 1 tab PO Q4H PRN PRN Reason: Moderate Pain (4-6) Al Hydroxide/Mg Hydroxide (Maalox) 15 ml PO Q4H PRN PRN Reason: Heartburn or Indigestion Albuterol/Ipratropium (Duoneb) 3 ml NEB [id number] [facility] Last Admin: 04/05/18 07:32 Dose: 3 ml Apixaban (Eliquis) 10 mg PO BID [facility] Stop: 04/09/18 21:01 Last Admin: 04/04/18 21:29 Dose: 10 mg Apixaban (Eliquis) 5 mg PO BID [facility] Artificial Tears (Tears Naturale) 0 drop EA EYE PRN PRN PRN Reason: Dry Eyes Aspirin (Ecotrin) 81 mg PO DAILY [facility] Last Admin: 04/05/18 09:42 Dose: 81 mg Colchicine (Colcrys) 0.6 mg PO DAILY [facility] Last Admin: 04/04/18 08:44 Dose: 0.6 mg Cyclobenzaprine HCl (Flexeril) 10 mg PO Q8H PRN PRN Reason: Muscle Spasm Famotidine (Pepcid) 20 mg PO BIDPRN PRN PRN Reason: Heartburn or Indigestion Guaifenesin (Robitussin Sf) 200 mg PO Q4H PRN PRN Reason: Cough Hydralazine HCl (Apresoline) 10 mg SLOW IVP Q4H PRN PRN Reason: Systolic BP > 180 Meropenem 1 gm/ Device 50 mls @ 100 mls/hr IVPB 0100,0900,1700 [facility] Last Admin: 04/05/18 09:41 Dose: 50 mls Sodium Chloride (Normal Saline 0.9%) 1,000 mls @ 100 mls/hr IV .Q10H [facility] Last Admin: 04/04/18 21:29 Dose: 1,000 mls Loperamide HCl (Imodium) 2 mg PO PRN PRN PRN Reason: Diarrhea/Loose Stools Loratadine (Claritin) 10 mg PO DAILYPRN PRN PRN Reason: Sinus Symptoms Magnesium Hydroxide (Milk Of Magnesium) 30 ml PO DAILYPRN PRN PRN Reason: Constipation Mineral Oil/White Petrolatum (Eucerin Cream) 0 gm TOP BIDPRN PRN PRN Reason: Dry Skin Mometasone Furoate/Formoterol Fumar (Dulera 100 Mcg/5 Mcg Inhaler) 2 puff INH BID-RT [facility] Last Admin: 04/05/18 07:50 Dose: 2 puff Ondansetron HCl (Zofran) 4 mg IVP Q6H PRN PRN Reason: Nausea/Vomiting Ondansetron HCl (Zofran Odt) 4 mg PO Q6H PRN PRN Reason: Nausea/Vomiting Phenol (Chloraseptic [place] 180 Ml Bot) 0 ml PO PRN PRN PRN Reason: Sore Throat Saccharomyces Boulardii (Florastor) 250 mg PO DAILY [facility] Last Admin: 04/05/18 09:42 Dose: 250 mg Senna (Senokot) 2 tab PO HSPRN PRN PRN Reason: Constipation Sodium Chloride ([place] Nasal [place] 0.65%) 0 ml EA NARE QIDPRN PRN PRN Reason: Nasal Congestion Zolpidem Tartrate (Ambien) 5 mg PO HSPRN PRN PRN Reason: Insomnia
[2018-04-05] MEDS: Colchicine 0.6 MG TAB PO SCH (11:29)
[2018-04-05] MEDS: Apixaban 5 MG TAB PO SCH ×2 (11:29→21:13)
[2018-04-06] MEDS: MEROPENEM 1 GM/50 ML 1 GM in Premix Bag 1 BAG IVPB SCH ×3 (01:15→16:33)
[2018-04-06 06:13] LABS: #Eosinphils 0.3 thou/uL (0.0-0.7); #Lymphocytes 1.3 thou/uL (1.20-3.40); #Monocytes 0.9 thou/uL (0.11-0.59); #Neutrophils 4.3 thou/uL (1.40-6.50); %Basophils 0.4 % (0.0-1.0); %Eosinophils 4.9 % (0.0-10.0); %Monocytes 13.3 % (0.0-10.0); %Neutrophils 62.4 % (42.0-75.0); Hemoglobin 9.2 g/dL (14.0-18.0); Mean Corpuscular HGB CONC 32.4 g/dL (32.0-36.0); Mean Corpuscular Hemoglobin 28.7 pg (27.0-31.0); Mean Corpuscular Volume 88.7 fL (78.0-98.0); Mean Platelet Volume 6.6 fL (7.4-10.4); Platelet Count 297 thou/uL (130-400); RBC Distribution Width 14.8 % (11.5-14.5); Red Blood Cell (RBC) Count 3.21 mill/uL (4.70-6.10); White Blood Cell (WBC) Count 6.9 thou/uL (4.8-10.8)
[2018-04-06 06:34] LABS: Anion Gap 10 mmol/L (10-20); BUN (Urea Nitrogen) 5 mg/dL (8.4-25.7); Calc. Creatinine Clearance 142 mL/min (70-130); Calcium 8.4 mg/dL (7.8-10.44); Carbon Dioxide 27 mmol/L (23-31); Chloride 102 mmol/L (98-107); Estimated GFR-MDRD Greater than 90; Glucose 91 mg/dL (83-110); Potassium 3.8 mmol/L (3.5-5.1); Sodium 135 mmol/L (136-145)
[2018-04-06] MEDS: Mometasone/Formoterol 120 PUFF INHALER INH SCH ×2 (07:57→18:26)
[2018-04-06] MEDS: Aspirin 81 mg Enteric Coated Tablet PO SCH (09:53)
[2018-04-06] MEDS: Colchicine 0.6 MG TAB PO SCH (09:53)
[2018-04-06] MEDS: Apixaban 5 MG TAB PO SCH ×2 (09:54→21:29)
[2018-04-06] MEDS: Saccharomyces boulardii 250 MG CAP PO SCH (09:54)
--- NOTE | 2018-04-06 11:10 | PDOC.PN ---
- Subjective Encounter Start Date: 04/06/18 Encounter Start Time: 07:00 Patient seen and examined. No new complaints. No overnight events - Objective MAR Reviewed: Yes Vital Signs & Weight: Vital Signs (12 hours) Temp Pulse Resp BP Pulse Ox 04/06/18 10:00 97 04/06/18 08:00 98.1 F 83 16 96 04/06/18 07:57 88 20 96 04/06/18 07:32 96 04/06/18 07:31 88 20 96 04/06/18 07:20 98.1 F 83 16 141/71 H 96 04/06/18 00:01 106 H 18 94 L Weight Admit Weight 202 lb Weight 202 lb I&O: 04/05/18 04/06/18 04/07/18 06:59 06:59 06:59 Intake Total 1540 1565 Output Total 5400 3825 Balance -0180 -8807 Result Diagrams: 04/06/18 05:56 04/06/18 05:56 Phys Exam - Physical Examination Constitutional: NAD HEENT: PERRLA, moist MMs, sclera anicteric Neck: no JVD, supple Respiratory: no wheezing, no rales, no rhonchi Cardiovascular: RRR, no significant murmur, no rub Gastrointestinal: soft, non-tender, no distention, positive bowel sounds renee+ Musculoskeletal: no edema, pulses present paraplegia Psychiatric: normal affect, A&O x 3 Skin: no rash, normal turgor Dx/Plan (1) UTI (urinary tract infection) due to urinary indwelling catheter Code(s): T83.511A - I/I REACT D/T INDWELLING URETHRAL CATHETER, INIT; N39.0 - URINARY TRACT INFECTION, SITE NOT SPECIFIED Status: Acute Qualifiers: Indwelling urinary catheter type: indwelling urethral catheter (2) Bacteremia due to Pseudomonas Code(s): R78.81 - BACTEREMIA Status: Acute (3) Encephalopathy acute Code(s): G93.40 - ENCEPHALOPATHY, UNSPECIFIED Status: Resolved (4) Lactic acidosis Code(s): E87.2 - ACIDOSIS Status: Resolved (5) Sepsis associated hypotension Code(s): A41.9 - SEPSIS, UNSPECIFIED ORGANISM; I95.9 - HYPOTENSION, UNSPECIFIED Status: Resolved (6) Sepsis with acute organ dysfunction Code(s): A41.9 - SEPSIS, UNSPECIFIED ORGANISM; R65.20 - SEVERE SEPSIS WITHOUT SEPTIC SHOCK Status: Acute (7) Alcohol abuse Code(s): F10.10 - ALCOHOL ABUSE, UNCOMPLICATED Status: Chronic (8) COPD (chronic obstructive pulmonary disease) Status: Chronic Qualifiers: COPD type: unspecified COPD Qualified Code(s): J44.9 - Chronic obstructive pulmonary disease, unspecified (9) HTN (hypertension) Code(s): I10 - ESSENTIAL (PRIMARY) HYPERTENSION Status: Chronic Qualifiers: Hypertension type: essential hypertension (10) History of pulmonary embolism Code(s): Z86.711 - PERSONAL HISTORY OF PULMONARY EMBOLISM Status: Chronic Comment: diagnosed 12/17/2017 (11) Hx of esophageal malignancy Code(s): Z85.01 - PERSONAL HISTORY OF MALIGNANT NEOPLASM OF ESOPHAGUS Status: Chronic Comment: with mets to T1,2 s/p resection 12/11/2017 (12) Macrocytic anemia Code(s): D53.9 - NUTRITIONAL ANEMIA, UNSPECIFIED Status: Chronic (13) Paraplegia Code(s): G82.20 - PARAPLEGIA, UNSPECIFIED Status: Chronic (14) SCC (spinal cord compression) Code(s): G95.20 - UNSPECIFIED CORD COMPRESSION Status: Chronic (15) Hypokalemia Code(s): E87.6 - HYPOKALEMIA Status: Acute - Plan cont current plan of care, renee catheter, continue antibiotics, PT/OT * continue meropenam based on culture result * on discharge will change to po cipro * he is at risk for recurrent invasive UTI as he needs renee catheter for neurogenic bladder from paraplegia * discussed option of suprapubic catheter in future, but pt is not inclined to that option * medication reviewed as below * symptomatic treatment. * expecting discharge tomorrow Review of Systems - Review of Systems Eyes: negative: Pain, Vision Change, Conjunctivae Inflammation, Eyelid Inflammation, Redness, Other ENT: negative: Ear Pain, Ear Discharge, Nose Pain, Nose Discharge, Nose Congestion, Mouth Pain, Mouth Swelling, Throat Pain, Throat Swelling, Other Respiratory: negative: Cough, Dry, Shortness of Breath, Hemoptysis, SOB with Excertion, Pleuritic Pain, Sputum, Wheezing Cardiovascular: negative: chest pain, palpitations, orthopnea, paroxysmal nocturnal dyspnea, edema, light headedness, other Gastrointestinal: negative: Nausea, Vomiting, Abdominal Pain, Diarrhea, Constipation, Melena, Hematochezia, Other Genitourinary: negative: Dysuria, Frequency, Incontinence, Hematuria, Retention , Other Musculoskeletal: negative: Neck Pain, Shoulder Pain, Arm Pain, Back Pain, Hand Pain, Leg Pain, Foot Pain, Other Skin: negative: Rash, Lesions, Oren, Bruising, Other - Medications/Allergies Allergies/Adverse Reactions: Allergies Allergy/AdvReac Type Severity Reaction Status Date / Time No Known Allergies Allergy Verified 12/06/17 00:59 Medications: Current Medications Acetaminophen (Tylenol) 650 mg PO Q4H PRN PRN Reason: Headache/Fever or Pain Last Admin: 04/04/18 14:38 Dose: 650 mg Hydrocodone Bitart/Acetaminophen ([place] 5/325) 1 tab PO Q4H PRN PRN Reason: Moderate Pain (4-6) Al Hydroxide/Mg Hydroxide (Maalox) 15 ml PO Q4H PRN PRN Reason: Heartburn or Indigestion Albuterol/Ipratropium (Duoneb) 3 ml NEB [id number] [facility] Last Admin: 04/06/18 07:31 Dose: 3 ml Apixaban (Eliquis) 10 mg PO BID [facility] Stop: 04/09/18 21:01 Last Admin: 04/06/18 09:54 Dose: 10 mg Apixaban (Eliquis) 5 mg PO BID [facility] Artificial Tears (Tears Naturale) 0 drop EA EYE PRN PRN PRN Reason: Dry Eyes Aspirin (Ecotrin) 81 mg PO DAILY [facility] Last Admin: 04/06/18 09:53 Dose: 81 mg Colchicine (Colcrys) 0.6 mg PO DAILY [facility] Last Admin: 04/06/18 09:53 Dose: 0.6 mg Cyclobenzaprine HCl (Flexeril) 10 mg PO Q8H PRN PRN Reason: Muscle Spasm Famotidine (Pepcid) 20 mg PO BIDPRN PRN PRN Reason: Heartburn or Indigestion Guaifenesin (Robitussin Sf) 200 mg PO Q4H PRN PRN Reason: Cough Hydralazine HCl (Apresoline) 10 mg SLOW IVP Q4H PRN PRN Reason: Systolic BP > 180 Meropenem 1 gm/ Device 50 mls @ 100 mls/hr IVPB 0100,0900,1700 [facility] Last Admin: 04/06/18 09:00 Dose: 50 mls Loperamide HCl (Imodium) 2 mg PO PRN PRN PRN Reason: Diarrhea/Loose Stools Loratadine (Claritin) 10 mg PO DAILYPRN PRN PRN Reason: Sinus Symptoms Magnesium Hydroxide (Milk Of Magnesium) 30 ml PO DAILYPRN PRN PRN Reason: Constipation Mineral Oil/White Petrolatum (Eucerin Cream) 0 gm TOP BIDPRN PRN PRN Reason: Dry Skin Mometasone Furoate/Formoterol Fumar (Dulera 100 Mcg/5 Mcg Inhaler) 2 puff INH BID-RT [facility] Last Admin: 04/06/18 07:57 Dose: 2 puff Ondansetron HCl (Zofran) 4 mg IVP Q6H PRN PRN Reason: Nausea/Vomiting Ondansetron HCl (Zofran Odt) 4 mg PO Q6H PRN PRN Reason: Nausea/Vomiting Phenol (Chloraseptic [place] 180 Ml Bot) 0 ml PO PRN PRN PRN Reason: Sore Throat Last Admin: 04/05/18 11:29 Dose: 1 spr Saccharomyces Boulardii (Florastor) 250 mg PO DAILY [facility] Last Admin: 04/06/18 09:54 Dose: 250 mg Senna (Senokot) 2 tab PO HSPRN PRN PRN Reason: Constipation Sodium Chloride ([place] Nasal [place] 0.65%) 0 ml EA NARE QIDPRN PRN PRN Reason: Nasal Congestion Zolpidem Tartrate (Ambien) 5 mg PO HSPRN PRN PRN Reason: Insomnia
[2018-04-07] MEDS: MEROPENEM 1 GM/50 ML 1 GM in Premix Bag 1 BAG IVPB SCH ×2 (01:30→08:49)
[2018-04-07] MEDS: Mometasone/Formoterol 120 PUFF INHALER INH SCH (06:29)
[2018-04-07 08:29] VITALS: BP 132/70; TEMP 97.5
[2018-04-07] MEDS: Apixaban 5 MG TAB PO SCH (08:46)
[2018-04-07] MEDS: Saccharomyces boulardii 250 MG CAP PO SCH (08:47)
[2018-04-07] MEDS: Aspirin 81 mg Enteric Coated Tablet PO SCH (08:47)
[2018-04-07] MEDS: Colchicine 0.6 MG TAB PO SCH (08:47)
--- NOTE | 2018-04-07 12:10 | DIS ---
DATE OF ADMISSION: 04/03/2018 DATE OF DISCHARGE: 04/07/2018 PRIMARY CARE PHYSICIAN: Jimmie William M.D. DISCHARGE DISPOSITION: Home. PRIMARY DISCHARGE DIAGNOSES: Sepsis associated with hypotension, resolved; lactic acidosis, resolved ; acute encephalopathy, resolved; urinary tract infection, related with chronic indwelling Mena cath eter; sepsis with acute organ dysfunction; bacteremia due to Pseudomonas; hypokalemia, corrected. SECONDARY DISCHARGE DIAGNOSES: Chronic obstructive pulmonary disease, history of pulmonary embolism, hypertension, history of esophageal malignancy, macrocytic anemia, paraplegia, spinal cord compressi on. PRIMARY PROCEDURES/OPERATIONS: None. RADIOLOGICAL INVESTIGATION: Chest x-ray, normal. SIGNIFICANT LABORATORY DATA: WBC 6.9, hemoglobin 9.2, platelets 297. Sodium 135, potassium 3.8, BUN 5, creatinine 0.60, calcium 8.4. Liver enzymes normal. Blood culture was positive for Pseudomonas. Repeat blood culture is negative. Urine culture growing Pseudomonas. DISCHARGE MEDICATIONS: Eliquis 5 mg p.o. b.i.d., aspirin 81 mg p.o. daily, Symbicort 2 puff inhalati on b.i.d., Flexeril 10 mg p.o. t.i.d. p.r.n., dapsone 50 mg every other day, Colace 100 mg p.o. b.i.d ., enalapril 5 mg p.o. daily, folic acid 1 mg p.o. daily, MiraLax 17 grams p.o. daily, Florastor 250 mg p.o. daily for 2 weeks, thiamine 100 mg p.o. daily, Cipro 500 mg p.o. b.i.d. for 2 weeks. CONTRAINDICATIONS: None. CODE STATUS: FULL CODE. INPATIENT CONSULTANTS: Dr. Morales was consulted while in hospital. TEST RESULTS PENDING ON DISCHARGE: None. ALLERGIES: No known drug allergy. DISCHARGE PLAN: Post hospital, the patient will follow up with primary care physician in 1 week. HOSPITAL COURSE: A 73-year-old male, who has spinal cord compression and paraplegia. He has neuroge jojo bladder and he requires indwelling Mena catheter. He went to local emergency room for changing Mena catheter. Subsequently, patient got sick and he was having chills and rigors. He was septic. He was transferred to our hospital for admission. He was admitted to the [facility]. He was meeting seps is with acute organ dysfunction criteria. He was treated with IV fluid and broad-spectrum antibiotic therapy. His blood culture came back positive for Pseudomonas and urine culture came back positive for Pseudomonas. Based on culture and sensitivity result, on discharge we changed to ciprofloxacin f or 2 more weeks. While in the hospital, initially he was given meropenem and vancomycin. Subsequent ly, vancomycin was discontinued and meropenem was continued while in hospital until discharge. Davida t blood culture is negative. Patient had significant clinical improvement. His leukocytosis resolve d. His routine blood test is unremarkable. His encephalopathy resolved. His abnormal electrolytes corrected. While in hospital, we continued all his previous home medication as well as upon discharg e. All new medication prescriptions given to him. The patient does not want to go to any kind of rehabi litation or residential home placement, but rather he wants to go home and he has significant [facility] support. The patient is advised that, because of paraplegia and neurogenic bladder, he may need a suprapubic c atheter to prevent recurrent Mena catheterization as well as recurrent Mena-related infection, but patient is not inclined towards a suprapubic catheter at this point. We are thinking that, because o f catheter change procedure, he had bacteremia and that is why he required hospitalization. PHYSICAL EXAMINATION: The patient is seen and examined at bedside today. VITAL SIGNS: Currently, vital signs are temperature 97.5, pulse 91, respiratory rate 16, saturation 92%, blood pressure 132/70. Weight about 202 pounds. GENERAL: The patient is currently alert, awake, in no obvious acute distress. HEAD: Normocephalic, atraumatic. LUNGS: Clear to auscultation without any rhonchi or rales. CARDIAC: S1 and S2 regular without any murmur. ABDOMEN: Soft and benign without any tenderness. EXTREMITIES: No edema. NEUROLOGIC: Nonfocal examination other than paraplegia. Overall, patient is medically stable for discharge today.
--- NOTE | 2018-04-07 13:02 | PDOC.PN ---
- Subjective Encounter Start Date: 04/07/18 Encounter Start Time: 10:45 Patient seen and examined. No new complaints. No overnight events - Objective MAR Reviewed: Yes Vital Signs & Weight: Vital Signs (12 hours) Temp Pulse Resp BP Pulse Ox 04/07/18 08:00 97.5 F L 91 16 92 L 04/07/18 07:15 97.5 F L 91 16 132/70 94 L 04/07/18 06:29 88 L 04/07/18 06:27 96 18 88 L Weight Admit Weight 202 lb Weight 202 lb I&O: 04/06/18 04/07/18 04/08/18 06:59 06:59 06:59 Intake Total 1565 1640 Output Total 3825 3400 Balance -2260 -1760 Result Diagrams: 04/06/18 05:56 04/06/18 05:56 Phys Exam - Physical Examination Constitutional: NAD HEENT: PERRLA, moist MMs, sclera anicteric Neck: no JVD, supple Respiratory: no wheezing, no rales, no rhonchi Cardiovascular: RRR, no significant murmur, no rub Gastrointestinal: soft, non-tender, no distention, positive bowel sounds renee+ Musculoskeletal: no edema, pulses present paraplegia Lymphatic: no nodes Psychiatric: normal affect, A&O x 3 Skin: no rash, normal turgor Dx/Plan (1) UTI (urinary tract infection) due to urinary indwelling catheter Code(s): T83.511A - I/I REACT D/T INDWELLING URETHRAL CATHETER, INIT; N39.0 - URINARY TRACT INFECTION, SITE NOT SPECIFIED Status: Acute Qualifiers: Indwelling urinary catheter type: indwelling urethral catheter (2) Bacteremia due to Pseudomonas Code(s): R78.81 - BACTEREMIA Status: Acute (3) Encephalopathy acute Code(s): G93.40 - ENCEPHALOPATHY, UNSPECIFIED Status: Resolved (4) Lactic acidosis Code(s): E87.2 - ACIDOSIS Status: Resolved (5) Sepsis associated hypotension Code(s): A41.9 - SEPSIS, UNSPECIFIED ORGANISM; I95.9 - HYPOTENSION, UNSPECIFIED Status: Resolved (6) Sepsis with acute organ dysfunction Code(s): A41.9 - SEPSIS, UNSPECIFIED ORGANISM; R65.20 - SEVERE SEPSIS WITHOUT SEPTIC SHOCK Status: Acute (7) Alcohol abuse Code(s): F10.10 - ALCOHOL ABUSE, UNCOMPLICATED Status: Chronic (8) COPD (chronic obstructive pulmonary disease) Status: Chronic Qualifiers: COPD type: unspecified COPD Qualified Code(s): J44.9 - Chronic obstructive pulmonary disease, unspecified (9) HTN (hypertension) Code(s): I10 - ESSENTIAL (PRIMARY) HYPERTENSION Status: Chronic Qualifiers: Hypertension type: essential hypertension (10) History of pulmonary embolism Code(s): Z86.711 - PERSONAL HISTORY OF PULMONARY EMBOLISM Status: Chronic Comment: diagnosed 12/17/2017 (11) Hx of esophageal malignancy Code(s): Z85.01 - PERSONAL HISTORY OF MALIGNANT NEOPLASM OF ESOPHAGUS Status: Chronic Comment: with mets to T1,2 s/p resection 12/11/2017 (12) Macrocytic anemia Code(s): D53.9 - NUTRITIONAL ANEMIA, UNSPECIFIED Status: Chronic (13) Paraplegia Code(s): G82.20 - PARAPLEGIA, UNSPECIFIED Status: Chronic (14) SCC (spinal cord compression) Code(s): G95.20 - UNSPECIFIED CORD COMPRESSION Status: Chronic (15) Hypokalemia Code(s): E87.6 - HYPOKALEMIA Status: Acute - Plan cont current plan of care, continue antibiotics * medication reviewed as below * symptomatic treatment * stable for discharge * see discharge geovanny. Review of Systems - Review of Systems Eyes: negative: Pain, Vision Change, Conjunctivae Inflammation, Eyelid Inflammation, Redness, Other ENT: negative: Ear Pain, Ear Discharge, Nose Pain, Nose Discharge, Nose Congestion, Mouth Pain, Mouth Swelling, Throat Pain, Throat Swelling, Other Respiratory: negative: Cough, Dry, Shortness of Breath, Hemoptysis, SOB with Excertion, Pleuritic Pain, Sputum, Wheezing Cardiovascular: negative: chest pain, palpitations, orthopnea, paroxysmal nocturnal dyspnea, edema, light headedness, other Gastrointestinal: negative: Nausea, Vomiting, Abdominal Pain, Diarrhea, Constipation, Melena, Hematochezia, Other Genitourinary: negative: Dysuria, Frequency, Incontinence, Hematuria, Retention , Other Musculoskeletal: negative: Neck Pain, Shoulder Pain, Arm Pain, Back Pain, Hand Pain, Leg Pain, Foot Pain, Other Skin: negative: Rash, Lesions, Oren, Bruising, Other - Medications/Allergies Allergies/Adverse Reactions: Allergies Allergy/AdvReac Type Severity Reaction Status Date / Time No Known Allergies Allergy Verified 12/06/17 00:59 Medications: Current Medications Acetaminophen (Tylenol) 650 mg PO Q4H PRN PRN Reason: Headache/Fever or Pain Last Admin: 04/04/18 14:38 Dose: 650 mg Hydrocodone Bitart/Acetaminophen (Sumrall 5/325) 1 tab PO Q4H PRN PRN Reason: Moderate Pain (4-6) Al Hydroxide/Mg Hydroxide (Maalox) 15 ml PO Q4H PRN PRN Reason: Heartburn or Indigestion Albuterol/Ipratropium (Duoneb) 3 ml NEB [id number] COUNTS INCLUDE 234 BEDS AT THE [facility] Last Admin: 04/07/18 06:27 Dose: 3 ml Apixaban (Eliquis) 10 mg PO BID COUNTS INCLUDE 234 BEDS AT THE [facility] Stop: 04/09/18 21:01 Last Admin: 04/07/18 08:46 Dose: 10 mg Apixaban (Eliquis) 5 mg PO BID COUNTS INCLUDE 234 BEDS AT THE [facility] Artificial Tears (Tears Naturale) 0 drop EA EYE PRN PRN PRN Reason: Dry Eyes Aspirin (Ecotrin) 81 mg PO DAILY COUNTS INCLUDE 234 BEDS AT THE [facility] Last Admin: 04/07/18 08:47 Dose: 81 mg Colchicine (Colcrys) 0.6 mg PO DAILY COUNTS INCLUDE 234 BEDS AT THE [facility] Last Admin: 04/07/18 08:47 Dose: 0.6 mg Cyclobenzaprine HCl (Flexeril) 10 mg PO Q8H PRN PRN Reason: Muscle Spasm Famotidine (Pepcid) 20 mg PO BIDPRN PRN PRN Reason: Heartburn or Indigestion Guaifenesin (Robitussin Sf) 200 mg PO Q4H PRN PRN Reason: Cough Hydralazine HCl (Apresoline) 10 mg SLOW IVP Q4H PRN PRN Reason: Systolic BP > 180 Meropenem 1 gm/ Device 50 mls @ 100 mls/hr IVPB 0100,0900,1700 COUNTS INCLUDE 234 BEDS AT THE [facility] Last Admin: 04/07/18 08:49 Dose: 50 mls Loperamide HCl (Imodium) 2 mg PO PRN PRN PRN Reason: Diarrhea/Loose Stools Loratadine (Claritin) 10 mg PO DAILYPRN PRN PRN Reason: Sinus Symptoms Magnesium Hydroxide (Milk Of Magnesium) 30 ml PO DAILYPRN PRN PRN Reason: Constipation Last Admin: 04/06/18 14:55 Dose: 30 ml Mineral Oil/White Petrolatum (Eucerin Cream) 0 gm TOP BIDPRN PRN PRN Reason: Dry Skin Mometasone Furoate/Formoterol Fumar (Dulera 100 Mcg/5 Mcg Inhaler) 2 puff INH BID-RT NGUYEN Last Admin: 04/07/18 06:29 Dose: 2 puff Ondansetron HCl (Zofran) 4 mg IVP Q6H PRN PRN Reason: Nausea/Vomiting Ondansetron HCl (Zofran Odt) 4 mg PO Q6H PRN PRN Reason: Nausea/Vomiting Phenol (Chloraseptic Brooten 180 Ml Bot) 0 ml PO PRN PRN PRN Reason: Sore Throat Last Admin: 04/05/18 11:29 Dose: 1 spr Saccharomyces Boulardii (Florastor) 250 mg PO DAILY COUNTS INCLUDE 234 BEDS AT THE [facility] Last Admin: 04/07/18 08:47 Dose: 250 mg Senna (Senokot) 2 tab PO HSPRN PRN PRN Reason: Constipation Sodium Chloride ([place] Nasal Brooten 0.65%) 0 ml EA NARE QIDPRN PRN PRN Reason: Nasal Congestion Zolpidem Tartrate (Ambien) 5 mg PO HSPRN PRN PRN Reason: Insomnia
[2018-04-10] MEDS ORDERED: Apixaban 5 MG TAB PO SCH (09:00)
== END 2018-04-07 16:22 | disposition home health service (06) | DRG 698 ==
LOC: ERS 21:57 → IMCU/EMU 04-03 02:04 → ONC 04-04 18:07
PROVIDERS: ADMIT Hospitalist; ATTEND Hospitalist
DX: T83.511A Infection and inflammatory reaction due to indwelling urethral catheter, initial encounter (principal); A41.52 Sepsis due to Pseudomonas; G93.40 Encephalopathy, unspecified; R65.20 Severe sepsis without septic shock; E87.2 Acidosis; G82.20 Paraplegia, unspecified; N39.0 Urinary tract infection, site not specified; J44.9 Chronic obstructive pulmonary disease, unspecified; E87.6 Hypokalemia; D53.9 Nutritional anemia, unspecified; N31.9 Neuromuscular dysfunction of bladder, unspecified; Z86.711 Personal history of pulmonary embolism; Z85.01 Personal history of malignant neoplasm of esophagus; Z85.89 Personal history of malignant neoplasm of other organs and systems; Z87.891 Personal history of nicotine dependence; Z79.01 Long term (current) use of anticoagulants; Z79.82 Long term (current) use of aspirin; Z79.899 Other long term (current) drug therapy; Y84.6 Urinary catheterization as the cause of abnormal reaction of the patient, or of later complication, without mention of misadventure at the time of the procedure
CPT/HCPCS: 36415; 71045; 72157; 80048; 80053; 80202; 82565; 83605; 85025; 87040; 94640; 94664; 96360; 96361; A9579; G8978-GP-CM; G8979-GP-CL; J2185; J3370; J7050; J7620

== ENCOUNTER 2018-09-09 18:58 | Inpatient (IN) | payer MEDICARE ==
[2018-09-09] MEDS ORDERED: Acetaminophen 325 MG TAB PO PRN (20:35)
[2018-09-09] MEDS ORDERED: HYDROcodone/Acetaminophen 5/325 mg Tablet PO PRN ×2 (20:35)
[2018-09-09] MEDS ORDERED: Acetaminophen 650 MG Suppository PR PRN (20:35)
[2018-09-09] MEDS ORDERED: Senokot S 8.6-50 MG TAB PO PRN (20:35)
[2018-09-09] MEDS ORDERED: Ondansetron ODT 4 MG TAB PO PRN (20:35)
[2018-09-09] MEDS ORDERED: Ondansetron PF 4 MG/2 ML Vial IVP PRN (20:35)
[2018-09-09] MEDS: Sodium Chloride 0.9% 1,000 ML IV SCH (21:09)
[2018-09-09] MEDS: Famotidine 20 MG TAB PO SCH (21:09)
[2018-09-09] MEDS ORDERED: Cyclobenzaprine 10 MG TAB PO PRN (21:36)
[2018-09-09] MEDS ORDERED: ZOSYN IVPB SCH (21:41)
[2018-09-09 21:47] VITALS: BMI 27.0
[2018-09-10] MEDS ORDERED: Piperacillin/Tazobactam 3.375 GM in Sodium Chloride 0.9% 100 ML IVPB SCH (01:00)
[2018-09-10] MEDS ORDERED: Vancomycin HCl 1.25 GM in Sodium Chloride 0.9% 250 ML 250 ML IVPB SCH (02:00)
[2018-09-10] MEDS ORDERED: traMADol HCl 50 MG TAB PO PRN ×2 (09:06)
[2018-09-10] MEDS ORDERED: Ibuprofen 600 MG TAB PO PRN (09:06)
--- NOTE | 2018-09-10 09:25 | HP ---
CHIEF COMPLAINT: Sepsis. HISTORY OF PRESENT ILLNESS: This is a 73-year-old male with past medical history of sepsis due to sickle ulcers, urinary tract infections, chronic obstructive pulmonary disease, history of PE, hypertension, esophageal malignancy, microcytic anemia, spinal cord compression, presenting with sepsis likely due to sacral ulcers or urinary tract infection. The patient was sent here for us to further evaluate and treat the patient. Of note, it is important to notice that the patient was transferred from [place] due to sepsis. REVIEW OF SYSTEMS: Unable to be obtained due to the patient's mental status change. PAST MEDICAL HISTORY: Chronic obstructive pulmonary disease, PE, hypertension, esophageal malignancy, microcytic anemia, paraplegia, spinal cord compression, recurrent history of UTIs, and sepsis. PAST SURGICAL HISTORY: Esophageal stretching, spinal surgery. PSYCHIATRIC HISTORY: No previous psych history. FAMILY HISTORY: Reviewed and noncontributory to this visit. SOCIAL HISTORY: The patient does not drink. Does not do any illicit drugs. The patient is a former smoker. ALLERGIES: NO KNOWN DRUG ALLERGIES. MEDICATIONS: The patient takes; 1. Eliquis. 2. Cyclobenzaprine. 3. Dexamethasone. 4. Enalapril. 5. Folic acid. 6. Vitamin B1. 7. Docusate. 8. Calcium. 9. Aspirin. PHYSICAL EXAMINATION: VITAL SIGNS: The patient's temperature is 98.7, pulse of 87, respiratory rate of 16, O2 saturation of 93%, blood pressure is 91/55. GENERAL: The patient is somnolent in bed sleeping. Does not appear to be in any acute distress. HEENT: Normocephalic, atraumatic. Pupils are equally round and reactive to light. No scleral icterus. Mucous membranes are moist. NECK: No JVD. Trachea is midline. RESPIRATORY: Clear to auscultation bilaterally. No wheezing, no rales, no rhonchi appreciated. CARDIAC: Positive S1 and S2. Regular rate and rhythm. No murmurs, no gallops , no rubs appreciated. ABDOMEN: Soft, nontender, and nondistended. EXTREMITIES: The patient has bilateral upper and lower extremity strength with movements spontaneously. The patient has good pulses bilaterally at the upper and lower extremities. SKIN: The patient does have some ulcers that are noted. NEUROLOGIC: Cranial nerves 2 through 12 intact. The patient does have mild confusion. PSYCHIATRIC: The patient is somnolent and sleepy. ASSESSMENT AND PLAN: This is a 73-year-old male being transferred to our facility to be managed for; 1. Acute encephalopathy likely due to urinary tract infection or sepsis due to infected sacral ulcers. At this time, we are going to continue the patient on antibiotics. We will monitor the patient's vitals. We will monitor the patient 's morning labs. We will continue to monitor the patient closely. 2. Sepsis secondary to infected sacral ulcers. We will continue the patient on antibiotics. 3. History of chronic obstructive pulmonary disease, at this point stable. We will continue the patient on his home medications. 4. Hypertension. We will monitor the patient's blood pressure and we will treat accordingly. 5. Paraplegia due to spinal tumor surgery. We will be re-positioning the patient. 6. Squamous cell carcinoma of the esophagus, currently stable. We will continue to monitor the patient. 7. DVT and GI prophylaxis addressed. Job ID: [id number] MTDD
--- NOTE | 2018-09-10 09:47 | HP ---
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 He swallows well without problems. He lives at home. I have been asked to see him regarding his sacral decubitus. When I evaluated, he has mostly granulation tissue, but he has irregular sacrum and coccyx exposed, obvious osteolytis, and necrotic tissue that needs debridement. He has bilateral heel ulcers and decubitus malleolar ulcers that need debridement of eschar and necrotic tissue. ALLERGIES: GLUTEN. MEDICATIONS: At home; 1. Aspirin 81 mg a day. 2. Colace daily. 3. Flexeril as needed. 4. Symbicort b.i.d. 5. Thiamine 100 mg b.i.d. 6. Dapsone 100 mg every 2 days. Echocardiogram on 01/26/2018; 50% to 55% ejection fraction, mild mitral regurgitation, and tricuspid regurgitation, otherwise unremarkable. PAST SURGICAL HISTORY: On 11/19/2015 right subclavian MediPort for esophageal cancer. On 12/11/2017, Dr. 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 Right posterior shoulder sebaceous cyst and cervical spondylosis, stenosis, and cord compression, undergoing decompressive laminectomy, medial facetectomy, durotomy, myelotomy, intramedullary spinal cord lesion, partial resection, and biopsy removal of posterior shoulder sebaceous cyst, pathology revealing metastatic poorly-differentiated squamous cell carcinoma. On 11/07/2017, colonoscopy and polypectomy, Dr. Christophe Jain. Tubular adenomas. On 10/27/2015, EGD, Dr. Jain, invasive squamous cell carcinoma, poorly differentiated. PAST MEDICAL HISTORY: 1. Esophageal cancer status post radiation chemotherapy. 2. 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 SOCIAL HISTORY: Tobacco none. Alcohol none. History of PE, has been on Eliquis in the past. He is a former smoker. PHYSICAL EXAMINATION: VITAL SIGNS: 5 feet 11 inches and 194 pounds. 98 degrees, 80, and 93/54. HEAD, EARS, EYES, NOSE, AND THROAT: Unremarkable. LUNGS: Clear to auscultation. CARDIAC: Regular rate and rhythm without murmur or gallop. ABDOMEN: Soft and nontender. EXTREMITIES: Paraplegic. He has a MediPort, right subclavian. SKIN: He has a sacral decubitus probably 8 x 9 cm. There is granulation tissue base, but there is significant necrotic tissue and slough. He has irregular bony service with obvious clinical osteomyelitis, sacrum and coccyx. He has bilateral heel decubitus. He has decubitus over his lateral malleolus with eschar and necrotic tissue. ASSESSMENT AND PLAN: 1. Sacral and heel decubitus bilaterally. Plan debridement of sacral and bilateral heel decubitus and a malleolar decubitus ulcers. The patient is at risk of amputation of both legs, although probably not necessary today. We will plan local wound care. Plan offloading. He has soft heel protectors in place. He should keep his weight off his heels and lateral malleoli. We will consult Dr. Reich, Infectious Disease for long-term treatment of his osteomyelitis, sacral and coccyx. 2. Paraplegia. 3. Esophageal cancer, metastatic, status post radiation chemotherapy and decompressive laminectomy, thoracic, Dr. Canela. 4. [facility], can use this for access. Job ID: [id number]
[2018-09-10 10:09] LABS: #Basophils 0.1 thou/uL (0.0-0.2); #Eosinphils 0.3 thou/uL (0.0-0.7); #Lymphocytes 1.5 thou/uL (1.20-3.40); #Monocytes 1.1 thou/uL (0.11-0.59); #Neutrophils 7.7 thou/uL (1.40-6.50); %Basophils 0.6 % (0.0-1.0); %Eosinophils 3.1 % (0.0-10.0); %Lymphocytes 14.3 % (21.0-51.0); %Monocytes 9.9 % (0.0-10.0); %Neutrophils 72.1 % (42.0-75.0); Hemoglobin 8.3 g/dL (14.0-18.0); Mean Corpuscular HGB CONC 30.9 g/dL (32.0-36.0); Mean Corpuscular Hemoglobin 28.8 pg (27.0-31.0); Mean Corpuscular Volume 93.3 fL (78.0-98.0); Mean Platelet Volume 5.7 fL (7.4-10.4); Platelet Count 563 thou/uL (130-400); RBC Distribution Width 18.2 % (11.5-14.5); Red Blood Cell (RBC) Count 2.89 mill/uL (4.70-6.10); White Blood Cell (WBC) Count 10.7 thou/uL (4.8-10.8)
[2018-09-10 10:28] LABS: Anion Gap 11 mmol/L (10-20); BUN (Urea Nitrogen) 7 mg/dL (8.4-25.7); Calc. Creatinine Clearance 115 mL/min (70-130); Carbon Dioxide 21 mmol/L (23-31); Chloride 103 mmol/L (98-107); Estimated GFR-MDRD Greater than 90; Glucose 84 mg/dL (83-110); Potassium 3.6 mmol/L (3.5-5.1); Sodium 131 mmol/L (136-145)
[2018-09-10] MEDS: Enoxaparin Sodium 40 MG/0.4 ML SYRINGE SC SCH (10:33)
[2018-09-10] MEDS: Docusate 100 MG CAP PO SCH (10:33)
[2018-09-10] MEDS: Aspirin 81 mg Enteric Coated Tablet PO SCH (10:33)
[2018-09-10] MEDS: Famotidine 20 MG TAB PO SCH ×2 (10:33→20:14)
[2018-09-10] MEDS: Mometasone/Formoterol 120 PUFF INHALER INH SCH ×2 (11:20→19:53)
[2018-09-10] MEDS: Piperacillin/Tazobactam 3.375 GM in Sodium Chloride 0.9% 100 ML IVPB SCH ×3 (13:31→23:36)
[2018-09-10] MEDS: Sodium Chloride 0.9% 1,000 ML IV SCH ×2 (13:33→20:14)
[2018-09-10] MEDS: Vancomycin HCl 1.25 GM in Sodium Chloride 0.9% 250 ML 250 ML IVPB SCH (14:25)
--- NOTE | 2018-09-10 14:28 | PQF ---
CLINICAL DOCUMENTATION IMPROVEMENT CLARIFICATION FORM: ICD-10 Updated PLEASE DO AN ADDENDUM TO THE PROGRESS NOTE WITH ANY DOCUMENTATION UPDATES OR ADDITIONS AND CARRY THROUGH TO DC SUMMARY. THANK YOU. DATE: 09/11/18 ATTN: DR. OKEEFE Please exercise your independent, professional judgment in responding to the clarification form. Clinical indicators are provided on the bottom of this form for your review Please check appropriate box(s): [ ] Encephalopathy: Type: [ ] Acute [ ] Subacute [ ] Chronic Etiology: [ ] Hypertensive [ ] Metabolic [ ] Toxic [ ] Hepatic with Coma [ ] Hepatic w/o Coma [ ] Hypoxic [ ] Septic [ ] Drug induced: [ ] Unspecified [ ] in the setting of underlying dementia [ ] Other (please specify) [ X ] Transient Alteration of Awareness [ ] Other diagnosis [ ] Unable to determine In addition, please specify: Present on Admission (POA): [ ] Yes [ X] No [ ] Unable to determine For continuity of documentation, please document condition throughout progress notes and discharge summary. Thank You. CLINICAL INDICATORS - SIGNS / SYMPTOMS / LABS H&P: "ACUTE ENCEPHALOPATHY" "MENTAL STATUS CHANGE" (PER H&P) RISKS: UTI SEPSIS HTN TREATMENT: IV VANCOMYCIN (STARTED 09/10) IV ZOSYN (STARTED 09/10) INFECTIOUS DISEASE CONSULT SURGERY CONSULT (This form is maintained as a part of the permanent medical record) [employer] 2014 [employer]. All Rights Reserved [email or web address] Office: [phone] [facility]EN[facility] CAMPUSAmanda
--- NOTE | 2018-09-10 14:59 | PDOC.PN ---
- Subjective Encounter Start Date: 09/10/18 Encounter Start Time: 14:57 Subjective: feels ok,says he fainted in WC yesterday -: no fever/chills/nausea/vomiting/diarrhea - Objective Resuscitation Status - Order Detail: 09/09/18 21:38 Resuscitation Status Routine Resuscitation Status: FULL: Full Resuscitation MAR Reviewed: Yes Vital Signs & Weight: Vital Signs (12 hours) Temp Pulse Resp BP Pulse Ox 09/10/18 11:37 97.5 F L 78 18 94/56 L 94 L 09/10/18 07:45 98.0 F 80 18 93/54 L 94 L 09/10/18 04:00 97.9 F 87 18 95/58 L 93 L Weight Weight 194 lb 0.108 oz I&O: 09/09/18 09/10/18 09/11/18 06:59 06:59 06:59 Intake Total 719 Output Total 425 Balance 294 Result Diagrams: 09/10/18 09:36 09/10/18 09:37 Phys Exam - Physical Examination Constitutional: NAD HEENT: PERRLA, moist MMs, sclera anicteric, oral pharynx no lesions Neck: no nodes, no JVD, supple, full ROM Respiratory: no wheezing, no rales, no rhonchi Cardiovascular: RRR, no significant murmur Gastrointestinal: soft, non-tender, no distention, positive bowel sounds renee indwelling Musculoskeletal: no edema, pulses present sacral decub and heel decubs b/l noted Neurological: non-focal, normal sensation, moves all 4 limbs Psychiatric: normal affect, A&O x 3 Skin: no rash Dx/Plan (1) Syncope Code(s): R55 - SYNCOPE AND COLLAPSE Status: Acute (2) Infected decubitus ulcer Code(s): L89.90 - PRESSURE ULCER OF UNSPECIFIED SITE, UNSPECIFIED STAGE; L08.9 - LOCAL INFECTION OF THE SKIN AND SUBCUTANEOUS TISSUE, UNSP Status: Acute Qualifiers: Pressure injury stage: stage 4 Qualified Code(s): L89.94 - Pressure ulcer of unspecified site, stage 4; L08.9 - Local infection of the skin and subcutaneous tissue, unspecified (3) Sepsis Code(s): A41.9 - SEPSIS, UNSPECIFIED ORGANISM Status: Suspected (4) Chronic anticoagulation Code(s): Z79.01 - HALF-WAY (CURRENT) USE OF ANTICOAGULANTS Status: Chronic Comment: h/o PE (5) Indwelling catheter present on admission Code(s): Z96.0 - PRESENCE OF UROGENITAL IMPLANTS Status: Chronic (6) COPD (chronic obstructive pulmonary disease) Status: Chronic Qualifiers: COPD type: unspecified COPD Qualified Code(s): J44.9 - Chronic obstructive pulmonary disease, unspecified (7) HTN (hypertension) Code(s): I10 - ESSENTIAL (PRIMARY) HYPERTENSION Status: Chronic Qualifiers: Hypertension type: essential hypertension (8) History of pulmonary embolism Code(s): Z86.711 - PERSONAL HISTORY OF PULMONARY EMBOLISM Status: Chronic Comment: diagnosed 12/17/2017 (9) Paraplegia Code(s): G82.20 - PARAPLEGIA, UNSPECIFIED Status: Chronic (10) Spinal cord tumor Code(s): D49.7 - NEOPLM OF UNSP BEHAV OF ENDO GLANDS AND OTH PRT NERVOUS SYS Status: Chronic Comment: reports he got XRT with it but has not followed up since then ,12/18 (11) H/O metastatic esophageal cancer Status: Chronic Comment: s/p Chemo and XRT - Plan renee catheter, PT/OT, incentive spirometry, DVT proph w/SCDs ? syncope due to spinal cord tumor Vs Infection -: ID and GS consulted.ABx interrupted by GS-will defer to ID -: cont supportive care -: consult Oncology -: am labs. * . Review of Systems - Review of Systems Constitutional: weakness, malaise. negative: fever, chills, sweats, other Cardiovascular: negative: chest pain, palpitations, orthopnea, paroxysmal nocturnal dyspnea, edema, light headedness, other Gastrointestinal: negative: Nausea, Vomiting, Abdominal Pain, Diarrhea, Constipation, Melena, Hematochezia, Other Genitourinary: negative: Dysuria, Frequency, Incontinence, Hematuria, Retention , Other Musculoskeletal: negative: Neck Pain, Shoulder Pain, Arm Pain, Back Pain, Hand Pain, Leg Pain, Foot Pain, Other Skin: negative: Rash, Lesions, Oren, Bruising, Other - Medications/Allergies Allergies/Adverse Reactions: Allergies Allergy/AdvReac Type Severity Reaction Status Date / Time gluten AdvReac Verified 09/09/18 22:15 Medications: Current Medications Acetaminophen (Tylenol) 650 mg [place] Q4H PRN PRN Reason: Headache/Fever/Mild Pain (1-3) Acetaminophen (Tylenol) 1,000 mg PO Q6H PRN PRN Reason: Moderate to Severe Pain (6-10) Aspirin (Ecotrin) 81 mg PO DAILY [facility] Last Admin: 09/10/18 10:33 Dose: Not Given Cyclobenzaprine HCl (Flexeril) 10 mg PO Q8H PRN PRN Reason: Muscle Spasm Dapsone (Dapsone) 100 mg PO Q2D [facility] Dapsone (Dapsone) 50 mg PO Q2D [facility] Last Admin: 09/10/18 10:33 Dose: Not Given Docusate Sodium (Colace) 100 mg PO DAILY [facility] Last Admin: 09/10/18 10:33 Dose: Not Given Enoxaparin Sodium (Lovenox) 40 mg SC 0900 [facility] Last Admin: 09/10/18 10:33 Dose: Not Given Famotidine (Pepcid) 20 mg PO BID [facility] Last Admin: 09/10/18 10:33 Dose: Not Given Sodium Chloride (Normal Saline 0.9%) 1,000 mls @ 60 mls/hr IV .[id number] [facility] Last Admin: 09/10/18 13:33 Dose: Not Given Piperacillin Sod/Tazobactam (Sod 3.375 gm/ Sodium Chloride) 100 mls @ 200 mls/ hr IVPB Q6HR [facility] Last Admin: 09/10/18 13:31 Dose: 100 mls Vancomycin HCl 1.25 gm/ Sodium (Chloride) 250 mls @ 166.667 mls/hr IVPB 0200, 1400 [facility] Last Admin: 09/10/18 14:25 Dose: 250 mls Ibuprofen (Motrin) 600 mg PO Q6H PRN PRN Reason: Pain Miscellaneous Medication (Pharmacy To Dose) 1 each IVPB ASDIR [facility] Mometasone Furoate/Formoterol Fumar (Dulera 200 Mcg/5 Mcg Inhaler) 2 puff INH BID-RT [facility] Last Admin: 09/10/18 11:20 Dose: Not Given Ondansetron HCl (Zofran Odt) 4 mg PO Q6H PRN PRN Reason: Nausea/Vomiting Ondansetron HCl (Zofran) 4 mg IVP Q6H PRN PRN Reason: Nausea/Vomiting Polyethylene Glycol (Miralax) 17 gm PO DAILY [facility] Senna/Docusate Sodium (Senokot S) 2 tab PO BID PRN PRN Reason: Constipation Sodium Chloride (Flush - Normal Saline) 10 ml IVF Q12HR [facility] Sodium Chloride (Flush - Normal Saline) 10 ml IVF PRN PRN PRN Reason: Saline Flush Thiamine HCl (Thiamine) 100 mg PO DAILY [facility] Last Admin: 09/10/18 10:33 Dose: Not Given Tramadol HCl (Ultram) 50 mg PO Q6H PRN PRN Reason: Pain 1-5 Tramadol HCl (Ultram) 100 mg PO Q6H PRN PRN Reason: Pain 6-10
--- NOTE | 2018-09-10 20:30 | CT ---
CT OF THE ABDOMEN AND PELVIS 09/10/18 PROVIDED CLINICAL HISTORY: Urinary tract infection. FINDINGS: No comparisons. There is consolidation seen involving the right lower lobe with associated right pleural fluid. There is fatty infiltration of the liver with a subcentimeter hypodensity involving the anterior segm ent to the right hepatic lobe to small to definitively characterize but possibly reflecting a cyst. The solid abdominal organs are suboptimally evaluated in the absence of IV contrast material but demo nstrates an otherwise unremarkable unenhanced CT appearance. There is no evidence for bowel obstructi on. Sacral decubitus ulcer is seen with associated fragmentation of the distal sacrum and coccyx, the chr onicity of which is not certain. There is density alteration in the presacral fat and perirectal fat. There is moderate rectal fecal retention. The urinary bladder is decompressed by Mena catheter. Pro minence of the urinary bladder wall may be on the basis of incomplete distention versus cystitis. There is no evidence for bowel obstruction. Vascular calcifications are seen. No evidence for pneumop eritoneum. Nonspecific bilateral perinephric fat stranding, right greater than left. IMPRESSION: 1. Right basilar consolidation with adjacent pleural fluid, which may reflect pneumonia and/or a spiration pneumonitis. 2. Bilateral perinephric fat stranding, right greater than left, nonspecific. Correlate with con cerns for pyelonephritis. No evidence for hydronephrosis. 3. Sacral decubitus ulcer with fragmentation of the distal sacrum and coccyx, the chronicity of which is not certain. Effacement of the surrounding presacral fat related to this process. 4. Thickening of the urinary bladder wall, which may be on the basis of nondistention. Correlate with concerns for cystitis. POS: NEW
--- NOTE | 2018-09-11 00:46 | CON ---
DATE OF CONSULTATION: 09/10/2018 REASON FOR CONSULTATION: Hypotension, possible sepsis. 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 In April, he was admitted with fever and hypotension, which was secondary to Pseudomonas aeruginosa urinary tract infection with bacteremia. It is a fairly susceptible organism and he was discharged on oral quinolones. The patient has an indwelling Mena catheter from home. He denied any headaches, no visual symptom change except for during the syncopal event. No cough, sputum production or aspiration. No back pain. No abdominal pain. He does not have much sensation below the chest wall region. He has a chronic decubitus ulcer, stage IV, in the presacral region, which was being managed by [facility]. At this time, he presented with fairly acute onset of change in mental status after being lifted with a Sumanth lift to be brought to [facility] for the second visit. Before this syncopal event, he had not experienced any fever or any change in his overall status. PAST MEDICAL HISTORY: COPD, prior pulmonary embolism, hypertension, esophageal cancer with metastasis to spinal cord, and paraplegia, which required decompressive surgery and chemotherapy. It looks like he is not going to be receiving any more chemotherapy. The patient has a port in the right subclavian location. PAST SURGICAL HISTORY: As above. He has an indwelling Mena catheter for management of neurogenic bladder. FAMILY HISTORY: Noncontributory. SOCIAL HISTORY: Former smoker, lives in [place]. ALLERGIES: NONE. CURRENT MEDICATIONS: 1. Eliquis. 2. Cyclobenzaprine. 3. Dexamethasone. 4. Enalapril. 5. Folic acid. 6. Vitamin B. 7. Calcium. 8. Docusate. PHYSICAL EXAMINATION: VITAL SIGNS: T-max 98, blood pressure 94/56, pulse 78, respirations 18, and O2 saturation 94%. SKIN: Stage IV packed presacral decubitus ulcer with some maceration of the skin surrounding the decubitus ulcer. Apparently, they had been managed with negative pressure dressing. Heel area on the right side has a deep tissue injury, unstageable, with a dark eschar at the base. The left side has a round-shaped eschar covered ulcer, measuring about 2.5 cm. A few other ulcerations in the medial aspect of the left first toe and MPJ skin site are noted quite shallow. HEENT: His ocular movements are conjugate. Oral cavity with dry oral mucosa. Numerous missing teeth. NECK: Supple. No jugular vein distention. No thyromegaly. LUNGS: With symmetric air entry, quite weak inspiratory excursions. He is unable to give us a deep cough. HEART: S1 and S2, regular rate. No S3 or S4. ABDOMEN: Flat, soft, and not distended. No bladder distention. Mena catheter in place with clear urine. NEUROLOGICAL: Paraplegia noted as reported in the [facility] and [facility]. LABORATORY DATA: White cell count 10.7, hemoglobin 8.3, platelets 563, with 72% neutrophils. Sodium 131, creatinine 0.71, glucose 84, and calcium 8.0. The urine culture with a presumptive Pseudomonas. Blood culture thus far no growth. I do not have a urinalysis submitted. IMAGING STUDIES: We have no imaging studies ordered. ASSESSMENT: 1. Metastatic esophageal cancer, port in the right subclavian location. 2. Stage IV decubitus ulcer. 3. 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 4. Hypotension. 5. Paraplegia with prior thromboembolism. DISCUSSION: Differential diagnosis includes infectious process with sepsis and bacteremia, either from the urinary tract or from the port with colonization versus noninfectious recurrence of thromboembolism and pulmonary embolism. The patient states that he was not taking blood thinners anymore. The patient has been started on broad-spectrum antimicrobial coverage with piperacillin/tazobactam and vancomycin. We will submit the urinalysis and await on blood culture results and then decide if he is going to need a thromboembolism workup including a duplex ultrasound and plus/minus a CT angio of chest. Check CT stone protocol since he has had an indwelling Mena catheter for quite a long time, may have formed stones in the urinary tract. Job ID: [id number]
[2018-09-11] MEDS: Vancomycin HCl 1.25 GM in Sodium Chloride 0.9% 250 ML 250 ML IVPB SCH ×2 (01:30→15:40)
[2018-09-11] MEDS: Sodium Chloride 0.9% 1,000 ML IV SCH ×3 (05:08→20:53)
[2018-09-11] MEDS: Piperacillin/Tazobactam 3.375 GM in Sodium Chloride 0.9% 100 ML IVPB SCH ×3 (05:38→18:33)
[2018-09-11] MEDS: Mometasone/Formoterol 120 PUFF INHALER INH SCH ×2 (07:34→19:54)
[2018-09-11 07:40] LABS: Hemoglobin 7.8 g/dL (14.0-18.0); Mean Corpuscular HGB CONC 30.4 g/dL (32.0-36.0); Mean Corpuscular Hemoglobin 28.6 pg (27.0-31.0); Mean Corpuscular Volume 93.9 fL (78.0-98.0); Mean Platelet Volume 5.7 fL (7.4-10.4); Platelet Count 531 thou/uL (130-400); RBC Distribution Width 18.1 % (11.5-14.5); Red Blood Cell (RBC) Count 2.74 mill/uL (4.70-6.10); White Blood Cell (WBC) Count 10.3 thou/uL (4.8-10.8)
[2018-09-11 07:41] LABS: #Basophils 0.1 thou/uL (0.0-0.2); #Eosinphils 0.4 thou/uL (0.0-0.7); #Lymphocytes 1.6 thou/uL (1.20-3.40); #Monocytes 1.2 thou/uL (0.11-0.59); #Neutrophils 7.1 thou/uL (1.40-6.50); %Basophils 1.1 % (0.0-1.0); %Eosinophils 3.5 % (0.0-10.0); %Lymphocytes 15.4 % (21.0-51.0); %Monocytes 11.2 % (0.0-10.0); %Neutrophils 68.8 % (42.0-75.0)
[2018-09-11 07:57] LABS: Anion Gap 10 mmol/L (10-20); BUN (Urea Nitrogen) 7 mg/dL (8.4-25.7); Calc. Creatinine Clearance 114 mL/min (70-130); Calcium 7.8 mg/dL (7.8-10.44); Carbon Dioxide 23 mmol/L (23-31); Chloride 104 mmol/L (98-107); Estimated GFR-MDRD Greater than 90; Glucose 84 mg/dL (83-110); Potassium 3.9 mmol/L (3.5-5.1); Sodium 133 mmol/L (136-145)
[2018-09-11] MEDS: Enoxaparin Sodium 40 MG/0.4 ML SYRINGE SC SCH (08:06)
[2018-09-11] MEDS: Aspirin 81 mg Enteric Coated Tablet PO SCH (08:06)
[2018-09-11] MEDS: Polyethylene Glycol 3350 17 GM Packet PO SCH (08:07)
[2018-09-11] MEDS: Famotidine 20 MG TAB PO SCH ×2 (08:09→20:50)
[2018-09-11] MEDS: Docusate 100 MG CAP PO SCH (08:09)
[2018-09-11 09:12] LABS: Hypochromia SLIGHT = 6-15 cells (100X) (0-5/hpf); MDiff Complete? YES; Macrocytosis SLIGHT = 6-15 cells (100X) (0-5/hpf); Platelet Morphology Comment Appears Increased
[2018-09-11] MEDS ORDERED: KETAMINE 100 MG/ML (5ML VIAL) ONE (13:47)
[2018-09-11] MEDS ORDERED: Midazolam HCl 2 mg/2 ml Vial ONE (13:53)
[2018-09-11] MEDS ORDERED: Fentanyl 100 MCG/2 ML VIAL ONE (14:05)
[2018-09-11] MEDS ORDERED: Glycopyrrolate 0.2 MG/ML 5 ML SYRINGE ONE (14:20)
[2018-09-11] MEDS ORDERED: Promethazine HCl 25 MG/ML VIAL SLOW IVP PRN (14:59)
[2018-09-11] MEDS ORDERED: Ondansetron HCl/PF 4 MG/2 ML Vial IVP PRN (14:59)
[2018-09-11] MEDS ORDERED: Promethazine HCl 25 MG/ML VIAL IM PRN (14:59)
--- NOTE | 2018-09-11 15:31 | PDOC.PN ---
- Subjective Encounter Start Date: 09/11/18 Encounter Start Time: 15:31 - Objective Resuscitation Status - Order Detail: 09/09/18 21:38 Resuscitation Status Routine Resuscitation Status: FULL: Full Resuscitation Vital Signs & Weight: Vital Signs (12 hours) Temp Pulse Resp BP Pulse Ox 09/11/18 08:00 98.5 F 86 20 94/54 L 90 L 09/11/18 04:00 98.5 F 79 18 112/69 95 Weight Admit Weight 194 lb 0.108 oz Weight 194 lb 0.108 oz I&O: 09/10/18 09/11/18 09/12/18 06:59 06:59 06:59 Intake Total 719 2709 Output Total 425 600 Balance 294 2109 Result Diagrams: 09/11/18 07:15 09/11/18 07:15 Dx/Plan (1) Syncope Code(s): R55 - SYNCOPE AND COLLAPSE Status: Acute (2) Infected decubitus ulcer Code(s): L89.90 - PRESSURE ULCER OF UNSPECIFIED SITE, UNSPECIFIED STAGE; L08.9 - LOCAL INFECTION OF THE SKIN AND SUBCUTANEOUS TISSUE, UNSP Status: Acute Qualifiers: Pressure injury stage: stage 4 Qualified Code(s): L89.94 - Pressure ulcer of unspecified site, stage 4; L08.9 - Local infection of the skin and subcutaneous tissue, unspecified (3) Sepsis Code(s): A41.9 - SEPSIS, UNSPECIFIED ORGANISM Status: Suspected (4) Chronic anticoagulation Code(s): Z79.01 - MCFP (CURRENT) USE OF ANTICOAGULANTS Status: Chronic Comment: h/o PE (5) Indwelling catheter present on admission Code(s): Z96.0 - PRESENCE OF UROGENITAL IMPLANTS Status: Chronic (6) COPD (chronic obstructive pulmonary disease) Status: Chronic Qualifiers: COPD type: unspecified COPD Qualified Code(s): J44.9 - Chronic obstructive pulmonary disease, unspecified (7) HTN (hypertension) Code(s): I10 - ESSENTIAL (PRIMARY) HYPERTENSION Status: Chronic Qualifiers: Hypertension type: essential hypertension (8) History of pulmonary embolism Code(s): Z86.711 - PERSONAL HISTORY OF PULMONARY EMBOLISM Status: Chronic Comment: diagnosed 12/17/2017 (9) Paraplegia Code(s): G82.20 - PARAPLEGIA, UNSPECIFIED Status: Chronic (10) Spinal cord tumor Code(s): D49.7 - NEOPLM OF UNSP BEHAV OF ENDO GLANDS AND OTH PRT NERVOUS SYS Status: Chronic Comment: reports he got XRT with it but has not followed up since then ,12/18 (11) H/O metastatic esophageal cancer Status: Chronic Comment: s/p Chemo and XRT - Plan * . Review of Systems - Medications/Allergies Allergies/Adverse Reactions: Allergies Allergy/AdvReac Type Severity Reaction Status Date / Time gluten AdvReac Verified 09/09/18 22:15 Medications: Current Medications Acetaminophen (Tylenol) 650 mg [place] Q4H PRN PRN Reason: Headache/Fever/Mild Pain (1-3) Acetaminophen (Tylenol) 1,000 mg PO Q6H PRN PRN Reason: Moderate to Severe Pain (6-10) Aspirin (Ecotrin) 81 mg PO DAILY [facility] Last Admin: 09/11/18 08:06 Dose: Not Given Cyclobenzaprine HCl (Flexeril) 10 mg PO Q8H PRN PRN Reason: Muscle Spasm Dapsone (Dapsone) 100 mg PO Q2D [facility] Last Admin: 09/11/18 08:09 Dose: 100 mg Dapsone (Dapsone) 50 mg PO Q2D [facility] Last Admin: 09/10/18 10:33 Dose: Not Given Docusate Sodium (Colace) 100 mg PO DAILY [facility] Last Admin: 09/11/18 08:09 Dose: 100 mg Enoxaparin Sodium (Lovenox) 40 mg SC 0900 [facility] Last Admin: 09/11/18 08:06 Dose: Not Given Famotidine (Pepcid) 20 mg PO BID [facility] Last Admin: 09/11/18 08:09 Dose: 20 mg Sodium Chloride (Normal Saline 0.9%) 1,000 mls @ 60 mls/hr IV .[id number] [facility] Last Admin: 09/11/18 05:08 Dose: Not Given Piperacillin Sod/Tazobactam (Sod 3.375 gm/ Sodium Chloride) 100 mls @ 200 mls/ hr IVPB Q6HR [facility] Last Admin: 09/11/18 05:38 Dose: 100 mls Vancomycin HCl 1.25 gm/ Sodium (Chloride) 250 mls @ 166.667 mls/hr IVPB 0200, 1400 [facility] Last Admin: 09/11/18 01:30 Dose: 250 mls Ibuprofen (Motrin) 600 mg PO Q6H PRN PRN Reason: Pain Miscellaneous Medication (Pharmacy To Dose) 1 each IVPB ASDIR [facility] Mometasone Furoate/Formoterol Fumar (Dulera 200 Mcg/5 Mcg Inhaler) 2 puff INH BID-RT [facility] Last Admin: 09/11/18 07:34 Dose: 2 puff Ondansetron HCl (Zofran Odt) 4 mg PO Q6H PRN PRN Reason: Nausea/Vomiting Ondansetron HCl (Zofran) 4 mg IVP Q6H PRN PRN Reason: Nausea/Vomiting Ondansetron HCl (Pacu-Zofran) 4 mg IVP ONE PRN PRN Reason: Nausea/Vomiting Stop: 09/11/18 17:59 Polyethylene Glycol (Miralax) 17 gm PO DAILY [facility] Last Admin: 09/11/18 08:07 Dose: Not Given Promethazine HCl (Pacu-Phenergan) 6.25 mg SLOW IVP ONE PRN PRN Reason: Nausea/Vomiting Stop: 09/11/18 17:59 Promethazine HCl (Pacu-Phenergan) 6.25 mg IM ONE PRN PRN Reason: Nausea/Vomiting Stop: 09/11/18 17:59 Senna/Docusate Sodium (Senokot S) 2 tab PO BID PRN PRN Reason: Constipation Sodium Chloride (Flush - Normal Saline) 10 ml IVF Q12HR [facility] Last Admin: 09/11/18 08:07 Dose: Not Given Sodium Chloride (Flush - Normal Saline) 10 ml IVF PRN PRN PRN Reason: Saline Flush Thiamine HCl (Thiamine) 100 mg PO DAILY [facility] Last Admin: 09/11/18 08:10 Dose: 100 mg Tramadol HCl (Ultram) 50 mg PO Q6H PRN PRN Reason: Pain 1-5 Tramadol HCl (Ultram) 100 mg PO Q6H PRN PRN Reason: Pain 6-10
[2018-09-11 16:49] LABS: Vancomycin, Trough 33.4 ug/mL
--- NOTE | 2018-09-11 18:46 | PDOC.PN ---
- Subjective Encounter Start Date: 09/11/18 Encounter Start Time: 18:44 Subjective: s/p I&D scaral and heel wounds.feels OK.no new complaints -: care discussed with daughter at bedside. -: no N/V/D.pain controlled adequately - Objective Resuscitation Status - Order Detail: 09/09/18 21:38 Resuscitation Status Routine Resuscitation Status: FULL: Full Resuscitation MAR Reviewed: Yes Vital Signs & Weight: Vital Signs (12 hours) Temp Pulse Resp BP Pulse Ox 09/11/18 16:00 97.2 F L 88 16 102/61 98 09/11/18 08:00 98.5 F 86 20 94/54 L 90 L Weight Admit Weight 194 lb 0.108 oz Weight 194 lb 0.108 oz I&O: 09/10/18 09/11/18 09/12/18 06:59 06:59 06:59 Intake Total 719 2709 Output Total 425 600 600 Balance 294 2109 -600 Result Diagrams: 09/11/18 07:15 09/11/18 07:15 Additional Labs: Microbiology 09/11/18 14:35 Heel - E swab Bacterial Culture - Preliminary 09/11/18 14:33 Ulcer - Tissue Bacterial Culture - Preliminary 09/11/18 14:19 Heel - Tissue Bacterial Culture - Preliminary Phys Exam - Physical Examination Constitutional: NAD HEENT: PERRLA, moist MMs, sclera anicteric, oral pharynx no lesions Neck: no nodes, no JVD, supple, full ROM Respiratory: no wheezing, no rales, no rhonchi Cardiovascular: RRR, no significant murmur Gastrointestinal: soft, non-tender, no distention, positive bowel sounds Musculoskeletal: pulses present, edema present paraplegia Psychiatric: normal affect, A&O x 3 Skin: no rash Dx/Plan (1) Syncope Code(s): R55 - SYNCOPE AND COLLAPSE Status: Acute Comment: ? etiology.sepsis Vs cardiac (2) Infected decubitus ulcer Code(s): L89.90 - PRESSURE ULCER OF UNSPECIFIED SITE, UNSPECIFIED STAGE; L08.9 - LOCAL INFECTION OF THE SKIN AND SUBCUTANEOUS TISSUE, UNSP Status: Acute Qualifiers: Pressure injury stage: stage 4 Qualified Code(s): L89.94 - Pressure ulcer of unspecified site, stage 4; L08.9 - Local infection of the skin and subcutaneous tissue, unspecified (3) Sepsis Code(s): A41.9 - SEPSIS, UNSPECIFIED ORGANISM Status: Suspected (4) PNA (pneumonia) Code(s): J18.9 - PNEUMONIA, UNSPECIFIED ORGANISM Status: Acute (5) Pyelonephritis Code(s): N12 - TUBULO-INTERSTITIAL NEPHRITIS, NOT SPCF ACUTE OR CHRONIC Status: Suspected (6) Indwelling catheter present on admission Code(s): Z96.0 - PRESENCE OF UROGENITAL IMPLANTS Status: Chronic (7) COPD (chronic obstructive pulmonary disease) Status: Chronic Qualifiers: COPD type: unspecified COPD Qualified Code(s): J44.9 - Chronic obstructive pulmonary disease, unspecified (8) HTN (hypertension) Code(s): I10 - ESSENTIAL (PRIMARY) HYPERTENSION Status: Chronic Qualifiers: Hypertension type: essential hypertension (9) History of pulmonary embolism Code(s): Z86.711 - PERSONAL HISTORY OF PULMONARY EMBOLISM Status: Chronic Comment: diagnosed 12/17/2017 (10) Paraplegia Code(s): G82.20 - PARAPLEGIA, UNSPECIFIED Status: Chronic (11) Spinal cord tumor Code(s): D49.7 - NEOPLM OF UNSP BEHAV OF ENDO GLANDS AND OTH PRT NERVOUS SYS Status: Chronic Comment: reports he got XRT with it but has not followed up since then ,12/18 (12) H/O metastatic esophageal cancer Status: Chronic Comment: s/p Chemo and XRT - Plan plan discussed w/ family, continue antibiotics, PT/OT, respiratory therapy, incentive spirometry, DVT proph w/SCDs s/p I&D of decubitii.Lives at home alone w help of daughter. 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 -: monitor H/H. -: suspected PNA and Pyelonephritis per CT scan-on ABx * .Discussed suprapubic cathter w daughter.will refer to urology as an OP. * Hd stable Review of Systems - Review of Systems Constitutional: weakness, malaise. negative: fever, chills, sweats, other ENT: negative: Ear Pain, Ear Discharge, Nose Pain, Nose Discharge, Nose Congestion, Mouth Pain, Mouth Swelling, Throat Pain, Throat Swelling, Other Respiratory: negative: Cough, Dry, Shortness of Breath, Hemoptysis, SOB with Excertion, Pleuritic Pain, Sputum, Wheezing Cardiovascular: negative: chest pain, palpitations, orthopnea, paroxysmal nocturnal dyspnea, edema, light headedness, other Gastrointestinal: negative: Nausea, Vomiting, Abdominal Pain, Diarrhea, Constipation, Melena, Hematochezia, Other Genitourinary: negative: Dysuria, Frequency, Incontinence, Hematuria, Retention , Other Musculoskeletal: negative: Neck Pain, Shoulder Pain, Arm Pain, Back Pain, Hand Pain, Leg Pain, Foot Pain, Other Neurological: negative: Weakness, Numbness, Incoordination, Change in Speech, Confusion, Seizures, Other - Medications/Allergies Allergies/Adverse Reactions: Allergies Allergy/AdvReac Type Severity Reaction Status Date / Time gluten AdvReac Verified 09/09/18 22:15 Medications: Current Medications Acetaminophen (Tylenol) 650 mg CO Q4H PRN PRN Reason: Headache/Fever/Mild Pain (1-3) Acetaminophen (Tylenol) 1,000 mg PO Q6H PRN PRN Reason: Moderate to Severe Pain (6-10) Aspirin (Ecotrin) 81 mg PO DAILY [facility] Last Admin: 09/11/18 08:06 Dose: Not Given Cyclobenzaprine HCl (Flexeril) 10 mg PO Q8H PRN PRN Reason: Muscle Spasm Dapsone (Dapsone) 100 mg PO Q2D [facility] Last Admin: 09/11/18 08:09 Dose: 100 mg Dapsone (Dapsone) 50 mg PO Q2D [facility] Last Admin: 09/10/18 10:33 Dose: Not Given Docusate Sodium (Colace) 100 mg PO DAILY [facility] Last Admin: 09/11/18 08:09 Dose: 100 mg Enoxaparin Sodium (Lovenox) 40 mg SC 0900 [facility] Last Admin: 09/11/18 08:06 Dose: Not Given Famotidine (Pepcid) 20 mg PO BID [facility] Last Admin: 09/11/18 08:09 Dose: 20 mg Sodium Chloride (Normal Saline 0.9%) 1,000 mls @ 60 mls/hr IV .[id number] [facility] Last Admin: 09/11/18 05:08 Dose: Not Given Piperacillin Sod/Tazobactam (Sod 3.375 gm/ Sodium Chloride) 100 mls @ 200 mls/ hr IVPB Q6HR [facility] Last Admin: 09/11/18 18:33 Dose: 100 mls Vancomycin HCl 1.25 gm/ Sodium (Chloride) 250 mls @ 166.667 mls/hr IVPB 0200, 1400 [facility] Last Admin: 09/11/18 15:40 Dose: 250 mls Ibuprofen (Motrin) 600 mg PO Q6H PRN PRN Reason: Pain Miscellaneous Medication (Pharmacy To Dose) 1 each IVPB ASDIR [facility] Mometasone Furoate/Formoterol Fumar (Dulera 200 Mcg/5 Mcg Inhaler) 2 puff INH BID-RT [facility] Last Admin: 09/11/18 07:34 Dose: 2 puff Ondansetron HCl (Zofran Odt) 4 mg PO Q6H PRN PRN Reason: Nausea/Vomiting Ondansetron HCl (Zofran) 4 mg IVP Q6H PRN PRN Reason: Nausea/Vomiting Polyethylene Glycol (Miralax) 17 gm PO DAILY [facility] Last Admin: 09/11/18 08:07 Dose: Not Given Senna/Docusate Sodium (Senokot S) 2 tab PO BID PRN PRN Reason: Constipation Sodium Chloride (Flush - Normal Saline) 10 ml IVF Q12HR [facility] Last Admin: 09/11/18 08:07 Dose: Not Given Sodium Chloride (Flush - Normal Saline) 10 ml IVF PRN PRN PRN Reason: Saline Flush Thiamine HCl (Thiamine) 100 mg PO DAILY [facility] Last Admin: 09/11/18 08:10 Dose: 100 mg Tramadol HCl (Ultram) 50 mg PO Q6H PRN PRN Reason: Pain 1-5 Tramadol HCl (Ultram) 100 mg PO Q6H PRN PRN Reason: Pain 6-10
[2018-09-11] MEDS: guaiFENesin ER 600 MG TAB PO SCH (20:50)
--- NOTE | 2018-09-11 21:01 | OP ---
DATE OF PROCEDURE: 09/11/2018 PREOPERATIVE DIAGNOSES: Stage IV esophageal cancer with thoracic spine metastasis and paraplegia with sacral decubitus, bilateral heel decubitus, and right ankle lateral malleolar decubitus. POSTOPERATIVE DIAGNOSES: Stage IV esophageal cancer with thoracic spine metastasis and paraplegia with sacral decubitus, bilateral heel decubitus, and right ankle lateral malleolar decubitus with sacral decubitus extending to the sacrum stage heel decubitus extending to the calcaneus stage IV, right ankle lateral malleolar decubitus extending to the tendons stage IV. PROCEDURES PERFORMED: 1. Sharp debridement of skin, subcutaneous tissue, connective tissue, and bone sacrum. 2. Debridement of skin, subcutaneous tissue, connective tissue, fascia, right lateral malleolar decubitus ulcer, and bilateral heel decubitus ulcers. ANESTHESIA: Intravenous sedation. DESCRIPTION OF PROCEDURE: The patient was taken to the operating room, where under intravenous sedation in the left lateral decubitus position using graves bag properly positioning. Both feet, lower extremities, and presacral area prepared with Betadine and draped in routine fashion. Sharp debridement of necrotic skin, subcutaneous tissue, fascia, connective tissue of the right lateral malleolar decubitus, bilateral heel decubitus performed. The bilateral heel decubitus extending down to the calcaneus with extensive undermining bilaterally. Right ankle decubitus extended to the tendons exposing them. Similar debridement in the sacrum performed, resecting skin, subcutaneous tissue, connective tissue, fascia, and the sacrum which was osteomyelitic. Bone debrided back to healthy edges. There was healthy granulation bed beneath. Tissue in all wounds submitted for pathology and tissue culture. The patient tolerated the procedure well. Wound Care Team arrived to place wound VAC on the wounds. The patient tolerated the procedure well. Job ID: [id number]
[2018-09-12] MEDS: Piperacillin/Tazobactam 3.375 GM in Sodium Chloride 0.9% 100 ML IVPB SCH ×4 (01:18→17:33)
[2018-09-12 02:10] LABS: Vancomycin, Trough 23.2 ug/mL
[2018-09-12] MEDS: Vancomycin HCl 1.25 GM in Sodium Chloride 0.9% 250 ML 250 ML IVPB SCH (02:21)
[2018-09-12] MEDS: Mometasone/Formoterol 120 PUFF INHALER INH SCH ×2 (06:27→19:03)
[2018-09-12] MEDS: Docusate 100 MG CAP PO SCH (09:13)
[2018-09-12] MEDS: Famotidine 20 MG TAB PO SCH ×2 (09:13→20:28)
[2018-09-12] MEDS: Aspirin 81 mg Enteric Coated Tablet PO SCH (09:13)
[2018-09-12] MEDS: Enoxaparin Sodium 40 MG/0.4 ML SYRINGE SC SCH (09:14)
[2018-09-12] MEDS: guaiFENesin ER 600 MG TAB PO SCH ×2 (09:14→20:28)
[2018-09-12] MEDS: Polyethylene Glycol 3350 17 GM Packet PO SCH (09:14)
--- NOTE | 2018-09-12 12:31 | PRG ---
DATE OF SERVICE: 09/12/2018 SUBJECTIVE: He is doing well today. He underwent debridement of bilateral heel ulcers and lateral malleolar ulcer. He is paraplegic. He underwent debridement of sacral ulcer, stage IV down the sacrum, debridement and resection of the sacrum. Tissue submitted for cultures intraoperatively. Temperature 97.8 degrees; heart rate 72; blood pressure 90/44, which is his chronic blood pressure. Hemoglobin 7.8 this morning. He did receive 1 unit of blood yesterday. The patient is doing well today. He has VAC dressings over both heels and over his lateral malleolar ulcer which extends to the tendons, right foot. The patient's insurance has denied using three wound VACs. Currently, he has a sacral wound VAC, right heel and left heel decubitus VACs. I have recommended the patient that he consider bilateral [id number] amputations as long-term prognosis for stage IV heel decubitus and ankle decubitus with exposed calcaneal tendons and deep tissue was very poor with his ongoing paraplegia and lack of use of his legs. Bilateral [id number] amputations would be a solution to this. The patient wants to talk to his family regarding this. Should the patient decide that he wants bilateral [id number] amputations instead of going with prolonged wound care that will ultimately result in the same outcome, please call, and we will schedule that for next week. I will see him as needed in this hospitalization. Dr. Martin is covering for the weekend. I will see him on Saturday with wound care. If he does desire bilateral amputations above the knee, please call and keep him n.p.o. after midnight Saturday night, and we will arrange that. Otherwise, I will talk to him on Saturday. The intraoperative cultures have been submitted from his sacral decubitus. We have submitted bone cultures. We have submitted tissue from bilateral heel decubitus debridement and right lateral malleolar ulcer debridement, and the cultures are pending. Job ID: [id number]
--- NOTE | 2018-09-12 14:12 | PDOC.PN ---
- Subjective Encounter Start Date: 09/12/18 Encounter Start Time: 14:10 Subjective: feels OK. no new complaints,no ON events. - Objective Resuscitation Status - Order Detail: 09/09/18 21:38 Resuscitation Status Routine Resuscitation Status: FULL: Full Resuscitation MAR Reviewed: Yes Vital Signs & Weight: Vital Signs (12 hours) Temp Pulse Resp BP Pulse Ox 09/12/18 08:00 97.8 F 72 18 90/44 L 96 09/12/18 06:27 66 14 94 L 09/12/18 04:21 97.4 F L 68 16 92/50 L 93 L 09/12/18 02:25 99 Weight Admit Weight 194 lb 0.108 oz Weight 194 lb 0.108 oz I&O: 09/11/18 09/12/18 09/13/18 06:59 06:59 06:59 Intake Total 2709 1076 Output Total 600 1375 Balance 2109 -299 Result Diagrams: 09/11/18 07:15 09/11/18 07:15 Additional Labs: Microbiology 09/11/18 14:35 Heel - E swab Bacterial Culture - Preliminary 09/11/18 14:33 Ulcer - Tissue Bacterial Culture - Preliminary 09/11/18 14:19 Heel - Tissue Bacterial Culture - Preliminary Phys Exam - Physical Examination Constitutional: NAD sleepy HEENT: PERRLA, moist MMs, sclera anicteric, oral pharynx no lesions Neck: no nodes, no JVD, supple, full ROM Respiratory: no wheezing, no rales, no rhonchi Cardiovascular: RRR, no significant murmur Gastrointestinal: soft, non-tender, no distention, positive bowel sounds Musculoskeletal: no edema, pulses present paraplegia Psychiatric: normal affect, A&O x 3 Skin: no rash Dx/Plan (1) Syncope Code(s): R55 - SYNCOPE AND COLLAPSE Status: Acute Comment: ? etiology.sepsis Vs cardiac (2) Infected decubitus ulcer Code(s): L89.90 - PRESSURE ULCER OF UNSPECIFIED SITE, UNSPECIFIED STAGE; L08.9 - LOCAL INFECTION OF THE SKIN AND SUBCUTANEOUS TISSUE, UNSP Status: Acute Qualifiers: Pressure injury stage: stage 4 Qualified Code(s): L89.94 - Pressure ulcer of unspecified site, stage 4; L08.9 - Local infection of the skin and subcutaneous tissue, unspecified (3) Sepsis Code(s): A41.9 - SEPSIS, UNSPECIFIED ORGANISM Status: Suspected (4) PNA (pneumonia) Code(s): J18.9 - PNEUMONIA, UNSPECIFIED ORGANISM Status: Acute (5) Pyelonephritis Code(s): N12 - TUBULO-INTERSTITIAL NEPHRITIS, NOT SPCF ACUTE OR CHRONIC Status: Suspected (6) Indwelling catheter present on admission Code(s): Z96.0 - PRESENCE OF UROGENITAL IMPLANTS Status: Chronic (7) COPD (chronic obstructive pulmonary disease) Status: Chronic Qualifiers: COPD type: unspecified COPD Qualified Code(s): J44.9 - Chronic obstructive pulmonary disease, unspecified (8) HTN (hypertension) Code(s): I10 - ESSENTIAL (PRIMARY) HYPERTENSION Status: Chronic Qualifiers: Hypertension type: essential hypertension (9) History of pulmonary embolism Code(s): Z86.711 - PERSONAL HISTORY OF PULMONARY EMBOLISM Status: Chronic Comment: diagnosed 12/17/2017 (10) Paraplegia Code(s): G82.20 - PARAPLEGIA, UNSPECIFIED Status: Chronic (11) Spinal cord tumor Code(s): D49.7 - NEOPLM OF UNSP BEHAV OF ENDO GLANDS AND OTH PRT NERVOUS SYS Status: Chronic Comment: reports he got XRT with it but has not followed up since then ,12/18 (12) H/O metastatic esophageal cancer Status: Chronic Comment: s/p Chemo and XRT - Plan renee catheter, continue antibiotics, PT/OT, DVT proph w/SCDs cont empiric ABx.Wound care & wound Vac.s/p I&D heel & sacrum -: ? B/L AKA.will discuss w daughter when she is here -: Hd stable. -: supportive care -: home meds as below. * . Review of Systems - Review of Systems Constitutional: weakness. negative: fever, chills, sweats, malaise, other Respiratory: negative: Cough, Dry, Shortness of Breath, Hemoptysis, SOB with Excertion, Pleuritic Pain, Sputum, Wheezing Cardiovascular: negative: chest pain, palpitations, orthopnea, paroxysmal nocturnal dyspnea, edema, light headedness, other Gastrointestinal: negative: Nausea, Vomiting, Abdominal Pain, Diarrhea, Constipation, Melena, Hematochezia, Other Genitourinary: negative: Dysuria, Frequency, Incontinence, Hematuria, Retention , Other - Medications/Allergies Allergies/Adverse Reactions: Allergies Allergy/AdvReac Type Severity Reaction Status Date / Time gluten AdvReac Verified 09/09/18 22:15 Medications: Current Medications Acetaminophen (Tylenol) 650 mg PA Q4H PRN PRN Reason: Headache/Fever/Mild Pain (1-3) Acetaminophen (Tylenol) 1,000 mg PO Q6H PRN PRN Reason: Moderate to Severe Pain (6-10) Aspirin (Ecotrin) 81 mg PO DAILY [facility] Last Admin: 09/12/18 09:13 Dose: 81 mg Cyclobenzaprine HCl (Flexeril) 10 mg PO Q8H PRN PRN Reason: Muscle Spasm Dapsone (Dapsone) 100 mg PO Q2D [facility] Last Admin: 09/11/18 08:09 Dose: 100 mg Dapsone (Dapsone) 50 mg PO Q2D [facility] Last Admin: 09/12/18 09:15 Dose: 50 mg Docusate Sodium (Colace) 100 mg PO DAILY [facility] Last Admin: 09/12/18 09:13 Dose: 100 mg Enoxaparin Sodium (Lovenox) 40 mg SC 0900 [facility] Last Admin: 09/12/18 09:14 Dose: 40 mg Famotidine (Pepcid) 20 mg PO BID [facility] Last Admin: 09/12/18 09:13 Dose: 20 mg Guaifenesin (Mucinex) 600 mg PO Q12HR [facility] Last Admin: 09/12/18 09:14 Dose: 600 mg Sodium Chloride (Normal Saline 0.9%) 1,000 mls @ 60 mls/hr IV .[id number] [facility] Last Admin: 09/11/18 20:53 Dose: Not Given Piperacillin Sod/Tazobactam (Sod 3.375 gm/ Sodium Chloride) 100 mls @ 200 mls/ hr IVPB Q6HR [facility] Last Admin: 09/12/18 12:01 Dose: 100 mls Vancomycin HCl 750 mg/ Sodium (Chloride) 250 mls @ 250 mls/hr IVPB 0200,1400 [facility] Ibuprofen (Motrin) 600 mg PO Q6H PRN PRN Reason: Pain Miscellaneous Medication (Pharmacy To Dose) 1 each IVPB ASDIR [facility] Mometasone Furoate/Formoterol Fumar (Dulera 200 Mcg/5 Mcg Inhaler) 2 puff INH BID-RT [facility] Last Admin: 09/12/18 06:27 Dose: 2 puff Ondansetron HCl (Zofran Odt) 4 mg PO Q6H PRN PRN Reason: Nausea/Vomiting Ondansetron HCl (Zofran) 4 mg IVP Q6H PRN PRN Reason: Nausea/Vomiting Polyethylene Glycol (Miralax) 17 gm PO DAILY [facility] Last Admin: 09/12/18 09:14 Dose: 17 gm Senna/Docusate Sodium (Senokot S) 2 tab PO BID PRN PRN Reason: Constipation Sodium Chloride (Flush - Normal Saline) 10 ml IVF Q12HR [facility] Last Admin: 09/12/18 09:16 Dose: Not Given Sodium Chloride (Flush - Normal Saline) 10 ml IVF PRN PRN PRN Reason: Saline Flush Thiamine HCl (Thiamine) 100 mg PO DAILY [facility] Last Admin: 09/12/18 09:14 Dose: 100 mg Tramadol HCl (Ultram) 50 mg PO Q6H PRN PRN Reason: Pain 1-5 Tramadol HCl (Ultram) 100 mg PO Q6H PRN PRN Reason: Pain 6-10
[2018-09-12] MEDS: Vancomycin HCl 750 MG in Sodium Chloride 0.9% 250 ML 250 ML IVPB SCH (15:12)
[2018-09-12] MEDS: Sodium Chloride 0.9% 1,000 ML IV SCH (15:20)
[2018-09-13] MEDS: Piperacillin/Tazobactam 3.375 GM in Sodium Chloride 0.9% 100 ML IVPB SCH ×4 (00:57→18:13)
[2018-09-13] MEDS: Vancomycin HCl 750 MG in Sodium Chloride 0.9% 250 ML 250 ML IVPB SCH ×2 (02:54→15:20)
[2018-09-13] MEDS: Mometasone/Formoterol 120 PUFF INHALER INH SCH ×2 (06:15→19:06)
[2018-09-13 07:07] LABS: #Basophils 0.1 thou/uL (0.0-0.2); #Eosinphils 0.4 thou/uL (0.0-0.7); #Monocytes 0.8 thou/uL (0.11-0.59); #Neutrophils 4.2 thou/uL (1.40-6.50); %Basophils 0.9 % (0.0-1.0); %Eosinophils 6.2 % (0.0-10.0); %Lymphocytes 15.4 % (21.0-51.0); %Monocytes 12.3 % (0.0-10.0); %Neutrophils 65.2 % (42.0-75.0); Hemoglobin 6.9 g/dL (14.0-18.0); Mean Corpuscular HGB CONC 31.5 g/dL (32.0-36.0); Mean Corpuscular Hemoglobin 29.6 pg (27.0-31.0); Mean Platelet Volume 5.7 fL (7.4-10.4); Platelet Count 459 thou/uL (130-400); RBC Distribution Width 17.7 % (11.5-14.5); Red Blood Cell (RBC) Count 2.31 mill/uL (4.70-6.10); White Blood Cell (WBC) Count 6.5 thou/uL (4.8-10.8)
[2018-09-13 07:11] LABS: Anion Gap 6 mmol/L (10-20); BUN (Urea Nitrogen) 5 mg/dL (8.4-25.7); Calc. Creatinine Clearance 128 mL/min (70-130); Calcium 7.4 mg/dL (7.8-10.44); Carbon Dioxide 24 mmol/L (23-31); Chloride 106 mmol/L (98-107); Estimated GFR-MDRD Greater than 90; Glucose 82 mg/dL (83-110); Potassium 3.4 mmol/L (3.5-5.1); Sodium 133 mmol/L (136-145)
[2018-09-13] MEDS: Sodium Chloride 0.9% 1,000 ML IV SCH (08:32)
[2018-09-13] MEDS: Enoxaparin Sodium 40 MG/0.4 ML SYRINGE SC SCH (08:33)
[2018-09-13] MEDS: Famotidine 20 MG TAB PO SCH ×2 (08:33→21:54)
[2018-09-13] MEDS: Docusate 100 MG CAP PO SCH (08:33)
[2018-09-13] MEDS: Polyethylene Glycol 3350 17 GM Packet PO SCH (08:33)
[2018-09-13] MEDS: Aspirin 81 mg Enteric Coated Tablet PO SCH (08:33)
[2018-09-13] MEDS: guaiFENesin ER 600 MG TAB PO SCH ×2 (08:33→21:54)
--- NOTE | 2018-09-13 13:40 | PDOC.PN ---
- Subjective Encounter Start Date: 09/13/18 Encounter Start Time: 13:38 Subjective: feels good. no new complaints -: does not want any amputation - Objective Resuscitation Status - Order Detail: 09/09/18 21:38 Resuscitation Status Routine Resuscitation Status: FULL: Full Resuscitation MAR Reviewed: Yes Vital Signs & Weight: Vital Signs (12 hours) Temp Pulse Pulse Resp BP BP Pulse Ox 09/13/18 10:54 97.8 F 89 18 105/61 97 09/13/18 10:24 97.8 F 82 18 106/57 L 97 09/13/18 08:33 96 09/13/18 08:10 98.3 F 82 16 104/59 L 96 09/13/18 06:15 67 14 94 L 09/13/18 04:42 98.0 F 84 20 102/63 94 L Weight Admit Weight 194 lb 0.108 oz Weight 194 lb 0.108 oz I&O: 09/12/18 09/13/18 09/14/18 06:59 06:59 06:59 Intake Total 1076 1435 0 Output Total 1375 625 Balance -299 810 0 Result Diagrams: 09/13/18 06:36 09/13/18 06:36 Additional Labs: Microbiology 09/11/18 14:35 Heel - E swab Bacterial Culture - Preliminary 09/11/18 14:35 Heel - E swab Bacterial Culture - Preliminary 09/11/18 14:33 Ulcer - Tissue Bacterial Culture - Preliminary 09/11/18 14:33 Ulcer - Tissue Bacterial Culture - Preliminary 09/11/18 14:19 Heel - Tissue Bacterial Culture - Preliminary 09/11/18 14:19 Heel - Tissue Staphylococcus haemolyticus 09/11/18 14:19 Heel - Tissue Bacterial Culture - Preliminary Laboratory Tests 09/10/18 09/10/18 09/11/18 09:36 09:37 07:15 Hgb 8.3 L Sodium 131 L 133 L 09/11/18 09/13/18 09/13/18 07:15 06:36 06:36 Hgb 7.8 L 6.9 L Sodium 133 L Phys Exam - Physical Examination Constitutional: NAD HEENT: PERRLA, moist MMs, sclera anicteric, oral pharynx no lesions Neck: no nodes, no JVD, supple, full ROM Respiratory: no wheezing, no rales, no rhonchi Cardiovascular: RRR, no significant murmur Gastrointestinal: soft, non-tender, no distention, positive bowel sounds Musculoskeletal: no edema, pulses present wound vac in place paraplegia Psychiatric: normal affect, A&O x 3 Skin: no rash Dx/Plan (1) Syncope Code(s): R55 - SYNCOPE AND COLLAPSE Status: Acute Comment: ? etiology.sepsis Vs cardiac (2) Infected decubitus ulcer Code(s): L89.90 - PRESSURE ULCER OF UNSPECIFIED SITE, UNSPECIFIED STAGE; L08.9 - LOCAL INFECTION OF THE SKIN AND SUBCUTANEOUS TISSUE, UNSP Status: Acute Qualifiers: Pressure injury stage: stage 4 Qualified Code(s): L89.94 - Pressure ulcer of unspecified site, stage 4; L08.9 - Local infection of the skin and subcutaneous tissue, unspecified (3) Sepsis Code(s): A41.9 - SEPSIS, UNSPECIFIED ORGANISM Status: Suspected (4) PNA (pneumonia) Code(s): J18.9 - PNEUMONIA, UNSPECIFIED ORGANISM Status: Acute (5) Pyelonephritis Code(s): N12 - TUBULO-INTERSTITIAL NEPHRITIS, NOT SPCF ACUTE OR CHRONIC Status: Suspected (6) Indwelling catheter present on admission Code(s): Z96.0 - PRESENCE OF UROGENITAL IMPLANTS Status: Chronic (7) COPD (chronic obstructive pulmonary disease) Status: Chronic Qualifiers: COPD type: unspecified COPD Qualified Code(s): J44.9 - Chronic obstructive pulmonary disease, unspecified (8) HTN (hypertension) Code(s): I10 - ESSENTIAL (PRIMARY) HYPERTENSION Status: Chronic Qualifiers: Hypertension type: essential hypertension (9) History of pulmonary embolism Code(s): Z86.711 - PERSONAL HISTORY OF PULMONARY EMBOLISM Status: Chronic Comment: diagnosed 12/17/2017 (10) Paraplegia Code(s): G82.20 - PARAPLEGIA, UNSPECIFIED Status: Chronic (11) Spinal cord tumor Code(s): D49.7 - NEOPLM OF UNSP BEHAV OF ENDO GLANDS AND OTH PRT NERVOUS SYS Status: Chronic Comment: reports he got XRT with it but has not followed up since then ,12/18 (12) H/O metastatic esophageal cancer Status: Chronic Comment: s/p Chemo and XRT - Plan continue antibiotics, PT/OT, respiratory therapy, incentive spirometry, DVT proph w/SCDs will start DC planning to SN[facility] w wound care and wound Vac -: DC Abx per ID. keyshawn will need PICC for nursing home IV ABx -: wound Cx negative so far But Urine Cx +ve Pseudomonas -: clinically stable. -: encouraged for IS .cont mucinex.Home meds as below * . Review of Systems - Review of Systems Constitutional: negative: fever, chills, sweats, weakness, malaise, other ENT: negative: Ear Pain, Ear Discharge, Nose Pain, Nose Discharge, Nose Congestion, Mouth Pain, Mouth Swelling, Throat Pain, Throat Swelling, Other Respiratory: negative: Cough, Dry, Shortness of Breath, Hemoptysis, SOB with Excertion, Pleuritic Pain, Sputum, Wheezing Cardiovascular: negative: chest pain, palpitations, orthopnea, paroxysmal nocturnal dyspnea, edema, light headedness, other Gastrointestinal: negative: Nausea, Vomiting, Abdominal Pain, Diarrhea, Constipation, Melena, Hematochezia, Other Genitourinary: negative: Dysuria, Frequency, Incontinence, Hematuria, Retention , Other - Medications/Allergies Allergies/Adverse Reactions: Allergies Allergy/AdvReac Type Severity Reaction Status Date / Time gluten AdvReac Verified 09/09/18 22:15 Medications: Current Medications Acetaminophen (Tylenol) 650 mg [place] Q4H PRN PRN Reason: Headache/Fever/Mild Pain (1-3) Acetaminophen (Tylenol) 1,000 mg PO Q6H PRN PRN Reason: Moderate to Severe Pain (6-10) Aspirin (Ecotrin) 81 mg PO DAILY [facility] Last Admin: 09/13/18 08:33 Dose: 81 mg Cyclobenzaprine HCl (Flexeril) 10 mg PO Q8H PRN PRN Reason: Muscle Spasm Dapsone (Dapsone) 100 mg PO Q2D [facility] Last Admin: 09/13/18 09:34 Dose: 100 mg Dapsone (Dapsone) 50 mg PO Q2D [facility] Last Admin: 09/12/18 09:15 Dose: 50 mg Docusate Sodium (Colace) 100 mg PO DAILY [facility] Last Admin: 09/13/18 08:33 Dose: 100 mg Enoxaparin Sodium (Lovenox) 40 mg SC 0900 [facility] Last Admin: 09/13/18 08:33 Dose: 40 mg Famotidine (Pepcid) 20 mg PO BID [facility] Last Admin: 09/13/18 08:33 Dose: 20 mg Guaifenesin (Mucinex) 600 mg PO Q12HR [facility] Last Admin: 09/13/18 08:33 Dose: 600 mg Piperacillin Sod/Tazobactam (Sod 3.375 gm/ Sodium Chloride) 100 mls @ 200 mls/ hr IVPB Q6HR [facility] Last Admin: 09/13/18 13:03 Dose: 100 mls Vancomycin HCl 750 mg/ Sodium (Chloride) 250 mls @ 250 mls/hr IVPB 0200,1400 [facility] Last Admin: 09/13/18 02:54 Dose: 250 mls Ibuprofen (Motrin) 600 mg PO Q6H PRN PRN Reason: Pain Miscellaneous Medication (Pharmacy To Dose) 1 each IVPB ASDIR [facility] Mometasone Furoate/Formoterol Fumar (Dulera 200 Mcg/5 Mcg Inhaler) 2 puff INH BID-RT [facility] Last Admin: 09/13/18 06:15 Dose: 2 puff Ondansetron HCl (Zofran Odt) 4 mg PO Q6H PRN PRN Reason: Nausea/Vomiting Ondansetron HCl (Zofran) 4 mg IVP Q6H PRN PRN Reason: Nausea/Vomiting Polyethylene Glycol (Miralax) 17 gm PO DAILY [facility] Last Admin: 09/13/18 08:33 Dose: 17 gm Senna/Docusate Sodium (Senokot S) 2 tab PO BID PRN PRN Reason: Constipation Sodium Chloride (Flush - Normal Saline) 10 ml IVF Q12HR [facility] Last Admin: 09/13/18 08:33 Dose: Not Given Sodium Chloride (Flush - Normal Saline) 10 ml IVF PRN PRN PRN Reason: Saline Flush Thiamine HCl (Thiamine) 100 mg PO DAILY [facility] Last Admin: 09/13/18 08:33 Dose: 100 mg Tramadol HCl (Ultram) 50 mg PO Q6H PRN PRN Reason: Pain 1-5 Tramadol HCl (Ultram) 100 mg PO Q6H PRN PRN Reason: Pain 6-10
[2018-09-14] MEDS: Piperacillin/Tazobactam 3.375 GM in Sodium Chloride 0.9% 100 ML IVPB SCH ×4 (00:13→17:48)
[2018-09-14 01:45] LABS: Vancomycin, Trough 18.5 ug/mL
[2018-09-14] MEDS: Vancomycin HCl 750 MG in Sodium Chloride 0.9% 250 ML 250 ML IVPB SCH (02:06)
[2018-09-14] MEDS: Mometasone/Formoterol 120 PUFF INHALER INH SCH ×2 (06:04→18:49)
[2018-09-14 07:42] LABS: Hemoglobin 7.9 g/dL (14.0-18.0)
[2018-09-14] MEDS: Famotidine 20 MG TAB PO SCH ×2 (08:14→20:09)
[2018-09-14] MEDS: Enoxaparin Sodium 40 MG/0.4 ML SYRINGE SC SCH (08:14)
[2018-09-14] MEDS: Docusate 100 MG CAP PO SCH (08:14)
[2018-09-14] MEDS: Aspirin 81 mg Enteric Coated Tablet PO SCH (08:14)
[2018-09-14] MEDS: guaiFENesin ER 600 MG TAB PO SCH ×2 (08:14→20:09)
[2018-09-14] MEDS: Polyethylene Glycol 3350 17 GM Packet PO SCH (08:15)
--- NOTE | 2018-09-14 13:11 | PDOC.PN ---
- Subjective Encounter Start Date: 09/14/18 Encounter Start Time: 13:10 Subjective: no new complaints.feels well. no pain.no fever/chills -: poor appetite as he dosen't like the food - Objective Resuscitation Status - Order Detail: 09/09/18 21:38 Resuscitation Status Routine Resuscitation Status: FULL: Full Resuscitation MAR Reviewed: Yes Vital Signs & Weight: Vital Signs (12 hours) Temp Pulse Resp BP Pulse Ox 09/14/18 11:00 98.5 F 78 16 123/67 96 09/14/18 08:14 92 L 09/14/18 07:00 96.9 F L 67 18 106/59 L 92 L 09/14/18 06:04 83 16 94 L Weight Admit Weight 194 lb 0.108 oz Weight 194 lb 0.108 oz I&O: 09/13/18 09/14/18 09/15/18 06:59 06:59 06:59 Intake Total 1435 1160 450 Output Total 625 1325 2050 Balance 810 -165 -1600 Result Diagrams: 09/14/18 07:08 09/13/18 06:36 Additional Labs: Microbiology 09/08/18 13:15 Urine clean catch Urine Culture - Final Pseudomonas aeruginosa 09/11/18 14:35 Heel - E swab Bacterial Culture - Preliminary 09/11/18 14:35 Heel - E swab Gram Positive Cocci 09/11/18 14:33 Ulcer - Tissue Bacterial Culture - Preliminary 09/11/18 14:19 Heel - Tissue Bacterial Culture - Preliminary 09/08/18 14:00 Venous blood - Left Arm Blood Culture - Preliminary NO GROWTH AT 48 HOURS Phys Exam - Physical Examination Constitutional: NAD HEENT: PERRLA, moist MMs, sclera anicteric, oral pharynx no lesions Neck: no nodes, no JVD, supple, full ROM Respiratory: no wheezing, no rales, no rhonchi, clear to auscultation bilateral Cardiovascular: RRR, no significant murmur, no rub Gastrointestinal: soft, non-tender, no distention, positive bowel sounds Musculoskeletal: pulses present, edema present b/l feet wound vac paraplegia Psychiatric: normal affect, A&O x 3 Skin: no rash Dx/Plan (1) Syncope Code(s): R55 - SYNCOPE AND COLLAPSE Status: Acute Comment: Likley due to infection given significant sacral decub w bone destruction (2) Infected decubitus ulcer Code(s): L89.90 - PRESSURE ULCER OF UNSPECIFIED SITE, UNSPECIFIED STAGE; L08.9 - LOCAL INFECTION OF THE SKIN AND SUBCUTANEOUS TISSUE, UNSP Status: Acute Qualifiers: Pressure injury stage: stage 4 Qualified Code(s): L89.94 - Pressure ulcer of unspecified site, stage 4; L08.9 - Local infection of the skin and subcutaneous tissue, unspecified (3) Sepsis Code(s): A41.9 - SEPSIS, UNSPECIFIED ORGANISM Status: Suspected (4) PNA (pneumonia) Code(s): J18.9 - PNEUMONIA, UNSPECIFIED ORGANISM Status: Acute (5) Pyelonephritis Code(s): N12 - TUBULO-INTERSTITIAL NEPHRITIS, NOT SPCF ACUTE OR CHRONIC Status: Suspected (6) Indwelling catheter present on admission Code(s): Z96.0 - PRESENCE OF UROGENITAL IMPLANTS Status: Chronic (7) COPD (chronic obstructive pulmonary disease) Status: Chronic Qualifiers: COPD type: unspecified COPD Qualified Code(s): J44.9 - Chronic obstructive pulmonary disease, unspecified (8) HTN (hypertension) Code(s): I10 - ESSENTIAL (PRIMARY) HYPERTENSION Status: Chronic Qualifiers: Hypertension type: essential hypertension Qualified Code(s): I10 - Essential (primary) hypertension (9) History of pulmonary embolism Code(s): Z86.711 - PERSONAL HISTORY OF PULMONARY EMBOLISM Status: Chronic Comment: diagnosed 12/17/2017 (10) Paraplegia Code(s): G82.20 - PARAPLEGIA, UNSPECIFIED Status: Chronic (11) Spinal cord tumor Code(s): D49.7 - NEOPLM OF UNSP BEHAV OF ENDO GLANDS AND OTH PRT NERVOUS SYS Status: Chronic Comment: reports he got XRT with it but has not followed up since then ,12/18 (12) H/O metastatic esophageal cancer Status: Chronic Comment: s/p Chemo and XRT (13) Chronic anemia Code(s): D64.9 - ANEMIA, UNSPECIFIED Status: Chronic Comment: mediport in place - Plan continue antibiotics, PT/OT, respiratory therapy, incentive spirometry, DVT proph w/SCDs discussed w pt-declines amputation -: Start DC planning to rehab.discussed w Dr Reich.Invanz daily X42 days -: wound care & wound vac set up underway -: ready to Dc once arranged .clinically better and stable -: H/h better.post transfusion 1 unit PRBC yesterday * . Review of Systems - Review of Systems Constitutional: negative: fever, chills, sweats, weakness, malaise, other ENT: negative: Ear Pain, Ear Discharge, Nose Pain, Nose Discharge, Nose Congestion, Mouth Pain, Mouth Swelling, Throat Pain, Throat Swelling, Other Respiratory: negative: Cough, Dry, Shortness of Breath, Hemoptysis, SOB with Excertion, Pleuritic Pain, Sputum, Wheezing Cardiovascular: negative: chest pain, palpitations, orthopnea, paroxysmal nocturnal dyspnea, edema, light headedness, other Gastrointestinal: negative: Nausea, Vomiting, Abdominal Pain, Diarrhea, Constipation, Melena, Hematochezia, Other Genitourinary: negative: Dysuria, Frequency, Incontinence, Hematuria, Retention , Other - Medications/Allergies Allergies/Adverse Reactions: Allergies Allergy/AdvReac Type Severity Reaction Status Date / Time gluten AdvReac Verified 09/09/18 22:15 Medications: Current Medications Acetaminophen (Tylenol) 650 mg [place] Q4H PRN PRN Reason: Headache/Fever/Mild Pain (1-3) Acetaminophen (Tylenol) 1,000 mg PO Q6H PRN PRN Reason: Moderate to Severe Pain (6-10) Aspirin (Ecotrin) 81 mg PO DAILY [facility] Last Admin: 09/14/18 08:14 Dose: 81 mg Cyclobenzaprine HCl (Flexeril) 10 mg PO Q8H PRN PRN Reason: Muscle Spasm Dapsone (Dapsone) 100 mg PO Q2D [facility] Last Admin: 09/13/18 09:34 Dose: 100 mg Dapsone (Dapsone) 50 mg PO Q2D [facility] Last Admin: 09/14/18 08:15 Dose: 50 mg Docusate Sodium (Colace) 100 mg PO DAILY [facility] Last Admin: 09/14/18 08:14 Dose: 100 mg Enoxaparin Sodium (Lovenox) 40 mg SC 0900 [facility] Last Admin: 09/14/18 08:14 Dose: 40 mg Famotidine (Pepcid) 20 mg PO BID [facility] Last Admin: 09/14/18 08:14 Dose: 20 mg Guaifenesin (Mucinex) 600 mg PO Q12HR [facility] Last Admin: 09/14/18 08:14 Dose: 600 mg Piperacillin Sod/Tazobactam (Sod 3.375 gm/ Sodium Chloride) 100 mls @ 200 mls/ hr IVPB Q6HR [facility] Last Admin: 09/14/18 11:23 Dose: 100 mls Ibuprofen (Motrin) 600 mg PO Q6H PRN PRN Reason: Pain Miscellaneous Medication (Pharmacy To Dose) 1 each IVPB ASDIR [facility] Mometasone Furoate/Formoterol Fumar (Dulera 200 Mcg/5 Mcg Inhaler) 2 puff INH BID-RT [facility] Last Admin: 09/14/18 06:04 Dose: 2 puff Ondansetron HCl (Zofran Odt) 4 mg PO Q6H PRN PRN Reason: Nausea/Vomiting Ondansetron HCl (Zofran) 4 mg IVP Q6H PRN PRN Reason: Nausea/Vomiting Polyethylene Glycol (Miralax) 17 gm PO DAILY [facility] Last Admin: 09/14/18 08:15 Dose: 17 gm Senna/Docusate Sodium (Senokot S) 2 tab PO BID PRN PRN Reason: Constipation Sodium Chloride (Flush - Normal Saline) 10 ml IVF Q12HR [facility] Last Admin: 09/14/18 08:15 Dose: 10 ml Sodium Chloride (Flush - Normal Saline) 10 ml IVF PRN PRN PRN Reason: Saline Flush Thiamine HCl (Thiamine) 100 mg PO DAILY [facility] Last Admin: 09/14/18 08:14 Dose: 100 mg Tramadol HCl (Ultram) 50 mg PO Q6H PRN PRN Reason: Pain 1-5 Tramadol HCl (Ultram) 100 mg PO Q6H PRN PRN Reason: Pain 6-10
--- NOTE | 2018-09-14 15:26 | PRG ---
DATE OF SERVICE: 09/14/2018 SUBJECTIVE: The patient denies any pain. He had debridement of the presacral area and calcaneus by Dr. Louis. No abdominal pain. No diarrhea. OBJECTIVE: VITAL SIGNS: His temperature has been normal. Other vital signs normal. GENERAL: Awake, alert, chronically ill appearing. LUNGS: Symmetric air entry. HEART: S1 and S2. Regular rate. ABDOMEN: Soft. The wound sites are covered by dressing. LABORATORY DATA: White cell count 6.5, hemoglobin 6.9, platelets 459. Creatinine 0.64. Microbiology with anaerobe yet to be identified in one of the cultures. ASSESSMENT AND DISCUSSION: Metastatic esophageal cancer, port in subclavian location, stage IV decubitus ulcer and heel ulcer status post debridement. At this point, we will recommend transition to Invanz IV to be given in the [facility] facility for about 42 days. Check labs weekly with CBC, CRP, comprehensive metabolic panel. Evidently, a medium long-term poor prognosis is poor because of metastatic malignancy and will likely eventually be transferred to hospice care. Job ID: [id number]
[2018-09-15] MEDS: Piperacillin/Tazobactam 3.375 GM in Sodium Chloride 0.9% 100 ML IVPB SCH ×5 (00:22→23:10)
[2018-09-15] MEDS: Acetaminophen 500 MG TAB PO PRN ×2 (01:46→23:09)
[2018-09-15] MEDS: Mometasone/Formoterol 120 PUFF INHALER INH SCH ×2 (06:50→18:52)
[2018-09-15] MEDS: Famotidine 20 MG TAB PO SCH ×2 (07:59→20:40)
[2018-09-15] MEDS: Docusate 100 MG CAP PO SCH (07:59)
[2018-09-15] MEDS: Polyethylene Glycol 3350 17 GM Packet PO SCH (07:59)
[2018-09-15] MEDS: Enoxaparin Sodium 40 MG/0.4 ML SYRINGE SC SCH (07:59)
[2018-09-15] MEDS: Aspirin 81 mg Enteric Coated Tablet PO SCH (07:59)
[2018-09-15] MEDS: guaiFENesin ER 600 MG TAB PO SCH ×2 (07:59→20:40)
--- NOTE | 2018-09-15 08:37 | RAD ---
FRONTAL RADIOGRPAH CHEST: ANN: 09/15/2018. COMPARISON: 09/08/2018. HISTORY: Pain with breathing, coarse breath sounds. FINDINGS: When compared to the 09/08/2018 examination, there is new dense opacity in the right hilar region with complete opacification of the inferior half of the right hemithorax. The left lung appears clear. T here is no pneumothorax. There is a Port-A-Cath inserted via a right subclavian approach stable. IMPRESSION: Interval development of dense opacity in the right perihilar region with complete opacification of th e inferior half right hemithorax suggesting a combination of volume loss, focal consolidation, and pl eural fluid. Findings may be related to mucus plugging, obstructing pneumonitis from a hilar mass, a nd/or infectious pneumonitis/aspiration. Clinical correlation is required. Short-term followup imag ing following treatment advised to document resolution. A chest CT may be beneficial to evaluate for a cause of this new opacity. CODE T POS: OFF
[2018-09-15 09:13] LABS: Fungus Stain Final report (.)
[2018-09-15 09:26] LABS: Anion Gap 6 mmol/L (10-20); BUN (Urea Nitrogen) 5 mg/dL (8.4-25.7); Calc. Creatinine Clearance 130 mL/min (70-130); Calcium 7.6 mg/dL (7.8-10.44); Carbon Dioxide 28 mmol/L (23-31); Chloride 105 mmol/L (98-107); Estimated GFR-MDRD Greater than 90; Glucose 84 mg/dL (83-110); Potassium 3.3 mmol/L (3.5-5.1); Sodium 136 mmol/L (136-145)
--- NOTE | 2018-09-15 09:55 | PRG ---
DATE OF SERVICE: 09/15/2018 SUBJECTIVE: Mr. Hernandez is doing well today. His sacral wound, heel decubitus, and ankle decubitus are healthy. There was no need for further debridement. Case Workers working on placement for wound care and antibiotics per Dr. Reich. No further debridement is necessary at this time. I will see his need of this hospitalization and he can follow up with me in the next few weeks or with wound care. He is at risk for bilateral [id number] amputations. In the future, we will see how wound care goes. Please call if further surgical attention needed. Job ID: [id number]
[2018-09-15] MEDS ORDERED: Iopamidol 370 76% 100 ML VIAL ONE (11:20)
[2018-09-15] MEDS ORDERED: Potassium Chloride 20 MEQ TAB PO SCH (13:15)
--- NOTE | 2018-09-15 15:59 | PDOC.PN ---
- Subjective Encounter Start Date: 09/15/18 Encounter Start Time: 09:40 Pt seen for followup re: infected decubitus ulcers. Says he feels better. - Objective Resuscitation Status - Order Detail: 09/09/18 21:38 Resuscitation Status Routine Resuscitation Status: FULL: Full Resuscitation MAR Reviewed: Yes Vital Signs & Weight: Vital Signs (12 hours) Temp Pulse Resp BP Pulse Ox 09/15/18 13:23 97.3 F L 73 16 119/67 95 09/15/18 07:59 95 09/15/18 07:39 97.9 F 93 18 91/48 L 95 09/15/18 06:50 90 16 91 L Weight Admit Weight 194 lb 0.108 oz Weight 194 lb 0.108 oz I&O: 09/14/18 09/15/18 09/16/18 06:59 06:59 06:59 Intake Total 1160 1780 Output Total 1325 3250 1999 [facility] -[phone] -1999 Result Diagrams: 09/16/18 06:55 09/15/18 08:35 Additional Labs: Labs reviewed by me Phys Exam - Physical Examination Constitutional: NAD HEENT: moist MMs Neck: supple Respiratory: clear to auscultation bilateral Cardiovascular: RRR Gastrointestinal: soft paraplegia Psychiatric: normal affect Dx/Plan (1) Infected decubitus ulcer Code(s): L89.90 - PRESSURE ULCER OF UNSPECIFIED SITE, UNSPECIFIED STAGE; L08.9 - LOCAL INFECTION OF THE SKIN AND SUBCUTANEOUS TISSUE, UNSP Status: Acute Qualifiers: Pressure injury stage: stage 4 Qualified Code(s): L89.94 - Pressure ulcer of unspecified site, stage 4; L08.9 - Local infection of the skin and subcutaneous tissue, unspecified Comment: continue antibiotics as below (2) PNA (pneumonia) Code(s): J18.9 - PNEUMONIA, UNSPECIFIED ORGANISM Status: Acute Comment: continue antibiotics (3) H/O metastatic esophageal cancer Status: Chronic Comment: nil acute - Plan * . Check CT chest to evaluate for abnormalities seen on today's chest x-ray. Review of Systems - Review of Systems Cardiovascular: negative: chest pain, palpitations, orthopnea, paroxysmal nocturnal dyspnea, edema, light headedness Gastrointestinal: negative: Nausea, Vomiting, Abdominal Pain, Diarrhea, Constipation, Melena, Hematochezia - Medications/Allergies Allergies/Adverse Reactions: Allergies Allergy/AdvReac Type Severity Reaction Status Date / Time gluten AdvReac Verified 09/09/18 22:15 Medications: Current Medications Acetaminophen (Tylenol) 650 mg [place] Q4H PRN PRN Reason: Headache/Fever/Mild Pain (1-3) Acetaminophen (Tylenol) 1,000 mg PO Q6H PRN PRN Reason: Moderate to Severe Pain (6-10) Last Admin: 09/15/18 01:46 Dose: 1,000 mg Aspirin (Ecotrin) 81 mg PO DAILY [facility] Last Admin: 09/15/18 07:59 Dose: 81 mg Cyclobenzaprine HCl (Flexeril) 10 mg PO Q8H PRN PRN Reason: Muscle Spasm Dapsone (Dapsone) 100 mg PO Q2D [facility] Last Admin: 09/15/18 08:00 Dose: 100 mg Dapsone (Dapsone) 50 mg PO Q2D [facility] Last Admin: 09/14/18 08:15 Dose: 50 mg Docusate Sodium (Colace) 100 mg PO DAILY [facility] Last Admin: 09/15/18 07:59 Dose: 100 mg Enoxaparin Sodium (Lovenox) 40 mg SC 0900 [facility] Last Admin: 09/15/18 07:59 Dose: 40 mg Famotidine (Pepcid) 20 mg PO BID [facility] Last Admin: 09/15/18 07:59 Dose: 20 mg Guaifenesin (Mucinex) 600 mg PO Q12HR [facility] Last Admin: 09/15/18 07:59 Dose: 600 mg Piperacillin Sod/Tazobactam (Sod 3.375 gm/ Sodium Chloride) 100 mls @ 200 mls/ hr IVPB Q6HR [facility] Last Admin: 09/15/18 11:10 Dose: 100 mls Ibuprofen (Motrin) 600 mg PO Q6H PRN PRN Reason: Pain Miscellaneous Medication (Pharmacy To Dose) 1 each IVPB ASDIR [facility] Mometasone Furoate/Formoterol Fumar (Dulera 200 Mcg/5 Mcg Inhaler) 2 puff INH BID-RT [facility] Last Admin: 09/15/18 06:50 Dose: 2 puff Ondansetron HCl (Zofran Odt) 4 mg PO Q6H PRN PRN Reason: Nausea/Vomiting Ondansetron HCl (Zofran) 4 mg IVP Q6H PRN PRN Reason: Nausea/Vomiting Polyethylene Glycol (Miralax) 17 gm PO DAILY [facility] Last Admin: 09/15/18 07:59 Dose: 17 gm Senna/Docusate Sodium (Senokot S) 2 tab PO BID PRN PRN Reason: Constipation Sodium Chloride (Flush - Normal Saline) 10 ml IVF Q12HR [facility] Last Admin: 09/15/18 08:00 Dose: 10 ml Sodium Chloride (Flush - Normal Saline) 10 ml IVF PRN PRN PRN Reason: Saline Flush Thiamine HCl (Thiamine) 100 mg PO DAILY [facility] Last Admin: 09/15/18 07:59 Dose: 100 mg Tramadol HCl (Ultram) 50 mg PO Q6H PRN PRN Reason: Pain 1-5 Tramadol HCl (Ultram) 100 mg PO Q6H PRN PRN Reason: Pain 6-10
--- NOTE | 2018-09-15 19:33 | CT ---
CT CHEST WITH IV CONTRAST: HISTORY: Chest pain. Dyspnea. COMPARISON: 12/07/2017 FINDINGS: There is complete collapse of the right lower lobe with rightward shift of the mediastinum. Fluid fi lls the right bronchi, involving all the right lower lobe bronchus and much of the right upper lobe b ronchus. No evidence of pulmonary embolus. Minimal left pleural fluid. Chronic old cystic changes of the left lung. Nonenlarged lymph nodes throughout the mediastinum. In the anterior segment, right liver lobe, a 0.9 cm, low density lesion is now present. It appeared to be more cystic on the prior study, although it is not fluid density reliably on today's study. IMPRESSION: 1. Right lower lobe collapse with extensive fluid in the right bronchi. Please consider pulmonary e valuation and potential bronchoscopy. 2. Low density lesion within the anterior segment right liver lobe. At times in the past, it has cabezas d the appearance more of a cyst, although it could represent a solid lesion, based on imaging charact eristics currently. Please consider short-term follow-up CT abdomen, employing a liver protocol, for better evaluation. 3. Small amount of right pleural fluid. POS: BST
[2018-09-16] MEDS: Piperacillin/Tazobactam 3.375 GM in Sodium Chloride 0.9% 100 ML IVPB SCH ×4 (05:01→23:35)
[2018-09-16 07:39] LABS: Hemoglobin 8.6 g/dL (14.0-18.0)
[2018-09-16] MEDS: Mometasone/Formoterol 120 PUFF INHALER INH SCH ×2 (08:41→19:19)
[2018-09-16] MEDS: Famotidine 20 MG TAB PO SCH ×2 (08:49→19:58)
[2018-09-16] MEDS: Docusate 100 MG CAP PO SCH (08:49)
[2018-09-16] MEDS: Polyethylene Glycol 3350 17 GM Packet PO SCH (08:50)
[2018-09-16] MEDS: Aspirin 81 mg Enteric Coated Tablet PO SCH (08:50)
[2018-09-16] MEDS: guaiFENesin ER 600 MG TAB PO SCH ×2 (08:50→19:58)
[2018-09-16] MEDS: Enoxaparin Sodium 40 MG/0.4 ML SYRINGE SC SCH (08:50)
[2018-09-16 09:21] LABS: Fungus Stain Final report (.)
[2018-09-16 09:21] LABS: Fungus Stain Final report (.)
--- NOTE | 2018-09-16 13:04 | PDOC.PN ---
- Subjective Encounter Start Date: 09/16/18 Encounter Start Time: 09:00 Pt seen for followup re: lung lobe collapse. Reports upper back pain. No cough , fevers or chills. - Objective Resuscitation Status - Order Detail: 09/09/18 21:38 Resuscitation Status Routine Resuscitation Status: FULL: Full Resuscitation MAR Reviewed: Yes Vital Signs & Weight: Vital Signs (12 hours) Temp Pulse Resp BP Pulse Ox 09/16/18 12:15 97.9 F 79 18 93/54 L 97 09/16/18 08:43 97 09/16/18 08:41 74 16 97 09/16/18 08:00 97 09/16/18 07:42 97.9 F 64 18 142/57 H 97 09/16/18 04:00 97.3 F L 68 16 116/59 L 96 Weight Admit Weight 194 lb 0.108 oz Weight 194 lb 0.108 oz I&O: 09/15/18 09/16/18 09/17/18 06:59 06:59 06:59 Intake Total 1780 1025 Output Total 3250 5050 Balance -1470 -4025 Result Diagrams: 09/16/18 06:55 09/15/18 08:35 Additional Labs: labs reviewed by me Phys Exam - Physical Examination Constitutional: NAD HEENT: moist MMs Neck: supple decreased air entry R base Cardiovascular: RRR Gastrointestinal: soft Neurological: moves all 4 limbs Psychiatric: normal affect Dx/Plan (1) Collapse of right lung Code(s): J98.11 - ATELECTASIS Status: Acute Comment: etiology unclear. Consult pulmonology. (2) Infected decubitus ulcer Code(s): L89.90 - PRESSURE ULCER OF UNSPECIFIED SITE, UNSPECIFIED STAGE; L08.9 - LOCAL INFECTION OF THE SKIN AND SUBCUTANEOUS TISSUE, UNSP Status: Acute Qualifiers: Pressure injury stage: stage 4 Qualified Code(s): L89.94 - Pressure ulcer of unspecified site, stage 4; L08.9 - Local infection of the skin and subcutaneous tissue, unspecified Comment: continue Zosyn (3) PNA (pneumonia) Code(s): J18.9 - PNEUMONIA, UNSPECIFIED ORGANISM Status: Acute Comment: continue Zosyn (4) H/O metastatic esophageal cancer Status: Chronic Comment: nil acute - Plan * . Review of Systems - Medications/Allergies Allergies/Adverse Reactions: Allergies Allergy/AdvReac Type Severity Reaction Status Date / Time gluten AdvReac Verified 09/09/18 22:15 Medications: Current Medications Acetaminophen (Tylenol) 650 mg IN Q4H PRN PRN Reason: Headache/Fever/Mild Pain (1-3) Acetaminophen (Tylenol) 1,000 mg PO Q6H PRN PRN Reason: Moderate to Severe Pain (6-10) Last Admin: 09/15/18 23:09 Dose: 1,000 mg Albuterol/Ipratropium (Duoneb) 3 ml EZPAP [id number] [facility] Aspirin (Ecotrin) 81 mg PO DAILY [facility] Last Admin: 09/16/18 08:50 Dose: 81 mg Cyclobenzaprine HCl (Flexeril) 10 mg PO Q8H PRN PRN Reason: Muscle Spasm Dapsone (Dapsone) 100 mg PO Q2D [facility] Last Admin: 09/15/18 08:00 Dose: 100 mg Dapsone (Dapsone) 50 mg PO Q2D [facility] Last Admin: 09/16/18 08:50 Dose: 50 mg Docusate Sodium (Colace) 100 mg PO DAILY [facility] Last Admin: 09/16/18 08:49 Dose: 100 mg Enoxaparin Sodium (Lovenox) 40 mg SC 0900 [facility] Last Admin: 09/16/18 08:50 Dose: 40 mg Famotidine (Pepcid) 20 mg PO BID [facility] Last Admin: 09/16/18 08:49 Dose: 20 mg Guaifenesin (Mucinex) 600 mg PO Q12HR [facility] Last Admin: 09/16/18 08:50 Dose: 600 mg Piperacillin Sod/Tazobactam (Sod 3.375 gm/ Sodium Chloride) 100 mls @ 200 mls/ hr IVPB Q6HR [facility] Last Admin: 09/16/18 11:18 Dose: 100 mls Ibuprofen (Motrin) 600 mg PO Q6H PRN PRN Reason: Pain Miscellaneous Medication (Pharmacy To Dose) 1 each IVPB ASDIR [facility] Mometasone Furoate/Formoterol Fumar (Dulera 200 Mcg/5 Mcg Inhaler) 2 puff INH BID-RT [facility] Last Admin: 09/16/18 08:41 Dose: 2 puff Ondansetron HCl (Zofran Odt) 4 mg PO Q6H PRN PRN Reason: Nausea/Vomiting Ondansetron HCl (Zofran) 4 mg IVP Q6H PRN PRN Reason: Nausea/Vomiting Polyethylene Glycol (Miralax) 17 gm PO DAILY [facility] Last Admin: 09/16/18 08:50 Dose: 17 gm Senna/Docusate Sodium (Senokot S) 2 tab PO BID PRN PRN Reason: Constipation Sodium Chloride (Flush - Normal Saline) 10 ml IVF Q12HR [facility] Last Admin: 09/16/18 08:51 Dose: 10 ml Sodium Chloride (Flush - Normal Saline) 10 ml IVF PRN PRN PRN Reason: Saline Flush Thiamine HCl (Thiamine) 100 mg PO DAILY [facility] Last Admin: 09/16/18 08:50 Dose: 100 mg Tramadol HCl (Ultram) 50 mg PO Q6H PRN PRN Reason: Pain 1-5 Tramadol HCl (Ultram) 100 mg PO Q6H PRN PRN Reason: Pain 6-10
--- NOTE | 2018-09-16 18:08 | CON ---
DATE OF CONSULTATION: 09/16/2018 CONSULTING PHYSICIAN: Dr. Hall. REASON FOR CONSULTATION: Right lower lobe atelectasis. HISTORY OF PRESENT ILLNESS: Mr. Hernandez is a 73-year-old male with known metastatic esophageal cancer. 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 It looks like he is at the level of T1. He is currently in the hospital for decubitus ulcer care. He is chronically short of breath. For reasons that are not clear to me, he had a chest x-ray ordered, which showed a new right lower lobe collapse. This is confirmed by CT scan. CT scan shows endobronchial tumor versus mucous plugging from about the bronchus intermedius downward. The patient says he is mildly short of breath. He is not requiring any type of oxygen therapy. PAST MEDICAL HISTORY: 1. Chronic obstructive pulmonary disease. 2. Esophageal cancer. 3. Pulmonary embolism. 4. Hypertension. PAST SURGICAL HISTORY: 1. Decubitus ulcer treatment. 2. Indwelling Mena placement. SOCIAL HISTORY: Former smoker. Lives with his two daughters. FAMILY MEDICAL HISTORY: Unremarkable. ALLERGIES: NONE. CURRENT INPATIENT MEDICATIONS: 1. Aspirin. 2. Docusate. 3. Flexeril. 4. Symbicort. 5. Thiamine. 6. Dapsone. 7. Zosyn. 8. Lovenox. REVIEW OF SYSTEMS: Otherwise negative. PHYSICAL EXAMINATION: VITAL SIGNS: Temperature 97.9, pulse 74, respirations 16, O2 saturation 97% on 3 L, and blood pressure 142/57. GENERAL: He appears chronically ill, but in no distress. HEENT: Pupils react. Sclerae icteric. Oropharynx clear. NECK: NO JVD. LUNGS: Diminished breath sounds in the right base. CARDIAC: Heart sounds are shifted towards the right, S1 and S2 regular. ABDOMEN: Soft, nontender. EXTREMITIES: Multiple decubitus ulcers present over his lower legs, also over his left hip and sacrum. LABORATORY DATA: White blood cell count 6.5, hematocrit 28.0, platelet count 259. Sodium 136, potassium 3.3, chloride 105, CO2 of 28, BUN 5, creatinine 0.6, glucose 84. I reviewed the CT scan in detail. I agree with the radiologist's report. ASSESSMENT: 1. Right lower lobe atelectasis either from tumor or mucous plugging. 2. Metastatic esophageal cancer. DISCUSSION: The findings could be either due to mucous plugging or cancer metastasis. Clearly with his paraplegia, he would be at risk for mucous plugging, but his esophageal cancer would also put him at risk for endobronchial tumor. RECOMMENDATIONS: I have recommended bronchoscopy, but the patient did not seem keen on proceeding with at this time. I will try treating with chest percussion and EzPAP and see if that will improve things and we will readdress this tomorrow. Job ID: [id number]
[2018-09-17] MEDS: Piperacillin/Tazobactam 3.375 GM in Sodium Chloride 0.9% 100 ML IVPB SCH ×4 (05:42→23:56)
[2018-09-17] MEDS: Mometasone/Formoterol 120 PUFF INHALER INH SCH ×2 (06:19→19:31)
--- NOTE | 2018-09-17 07:58 | RAD ---
FRONTAL VIEW CHEST: COMPARISON: 09/15/2018. INDICATION: Mucus plug. FINDINGS: There is abnormal density of the mid to inferior right hemithorax which persists, with interval decre ase of pleural fluid. The left lung is grossly clear. There is prominence of the cardiomediastinal silhouette. The right chest port remains. IMPRESSION: Interval decrease in volume of right pleural fluid with persistent density of the mid inferior right hemithorax. Continued followup to resolution is recommended. POS: [facility]
[2018-09-17] MEDS: Famotidine 20 MG TAB PO SCH ×2 (08:30→20:11)
[2018-09-17] MEDS: Enoxaparin Sodium 40 MG/0.4 ML SYRINGE SC SCH (08:30)
[2018-09-17] MEDS: guaiFENesin ER 600 MG TAB PO SCH ×2 (08:30→20:11)
[2018-09-17] MEDS: Docusate 100 MG CAP PO SCH (08:30)
[2018-09-17] MEDS: Aspirin 81 mg Enteric Coated Tablet PO SCH (08:30)
[2018-09-17] MEDS: Polyethylene Glycol 3350 17 GM Packet PO SCH (08:30)
--- NOTE | 2018-09-17 10:00 | PRG ---
DATE OF SERVICE: 09/17/2018 SUBJECTIVE: He feels better. He coughed up a big mucus plug yesterday. OBJECTIVE: VITAL SIGNS: Temperature 97.6, pulse 107, respirations 20, O2 saturation 95%, and blood pressure 95/54. HEENT: Unremarkable. NECK: No JVD. LUNGS: Better air entry on the right. Left side clear. CARDIAC: S1 and S2, regular. ABDOMEN: Soft. EXTREMITIES: No edema. DIAGNOSTIC DATA: X-ray shows better aeration in the right chest. ASSESSMENT: The endobronchial finding appears to have been a mucus plug. PLAN: We will continue EzPAP and chest percussion for another day or so. His chest x-ray will be repeated tomorrow. Job ID: [id number]
--- NOTE | 2018-09-17 15:47 | PDOC.PN ---
- Subjective Encounter Start Date: 09/17/18 Encounter Start Time: 10:00 Pt seen for followup re: atelectasis. Reports he feels better. - Objective Resuscitation Status - Order Detail: 09/09/18 21:38 Resuscitation Status Routine Resuscitation Status: FULL: Full Resuscitation MAR Reviewed: Yes Vital Signs & Weight: Vital Signs (12 hours) Temp Pulse Resp BP Pulse Ox 09/17/18 14:27 95 97 09/17/18 12:00 97.6 F 95 16 96/58 L 97 09/17/18 10:32 107 H 18 95 09/17/18 08:10 97.6 F 107 H 20 95/54 L 95 09/17/18 08:00 95 09/17/18 06:20 103 H 18 95 09/17/18 06:19 103 H 18 95 09/17/18 04:00 97.9 F 74 16 108/61 96 Weight Admit Weight 194 lb 0.108 oz Weight 194 lb 0.108 oz I&O: 09/16/18 09/17/18 09/18/18 06:59 06:59 06:59 Intake Total 1025 2220 Output Total 5050 1600 Balance -4025 620 Result Diagrams: 09/16/18 06:55 09/15/18 08:35 Additional Labs: Labs reviewed by me Phys Exam - Physical Examination Constitutional: NAD HEENT: moist MMs Neck: supple Decreased air entry R base Cardiovascular: RRR Gastrointestinal: soft paraplegia Psychiatric: normal affect, A&O x 3 Dx/Plan (1) Collapse of right lung Code(s): J98.11 - ATELECTASIS Status: Acute Comment: Improved with EzPAP and chest percussion. Pt coughed up mucous plug. (2) Infected decubitus ulcer Code(s): L89.90 - PRESSURE ULCER OF UNSPECIFIED SITE, UNSPECIFIED STAGE; L08.9 - LOCAL INFECTION OF THE SKIN AND SUBCUTANEOUS TISSUE, UNSP Status: Acute Qualifiers: Pressure injury stage: stage 4 Qualified Code(s): L89.94 - Pressure ulcer of unspecified site, stage 4; L08.9 - Local infection of the skin and subcutaneous tissue, unspecified Comment: on Zosyn (3) PNA (pneumonia) Code(s): J18.9 - PNEUMONIA, UNSPECIFIED ORGANISM Status: Acute Comment: on Zosyn (4) H/O metastatic esophageal cancer Status: Chronic Comment: nil acute - Plan * . Review of Systems - Review of Systems Respiratory: negative: Cough, Shortness of Breath, SOB with Excertion, Pleuritic Pain, Wheezing Cardiovascular: negative: chest pain, palpitations, orthopnea, paroxysmal nocturnal dyspnea, edema, light headedness - Medications/Allergies Allergies/Adverse Reactions: Allergies Allergy/AdvReac Type Severity Reaction Status Date / Time gluten AdvReac Verified 09/09/18 22:15 Medications: Current Medications Acetaminophen (Tylenol) 650 mg [place] Q4H PRN PRN Reason: Headache/Fever/Mild Pain (1-3) Acetaminophen (Tylenol) 1,000 mg PO Q6H PRN PRN Reason: Moderate to Severe Pain (6-10) Last Admin: 09/15/18 23:09 Dose: 1,000 mg Albuterol/Ipratropium (Duoneb) 3 ml EZPAP [id number] [facility] Last Admin: 09/17/18 14:27 Dose: 3 ml Aspirin (Ecotrin) 81 mg PO DAILY [facility] Last Admin: 09/17/18 08:30 Dose: 81 mg Cyclobenzaprine HCl (Flexeril) 10 mg PO Q8H PRN PRN Reason: Muscle Spasm Dapsone (Dapsone) 100 mg PO Q2D [facility] Last Admin: 09/17/18 08:30 Dose: 100 mg Dapsone (Dapsone) 50 mg PO Q2D [facility] Last Admin: 09/16/18 08:50 Dose: 50 mg Docusate Sodium (Colace) 100 mg PO DAILY [facility] Last Admin: 09/17/18 08:30 Dose: 100 mg Enoxaparin Sodium (Lovenox) 40 mg SC 0900 [facility] Last Admin: 09/17/18 08:30 Dose: 40 mg Famotidine (Pepcid) 20 mg PO BID [facility] Last Admin: 09/17/18 08:30 Dose: 20 mg Guaifenesin (Mucinex) 600 mg PO Q12HR [facility] Last Admin: 09/17/18 08:30 Dose: 600 mg Piperacillin Sod/Tazobactam (Sod 3.375 gm/ Sodium Chloride) 100 mls @ 200 mls/ hr IVPB Q6HR [facility] Last Admin: 09/17/18 13:36 Dose: 100 mls Ibuprofen (Motrin) 600 mg PO Q6H PRN PRN Reason: Pain Miscellaneous Medication (Pharmacy To Dose) 1 each IVPB ASDIR [facility] Mometasone Furoate/Formoterol Fumar (Dulera 200 Mcg/5 Mcg Inhaler) 2 puff INH BID-RT [facility] Last Admin: 09/17/18 06:19 Dose: 2 puff Ondansetron HCl (Zofran Odt) 4 mg PO Q6H PRN PRN Reason: Nausea/Vomiting Ondansetron HCl (Zofran) 4 mg IVP Q6H PRN PRN Reason: Nausea/Vomiting Polyethylene Glycol (Miralax) 17 gm PO DAILY [facility] Last Admin: 09/17/18 08:30 Dose: 17 gm Senna/Docusate Sodium (Senokot S) 2 tab PO BID PRN PRN Reason: Constipation Sodium Chloride (Flush - Normal Saline) 10 ml IVF Q12HR [facility] Last Admin: 09/17/18 13:36 Dose: 10 ml Sodium Chloride (Flush - Normal Saline) 10 ml IVF PRN PRN PRN Reason: Saline Flush Thiamine HCl (Thiamine) 100 mg PO DAILY [facility] Last Admin: 09/17/18 08:30 Dose: 100 mg Tramadol HCl (Ultram) 50 mg PO Q6H PRN PRN Reason: Pain 1-5 Tramadol HCl (Ultram) 100 mg PO Q6H PRN PRN Reason: Pain 6-10
[2018-09-17] MEDS: Acetaminophen 500 MG TAB PO PRN (23:56)
[2018-09-18] MEDS: Piperacillin/Tazobactam 3.375 GM in Sodium Chloride 0.9% 100 ML IVPB SCH ×4 (05:28→23:49)
[2018-09-18 06:22] LABS: Hemoglobin 8.7 g/dL (14.0-18.0)
[2018-09-18] MEDS: Mometasone/Formoterol 120 PUFF INHALER INH SCH ×2 (07:45→19:28)
--- NOTE | 2018-09-18 09:21 | RAD ---
AP VIEW CHEST: HISTORY: Mucus plug. FINDINGS: AP view chest is obtained on 09/18/2018. Comparison is made to previous exam from 09/17/2018. AP view chest demonstrates a right subclavian MediPort catheter in place. There is volume loss seen in the right hemithorax. There is ectasia of the aorta. The patient has a fairly wide mediastinum. Some of this is due to the volume loss and rotation of the mediastinum. As seen on patient's recent CT, the patient has a collapsed right lower lobe. IMPRESSION: Stable AP view of the chest not significantly changed since the previous exam from 1 day earlier. POS: [facility]
[2018-09-18] MEDS: Polyethylene Glycol 3350 17 GM Packet PO SCH (09:35)
[2018-09-18] MEDS: Aspirin 81 mg Enteric Coated Tablet PO SCH (09:35)
[2018-09-18] MEDS: guaiFENesin ER 600 MG TAB PO SCH ×2 (09:35→20:12)
[2018-09-18] MEDS: Famotidine 20 MG TAB PO SCH ×2 (09:35→20:11)
[2018-09-18] MEDS: Docusate 100 MG CAP PO SCH (09:35)
[2018-09-18] MEDS: Enoxaparin Sodium 40 MG/0.4 ML SYRINGE SC SCH (09:35)
--- NOTE | 2018-09-18 10:04 | PRG ---
DATE OF SERVICE: 09/18/2018 SUBJECTIVE: He feels okay. He has no acute complaints. He is still coughing up secretions. PHYSICAL EXAMINATION: VITAL SIGNS: Temperature 97.8, pulse 85, respirations 18, O2 saturation 93% on 3 L, and blood pressure 115/71. HEENT: Unremarkable. NECK: Without adenopathy or JVD. LUNGS: Fairly clear bilaterally. CARDIAC: S1, S2. Regular. ABDOMEN: Soft. EXTREMITIES: Multiple wounds over the legs. ASSESSMENT: The patient had right lower lobe atelectasis probably caused by mucus plugging. He has had improvement on serial x-rays including the one today. RECOMMENDATIONS: Continue the EzPAP and Nebs. He is probably ready for transfer to swing bed. The patient will need a followup x-ray in about 3 to 4 weeks. Job ID: [id number]
--- NOTE | 2018-09-18 17:06 | PDOC.PN ---
- Subjective Encounter Start Date: 09/18/18 Encounter Start Time: 09:20 Pt seen for followup re: atelectasis. Feels better. - Objective Resuscitation Status - Order Detail: 09/09/18 21:38 Resuscitation Status Routine Resuscitation Status: FULL: Full Resuscitation Vital Signs & Weight: Vital Signs (12 hours) Temp Pulse Resp BP Pulse Ox 09/18/18 15:02 85 16 95 09/18/18 11:43 97.7 F 94 18 120/68 92 L 09/18/18 10:56 94 16 95 09/18/18 09:46 94 L 09/18/18 07:42 85 18 93 L 09/18/18 07:00 97.8 F 87 18 115/71 94 L Weight Admit Weight 194 lb 0.108 oz Weight 194 lb 0.108 oz I&O: 09/17/18 09/18/18 09/19/18 06:59 06:59 06:59 Intake Total 2220 1860 1150 Output Total 1380 748 9507 Balance 620 1010 -1950 Result Diagrams: 09/18/18 05:22 09/15/18 08:35 Phys Exam - Physical Examination Constitutional: NAD HEENT: moist MMs Neck: supple Respiratory: clear to auscultation bilateral Cardiovascular: RRR Gastrointestinal: soft Neurological: moves all 4 limbs Psychiatric: normal affect Dx/Plan (1) Collapse of right lung Code(s): J98.11 - ATELECTASIS Status: Acute Comment: Improved with EzPAP and chest percussion. (2) Infected decubitus ulcer Code(s): L89.90 - PRESSURE ULCER OF UNSPECIFIED SITE, UNSPECIFIED STAGE; L08.9 - LOCAL INFECTION OF THE SKIN AND SUBCUTANEOUS TISSUE, UNSP Status: Acute Qualifiers: Pressure injury stage: stage 4 Qualified Code(s): L89.94 - Pressure ulcer of unspecified site, stage 4; L08.9 - Local infection of the skin and subcutaneous tissue, unspecified Comment: on Zosyn, switch to Invanz at the time of discharge (3) PNA (pneumonia) Code(s): J18.9 - PNEUMONIA, UNSPECIFIED ORGANISM Status: Acute Comment: on Zosyn (4) H/O metastatic esophageal cancer Status: Chronic Comment: nil acute - Plan * . Review of Systems - Review of Systems Cardiovascular: negative: chest pain, palpitations, orthopnea, paroxysmal nocturnal dyspnea, edema, light headedness Gastrointestinal: negative: Nausea, Vomiting, Abdominal Pain, Diarrhea, Constipation, Melena, Hematochezia - Medications/Allergies Allergies/Adverse Reactions: Allergies Allergy/AdvReac Type Severity Reaction Status Date / Time gluten AdvReac Verified 09/09/18 22:15 Medications: Current Medications Acetaminophen (Tylenol) 650 mg [place] Q4H PRN PRN Reason: Headache/Fever/Mild Pain (1-3) Acetaminophen (Tylenol) 1,000 mg PO Q6H PRN PRN Reason: Moderate to Severe Pain (6-10) Last Admin: 09/17/18 23:56 Dose: 1,000 mg Albuterol/Ipratropium (Duoneb) 3 ml EZPAP [id number] [facility] Last Admin: 09/18/18 15:02 Dose: 3 ml Aspirin (Ecotrin) 81 mg PO DAILY [facility] Last Admin: 09/18/18 09:35 Dose: 81 mg Cyclobenzaprine HCl (Flexeril) 10 mg PO Q8H PRN PRN Reason: Muscle Spasm Dapsone (Dapsone) 100 mg PO Q2D [facility] Last Admin: 09/17/18 08:30 Dose: 100 mg Dapsone (Dapsone) 50 mg PO Q2D [facility] Last Admin: 09/18/18 09:43 Dose: 50 mg Docusate Sodium (Colace) 100 mg PO DAILY [facility] Last Admin: 09/18/18 09:35 Dose: 100 mg Enoxaparin Sodium (Lovenox) 40 mg SC 0900 [facility] Last Admin: 09/18/18 09:35 Dose: 40 mg Famotidine (Pepcid) 20 mg PO BID [facility] Last Admin: 09/18/18 09:35 Dose: 20 mg Guaifenesin (Mucinex) 600 mg PO Q12HR [facility] Last Admin: 09/18/18 09:35 Dose: 600 mg Piperacillin Sod/Tazobactam (Sod 3.375 gm/ Sodium Chloride) 100 mls @ 200 mls/ hr IVPB Q6HR [facility] Last Admin: 09/18/18 17:00 Dose: 100 mls Ibuprofen (Motrin) 600 mg PO Q6H PRN PRN Reason: Pain Miscellaneous Medication (Pharmacy To Dose) 1 each IVPB ASDIR [facility] Mometasone Furoate/Formoterol Fumar (Dulera 200 Mcg/5 Mcg Inhaler) 2 puff INH BID-RT [facility] Last Admin: 09/18/18 07:45 Dose: 2 puff Ondansetron HCl (Zofran Odt) 4 mg PO Q6H PRN PRN Reason: Nausea/Vomiting Ondansetron HCl (Zofran) 4 mg IVP Q6H PRN PRN Reason: Nausea/Vomiting Polyethylene Glycol (Miralax) 17 gm PO DAILY [facility] Last Admin: 09/18/18 09:35 Dose: 17 gm Senna/Docusate Sodium (Senokot S) 2 tab PO BID PRN PRN Reason: Constipation Sodium Chloride (Flush - Normal Saline) 10 ml IVF Q12HR [facility] Last Admin: 09/18/18 09:38 Dose: 10 ml Sodium Chloride (Flush - Normal Saline) 10 ml IVF PRN PRN PRN Reason: Saline Flush Last Admin: 09/18/18 17:04 Dose: 10 ml Thiamine HCl (Thiamine) 100 mg PO DAILY [facility] Last Admin: 09/18/18 09:35 Dose: 100 mg Tramadol HCl (Ultram) 50 mg PO Q6H PRN PRN Reason: Pain 1-5 Tramadol HCl (Ultram) 100 mg PO Q6H PRN PRN Reason: Pain 6-10 Last Admin: 09/18/18 09:35 Dose: 100 mg
[2018-09-18] MEDS: Acetaminophen 500 MG TAB PO PRN (20:11)
[2018-09-19] MEDS: Piperacillin/Tazobactam 3.375 GM in Sodium Chloride 0.9% 100 ML IVPB SCH ×2 (05:33→11:54)
[2018-09-19] MEDS: Mometasone/Formoterol 120 PUFF INHALER INH SCH (07:21)
--- NOTE | 2018-09-19 09:26 | PRG ---
DATE OF SERVICE: 09/19/2018 SUBJECTIVE: The patient is doing well, has no complaints. OBJECTIVE: VITAL SIGNS: Temperature 97.6, pulse 94, respirations 20, O2 saturation 98% on room air. HEENT: Unremarkable. NECK: No JVD. LUNGS: Coarse rhonchi bilaterally. CARDIAC: S1 and S2, regular. ABDOMEN: Soft. EXTREMITIES: No edema. ASSESSMENT: Mucus plugging in the right lung. PLAN: Continue pulmonary toilet measures with nebs, chest percussion, hopefully to rehab soon. Job ID: [id number]
[2018-09-19] MEDS: Polyethylene Glycol 3350 17 GM Packet PO SCH (09:41)
[2018-09-19] MEDS: Aspirin 81 mg Enteric Coated Tablet PO SCH (09:41)
[2018-09-19] MEDS: Enoxaparin Sodium 40 MG/0.4 ML SYRINGE SC SCH (09:42)
[2018-09-19] MEDS: Famotidine 20 MG TAB PO SCH (09:42)
[2018-09-19] MEDS: Docusate 100 MG CAP PO SCH (09:42)
[2018-09-19] MEDS: guaiFENesin ER 600 MG TAB PO SCH (09:42)
[2018-09-19 16:24] VITALS: BP 111/68; TEMP 97.9
--- NOTE | 2018-09-20 06:25 | DIS ---
DATE OF ADMISSION: 09/09/2018 DATE OF DISCHARGE: 09/19/2018 PRIMARY CARE PHYSICIAN: Dr. Jimmie William. DISCHARGE DISPOSITION: [facility]. DISCHARGE DIAGNOSES: 1. Sepsis. 2. Right lung collapse due to mucus plugging. 3. Infected decubitus ulcer, status post I and D. 4. Suspected pneumonia aspiration versus community acquired. 5. History of metastatic esophageal cancer. 6. History of spinal tumor. 7. 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 8. Bilateral heel decubitus ulcer, status post I and D. SECONDARY DISCHARGE DIAGNOSES: 1. Chronic obstructive pulmonary disease. 2. Hypertension. 3. Microcytic chronic anemia. 4. Recurrent urinary tract infection. IN-HOUSE CONSULTATIONS: 1. Infectious Disease, Dr. Reich. 2. General Surgery, Dr. Louis. 3. Pulmonary Medicine, Dr. Reyes. PROCEDURES DONE IN THE HOSPITAL: 1. Abdomen and pelvis CT scan on 09/10/2018, which showed right basilar consolidation reflecting pneumonia versus aspiration pneumonitis as well as suspicion of right-sided pyelonephritis and sacral decubitus ulcer with fragmentation of the distal sacrum and coccyx. 2. Incision and debridement on 09/11/2018, of sacrum and bilateral heel decubitus ulcers by Dr. Louis. 3. CT scan of the chest on 09/15/2018, which showed right lower lobe collapse with extensive fluid in the right bronchi and a low-density lesion within the anterior segment of the right liver lobe. 4. Multiple chest x-rays, which confirmed the findings of right lung collapse. DISCHARGE MEDICATIONS: 1. Invanz 1 g daily for 42 days. 2. DuoNebs p.r.n. 3. Pepcid 20 mg p.o. b.i.d. 4. Tylenol p.r.n. 5. Docusate p.r.n. 6. Dapsone 50 mg every 2 days and 100 mg every 2 days as per the home dosage. 7. Thiamine 100 mg daily. 8. Symbicort 2 puffs b.i.d. 80/4.5. 9. Flexeril p.r.n. 10. Aspirin 81 mg daily. HISTORY OF PRESENTING ILLNESS: Mr. 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 He presented to the hospital with complaints of passing out. He came to our hospital as a transfer from [facility]. There was concern for possible sepsis. He was found to have extensive decubitus ulcer in the sacrum as well as heel area. He was started on empiric IV antibiotics, IV fluids, and was admitted for further evaluation. General surgery was consulted. Please see admission history and physical for further details. HOSPITAL COURSE: The patient was seen by Dr. Louis and underwent I and D of his sacral and heel decubitus with wound VAC application. ID was consulted and Dr. Reich saw the patient. He also underwent a CT scan of the abdomen and pelvis as workup of the sepsis, which was concerning for possible pyelonephritis as well as pneumonia. The patient does have an indwelling Mena catheter because of his history of paraplegia. He was treated with empiric broad-spectrum IV antibiotics while in the hospital and it was changed to Invanz as per ID recommendations for discharge. His heel and sacral cultures had multiple anaerobes, mainly gram-negative and Corynebacterium in one of the samples. His blood cultures were negative, and his urine culture on 09/08/2018, showed Pseudomonas. His hospital course was complicated by mucus plugging and right lung collapse. Dr. Reyes from Pulmonary team was consulted. He ordered chest physiotherapy, EzPAP, and offered bronchoscopy, which the patient declined. He was treated conservatively with aggressive pulmonary toilet and incentive spirometry, and as of this morning, he has been cleared for discharge by Pulmonary Medicine as well. The patient is feeling much better and has been accepted for [facility]. I have discussed the need to follow up with Urology for possible suprapubic catheter placement in the near future and will be referring him to outpatient Urology eval as well. He will continue to follow up with the Oncology Clinic with regard to his history of esophageal cancer that was metastatic to spinal cord. At this time, he is hemodynamically stable and will be discharged to the next level of care. He was seen and examined prior to discharge. PHYSICAL EXAMINATION: This morning, VITAL SIGNS: Temperature 97.3, pulse of 90, respirations 20, saturating 92% on nasal cannula, blood pressure 101/63. GENERAL: No acute distress. Awake, alert, and oriented x3. CHEST: Clear to auscultation with decreased breath sounds at bases without any specific wheezing. He does have coarse rhonchi bilaterally. HEART: Rate and rhythm are regular. EXTREMITIES: Bilateral wound VAC is in place in lower extremities. PLAN: Discharge plan was discussed with the patient who verbalized understanding. DISCHARGE FOLLOWUP: 1. Dr. Louis. 2. ID, Dr. Reich. 3. [facility]. 4. Urology, Dr. Holland, referral was provided. 5. Primary care physician, Dr. Jimmie William, in 1 week. He will be discharged to swing bed today. He remains a high risk for readmission given multiple comorbidities. He remains a full code at the time of discharge. TOTAL TIME SPENT: 35 minutes. Job ID: [id number]
== END 2018-09-19 17:15 | DRG 853 ==
LOC: T4-B 18:58
PROVIDERS: ADMIT Internal Medicine; ATTEND Internal Medicine
PROC: 0QB10ZZ Excision of Sacrum, Open Approach (ICD-10-PCS; principal; 2018-09-11)
PROC: 0JBR0ZZ Excision of Left Foot Subcutaneous Tissue and Fascia, Open Approach (ICD-10-PCS; 2018-09-11)
PROC: 0JBQ0ZZ Excision of Right Foot Subcutaneous Tissue and Fascia, Open Approach (ICD-10-PCS; 2018-09-11)
PROC: 30233N1 Transfusion of Nonautologous Red Blood Cells into Peripheral Vein, Percutaneous Approach (ICD-10-PCS; 2018-09-13)
DX: A41.9 Sepsis, unspecified organism (principal); L89.514 Pressure ulcer of right ankle, stage 4; L89.624 Pressure ulcer of left heel, stage 4; L89.614 Pressure ulcer of right heel, stage 4; L89.154 Pressure ulcer of sacral region, stage 4; J18.9 Pneumonia, unspecified organism; G82.20 Paraplegia, unspecified; N12 Tubulo-interstitial nephritis, not specified as acute or chronic; J98.11 Atelectasis; J44.9 Chronic obstructive pulmonary disease, unspecified; I10 Essential (primary) hypertension; D50.9 Iron deficiency anemia, unspecified; T17.990A Other foreign object in respiratory tract, part unspecified in causing asphyxiation, initial encounter; Z79.01 Long term (current) use of anticoagulants; Z79.82 Long term (current) use of aspirin; Z85.01 Personal history of malignant neoplasm of esophagus; Z85.830 Personal history of malignant neoplasm of bone; Z86.711 Personal history of pulmonary embolism
CPT/HCPCS: 36415; 36430; 71045; 71260; 74176; 80048; 80202; 85014; 85018; 85025; 86850; 86900; 86901; 87070; 87077; 87102; 87205; 87206; 93005; 93010; 94640; 94667; 94668; J1642; J1650; J2250; J2543; J3010; J3370; J7050; J7620; P9016

== ENCOUNTER 2018-12-20 12:35 | Observation (INO) | payer MEDICARE ==
[2018-12-20 13:54] LABS: #Eosinphils 0.5 thou/uL (0.0-0.7); #Lymphocytes 1.5 thou/uL (1.20-3.40); #Monocytes 0.9 thou/uL (0.11-0.59); #Neutrophils 8.5 thou/uL (1.40-6.50); %Basophils 0.4 % (0.0-1.0); %Eosinophils 4.5 % (0.0-10.0); %Lymphocytes 13.2 % (21.0-51.0); %Monocytes 7.9 % (0.0-10.0); Hemoglobin 9.5 g/dL (14.0-18.0); Mean Corpuscular HGB CONC 31.4 g/dL (32.0-36.0); Mean Corpuscular Hemoglobin 28.6 pg (27.0-31.0); Mean Corpuscular Volume 91.1 fL (78.0-98.0); Mean Platelet Volume 5.6 fL (7.4-10.4); Platelet Count 474 thou/uL (130-400); RBC Distribution Width 13.7 % (11.5-14.5); Red Blood Cell (RBC) Count 3.32 mill/uL (4.70-6.10); White Blood Cell (WBC) Count 11.5 thou/uL (4.8-10.8)
[2018-12-20 14:14] LABS: ALT (SGPT) 17 U/L (8-55); AST (SGOT) 12 U/L (5-34); Albumin 2.9 g/dL (3.4-4.8); Alkaline Phosphatase 99 U/L (40-150); Anion Gap 12 mmol/L (10-20); BUN (Urea Nitrogen) 18 mg/dL (8.4-25.7); Bilirubin, Total 0.6 mg/dL (0.2-1.2); Calc. Creatinine Clearance 0 mL/min (70-130); Calcium 8.9 mg/dL (7.8-10.44); Carbon Dioxide 23 mmol/L (23-31); Chloride 102 mmol/L (98-107); Estimated GFR-MDRD Greater than 90; Globulin 4.4 g/dL (2.4-3.5); Glucose 87 mg/dL (83-110); Potassium 3.5 mmol/L (3.5-5.1); Protein, Total 7.3 g/dL (5.8-8.1); Sodium 133 mmol/L (136-145)
[2018-12-20 14:16] LABS: Bilirubin Negative (Negative); Blood, Urine Small (Negative); Clarity Cloudy (Clear); Glucose, Urine (Dipstick) Negative (Negative); Leukocyte Large (Negative); Nitrite Positive (Negative); Protein, Urine (Dipstick) 30 mg/dL (Neg-Trace); Urobilinogen 0.2 mg/dL (0.2-1.0)
[2018-12-20 14:25] LABS: Bacteria/HPF 4+ HPF (None Seen); Crystals/HPF 3+ CA OXALATE HPF (Negative); Hyaline Casts/LPF NONE SEEN LPF (0-3 Hyaline); Squamous Epithelial 0-3 HPF (0-3)
[2018-12-20] MEDS ORDERED: cefTRIAXone\\ROCEPHIN 2 GM VIAL ONE ×2 (15:18→15:20)
[2018-12-20] MEDS ORDERED: Acetaminophen 325 MG TAB PO PRN ×2 (18:37→19:19)
[2018-12-20] MEDS ORDERED: Ondansetron ODT 4 MG TAB SL PRN (19:19)
[2018-12-20] MEDS ORDERED: Ondansetron PF 4 MG/2 ML Vial IVP PRN (19:19)
--- NOTE | 2018-12-20 19:46 | PDOC.FPRHP ---
- History of Present Illness Chief Complaint: Dark urine History of Present Illness: This is a 73 yo male with a pmh of Metastatic esophageal cancer in remission, paraplegia, HTN, and indwelling rneee catheter who presents to the ED with a cc of dark urine. He states that he has been treated for the last week with amoxicillin for a UTI. He states that he countinued to have dark, cloudy urine. He reports he is unable to feel any burning in his bladder or suprapubic pain. He denies fever or chills. He reports mild distension in his abdomen. He also has associated diarrhea. He states that he has his renee changed out monthly and has a history of recurrent UTIs. ED Course: Rocephin 2g NS 500 ml bolus - Allergies/Adverse Reactions Allergies Allergy/AdvReac Type Severity Reaction Status Date / Time No Known Drug Allergies Allergy Verified 09/19/18 19:04 gluten AdvReac Mild Verified 09/19/18 19:04 - Home Medications Medication Instructions Recorded Confirmed Type Budesonide-Formoterol [Symbicort 2 puff INH BID 11/11/15 11/05/18 History 80-4.5] Thiamine 100 mg PO DAILY #30 tab 12/18/17 11/05/18 Rx Acetaminophen [Tylenol Extra 1,000 mg PO Q6H PRN tab 09/19/18 11/05/18 Rx Strength] Acetaminophen [Tylenol Extra 1,000 mg PO Q6H PRN tab 11/04/18 Rx Strength] Aspirin [Ecotrin Low Strength] 81 mg PO DAILY tab 11/04/18 Rx Aspirin [Ecotrin Low Strength] 81 mg PO DAILY #30 tab 11/04/18 Rx Cyclobenzaprine [Flexeril] 10 mg PO Q8H PRN #10 tab 11/04/18 Rx Cyclobenzaprine [Flexeril] 10 mg PO Q8H PRN #30 tab 11/04/18 Rx Dapsone 50 mg PO Q2D #10 tab 11/04/18 Rx Dapsone 50 mg PO Q2DAYS #10 tab 11/04/18 Rx Dapsone 100 mg PO Q2DAYS #10 tab 11/04/18 Rx Dapsone 100 mg PO Q2DAYS@1000 #10 tab 11/04/18 Rx Famotidine [Pepcid] 20 mg PO BID #10 tab 11/04/18 Rx Famotidine [Pepcid] 20 mg PO BID #20 tab 11/04/18 Rx Ipratropium/Albuterol Sulfate 3 ml NEB Q4HR #20 neb 11/04/18 Rx [DuoNeb] Ipratropium/Albuterol Sulfate 3 ml NEB P8RN-QG #10 neb 11/04/18 Rx [DuoNeb] Mometasone/Formoterol 100/5 4 puff INH BID-RT #1 aer 11/04/18 Rx [Dulera 100 mcg/5 mcg Inhaler] Ondansetron [Zofran ODT] 4 mg PO Q6H PRN #10 tab 11/04/18 Rx guaiFENesin ER [Mucinex] 600 mg PO Q12HR #10 tab 11/04/18 Rx guaiFENesin ER [Mucinex] 600 mg PO Q12HR #20 tab 11/04/18 Rx traMADol HCl [Ultram] 50 mg PO Q6H PRN #10 tab 11/04/18 Rx - History PMHx: COPD, 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 denies: chest pain, palpitation, paroxysmal nocturnal dyspnea Gastrointestinal: denies: nausea, vomiting, diarrhea, constipation, GI bleeding Genitourinary: reports: incontinence. denies: dysuria, discharge Skin: reports: lesions (sacral and ankle pressure ulcers). denies: rashes Musculoskeletal: denies: pain, tenderness, stiffness Neurological: reports: numbness (BLE), weakness (BLE). denies: syncope, seizure Psychological: denies: anxiety, depression - Vital signs BP: 98/55 HR: 78 RR: 14 Tmax: 97.8 Pox: 95% on 2L nc Wt: 95 kg - Physical Exam Constitutional: NAD, awake, alert and oriented, well developed HEENT: normocephalic and atraumatic, PERRLA, EOMI, grossly normal hearing, MMM Neck: supple, FROM, trachea midline, no JVD Chest: no-tender to palpation, no lesions Heart: RRR, normal S1/S2, other (2/6 systolic murmur, 2+ pitting edema bilaterally to knee) Lungs: CTAB, no respiratory distress, good air movement Abdomen: soft, bowel sounds present, no masses/distention, other (Unable to feel pain) Musculoskeletal: other (Paralysis of BLE, 5/5 strength in BUE) Neurological: CN II-XII intact Skin: capillary refill <2 seconds, other (sacral lesion and ulcer on heals bilaterally) Heme/Lymphatic: no unusual bruising or bleeding Psychiatric: normal mood and affect, good judgment and insight, intact recent and remote memory FMR H&P: Results - Labs Result Diagrams: 12/20/18 13:44 12/20/18 13:44 Lab results: WBC 11.5 thou/uL (4.8-10.8) H 12/20/18 13:44 Hgb 9.5 g/dL (14.0-18.0) L 12/20/18 13:44 Hct 30.2 % (42.0-52.0) L 12/20/18 13:44 MCV 91.1 fL (78.0-98.0) 12/20/18 13:44 Plt Count 474 thou/uL (130-400) H 12/20/18 13:44 Neutrophils % 74.0 % (42.0-75.0) 12/20/18 13:44 Sodium 133 mmol/L (136-145) L 12/20/18 13:44 Potassium 3.5 mmol/L (3.5-5.1) 12/20/18 13:44 Chloride 102 mmol/L (98-107) 12/20/18 13:44 Carbon Dioxide 23 mmol/L (23-31) 12/20/18 13:44 BUN 18 mg/dL (8.4-25.7) 12/20/18 13:44 Creatinine 0.67 mg/dL (0.7-1.3) L 12/20/18 13:44 Glucose 87 mg/dL (83-110) 12/20/18 13:44 Lactic Acid 0.8 mmol/L (0.5-2.2) 12/20/18 13:44 Calcium 8.9 mg/dL (7.8-10.44) 12/20/18 13:44 Total Bilirubin 0.6 mg/dL (0.2-1.2) 12/20/18 13:44 AST 12 U/L (5-34) 12/20/18 13:44 ALT 17 U/L (8-55) 12/20/18 13:44 Alkaline Phosphatase 99 U/L (40-150) 12/20/18 13:44 Serum Total Protein 7.3 g/dL (5.8-8.1) 12/20/18 13:44 Albumin 2.9 g/dL (3.4-4.8) L 12/20/18 13:44 Urine Ketones Negative mg/dL (Negative) 12/20/18 13:56 Urine Blood Small (Negative) H 12/20/18 13:56 Urine Nitrite Positive (Negative) H 12/20/18 13:56 Ur Leukocyte Esterase Large (Negative) H 12/20/18 13:56 Urine RBC 4-6 HPF (0-3) 12/20/18 13:56 Urine WBC Greater Than 50-TNTC HPF (0-3) H 12/20/18 13:56 Ur Squamous Epith Cells 0-3 HPF (0-3) 12/20/18 13:56 Urine Bacteria 4+ HPF (None Seen) H 12/20/18 13:56 FMR H&P: A/P - Problem List (1) COPD (chronic obstructive pulmonary disease) Current Visit: No Status: Chronic Qualifiers: COPD type: unspecified COPD Qualified Code(s): J44.9 - Chronic obstructive pulmonary disease, unspecified (2) Hx of esophageal malignancy Current Visit: No Status: Chronic Code(s): Z85.01 - PERSONAL HISTORY OF MALIGNANT NEOPLASM OF ESOPHAGUS Comment: with mets to T1,2 s/p resection 2017 (3) Paraplegia Current Visit: No Status: Chronic Code(s): G82.20 - PARAPLEGIA, UNSPECIFIED (4) UTI (urinary tract infection) due to urinary indwelling catheter Current Visit: No Status: Resolved Code(s): T83.511A - I/I REACT D/T INDWELLING URETHRAL CATHETER, INIT; N39.0 - URINARY TRACT INFECTION, SITE NOT SPECIFIED Qualifiers: Indwelling urinary catheter type: indwelling urethral catheter - Plan This is a 73 yo male with a pmh of Metastatic esophageal cancer in remission, paraplegia, HTN, and indwelling renee catheter UTI with indewlling catheter -UA positive for UTI, pending culture -IV rocephin to transition to PO cipro tomorrow -Maintenance fluids COPD -Continue home symbicort Hx of esophageal cancer -Aware, in remission Paraplegia -Aware, frequent turning, wound care consulted Sacral and ankle pressure ulcers -As above Code: Full Prophylaxis: Lovenox Family: none at bedside Diet: regular Disposition: DC in 1-2 days FMR H&P: Upper Level - Pertinent history 73 year old male with paraplegia 2/2 bone lesion s/p radiation with indwelling renee catheter that presents with dark colored urine. Patient states he had dark urine a week ago and was evaluated for a UTI. He was found to have a UTI at that time and was started on Amoxicillin. Uncertain whether a culture was obtained. Per patient, he has been on antibiotic for the past week and the infection has not cleared because the urine is still dark. He sought care at ED due to this. Patient cannot feel below the waist so he is unable to elicit whether he has dysuria. Patient with history of UTI's with indwelling renee catheter. Patient denies fever, chills, confusion, dehydration. - Pertinent findings General: Alert and oriented x3. No acute distress. Cardio: RRR, no murmurs Resp: CTA b/l Neuro: Paraplegia. Ext: No edema or cyanosis Abdomen: Soft, non-tender : renee catheter in place - Plan Date/Time: 12/20/181939 IRach, have evaluated this patient and agree with findings/plan as outlined by internal corrosion specialist resident. Pertinent changes/additions are listed here. 1. Complicated UTI - Indwelling catheter - Failed outpatient treatment with amoxicillin - Rocephin IV - Maintenance fluids COPD - Continue home symbicort Hx of esophageal cancer -Aware, in remission Paraplegia 2/2 spinal lesion -Aware, frequent turning, wound care consulted Sacral and ankle pressure ulcers -As above Code: Full Prophylaxis: Lovenox Family: none at bedside Diet: regular Disposition: DC in 1-2 days
[2018-12-20] MEDS: Sodium Chloride 0.9% 1,000 ML IV SCH (20:43)
[2018-12-20 21:09] VITALS: BMI 27.0
[2018-12-21 05:34] LABS: Anion Gap 7 mmol/L (10-20); BUN (Urea Nitrogen) 15 mg/dL (8.4-25.7); Calc. Creatinine Clearance 126 mL/min (70-130); Calcium 8.6 mg/dL (7.8-10.44); Carbon Dioxide 25 mmol/L (23-31); Chloride 107 mmol/L (98-107); Estimated GFR-MDRD Greater than 90; Glucose 79 mg/dL (83-110); Potassium 3.4 mmol/L (3.5-5.1); Sodium 136 mmol/L (136-145)
--- NOTE | 2018-12-21 06:00 | PDOC.FM ---
- Subjective Subjective: Pt had no pain overnight. He denies fever or chills. He reports no SOB. - Objective MAR Reviewed: Yes Vital Signs & Weight: Vital Signs (12 hours) Temp Pulse Resp BP Pulse Ox 12/21/18 05:18 97.9 F 76 18 99/58 L 93 L 12/21/18 00:07 98.1 F 80 18 106/56 L 95 12/20/18 19:34 97.5 F L 84 18 93/52 L 96 Weight Weight 85.457 kg I&O: 12/19/18 12/20/18 12/21/18 06:59 06:59 06:59 Output Total 1850 Balance -1850 Result Diagrams: 12/20/18 13:44 12/21/18 04:58 Phys Exam - Physical Examination Constitutional: NAD HEENT: moist MMs Neck: no JVD, full ROM Coarse lung sounds, good air movement Cardiovascular: RRR, no significant murmur Gastrointestinal: soft Musculoskeletal: pulses present, edema present Decreased sensation below neck, no movement in legs Psychiatric: normal affect, A&O x 3 Skin: cap refill <2 seconds Dx/Plan (1) COPD (chronic obstructive pulmonary disease) Status: Chronic Qualifiers: COPD type: unspecified COPD Qualified Code(s): J44.9 - Chronic obstructive pulmonary disease, unspecified (2) Hx of esophageal malignancy Code(s): Z85.01 - PERSONAL HISTORY OF MALIGNANT NEOPLASM OF ESOPHAGUS Status: Chronic (3) Paraplegia Code(s): G82.20 - PARAPLEGIA, UNSPECIFIED Status: Chronic (4) UTI (urinary tract infection) due to urinary indwelling catheter Code(s): T83.511A - I/I REACT D/T INDWELLING URETHRAL CATHETER, INIT; N39.0 - URINARY TRACT INFECTION, SITE NOT SPECIFIED Status: Resolved Qualifiers: Indwelling urinary catheter type: indwelling urethral catheter - Plan Plan: This is a 73 yo male with a pmh of Metastatic esophageal cancer in remission, paraplegia, HTN, and indwelling renee catheter UTI with indewlling catheter -UA positive for UTI, pending culture -IV rocephin to transition to PO cipro today -Maintenance fluids COPD -Continue home symbicort Chronic hypoxic respiratory failure, present on admission -Baseline 2L O2, nc -Will wean during hospitalization Hx of esophageal cancer -Aware, in remission Paraplegia -Aware, frequent turning, wound care consulted Sacral and ankle pressure ulcers -As above
[2018-12-21] MEDS: Sodium Chloride 0.9% 1,000 ML IV SCH ×2 (06:05→20:21)
[2018-12-21] MEDS ORDERED: Mometasone/Formoterol 120 PUFF INHALER INH SCH (06:30)
[2018-12-21] MEDS ORDERED: Potassium Chloride 20 MEQ TAB PO SCH (08:00)
--- NOTE | 2018-12-21 08:41 | ULT ---
Bilateral renal ultrasound CLINICAL INDICATION: Renal insufficiency, evaluate for hydronephrosis. COMPARISON: None FINDINGS: Right kidney: No solid mass, or hydronephrosis. There is a right renal cyst, approximately 1 cm. Left kidney: No solid mass, or hydronephrosis. Urinary bladder: Incompletely distended, limiting assessment. IMPRESSION: No acute abnormalities. Right renal cyst.
[2018-12-21] MEDS ORDERED: Enoxaparin Sodium 40 MG/0.4 ML SYRINGE SC SCH (09:00)
[2018-12-21] MEDS ORDERED: Non-Formulary Item 1 EACH (Budesonide-Formoterol [Symbicort 80-4.5] 2 PUFF) INH SCH (09:00)
[2018-12-21] MEDS ORDERED: Aspirin 81 mg Enteric Coated Tablet PO SCH (09:00)
[2018-12-21] MEDS ORDERED: guaiFENesin ER 600 MG TAB PO SCH (09:00)
--- NOTE | 2018-12-21 12:35 | HP ---
HISTORY OF PRESENT ILLNESS: I have examined the patient. I have discussed the case with Dr. Irving Casiano. I agree with his assessment and plan. Mr. Hernandez is an unfortunate 73-year-old white male patient with a history of metastatic esophageal cancer, currently in remission. He also has paraplegia and an indwelling Mena catheter. He states that for the last week, he has had an abnormal color to his urine. He is unable to have since dysuria, frequency, etc. He has a very abnormal looking urine. It was elected to treat him. He has been on amoxicillin for a week and no change in his urine color and odor. He presented to our ER with the above complaints as well as of abnormal urinalysis. He was; however, afebrile with no white count. He was admitted for reassessment of his possible UTI and readjustment of his antibiotics. PHYSICAL EXAMINATION: GENERAL: This morning, he is awake and alert, no distress. ENT: No erythema. No exudate. NECK: Supple. CARDIAC: Heart rhythm regular. No gallop. No murmurs. LUNGS: Clear. ABDOMEN: Flat and soft. No guarding. No rebound or rigidity. As stated above, though he does have paraplegia. LABORATORY DATA: CBC; white count 11,500, hemoglobin 9.5, hematocrit 30.2, platelets elevated at 474,000. Chemistries; sodium 133, potassium 3.5, chloride 102, bicarb 23, BUN 18, and creatinine 0.67. Lactic acid is 0.8. Urinalysis shows positive nitrites, positive leukocyte esterase, greater than 50 white blood cells per high-power field, and 4+ bacteria. ASSESSMENT: Possible urinary tract infection in a patient with paraplegia and metastatic esophageal cancer. PLAN: We will admit the patient overnight. We will culture the urine and switch him to Rocephin. He will be likely ready for discharge later today or early tomorrow. Job ID: [id number]
[2018-12-21 13:08] VITALS: BP 90/50; TEMP 97.8
[2018-12-21] MEDS ORDERED: cefTRIAXone\\ROCEPHIN 1 GM in Sodium Chloride 0.9% 100 ML IVPB SCH (15:00)
--- NOTE | 2018-12-22 10:43 | DIS ---
DATE OF ADMISSION: 12/20/2018 DATE OF DISCHARGE: 12/21/2018 ADMITTING ATTENDING: Jeovany Ricardo MD DISCHARGE ATTENDING: Jeovany Ricardo MD RESIDENT: Irving Casiano DO CONSULTS: None. PROCEDURES: Renal ultrasound showing no acute abnormalities, right renal cyst. PRIMARY DIAGNOSIS: Complicated urinary tract infection with indwelling catheter. SECONDARY DIAGNOSES: Chronic obstructive pulmonary disease, history of esophageal cancer, paraplegia, history of sacral and ankle pressure ulcers. DISCHARGE MEDICATIONS: 1. Cipro 250 b.i.d. for 5 days. 2. Potassium chloride 20 mEq p.o. b.i.d. for 10 days. 3. Aspirin 81 mg p.o. daily. 4. Symbicort 2 puffs b.i.d. 5. Dapsone 50 mg p.o. q.2 days. 6. Guaifenesin 600 mg q.12 hours. DISCONTINUED MEDICATIONS: Amoxil. BRIEF HISTORY OF PRESENT ILLNESS/HOSPITAL COURSE: This is a 73-year-old male with a past medical history as above, who presented with a chief complaint of dark and cloudy urine in his catheter bag. He states that he had been on Amoxil for the past week with no change. Due to his paraplegia, he was unable to feel burning or discomfort in his suprapubic region. He has had urinary catheter in up to this point due to the risk of maintaining a moist environment around his sacral decubitus ulcers. The patient was admitted, given two doses of Rocephin and remained stable during his time. The patient was discharged on Cipro. Instructed to follow up with Dr. Blue in 1 to 3 days. I discussed this case with Dr. Blue. He agreed with potentially moving towards a suprapubic catheter to prevent recurrent UTIs. DISPOSITION: Stable. DISCHARGE INSTRUCTIONS: 1. Location: Home. 2. Diet: As tolerated. 3. Activity: As tolerated. 4. Followup: Follow up with Dr. lBue, PCP, in 3 to 5 days. Job ID: [id number]
== END 2018-12-21 16:23 | disposition home or self-care (01) ==
LOC: ERS 12:35 → ONC 17:56 → INTOOBSV 17:56
PROVIDERS: ADMIT Family Medicine; ATTEND Family Medicine
DX: T83.511A Infection and inflammatory reaction due to indwelling urethral catheter, initial encounter (principal); N39.0 Urinary tract infection, site not specified; G82.20 Paraplegia, unspecified; J44.9 Chronic obstructive pulmonary disease, unspecified; I10 Essential (primary) hypertension; L89.159 Pressure ulcer of sacral region, unspecified stage; L89.509 Pressure ulcer of unspecified ankle, unspecified stage; J96.11 Chronic respiratory failure with hypoxia; Z79.51 Long term (current) use of inhaled steroids; Z91.018 Allergy to other foods; Z85.01 Personal history of malignant neoplasm of esophagus; Z85.830 Personal history of malignant neoplasm of bone; Z87.891 Personal history of nicotine dependence
CPT/HCPCS: 76770; 80048; 80053; 83605; 85025; 87077; 87086; 87186; 87324; 87449; 94640; 96361 ×3; 96365; 96366; 96372; 97139; 99284; G0378; 36415; 81003; 81015; J0696; J1642; J1650; J3490

== ENCOUNTER 2019-03-02 14:20 | Outpatient (CLI) | payer MEDICARE ==
--- NOTE | 2019-03-02 16:49 | HP ---
HISTORY OF PRESENT ILLNESS: Mr. Andre Hernandez is a very pleasant 74-year-old gentleman accompanied by his daughter, who presents to the [facility] for evaluation of multiple pressure ulcerations of the right and left lower extremities. The patient also has a pressure ulceration of the sacrum as well as of the left buttock. The patient's medical history is significant for metastatic esophageal carcinoma. The patient received 6 weeks of IV antibiotics for treatment of osteomyelitis associated with the sacral pressure ulceration. The patient also received negative pressure therapy for the treatment of his sacral ulceration. The patient was referred to the Wound Center by Dr. Blue. The patient is presently receiving dressing changes with the assistance of Home Health. PAST MEDICAL HISTORY: 1. Metastatic esophageal carcinoma. 2. Hypertension. 3. Chronic obstructive pulmonary disease. 4. Dermatitis herpetiformis. 5. Urinary retention. 6. Pulmonary embolism. 7. Anemia. 8. Paraplegia. PAST SURGICAL HISTORY: 1. MediPort placement. 2. Back surgery. 3. Sebaceous cyst removal. 4. Intraoperative debridement of decubitus ulcerations multiple on 09/11/[address] Ghanshyam Louis. MEDICATIONS: 1. Mucinex. 2. Dapsone. 3. Cyclobenzaprine. 4. Ketoconazole. ALLERGIES: NO KNOWN DIAGNOSED ALLERGIES. SOCIAL HISTORY: Social history significant for tobacco use of 2 packs of cigarettes per day for 57 years. The patient stopped smoking in December of 2017. Social history is also significant for the consumption of 2 drinks per day for 40 years. The patient also stopped consuming alcohol in December of 2017. FAMILY HISTORY: Family history significant for diabetes mellitus. The patient's paternal grandmother was diagnosed with diabetes mellitus. Family history is also significant for coronary artery disease. The patient's father and paternal grandfather were both diagnosed with coronary artery disease. PHYSICAL EXAMINATION: VITAL SIGNS: Temperature 97.1, pulse 89, respirations 18, and blood pressure 102/64. GENERAL: A 74-year-old gentleman, lying on stretcher in examination room, in no acute distress. HEENT: Normocephalic, atraumatic. NECK: No nuchal rigidity. CHEST: Clear to auscultation. CARDIOVASCULAR: Regular rate and rhythm. ABDOMEN: Soft. EXTREMITIES: Multiple decubitus ulcerations of the right and left lower extremities are present. The patient has decubitus ulcerations of the right heel, right lateral ankle, right lateral leg, right knee, and left medial leg. No purulent drainage is associated with any of the wounds. No cellulitis of the right or left lower extremities appreciated. No maceration of the skin of the periwound of any of the wounds is noted. BACK: A sacral pressure ulceration is present in addition to a pressure ulceration over the left buttock. No purulent drainage is associated with either wound. No erythema of the skin surrounding either wound is present. No maceration of the skin of the periwound of either wound is noted. ASSESSMENT AND PLAN: 1. Multiple pressure ulcerations as described above. Dressing changes of Medihoney will be initiated today. These dressing changes are to be performed 3 times per week after cleansing and irrigation with the assistance of Home Health. No antibiotics will be prescribed today based upon the appearance of the wounds. The patient's daughter states that she will contact the clinic in order to schedule the next followup appointment. The patient's daughter and the patient understand and are in agreement with the preceding treatment plan. 2. Metastatic esophageal carcinoma. 3. Hypertension. 4. Chronic obstructive pulmonary disease. 5. Dermatitis herpetiformis. 6. Urinary retention. 7. Pulmonary embolism. 8. Anemia. 9. Paraplegia. Job ID: [id number]
[2019-03-02] MEDS ORDERED: Sodium Chloride 0.9% 15 ML NEB ONE (18:00)
== END 2019-03-02 14:21 | disposition home or self-care (01) ==
LOC: WCC 14:20
PROVIDERS: ATTEND Family Medicine
DX: L89.159 Pressure ulcer of sacral region, unspecified stage (principal); L89.329 Pressure ulcer of left buttock, unspecified stage; L89.619 Pressure ulcer of right heel, unspecified stage; L89.899 Pressure ulcer of other site, unspecified stage; C15.9 Malignant neoplasm of esophagus, unspecified; C79.9 Secondary malignant neoplasm of unspecified site; I10 Essential (primary) hypertension; J44.9 Chronic obstructive pulmonary disease, unspecified; L13.0 Dermatitis herpetiformis; R33.9 Retention of urine, unspecified; I26.99 Other pulmonary embolism without acute cor pulmonale; D64.9 Anemia, unspecified; G82.20 Paraplegia, unspecified
CPT/HCPCS: A4218

== ENCOUNTER 2019-03-24 15:17 | Inpatient (IN) | payer MEDICARE ==
--- NOTE | 2019-03-24 17:23 | PDOC.FPRHP ---
- History of Present Illness Chief Complaint: low potassium, high WBC, transfer History of Present Illness: Patient is a 74-y.o. 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 He presents here today as a transfer from [place] outside hospital w/ the diagnosis of septic shock and hypokalemia. At outside ED, he had hypotension in 80s/50s, WBC of 12.7, and HR in 90s. Possible sources of infection are chronic indwelling renee catheter, multiple wounds on lower extremities from being bedridden and a Stage 2 sacral ulcer, which is healing. His urine looked cloudier than normal on admission to outside hospital. It has been about a month since the renee has been changed. He denies fever, chills, chest pain, SOB. He has no feeling caudal to ~T4 level. His legs will spontaneously move, but he cannot willfully move them. ED Course: Transferred from [place]. Wounds re-bandaged. Fluids of 2L given at outside ED along with empiric antibiotics. - Allergies/Adverse Reactions Allergies Allergy/AdvReac Type Severity Reaction Status Date / Time No Known Drug Allergies Allergy Verified 09/19/18 19:04 - Home Medications Medication Instructions Recorded Confirmed Type Budesonide-Formoterol [Symbicort 2 puff INH BID 11/11/15 03/24/19 History 80-4.5] Aspirin [Ecotrin Low Strength] 81 mg PO DAILY tab 11/04/18 03/24/19 Rx Dapsone 50 mg PO Q2DAYS #10 tab 11/04/18 03/24/19 Rx Dapsone 100 mg PO Q2DAYS #10 tab 11/04/18 03/24/19 Rx guaiFENesin ER [Mucinex] 600 mg PO Q12HR #20 tab 11/04/18 03/24/19 Rx Potassium Chloride [K-Dur] 20 meq PO BID-WM #20 tab 12/21/18 03/24/19 Rx Cyclobenzaprine [Flexeril] 10 mg PO DAILY 03/24/19 03/24/19 History Ipratropium/Albuterol Sulfate 3 ml NEB Q4H 03/24/19 03/24/19 History [Iprat-Albut 0.5-3(2.5) mg/3 ml] Nitrofurantoin Monohyd/M-Cryst 100 mg PO BID 03/24/19 03/24/19 History [Nitrofurantoin [place]-Mcr 100 mg] - History PMHx: spinal cord cancer (squamous cell), COPD PSHx: did not assess FHx: did not assess Social: * Former smoker: quit several months ago. [id number] history * Former heavy drinkin-8 beers per night. quit several months ago * Denies drug use * Lives w/ 2 daughters at home - Review of Systems General: denies: fever/chills, weight/appetite/sleep changes Respiratory: denies: cough, congestion Cardiovascular: denies: chest pain Gastrointestinal: denies: nausea, vomiting Neurological: reports: numbness, weakness, other (paraplegia) - Vital signs BP: 129/69 HR: 78 RR: 18 Tmax: 97.5 Pox: 88% on RA Wt: 72 kg - Physical Exam Constitutional: NAD, awake, alert and oriented HEENT: normocephalic and atraumatic, EOMI, MMM Neck: trachea midline Heart: RRR, normal S1/S2 (2/6 systolic RSB) Lungs: CTAB, no respiratory distress Abdomen: soft, non-tender, bowel sounds present Neurological: no focal deficit Skin: other (multiple pressure ulcers on heels bilaterally stage 1, R knee, R lateral calf, L inner thigh, Stage 2 sacral ulcer w/ granulation tissue, erythematous from T5-6 down to sacrum. No induration, abscesses, or crepitus) Heme/Lymphatic: no unusual bruising or bleeding Psychiatric: normal mood and affect FMR H&P: Results - Labs Result Diagrams: 03/25/19 05:59 03/25/19 05:59 Lab results: Potassium 2.6 at outside hospital. WBC 12.7. FMR H&P: A/P - Problem List (1) COPD (chronic obstructive pulmonary disease) Current Visit: No Status: Chronic Qualifiers: COPD type: unspecified COPD Qualified Code(s): J44.9 - Chronic obstructive pulmonary disease, unspecified (2) H/O metastatic esophageal cancer Current Visit: No Status: Chronic Comment: nil acute (3) HTN (hypertension) Current Visit: No Status: Chronic Code(s): I10 - ESSENTIAL (PRIMARY) HYPERTENSION Qualifiers: Hypertension type: essential hypertension Qualified Code(s): I10 - Essential (primary) hypertension (4) Paraplegia Current Visit: No Status: Chronic Code(s): G82.20 - PARAPLEGIA, UNSPECIFIED - Plan 74-y.o. male admitted for: 1. Sepsis 2/2 UTI from chronic indwelling catheter - Patient met sepsis criteria and UA was cloudy, indicating a possible and likely source of infection. - Previous urine culture sensitive to Zosyn. - Continue zosyn 3.375g IV q6h until sensitivities of urine culture result - Blood cx and wound cx pending - Lactic at OSH 1.1. Repeat drawn here is pending 2. Hypokalemia - Presented w/ 2.6 potassium. Repleted. - Recheck BMP @ 1800 tonight. Replace potassium as needed. - 20mEq potassium chloride PO BID scheduled - Added 2gm magnesium and magnesium lab 3. Pressure ulcers - Wound care consult - Nursing comm: q2H turn and pressure air mattress for bed, pressure shoes 4. Hx of spinal cancer 5. Paraplegia - May continue home cyclobenzaprine 6. HTN - Stable. Monitor. 7. COPD - Stable. Monitor and give O2 prn. - May continue home mucinex and inhaler. Val Guerrier MD PGY-1 Disposition/LOS: Admit to inpatient. FMR H&P: Upper Level - Plan Date/Time: 03/24/191717 I, [Irving Casiano, ], have evaluated this patient and agree with findings/ plan as outlined by graduate intern resident. Pertinent changes/additions are listed here. Subjective: This is a 74 yo male with a pmh of COPD, HTN, and squamous cell carcinoma of the esophagus who presents as a transfer from [place] with a cc of worsening chronic wounds, sepsis 2/2 cellulitis, and hypokalemia. His daughter reports he is here today because is WBC is elevated and his potassium is low. He denies fever, chills, nausea, vomiting, abdominal, or back pain. He reports he can not feel or move below his chest and therefore denies suprapubic pain or pain over his chronic wounds. His daughter reports he has not been on antibiotic for over a month. In [place], pt received 1 g of Vancomycin, 4.5g of Zosyn, 40mEq of oral potassium , 1L of potassium in NS and 1L of NS. On arrival to our ER, pt had a BP of 129/ 69, HR 78, RR 18, Temp of 97.5, and 88% on RA. Objective: VS at time of exam: BP 129/69, HR 96, RR 18, Temp 97.5, Spo2 99% on RA General: NAD HEENT: MMM, poor dentition Respiratory: CTAB, no adventitious sounds Cardio: RRR, 2/6 systolic murmur at right sternal border Abdomen: Soft, BS+, unable to assess CVA tenderness 2/2 paralysis MS: 5/5 strength in UE, no voluntary motion in lower extremities Skin: Chronic wounds on right knee, lateral mid calf, posterior distal calf, left medial calf : Renee catheter in place with clear yellow urine and sediment present. See Hydroelectric Production Technician note for further History and Physical findings Pertinent labs WBC: 12.7 Hgb: 9.0 Hct: 29.3 Ptl: 602 K2.6 BUN: 30 Cr: 1.48 (baseline 0.63) EGFR: 46 (baseline >90) A/P Sepsis 2/2 Complicated UTI 2/2 indwelling renee catheter, POA -Not likely pyelonephritis as pt is afebrile -Admit to medical inpt -Pending blood and urine cultures -UA positive for Nitrates, leuk esterase, and bacteria -Pt is currently on zosyn -Continue maintenance fluids, pt responded well to 2L bolus -Previous Urine cultures show E. coli, pansensitive Acute Hypokalemia, POA -S/P 40mEq of potassium orally and IV replacement -Will monitor with BMP tonight and in the AM, will adjust treatment appropriately IZAIAH likely 2/2 sepsis vs dehydration, POA -S/P fluid resuscitation -Continue maintenance fluids -Monitor with BMP Hx of squamous cell carcinoma of esophagus with mets to lypmhnode and spine, Chronic Paraplegia 2/2 above -Frequent turning -Consult PT/OT Hx of HTN, at goal without medication Chronic pressure wounds, POA -Consult wound care -Pending wound culture, not likely the source of sepsis Thrombocytopenia -Likely stress reaction, will monitor with AM CBC COPD -Continue home meds Code: Full Prophylaxis: lovenox Family: Daughter at bedside, plan discussed with her. Diet: Regular Fluids: NS at 125ml/hr Disposition: DC in 2-3 days PCP: Dr. Scamardo Addendum - Attending - Attending Attestation Date/Time: 03/24/191902 I personally evaluated the patient and discussed the management with resident team I agree with the History, Examination, Assessment and Plan documented above with any addition or exceptions noted below. 74 yo male with multiple medical conditions transferred from outside facility due to sepsis. Patient noted to be hypotensive, elevated white count, IZAIAH, tachycardia. Abnormal vital signs improved with IVFs. SOFA score of 2. Medical record reviewed. Patient was stable upon arrival and appeared to be at baseline. Patient admitted to medical. Will continue to monitor closely. Appears to have have any issues with sympathetics due to spinal cord injury. Appropriate SVR at this time. Continue emperiric antibx for wound vs LUT source. Cultures pending. Rajesh maldonado. Darleen
[2019-03-24] MEDS ORDERED: Acetaminophen 325 MG TAB PO PRN (19:02)
[2019-03-24] MEDS ORDERED: Ondansetron ODT 4 MG TAB PO PRN (19:02)
[2019-03-24] MEDS ORDERED: Potassium Chloride 20 MEQ TAB PO SCH (19:15)
[2019-03-24] MEDS ORDERED: Magnesium 2 GM/50 ML 2 GM in Premix Bag 1 BAG IVPB SCH (19:30)
[2019-03-24] MEDS: Sodium Chloride 0.9% 1,000 ML IV SCH (20:47)
[2019-03-24] MEDS: Piperacillin/Tazobactam 3.375 GM in Sodium Chloride 0.9% 100 ML IVPB SCH (20:47)
[2019-03-24 21:13] LABS: Lactic Acid 1.6 mmol/L (0.5-2.2)
[2019-03-24 21:17] LABS: Anion Gap 11 mmol/L (10-20); BUN (Urea Nitrogen) 25 mg/dL (8.4-25.7); Calc. Creatinine Clearance 0 mL/min (70-130); Calcium 7.7 mg/dL (7.8-10.44); Carbon Dioxide 23 mmol/L (23-31); Chloride 103 mmol/L (98-107); Estimated GFR-MDRD 58; Glucose 107 mg/dL (83-110); Potassium 3.3 mmol/L (3.5-5.1); Sodium 134 mmol/L (136-145)
[2019-03-24 21:35] VITALS: BMI 24.2
[2019-03-25] MEDS: Piperacillin/Tazobactam 3.375 GM in Sodium Chloride 0.9% 100 ML IVPB SCH ×4 (01:31→20:05)
[2019-03-25] MEDS: Sodium Chloride 0.9% 1,000 ML IV SCH ×5 (05:38→20:06)
--- NOTE | 2019-03-25 05:51 | PDOC.FM ---
- Subjective Subjective: VSS. Afebrile. No acute events overnight. Patient denies pain. Slept well. Denies N/V, diarrhea, chills. - Objective MAR Reviewed: Yes Vital Signs & Weight: Vital Signs (12 hours) Temp Pulse Resp BP Pulse Ox 03/25/19 04:00 97.9 F 80 18 103/64 96 03/25/19 00:00 97.6 F 75 18 106/59 L 95 03/24/19 20:00 100 03/24/19 19:15 97.6 F 79 18 124/71 100 Weight Weight 76.657 kg I&O: 03/23/19 03/24/19 03/25/19 06:59 06:59 06:59 Output Total 1500 Balance -1500 Result Diagrams: 03/25/19 05:59 03/25/19 05:59 Phys Exam - Physical Examination Constitutional: NAD HEENT: moist MMs Respiratory: clear to auscultation bilateral Cardiovascular: RRR (2/6 systolic murmur over LSB) Gastrointestinal: soft, non-tender, no distention, positive bowel sounds Musculoskeletal: no edema Deviation from normal: leg wounds wrapped. Not disturbed today. Dx/Plan (1) Sepsis Code(s): A41.9 - SEPSIS, UNSPECIFIED ORGANISM Status: Acute (2) Wound infection Code(s): T14.8XXA - OTHER INJURY OF UNSPECIFIED BODY REGION, INITIAL ENCOUNTER; L08.9 - LOCAL INFECTION OF THE SKIN AND SUBCUTANEOUS TISSUE, UNSP Status: Acute (3) UTI (urinary tract infection) due to urinary indwelling catheter Code(s): T83.511A - I/I REACT D/T INDWELLING URETHRAL CATHETER, INIT; N39.0 - URINARY TRACT INFECTION, SITE NOT SPECIFIED Status: Resolved Qualifiers: Indwelling urinary catheter type: indwelling urethral catheter (4) Hypomagnesemia Code(s): E83.42 - HYPOMAGNESEMIA Status: Acute (5) Hypokalemia Code(s): E87.6 - HYPOKALEMIA Status: Resolved (6) Hypocalcemia Code(s): E83.51 - HYPOCALCEMIA Status: Acute (7) COPD (chronic obstructive pulmonary disease) Status: Chronic Qualifiers: COPD type: unspecified COPD Qualified Code(s): J44.9 - Chronic obstructive pulmonary disease, unspecified (8) H/O metastatic esophageal cancer Status: Chronic (9) Paraplegia Code(s): G82.20 - PARAPLEGIA, UNSPECIFIED Status: Chronic (10) HTN (hypertension) Code(s): I10 - ESSENTIAL (PRIMARY) HYPERTENSION Status: Chronic Qualifiers: Hypertension type: essential hypertension Qualified Code(s): I10 - Essential (primary) hypertension - Plan Plan: 74-y.o. male w/ PMHx of esophageal cancer s/p spinal surgery & radiation admitted for: 1. Sepsis * Could be secondary to UTI from chronic indwelling renee catheter or multiple wounds on legs, one of which appears greatly infected * Continue zosyn until wound culture susceptibility returns * WBC unchanged from yesterday at 12.7 * Lactate up from outside hospital. 2. UTI from chronic indwelling renee * Patient has grown pseudomonas in the past. 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 * UA appears different on this admission from previous pseudomonas infection. New findings are urine RBCs 7-10 by microscopy, WBC >50, and 3+ bacteria. * We may consider further workup of this blood in urine after acute resolution of infection. * Continue treatment w/ piperacillin/tazobactam 3.375g q6h IV 3. Wound infection * Preliminary wound culture results from leg wound show many WBCs, gram- positive cocci in pairs and clusters, and gram-negative rods. Preliminary growth = gram negative rods * Await susceptibility * Consulted Dr. Reich ([place]) to look at Left leg wound which seems to be extending down to the fibula. We would like to know if we need to rule out osteomyelitis. 4. Hypokalemia 5. Hypomagnesemia 6. Hypocalcemia * Replete electrolytes as needed. Magnesium this AM = 1.8. * has KCl dose to be given at 0900. Potassium this AM = 3.3. * Recheck Magnesium & CMP as needed. 7. IZAIAH - Likely 2/2 sepsis and dehydration - Creatinine improving. Not quite at baseline. Chronic Problems 7. COPD * Continue DuoNebs and home meds. 8. History of metastatic esophageal cancer * Patient also has history of bilateral pulmonary embolism. Will give prophylactic lovenox during hospital stay. 9. Paraplegia * q2h turns * Would like pulsating air mattress to prevent worsening of back erythema and sacral ulcer. 10. History of HTN * Patient no longer takes medication for this condition. DVT PPx: LVX Code status: FULL Val Guerrier MD PGY-1 Addendum - Attending - Attending Attestation Date/Time: 03/25/19 [id number] I personally evaluated the patient and discussed the management with Dr. Guerrier. I agree with the History, Examination, Assessment and Plan documented above with any addition or exceptions noted below. Sepsis, presumably 2/2 urine infection vs osteo. -continue broad spectrum antibiotics, will d/w ID d/t h/o Pseudomonas and visible bone on decubitus ulcer.
[2019-03-25 06:17] LABS: #Basophils 0.1 thou/uL (0.0-0.2); #Eosinphils 1.4 thou/uL (0.0-0.7); #Lymphocytes 1.1 thou/uL (1.20-3.40); #Monocytes 0.8 thou/uL (0.11-0.59); #Neutrophils 9.3 thou/uL (1.40-6.50); %Basophils 0.7 % (0.0-1.0); %Eosinophils 10.7 % (0.0-10.0); %Monocytes 6.7 % (0.0-10.0); Hemoglobin 9.1 g/dL (14.0-18.0); Mean Corpuscular HGB CONC 30.3 g/dL (32.0-36.0); Mean Corpuscular Hemoglobin 26.8 pg (27.0-31.0); Mean Corpuscular Volume 88.3 fL (78.0-98.0); Mean Platelet Volume 6.1 fL (7.4-10.4); Platelet Count 677 thou/uL (130-400); RBC Distribution Width 15.8 % (11.5-14.5); Red Blood Cell (RBC) Count 3.41 mill/uL (4.70-6.10); White Blood Cell (WBC) Count 12.7 thou/uL (4.8-10.8)
[2019-03-25 06:39] LABS: ALT (SGPT) Less than 7 U/L (8-55); AST (SGOT) 16 U/L (5-34); Albumin 2.1 g/dL (3.4-4.8); Alkaline Phosphatase 85 U/L (40-150); Anion Gap 11 mmol/L (10-20); BUN (Urea Nitrogen) 21 mg/dL (8.4-25.7); Bilirubin, Total 0.5 mg/dL (0.2-1.2); Calc. Creatinine Clearance 63 mL/min (70-130); Calcium 8.1 mg/dL (7.8-10.44); Carbon Dioxide 24 mmol/L (23-31); Chloride 106 mmol/L (98-107); Estimated GFR-MDRD 64; Globulin 4.6 g/dL (2.4-3.5); Glucose 92 mg/dL (83-110); Potassium 3.3 mmol/L (3.5-5.1); Protein, Total 6.7 g/dL (5.8-8.1); Sodium 138 mmol/L (136-145)
[2019-03-25] MEDS: Enoxaparin Sodium 40 MG/0.4 ML SYRINGE SC SCH (08:19)
[2019-03-25] MEDS: Potassium Chloride 20 MEQ TAB PO SCH ×2 (08:20→17:35)
[2019-03-25] MEDS ORDERED: Magnesium 2 GM/50 ML 2 GM in Premix Bag 1 BAG IVPB SCH (09:00)
[2019-03-25] MEDS ORDERED: Potassium Chloride 20 MEQ TAB PO SCH (09:00)
[2019-03-25] MEDS: Mometasone/Formoterol 120 PUFF INHALER INH SCH (19:05)
--- NOTE | 2019-03-25 22:43 | CON ---
DATE OF CONSULTATION: 03/25/2019 REASON FOR CONSULTATION: Numerous ulcers in the dependent areas of his body skin, esophageal cancer, and hypotension. HISTORY OF PRESENT ILLNESS: A 74-year-old patient, whom I had seen in September of this year when he presented with a history of chronic obstructive lung disease, pulmonary embolism, and esophageal cancer with metastases to spinal cord and resulting complete paraplegia and loss of sensation below the chest area, underwent decompressive surgery and chemotherapy. He is not eligible for any further treatment in his home, now in [place] cared for by his daughters with the assistance of Home Health visiting nurse. He has not seen Dr. Armstrong, his oncologist since September and apparently was brought here because the home visiting nurse felt that the wounds were not looking well and there was a concern with his blood pressure level. On arrival, he was noted to have multiple ulcers and had cloudy urine which apparently had obstructed the day before admission. The initial findings include BP 87/56, pulse 90, respirations 18, temperature 98.3, O2 saturation 97. He appeared chronically ill, but in no acute distress and he had inspiratory crackles in lower lobes. There is an indwelling Mena catheter with clear yellow urine and sediment. There is a calf ulcer in the right side with the findings described above, minimal erythema. He had a complete paraplegia. Initial lab data; white cell count 12.7, hemoglobin 9.1, platelets 677. Sodium 138, creatinine 1.12. Liver profile was normal. Albumin 2.1. Currently, Mr. Hernandez is awake. He does not appear in distress. He is oriented. He was trying to eat lunch when I went to see him. He denied any headaches. No visual symptoms. No sore throat, odynophagia, or dysphagia. No evidence of aspiration or choking. No vomiting. He does not have any sensation below the chest area. He has a chronic indwelling Mena catheter. PAST MEDICAL HISTORY: COPD, pulmonary embolism, hypertension. Esophageal cancer, metastases to spinal cord, complete paraplegia, decompressive surgery and chemotherapy with no expectation of any further active treatment for his cancer. There is a port in the right subclavian location. FAMILY HISTORY: Noncontributory. SOCIAL HISTORY: Former smoker. Lives in [place] with family members. ALLERGIES: NONE. CURRENT MEDICATIONS: 1. Tylenol. 2. DuoNeb. 3. Lovenox. 4. Dulera. 5. Zofran. 6. Zosyn. PHYSICAL EXAMINATION: VITAL SIGNS: T-max 98.1, blood pressure 94/63, pulse 80, respirations 20, O2 saturation 98%. SKIN: A round fairly clean and granulating ulcer at the dorsal aspect of his right knee, probably from some type of pressure injury. There is an ulcerated area in the first MPJ right foot plantar aspect which appears quite thin with yellow scab. In the medial aspect of his left leg, there is an ulcerated area which appears shallow, irregular shaped and in the medial aspect of the leg left side, further up in the medial side shows a linear ulcer with yellow slough tissue in the proximal aspect and the sacral area has improved markedly since it was treated and now it is covered with skin. In the lateral aspect of the leg on the right side, there is a linear ulcer measuring about 15 cm adult along the mid level of his right leg with bone exposed at the base of this area, a very long segment of likely fibula bone exposure. The bone itself is white in color. There is desiccated skin around the edges of this long lesion with red tissue at the base and some areas of slough yellow tissue. He has no lymphadenopathy and peripheral IV access. Still has a Mena catheter in place with clear urine in the bag. HEENT: Ocular movements conjugate. Pupils are equal. Oral cavity is moist. Still quite a few teeth in place with some decay and gum disease. NECK: Supple. No jugular vein distention. LUNGS: Symmetric clear breath sounds. HEART: S1 and S2, regular rate. ABDOMEN: Somewhat distended but soft. Bowel sounds are somewhat diminished. No ascites noted. No bladder distention. EXTREMITIES: He has a complete paraplegia. He is senseless below the chest. His cognitive function appears to be preserved. LABORATORY DATA: Sodium is at 138, creatinine 1.12. The other findings have been discussed above. ASSESSMENT: Esophageal cancer, metastatic with complete paraplegia with no options for active treatment, reportedly has not seen his oncologist since September of this year. Now, he presents with worsening of the wound, particularly in the right leg, lateral aspect which has bone exposure and I am sure there is osteomyelitis associated with it. The sacral wound has improved markedly. The other areas of concern in view of his leukocytosis would be aspiration pneumonia and an invasive UTI in view of an indwelling Mena catheter. He does have a gram-negative olegario in the leg sample. Two sets of blood culture are still pending. There is one sample of urine for culture which is pending at this time. In terms of interventions, we will probably have to treat all 3 findings, i.e., the osteomyelitis of the right leg, the lung findings, and the urinary tract findings. Evidently, the one that is more complex in terms of management will be the leg findings. He has no function of his leg. The aggressiveness of intervention would depend on considerations such as his remaining life span vis-a-vis his metastatic malignancy. The standard approach would be debridement of the exposed bone with submission of cultures of the material and then antimicrobial therapy either intravenous or oral depending on the susceptibilities of the organisms retrieved followed by negative pressure dressing or skin flap. In his case, these aggressive measures probably would not be suitable in view of this likely limited prognosis. In that regard , I would probably recommend a limited antimicrobial therapy and wound care management to be continued in the home setting. I am not sure if he has been referred for hospice evaluation yet, but those discussions may have already been undertaken in the past. Job ID: [id number] [facility]
[2019-03-26] MEDS: Piperacillin/Tazobactam 3.375 GM in Sodium Chloride 0.9% 100 ML IVPB SCH ×4 (02:27→20:26)
--- NOTE | 2019-03-26 05:55 | PDOC.FM ---
- Subjective Subjective: Patient reports he slept well. VSS. Afebrile. Reports 1 episode of diarrhea this morning. Nurse reports 2 BM yesterday, but not loose. Denies chest pain, any other pain, SOB, nausea, fever, chills, and vomiting. Patient is eating and drinking PO. Discussed osteomyelitis of the leg w/ patient. Patient mentioned wound care did not come to see him yesterday. Will follow up on this. - Objective MAR Reviewed: Yes Vital Signs & Weight: Vital Signs (12 hours) Temp Pulse Resp BP Pulse Ox 03/26/19 02:08 88 14 93 L 03/25/19 22:34 92 14 93 L 03/25/19 20:00 97.5 F L 85 16 122/72 92 L 03/25/19 19:03 79 16 93 L On room air. Weight Admit Weight 76.657 kg Weight 76.657 kg I&O: 03/24/19 03/25/19 03/26/19 06:59 06:59 06:59 Intake Total 3000 Output Total 1500 1425 Balance -1500 1575 Result Diagrams: 03/26/19 09:31 03/26/19 09:31 Phys Exam - Physical Examination Constitutional: NAD Respiratory: no wheezing coarse crackles heard over L > R lower lobes on inspiration Cardiovascular: RRR, no significant murmur Gastrointestinal: soft, non-tender, positive bowel sounds Musculoskeletal: no edema Psychiatric: normal affect, A&O x 3 Deviation from normal: leg wounds wrapped and dressed. Did not disturb dressing today Dx/Plan (1) Sepsis Code(s): A41.9 - SEPSIS, UNSPECIFIED ORGANISM Status: Acute (2) Osteomyelitis of right fibula Code(s): M86.9 - OSTEOMYELITIS, UNSPECIFIED Status: Acute (3) Wound infection Code(s): T14.8XXA - OTHER INJURY OF UNSPECIFIED BODY REGION, INITIAL ENCOUNTER; L08.9 - LOCAL INFECTION OF THE SKIN AND SUBCUTANEOUS TISSUE, UNSP Status: Acute (4) UTI (urinary tract infection) due to urinary indwelling catheter Code(s): T83.511A - I/I REACT D/T INDWELLING URETHRAL CATHETER, INIT; N39.0 - URINARY TRACT INFECTION, SITE NOT SPECIFIED Status: Resolved Qualifiers: Indwelling urinary catheter type: indwelling urethral catheter (5) Hypomagnesemia Code(s): E83.42 - HYPOMAGNESEMIA Status: Acute (6) Hypokalemia Code(s): E87.6 - HYPOKALEMIA Status: Resolved (7) Hypocalcemia Code(s): E83.51 - HYPOCALCEMIA Status: Acute (8) COPD (chronic obstructive pulmonary disease) Status: Chronic Qualifiers: COPD type: unspecified COPD Qualified Code(s): J44.9 - Chronic obstructive pulmonary disease, unspecified (9) H/O metastatic esophageal cancer Status: Chronic (10) Paraplegia Code(s): G82.20 - PARAPLEGIA, UNSPECIFIED Status: Chronic (11) HTN (hypertension) Code(s): I10 - ESSENTIAL (PRIMARY) HYPERTENSION Status: Chronic Qualifiers: Hypertension type: essential hypertension Qualified Code(s): I10 - Essential (primary) hypertension - Plan Plan: 74-y.o. male w/ PMHx of esophageal cancer s/p spinal surgery & radiation admitted for: 1. Sepsis * Could be secondary to UTI from chronic indwelling renee catheter, aspiration PNA, or osteomyelitis * Continue zosyn until wound culture susceptibility returns * Blood Cx: NGTD 2. UTI from chronic indwelling renee * Patient has grown pseudomonas in the past. 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 * Prelim Urine Cx: mixed. Await final results * We may consider further workup of this blood in urine after acute resolution of infection. However, patient's prognosis is poor. * Continue treatment w/ piperacillin/tazobactam 3.375g q6h IV * Test stool for C. Diff 2/2 to antibiotics if several more episodes of diarrhea occur today. 3. Osteomyelitis of Right Fibula * Preliminary wound culture results from leg wound show many WBCs, gram- positive cocci in pairs and clusters, and gram-negative rods. Preliminary growth = gram negative rods * Await susceptibility * Consulted Dr. Reich ([place]). Appreciate recs. * Talk with patient and family about operative vs conservative management. May want to introduce palliative care and/or hospice. 3b. Possible pneumonia vs. other pneumonitis vs. atelectasis * Procalcitonin on admission was 0.37. * CXR from outside hospital showed small R pleural effusion and R lower lobe opacity which might be seen in infection. Patient is asymptomatic respiratory hinojosa. However, due to change on lung examination today, ordered incentive spirometry in the case patient is developing atelectasis. 4. Hypokalemia 5. Hypomagnesemia 6. Hypocalcemia * Continue oral potassium 20mEq PO BID 7. IZAIAH - Likely 2/2 sepsis and dehydration - Creatinine improving. Chronic Problems 7. COPD * Continue DuoNebs and home meds. 8. History of metastatic esophageal cancer * Patient also has history of bilateral pulmonary embolism. On ppx LVX. 9. Paraplegia * q2h turns * Would like pulsating air mattress to prevent worsening of back erythema and sacral ulcer. 10. History of HTN * Patient no longer takes medication for this condition. DVT PPx: LVX Code status: FULL Val Guerrier MD PGY-1 Addendum - Attending - Attending Attestation Date/Time: 03/26/19 1141 I personally evaluated the patient and discussed the management with the team. I agree with the History, Examination, Assessment and Plan documented above with any addition or exceptions noted below. 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 Reich' note. Will discuss with patient today and consult palliative.
[2019-03-26] MEDS: Mometasone/Formoterol 120 PUFF INHALER INH SCH ×2 (06:44→19:04)
[2019-03-26] MEDS: Enoxaparin Sodium 40 MG/0.4 ML SYRINGE SC SCH (08:26)
[2019-03-26] MEDS: Potassium Chloride 20 MEQ TAB PO SCH ×2 (08:26→18:21)
[2019-03-26 09:48] LABS: #Basophils 0.1 thou/uL (0.0-0.2); #Eosinphils 1.1 thou/uL (0.0-0.7); #Lymphocytes 1.2 thou/uL (1.20-3.40); #Monocytes 0.8 thou/uL (0.11-0.59); #Neutrophils 7.8 thou/uL (1.40-6.50); %Basophils 0.6 % (0.0-1.0); %Monocytes 6.9 % (0.0-10.0); %Neutrophils 71.4 % (42.0-75.0); Hemoglobin 9.4 g/dL (14.0-18.0); Mean Corpuscular HGB CONC 30.2 g/dL (32.0-36.0); Mean Corpuscular Hemoglobin 27.3 pg (27.0-31.0); Mean Corpuscular Volume 90.3 fL (78.0-98.0); Mean Platelet Volume 6.2 fL (7.4-10.4); Platelet Count 648 thou/uL (130-400); RBC Distribution Width 15.7 % (11.5-14.5); Red Blood Cell (RBC) Count 3.45 mill/uL (4.70-6.10); White Blood Cell (WBC) Count 10.9 thou/uL (4.8-10.8)
[2019-03-26 10:12] LABS: ALT (SGPT) 7 U/L (8-55); AST (SGOT) 16 U/L (5-34); Albumin 2.1 g/dL (3.4-4.8); Alkaline Phosphatase 84 U/L (40-150); Anion Gap 8 mmol/L (10-20); BUN (Urea Nitrogen) 14 mg/dL (8.4-25.7); Bilirubin, Total 0.4 mg/dL (0.2-1.2); Calc. Creatinine Clearance 76 mL/min (70-130); Calcium 8.1 mg/dL (7.8-10.44); Carbon Dioxide 23 mmol/L (23-31); Chloride 108 mmol/L (98-107); Estimated GFR-MDRD 79; Globulin 4.9 g/dL (2.4-3.5); Glucose 107 mg/dL (83-110); Potassium 3.3 mmol/L (3.5-5.1); Sodium 136 mmol/L (136-145)
[2019-03-27] MEDS: Piperacillin/Tazobactam 3.375 GM in Sodium Chloride 0.9% 100 ML IVPB SCH ×4 (01:38→19:53)
--- NOTE | 2019-03-27 05:56 | PDOC.FM ---
- Subjective Subjective: Patient feels well this morning. He said talk w/ palliative care doctors went well. He was pleased wound care came to look at his wounds and reports nurse said his R leg did not look infected. Denies chest pain, SOB. Is using incentive spirometry. Had 3 BM yesterday. With regards to aggressiveness of his care, he would like time to think about surgery vs. IV abx vs. oral Abx. - Objective MAR Reviewed: Yes Vital Signs & Weight: Vital Signs (12 hours) Temp Pulse Resp BP Pulse Ox 03/27/19 04:00 97.9 F 96 20 113/79 92 L 03/27/19 02:17 97 20 92 L 03/27/19 00:00 97.9 F 100 20 104/65 92 L 03/26/19 22:40 95 16 93 L 03/26/19 20:00 93 L 03/26/19 19:23 97.9 F 90 20 150/64 H 93 L 03/26/19 19:03 97 18 94 L Weight Admit Weight 76.657 kg Weight 76.657 kg I&O: 03/25/19 03/26/19 03/27/19 06:59 06:59 06:59 Intake Total 3000 1730 Output Total 1500 1425 1650 Balance -1500 1575 80 Result Diagrams: 03/27/19 06:13 03/27/19 06:13 Phys Exam - Physical Examination Constitutional: NAD HEENT: moist MMs Respiratory: no wheezing (diminished crackles over L lower lung as compared w/ yesterday. No crackles on R) Cardiovascular: RRR, no significant murmur Gastrointestinal: soft, non-tender, positive bowel sounds Fresh bandages marked and dated by wound care, honey placed Psychiatric: normal affect, A&O x 3 Dx/Plan (1) Sepsis Code(s): A41.9 - SEPSIS, UNSPECIFIED ORGANISM Status: Acute (2) Osteomyelitis of right fibula Code(s): M86.9 - OSTEOMYELITIS, UNSPECIFIED Status: Acute (3) Wound infection Code(s): T14.8XXA - OTHER INJURY OF UNSPECIFIED BODY REGION, INITIAL ENCOUNTER; L08.9 - LOCAL INFECTION OF THE SKIN AND SUBCUTANEOUS TISSUE, UNSP Status: Acute (4) UTI (urinary tract infection) due to urinary indwelling catheter Code(s): T83.511A - I/I REACT D/T INDWELLING URETHRAL CATHETER, INIT; N39.0 - URINARY TRACT INFECTION, SITE NOT SPECIFIED Status: Resolved Qualifiers: Indwelling urinary catheter type: indwelling urethral catheter (5) Hypomagnesemia Code(s): E83.42 - HYPOMAGNESEMIA Status: Acute (6) Hypokalemia Code(s): E87.6 - HYPOKALEMIA Status: Resolved (7) Hypocalcemia Code(s): E83.51 - HYPOCALCEMIA Status: Acute (8) COPD (chronic obstructive pulmonary disease) Status: Chronic Qualifiers: COPD type: unspecified COPD Qualified Code(s): J44.9 - Chronic obstructive pulmonary disease, unspecified (9) H/O metastatic esophageal cancer Status: Chronic (10) Paraplegia Code(s): G82.20 - PARAPLEGIA, UNSPECIFIED Status: Chronic (11) HTN (hypertension) Code(s): I10 - ESSENTIAL (PRIMARY) HYPERTENSION Status: Chronic Qualifiers: Hypertension type: essential hypertension Qualified Code(s): I10 - Essential (primary) hypertension - Plan Plan: 74-y.o. male w/ PMHx of esophageal cancer s/p spinal surgery & radiation admitted for: 1. Sepsis * Most likely secondary to UTI from chronic indwelling renee catheter * Blood Cx: NGTD 2. UTI from chronic indwelling renee * Patient has grown pseudomonas in the past. 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 * Prelim Urine Cx: E. Coli. Resistant to ampicillin, bactrim. Intermediate to augmentin. * We may consider further workup of this blood in urine after acute resolution of infection. However, patient's prognosis is poor. * F/U w/ Dr. Reich recs 3. Osteomyelitis of Right Fibula * Preliminary wound culture: few proteus, E. Coli * Resistant to ampicillin, bactrim. Intermediate to augmentin. * Consulted Dr. Reich ([place]). Appreciate recs. * As far as possible surgery consult, will f/u w/ patient's oncologist Dr. Armstrong to gain better understanding of patient prognosis. 3b. Possible pneumonia vs. other pneumonitis vs. atelectasis * Procalcitonin on admission was 0.37. * CXR from outside hospital showed small R pleural effusion and R lower lobe opacity which might be seen in infection. * Continue incentive spirometry 4. Hypokalemia 5. Hypomagnesemia 6. Hypocalcemia * Increase oral potassium to 40mEq BID 7. IZAIAH - Likely 2/2 sepsis and dehydration. - D/C'd fluids. Encourage oral intake. - Creatinine improving. Baseline is 0.65. Chronic Problems 7. COPD * Continue DuoNebs and home meds. 8. History of metastatic esophageal cancer * Patient also has history of bilateral pulmonary embolism. On ppx LVX. * Case management consult 9. Paraplegia * q2h turns * Would like pulsating air mattress to prevent worsening of back erythema and sacral ulcer. 10. History of HTN * Patient no longer takes medication for this condition. DVT PPx: LVX Code status: FULL Val Guerrier MD PGY-1 Addendum - Attending - Attending Attestation Date/Time: 03/27/19 6946 I personally evaluated the patient and discussed the management with Dr. Guerrier. I agree with the History, Examination, Assessment and Plan documented above with any addition or exceptions noted below.
[2019-03-27 06:30] LABS: #Basophils 0.1 thou/uL (0.0-0.2); #Eosinphils 1.1 thou/uL (0.0-0.7); #Lymphocytes 1.5 thou/uL (1.20-3.40); #Monocytes 0.7 thou/uL (0.11-0.59); #Neutrophils 5.1 thou/uL (1.40-6.50); %Basophils 0.6 % (0.0-1.0); %Eosinophils 12.8 % (0.0-10.0); %Lymphocytes 17.8 % (21.0-51.0); %Monocytes 8.4 % (0.0-10.0); %Neutrophils 60.4 % (42.0-75.0); Hemoglobin 8.8 g/dL (14.0-18.0); Mean Corpuscular Hemoglobin 28.1 pg (27.0-31.0); Mean Corpuscular Volume 87.8 fL (78.0-98.0); Platelet Count 642 thou/uL (130-400); RBC Distribution Width 15.7 % (11.5-14.5); Red Blood Cell (RBC) Count 3.12 mill/uL (4.70-6.10); White Blood Cell (WBC) Count 8.5 thou/uL (4.8-10.8)
[2019-03-27 06:55] LABS: ALT (SGPT) 9 U/L (8-55); AST (SGOT) 17 U/L (5-34); Albumin 2.2 g/dL (3.4-4.8); Alkaline Phosphatase 76 U/L (40-150); Anion Gap 10 mmol/L (10-20); BUN (Urea Nitrogen) 10 mg/dL (8.4-25.7); Bilirubin, Total 0.5 mg/dL (0.2-1.2); Calc. Creatinine Clearance 78 mL/min (70-130); Calcium 7.8 mg/dL (7.8-10.44); Carbon Dioxide 22 mmol/L (23-31); Chloride 107 mmol/L (98-107); Estimated GFR-MDRD 82; Globulin 4.4 g/dL (2.4-3.5); Glucose 87 mg/dL (83-110); Potassium 3.2 mmol/L (3.5-5.1); Protein, Total 6.6 g/dL (5.8-8.1); Sodium 136 mmol/L (136-145)
[2019-03-27] MEDS: Mometasone/Formoterol 120 PUFF INHALER INH SCH ×2 (06:57→18:32)
[2019-03-27] MEDS: Enoxaparin Sodium 40 MG/0.4 ML SYRINGE SC SCH (08:33)
[2019-03-27] MEDS: Potassium Chloride 20 MEQ TAB PO SCH ×2 (08:33→16:53)
--- NOTE | 2019-03-27 17:37 | PDOC.EVN ---
Event Note - Event Note Event Note: Author went to speak w/ daughter Yesenia and patient about goals of care. Explained options for treating osteomyelitis infection depending on patient's desires: surgical debridement/biopsy/possible small risk of leg amputation, long -term IV abx at a facility, and oral abx so he could remain at home. The daughter and patient prefer to be more aggressive with treatment. They would like a surgeon to speak with them. Will consult surgery for tomorrow. Patient would also like Dr. Armstrong, oncology, to see him, because he wants to know where his cancer stands. Patient reports he last saw Dr. Armstrong sometime in September of this year. Author will attempt to contact Dr. Armstrong for the patient.
[2019-03-28] MEDS: Piperacillin/Tazobactam 3.375 GM in Sodium Chloride 0.9% 100 ML IVPB SCH ×3 (01:41→13:52)
--- NOTE | 2019-03-28 05:35 | PDOC.FM ---
- Subjective Subjective: VSS. Afebrile. Patient doing well this morning. Only complains of dry mouth. Denies abd pain, chest pain, diarrhea, n/v, and PO intolerance. - Objective MAR Reviewed: Yes Vital Signs & Weight: Vital Signs (12 hours) Temp Pulse Resp BP Pulse Ox 03/28/19 04:00 97.7 F 98 20 119/77 92 L 03/28/19 02:20 91 16 93 L 03/28/19 00:00 98.3 F 100 20 134/84 92 L 03/27/19 22:30 89 16 94 L 03/27/19 20:00 92 L 03/27/19 19:12 98.2 F 100 20 146/79 H 92 L 03/27/19 18:32 96 16 96 Weight Admit Weight 76.657 kg Weight 76.657 kg I&O: 03/26/19 03/27/19 03/28/19 06:59 06:59 06:59 Intake Total 3000 2450 720 Output Total 1425 3425 1700 Balance 1575 -975 -980 Result Diagrams: 03/28/19 06:29 03/28/19 06:29 Phys Exam - Physical Examination Constitutional: NAD Coarse crackles in lower lung parham bilaterally, unchanged exam Cardiovascular: RRR, no significant murmur Gastrointestinal: soft, non-tender Psychiatric: normal affect, A&O x 3 Deviation from normal: legs wrapped. Dressings not disturbed today. Wound care followign Dx/Plan (1) Sepsis Code(s): A41.9 - SEPSIS, UNSPECIFIED ORGANISM Status: Acute (2) Osteomyelitis of right fibula Code(s): M86.9 - OSTEOMYELITIS, UNSPECIFIED Status: Acute (3) Wound infection Code(s): T14.8XXA - OTHER INJURY OF UNSPECIFIED BODY REGION, INITIAL ENCOUNTER; L08.9 - LOCAL INFECTION OF THE SKIN AND SUBCUTANEOUS TISSUE, UNSP Status: Acute (4) UTI (urinary tract infection) due to urinary indwelling catheter Code(s): T83.511A - I/I REACT D/T INDWELLING URETHRAL CATHETER, INIT; N39.0 - URINARY TRACT INFECTION, SITE NOT SPECIFIED Status: Resolved Qualifiers: Indwelling urinary catheter type: indwelling urethral catheter (5) Hypomagnesemia Code(s): E83.42 - HYPOMAGNESEMIA Status: Acute (6) Hypokalemia Code(s): E87.6 - HYPOKALEMIA Status: Resolved (7) Hypocalcemia Code(s): E83.51 - HYPOCALCEMIA Status: Acute (8) COPD (chronic obstructive pulmonary disease) Status: Chronic Qualifiers: COPD type: unspecified COPD Qualified Code(s): J44.9 - Chronic obstructive pulmonary disease, unspecified (9) H/O metastatic esophageal cancer Status: Chronic (10) Paraplegia Code(s): G82.20 - PARAPLEGIA, UNSPECIFIED Status: Chronic (11) HTN (hypertension) Code(s): I10 - ESSENTIAL (PRIMARY) HYPERTENSION Status: Chronic Qualifiers: Hypertension type: essential hypertension Qualified Code(s): I10 - Essential (primary) hypertension - Plan Plan: 74-y.o. male w/ PMHx of esophageal cancer s/p spinal surgery & radiation admitted for: 1. Sepsis - Most likely secondary to UTI from chronic indwelling renee catheter - Blood Cx: NGTD - WBC stable. 2. UTI from chronic indwelling renee - Hx urinary pseudomonas infxn. - Hx of urinary retention 2/2 paraplegia from spinal surgery and cancer mets - Final Urine Cx: E. Coli. Resistant to ampicillin, bactrim. Intermediate to augmentin. - F/U outpatient of blood on UA - Would like to narrow abx spectrum: awaiting Dr. Reich recs. 3. Osteomyelitis of Right Fibula - Final wound culture: few proteus, E. Coli, same susceptibility as above ( UTI) - Consulted Dr. Reich ([place]). Appreciate recs. - Patient prefers to be aggressive w/ wound care. - Surgery consult this AM - Wound care following. 3b. Possible pneumonia vs. other pneumonitis vs. atelectasis - Procalcitonin on admission = 0.37. - CXR: small R pleural effusion and R lower lobe opacity. Likely chronic due to patient's paralysis from T4 downward. - Continue incentive spirometry 4. Hypokalemia 5. Hypomagnesemia 6. Hypocalcemia - Replete prn. Monitor. 7. IZAIAH - Likely 2/2 sepsis and dehydration. - PO intake - Creatinine improving. Baseline is 0.65. Chronic Problems 7. COPD - Continue DuoNebs and home meds. 8. History of metastatic esophageal cancer - Patient also has history of bilateral pulmonary embolism. On ppx LVX. - Case management consulted - F/U oncology to assess prognosis - Palliative Care consulted. On board. Appreciate recs. 9. Paraplegia - q2h turns - air pressure mattress 10. History of HTN DVT PPx: LVX Code status: FULL Val Guerrier MD PGY-1 Addendum - Attending - Attending Attestation Date/Time: 03/28/19 5039 I personally evaluated the patient and discussed the management with Dr. Osborn. I agree with the History, Examination, Assessment and Plan documented above with any addition or exceptions noted below. The patient was eating breakfast this morning. He denies concerns. Initially called ortho for leg wound with exposed fibula but they recommended calling gen surg. Dr. Hsu then recommended we call Dr. Louis. Referral is pending. Pt remains on IV antibiotics.
[2019-03-28] MEDS: Mometasone/Formoterol 120 PUFF INHALER INH SCH ×2 (06:16→18:39)
[2019-03-28 06:39] LABS: #Basophils 0.1 thou/uL (0.0-0.2); #Eosinphils 1.5 thou/uL (0.0-0.7); #Lymphocytes 1.9 thou/uL (1.20-3.40); #Monocytes 0.9 thou/uL (0.11-0.59); #Neutrophils 5.7 thou/uL (1.40-6.50); %Basophils 0.9 % (0.0-1.0); %Eosinophils 15.1 % (0.0-10.0); %Lymphocytes 18.8 % (21.0-51.0); %Monocytes 8.6 % (0.0-10.0); %Neutrophils 56.6 % (42.0-75.0); Hemoglobin 9.5 g/dL (14.0-18.0); Mean Corpuscular HGB CONC 31.3 g/dL (32.0-36.0); Mean Corpuscular Hemoglobin 27.9 pg (27.0-31.0); Mean Corpuscular Volume 89.2 fL (78.0-98.0); Mean Platelet Volume 6.1 fL (7.4-10.4); Platelet Count 668 thou/uL (130-400); White Blood Cell (WBC) Count 10.1 thou/uL (4.8-10.8)
[2019-03-28 07:00] LABS: Anion Gap 12 mmol/L (10-20); BUN (Urea Nitrogen) 8 mg/dL (8.4-25.7); Calc. Creatinine Clearance 82 mL/min (70-130); Calcium 8.5 mg/dL (7.8-10.44); Carbon Dioxide 21 mmol/L (23-31); Chloride 107 mmol/L (98-107); Estimated GFR-MDRD 87; Glucose 82 mg/dL (83-110); Potassium 4.3 mmol/L (3.5-5.1); Sodium 136 mmol/L (136-145)
[2019-03-28] MEDS: Potassium Chloride 20 MEQ TAB PO SCH ×2 (08:05→16:48)
[2019-03-28] MEDS: Enoxaparin Sodium 40 MG/0.4 ML SYRINGE SC SCH (08:05)
--- NOTE | 2019-03-28 19:26 | CON ---
DATE OF CONSULTATION: HISTORY OF PRESENT ILLNESS: Andre Hernandez is a 74-year-old male patient, who I am seeing today in consultation. assistant corporate secretary had informed me that there was a request to see Mr. Hernandez and that the resident had discussed this with me, but no one has discussed this patient with me. The patient has metastatic esophageal carcinoma since 2015. He sees Dr. Armstrong. He has had metastasis to the thoracic spine, undergoing radiation treatment. He is paraplegic. He lives at home with his daughter. They have a lift that they occasionally transfer him to chair. The patient is unable to transfer himself. In November 2015, a MediPort was placed in right subclavian vein. On December 11, [address] Canela performed a decompressive laminectomy C7, T1, T2, T3, durotomy, myelotomy, intramedullary spinal cord lesion, partial resection, biopsy removal of posterior shoulder sebaceous cyst. At that time, he is reported as to having myelopathy. In September 2018, I saw the patient for a stage IV esophageal cancer with thoracic spine metastasis and paraplegia and sacral decubitus. At that time, he had bilateral heel decubitus and lateral malleoli decubitus. He underwent sharp debridement of skin and connective tissue and bone in the sacrum, debridement of skin and subcutaneous tissue, connective tissue of lateral malleolar decubitus ulcer and bilateral heel decubitus ulcers. In October 2018, the patient underwent noncontrast CT scan of thoracic spine. It did not show any lytic lesions. On 03/24/2019, chest x-ray was unremarkable. I am asked to see him today regarding right lateral leg open wound with exposed fibula irregularity consistent with osteomyelitis. This wound is large, approximately 9 to 10 cm x 4 cm granulating with exposed fibula, which has a very irregular surface consistent with osteomyelitis. He has smaller excoriations on his right heel, malleoli and leg consistent with decubitus. While he has bilateral knee contractures, left worse than right. He is paraplegic, cannot move his legs at all significantly. He is a complete transfer. I discussed above recommendations that the patient consider a right [id number] amputation as his right leg is not useful to him and he will continue to suffer decubitus wound. Another option, however, would be local debridement with debridement of the fibula, resection wound VAC application healing by secondary intention. This should be protracted course. He could have intravenous antibiotics to the surgery. Continue intravenous antibiotics for a day or two and then convert to oral antibiotics after the resection, now this is completed. The patient's daughter and the patient state, however, that he was told by other physicians this could heal with just antibiotics. They do not want any intervention at this time. At this point, I will see him as needed. Please call if necessary of further consultation or considerations are desired. ALLERGIES: NONE. SOCIAL HISTORY: Tobacco abuse in the past. Alcohol, none currently. MEDICATIONS: Inhalers at home, nitrofurantoin, Flexeril, Symbicort, Mucinex, aspirin, K-Dur, dapsone. Currently, he is not on any intravenous antibiotics. Currently, he is on Zosyn. Cultures of the right leg revealed Proteus E. coli, Streptococcus, Enterococcus when his blood cultures were positive for gram-negative olegario 1/2, urine culture E. coli. Dr. Reich saw him 03/25/2019. He talked about antimicrobial therapy and wound care. At this point, the family has declined any other intervention would be available to see him again should they desire further intervention. They have an appointment to see Dr. Armstrong in the near future to evaluate his disease status, but he is fortunate to have survive since 2016 with metastatic esophageal cancer. I think this process is unlikely to resolve with antibiotics alone. 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 Jain in October 2017, EGD by Dr. Jain in October 2015 documenting the esophageal cancer. PAST MEDICAL HISTORY: Esophageal cancer, COPD, paraplegia. The patient has home oxygen, though does not use it. He has inhalers that he uses routinely for the COPD. He has a history of PE, has been treated with Eliquis. PHYSICAL EXAMINATION: VITAL SIGNS: Height 5 feet 10 inches, weight 169 pounds, 24 BMI. Temperature 97.5, pulse 106, and blood pressure 108/66. HEAD, EARS, EYES, NOSE, AND THROAT: Unremarkable. LUNGS: Clear to auscultation. CARDIAC: Rhythm without murmur or gallop. ABDOMEN: Soft and nontender. NEUROLOGIC: He is paraplegic. He has bilateral knee contractures, left fourth and right. He has an open wound on the lateral right leg with exposed fibula. Wound is of dimensions described above. There is granulation tissue, but exposed fibula with irregular cortex with scaffolding throughout approximately 6 cm with fibular is exposed. He has excoriations on heel and lateral medial feet, right and left from early decubitus changes. He has palpable femoral and popliteal pulses bilaterally. LABORATORY DATA: Sodium 136, potassium 4.3. Renal function is normal. White count 10 and hemoglobin 9.5. ASSESSMENT AND PLAN: Metastatic esophageal cancer diagnosed in 2016, status post radiation therapy and decompressive laminectomy for treatment to his knowledge has no other evidence of metastatic disease and this was diagnosed in 2016. He has exposed fibula with obvious osteomyelitis. I do not think imaging would change things. At this point, I would recommend either [id number] amputation right versus local treatment of the wound. Local treatment of the wound will consist of excision of the fibula in the operating room and opacification of the wound VAC. With his knee contracture and paraplegia, he will likely develop other problems and feet eventually require consideration of amputation. Currently, the family wants to do antimicrobial therapy only and I will see him as needed. Please call again if necessary. Job ID: [id number]
[2019-03-28] MEDS: Ciprofloxacin 500 MG TAB PO SCH (19:59)
[2019-03-29] MEDS: Ciprofloxacin 500 MG TAB PO SCH ×2 (05:46→20:17)
--- NOTE | 2019-03-29 06:04 | PDOC.FM ---
- Subjective Subjective: VSS. Afebrile. Patient has no complaints this morning. Reports dry mouth has improved w/ honey lozenges. He said maybe he had an episode of diarrhea this morning. Per nurse, patient had 1 BM overnight and the BM this morning was more mucus than loose stool. Patient reports conversation w/ Dr. Louis; patient does not want amputation nor removal of bone in his infected R leg. Per nurse, patient was transitioned from IV zosyn to PO ciprofloxacin by Dr. Reich last night. - Objective MAR Reviewed: Yes Vital Signs & Weight: Vital Signs (12 hours) Temp Pulse Resp BP Pulse Ox 03/29/19 04:00 97.6 F 99 18 171/90 H 94 L 03/29/19 02:42 102 H 16 92 L 03/28/19 22:40 99 16 92 L 03/28/19 20:00 93 L 03/28/19 19:30 98.4 F 103 H 18 126/79 93 L 03/28/19 18:39 103 H 20 91 L Weight Admit Weight 76.657 kg Weight 76.657 kg I&O: 03/27/19 03/28/19 03/29/19 06:59 06:59 06:59 Intake Total 2450 1760 1820 Output Total 3425 3600 2650 Balance -975 -1840 -830 Result Diagrams: 03/29/19 08:33 03/29/19 08:33 Phys Exam - Physical Examination Constitutional: NAD HEENT: moist MMs Respiratory: no wheezing, clear to auscultation bilateral (patient just received breathing treatment) Cardiovascular: RRR, no significant murmur Gastrointestinal: soft, non-tender 2+ pitting edema, unchanged from baseline Dx/Plan (1) Sepsis Code(s): A41.9 - SEPSIS, UNSPECIFIED ORGANISM Status: Acute (2) Osteomyelitis of right fibula Code(s): M86.9 - OSTEOMYELITIS, UNSPECIFIED Status: Acute (3) Wound infection Code(s): T14.8XXA - OTHER INJURY OF UNSPECIFIED BODY REGION, INITIAL ENCOUNTER; L08.9 - LOCAL INFECTION OF THE SKIN AND SUBCUTANEOUS TISSUE, UNSP Status: Acute (4) Hypomagnesemia Code(s): E83.42 - HYPOMAGNESEMIA Status: Acute (5) Hypocalcemia Code(s): E83.51 - HYPOCALCEMIA Status: Acute (6) COPD (chronic obstructive pulmonary disease) Status: Chronic Qualifiers: COPD type: unspecified COPD Qualified Code(s): J44.9 - Chronic obstructive pulmonary disease, unspecified (7) H/O metastatic esophageal cancer Status: Chronic (8) Paraplegia Code(s): G82.20 - PARAPLEGIA, UNSPECIFIED Status: Chronic (9) HTN (hypertension) Code(s): I10 - ESSENTIAL (PRIMARY) HYPERTENSION Status: Chronic Qualifiers: Hypertension type: essential hypertension Qualified Code(s): I10 - Essential (primary) hypertension - Plan Plan: 74-y.o. male w/ PMHx of esophageal cancer s/p spinal surgery & radiation admitted for: 1. Sepsis - Most likely secondary to UTI from chronic indwelling renee catheter - Blood Cx: NGTD - WBC stable. 2. UTI from chronic indwelling renee - Hx urinary pseudomonas infxn. - Hx of urinary retention 2/2 paraplegia from spinal surgery and cancer mets - Final Urine Cx: E. Coli. Resistant to ampicillin, bactrim. Intermediate to augmentin. - F/U outpatient of blood on UA - Dr. Reich: d/c IV zosyn, oral ciprofloxacin 3. Osteomyelitis of Right Fibula - Final wound culture: few proteus, E. Coli, same susceptibility as above ( UTI) - Consulted Dr. Reich (ID). Appreciate recs. - Surgery consulted. Dr. Louis rec R above-knee amputation vs local debridement/wound vac. Patient declined and wants abx alone. Dr. Louis will see as needed. Appreciate recs. - Wound care following. 3b. Possible pneumonia vs. other pneumonitis vs. atelectasis - Continue incentive spirometry 4. Hypokalemia 5. Hypomagnesemia 6. Hypocalcemia - Replete prn. Monitor. 7. IZAIAH - Likely 2/2 sepsis and dehydration. - PO intake - Creatinine improving. Baseline is 0.65. Chronic Problems 7. COPD - Continue DuoNebs and home meds. 8. History of metastatic esophageal cancer - Patient also has history of bilateral pulmonary embolism. On ppx LVX. - Case management consulted - F/U oncology to assess prognosis - Palliative Care consulted. On board. Appreciate recs. 9. Paraplegia - q2h turns - air pressure mattress 10. History of HTN DVT PPx: LVX Code status: FULL Val Guerrier MD PGY-1 Addendum - Attending - Attending Attestation Date/Time: 03/29/19 1942 I personally evaluated the patient and discussed the management with Dr. Guerrier. I agree with the History, Examination, Assessment and Plan documented above with any addition or exceptions noted below. The patient declined surgical intervention yesterday. He states somebody told him the wound would heal. I explained that there is a very low likelihood of healing with exposed bone with osteomyelitis. Dr. Reich started PO cipro. Swing bed referral is pending.
[2019-03-29] MEDS: Mometasone/Formoterol 120 PUFF INHALER INH SCH ×2 (06:10→18:19)
[2019-03-29] MEDS: Enoxaparin Sodium 40 MG/0.4 ML SYRINGE SC SCH (07:47)
[2019-03-29] MEDS: Potassium Chloride 20 MEQ TAB PO SCH ×2 (07:47→16:33)
[2019-03-29 09:07] LABS: #Basophils 0.1 thou/uL (0.0-0.2); #Eosinphils 1.3 thou/uL (0.0-0.7); #Lymphocytes 1.9 thou/uL (1.20-3.40); #Monocytes 0.8 thou/uL (0.11-0.59); #Neutrophils 5.5 thou/uL (1.40-6.50); %Basophils 0.9 % (0.0-1.0); %Eosinophils 13.1 % (0.0-10.0); %Monocytes 8.4 % (0.0-10.0); %Neutrophils 57.5 % (42.0-75.0); Mean Corpuscular HGB CONC 31.5 g/dL (32.0-36.0); Mean Corpuscular Hemoglobin 27.2 pg (27.0-31.0); Mean Corpuscular Volume 86.3 fL (78.0-98.0); Mean Platelet Volume 6.2 fL (7.4-10.4); Platelet Count 638 thou/uL (130-400); RBC Distribution Width 16.1 % (11.5-14.5); Red Blood Cell (RBC) Count 3.67 mill/uL (4.70-6.10); White Blood Cell (WBC) Count 9.6 thou/uL (4.8-10.8)
[2019-03-29 09:26] LABS: ALT (SGPT) 11 U/L (8-55); AST (SGOT) 24 U/L (5-34); Albumin 2.4 g/dL (3.4-4.8); Alkaline Phosphatase 87 U/L (40-150); Anion Gap 10 mmol/L (10-20); BUN (Urea Nitrogen) 8 mg/dL (8.4-25.7); Bilirubin, Total 0.4 mg/dL (0.2-1.2); Calc. Creatinine Clearance 75 mL/min (70-130); Calcium 8.4 mg/dL (7.8-10.44); Carbon Dioxide 26 mmol/L (23-31); Chloride 104 mmol/L (98-107); Estimated GFR-MDRD 78; Globulin 4.9 g/dL (2.4-3.5); Glucose 87 mg/dL (83-110); Potassium 4.2 mmol/L (3.5-5.1); Protein, Total 7.3 g/dL (5.8-8.1); Sodium 136 mmol/L (136-145)
[2019-03-30 04:28] LABS: #Basophils 0.1 thou/uL (0.0-0.2); #Eosinphils 1.6 thou/uL (0.0-0.7); #Lymphocytes 2.2 thou/uL (1.20-3.40); #Neutrophils 5.5 thou/uL (1.40-6.50); %Basophils 1.1 % (0.0-1.0); %Eosinophils 15.4 % (0.0-10.0); %Lymphocytes 21.4 % (21.0-51.0); %Monocytes 9.6 % (0.0-10.0); %Neutrophils 52.4 % (42.0-75.0); Hemoglobin 9.5 g/dL (14.0-18.0); Mean Corpuscular Hemoglobin 27.6 pg (27.0-31.0); Mean Corpuscular Volume 86.2 fL (78.0-98.0); Mean Platelet Volume 6.2 fL (7.4-10.4); Platelet Count 566 thou/uL (130-400); Red Blood Cell (RBC) Count 3.44 mill/uL (4.70-6.10); White Blood Cell (WBC) Count 10.4 thou/uL (4.8-10.8)
[2019-03-30 04:46] LABS: ALT (SGPT) 10 U/L (8-55); AST (SGOT) 21 U/L (5-34); Albumin 2.3 g/dL (3.4-4.8); Alkaline Phosphatase 84 U/L (40-150); Anion Gap 13 mmol/L (10-20); BUN (Urea Nitrogen) 10 mg/dL (8.4-25.7); Bilirubin, Total 0.3 mg/dL (0.2-1.2); Calc. Creatinine Clearance 72 mL/min (70-130); Calcium 8.6 mg/dL (7.8-10.44); Carbon Dioxide 23 mmol/L (23-31); Chloride 104 mmol/L (98-107); Estimated GFR-MDRD 76; Globulin 4.9 g/dL (2.4-3.5); Glucose 94 mg/dL (83-110); Potassium 4.7 mmol/L (3.5-5.1); Protein, Total 7.2 g/dL (5.8-8.1); Sodium 135 mmol/L (136-145)
[2019-03-30] MEDS: Ciprofloxacin 500 MG TAB PO SCH ×2 (05:44→20:50)
--- NOTE | 2019-03-30 06:49 | PDOC.FM ---
- Subjective Subjective: Pt is doing well this morning without any major concerns or complaints. He states he slept well overnight without any acute events. He states he talked to Dr. Louis yesterday, but still does not wish to undergo surgery at this time and just continue with wound care. He currently lives at home with two adult children who help take care of him. He denies any fevers/chills, n/v, CP, SOB. We talked about the need for Pallative care team consult to discuss goals of care and long-term care plan and he was in agreement. Pt does state he would like to see imaging of osteo. - Objective MAR Reviewed: Yes Vital Signs & Weight: Vital Signs (12 hours) Temp Pulse Resp BP BP Pulse Ox 03/30/19 04:59 98.1 F 107 H 16 105/68 98 03/30/19 02:49 109 H 16 98 03/29/19 23:26 98.4 F 114 H 16 120/70 96 03/29/19 22:34 108 H 16 98 03/29/19 22:30 104 H 18 99/70 100 03/29/19 21:33 86 18 98 03/29/19 20:00 92 L 03/29/19 19:46 98.2 F 108 H 16 96/64 92 L Weight Admit Weight 76.657 kg Weight 76.657 kg I&O: 03/28/19 03/29/19 03/30/19 06:59 06:59 06:59 Intake Total 1760 1820 1020 Output Total 3600 2650 1450 Balance -1840 -830 -430 Result Diagrams: 03/30/19 03:57 03/30/19 03:57 Phys Exam - Physical Examination Constitutional: NAD HEENT: PERRLA, moist MMs poor dentition Respiratory: no wheezing, no rales, no rhonchi, clear to auscultation bilateral Cardiovascular: RRR, no significant murmur, no rub Gastrointestinal: soft, non-tender, no distention, positive bowel sounds paraplegic, r open wound covered with dressing. 2+ ankle edema paraplegic, moves upper ext well, no acute neuro findings. Psychiatric: normal affect Dx/Plan (1) Sepsis Code(s): A41.9 - SEPSIS, UNSPECIFIED ORGANISM Status: Acute (2) Wound infection Code(s): T14.8XXA - OTHER INJURY OF UNSPECIFIED BODY REGION, INITIAL ENCOUNTER; L08.9 - LOCAL INFECTION OF THE SKIN AND SUBCUTANEOUS TISSUE, UNSP Status: Acute (3) COPD (chronic obstructive pulmonary disease) Status: Chronic Qualifiers: COPD type: unspecified COPD Qualified Code(s): J44.9 - Chronic obstructive pulmonary disease, unspecified (4) H/O metastatic esophageal cancer Status: Chronic (5) Paraplegia Code(s): G82.20 - PARAPLEGIA, UNSPECIFIED Status: Chronic - Plan Plan: 74-y.o. 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 Sepsis 2/2 UTI from chronic indwelling renee - paraplegia from spinal surgery and cancer mets requiring chronic renee - BCx 1/2 E. Coli susceptible to Cipro. UCx E. coli. - WBC stable. Procal 0.34 - Continue Cipro Day 3 - Dr. Reich consulted, rec oral cipro, appreciate recs 2. Osteomyelitis of Right Fibula - Final wound culture: few proteus, E. Coli, same susceptibility as above (UTI) - Consulted Dr. Reich (ID). Appreciate recs. - Surgery consulted. Dr. Louis rec R above-knee amputation vs local debridement /wound vac. Patient declined and wants abx alone. Dr. Louis will see as needed. Appreciate recs. - Wound care following - Pallative care consulted to help provide longer-term care goals and plan, appreciate recs - Will order XR of right leg to demonstrate osteo. 3. IZAIAH - Likely 2/2 sepsis and dehydration. Encourage PO intake - Creatinine improving at 0.97. Baseline is 0.65. Continue to monitor 4. COPD - Continue DuoNebs, home spiriva, and supp O2 prn 5. History of metastatic esophageal cancer - Patient also has history of bilateral pulmonary embolism. On ppx LVX. - Case management consulted - F/U oncology to assess prognosis - Palliative Care consulted. On board. Appreciate recs. 6. Paraplegia - q2h turns - air pressure mattress DVT PPx: LVX Diet: Regular Code status: FULL Dispo: Pending family and patient discussion on surgery vs conservative tx. Appreciate Palliative team assistance and recs.
[2019-03-30] MEDS: Mometasone/Formoterol 120 PUFF INHALER INH SCH ×2 (07:06→19:17)
[2019-03-30] MEDS: Potassium Chloride 20 MEQ TAB PO SCH ×2 (08:43→17:38)
[2019-03-30] MEDS: Enoxaparin Sodium 40 MG/0.4 ML SYRINGE SC SCH (08:43)
--- NOTE | 2019-03-30 12:46 | PRG ---
DATE OF SERVICE: 03/30/2019 Mr. Hernandez looks and feels better. This unfortunate gentleman has sepsis, secondary to UTI, and is a paraplegic from metastatic esophageal cancer. He also has exposed bone and likely has osteomyelitis. He is refusing definitive treatment, although we have again discussed this with him. We will obtain a plain film, which if negative, will proceed with an MRI to document the diagnosis of osteomyelitis. Job ID: [id number]
--- NOTE | 2019-03-30 13:23 | RAD ---
EXAM: 2 views of the right tibia/fibula HISTORY: Leg pain COMPARISON: None FINDINGS: There is no evidence of acute fracture or dislocation. There appears to be a dressing over the midportion of the tibia/fibula. Pretibial calcifications are seen. There is questionable lucency involving the anterior cortex of the tibia on the lateral radiograph. Mild diffuse soft tissu e swelling is seen. No degenerative changes are seen in the knee or ankle. IMPRESSION: Questionable lucency involving the tibia could be secondary to osteomyelitis.
--- NOTE | 2019-03-30 15:58 | PDOC.PALCO ---
Palliative Care Consult - Consult Details Requesting Physician: Dr Guerrier Reason for Consult: goals of care Family Members Present: none - Pertinent HPI Mr Hernandez is a 74 year old male who was transferred to [facility] for further evaluation from a [facility] facility secondary to septic shock and hypotension. 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 Patient has been on [facility] for care of chronic wounds and renee cath. Patient lives at a private home, his two daughters are primary caregivers. [facility] will not accept patient back on services upon discharge secondary to non healing wounds. Hospice has been discussed with the patient and daughters due to patient continued decline/ chronic wounds and possible life expectancy of 6 months or less. Patient and daughters reported not open to hospice. Patient states he wishes to remain a full code, and when MPOA was discussed he states his daughters are aware of his wishes. Dr Louis recommends possible amputation of second. Waiting on radiology report from today to further determine possibilities for treatment. - Social History Smoking Status: Former smoker Smoking: quit less than 1 year Alcohol Use: heavy (Patient states he stopped drinking "a few months ago") Drug Use History: none Living Situation: other (Lives in private home with two daughters) - Allergies Allergies/Adverse Reactions: Allergies Allergy/AdvReac Type Severity Reaction Status Date / Time No Known Drug Allergies Allergy Verified 09/19/18 19:04 - Subjective Paraplegic secondary to resection and radiation to spine to treat squamous cell ca. Bed/gerichair bound, chronic wounds. Patient denies pain, states he "could not breath" yesterday but o2 via nasal cannula was placed on him and respiratory status improved, appears isolated event. Patient does not want to make any decisions today in relation to goals of care until he has information from radiology today. ROS: No pain presently, renee draining yellow urine, dressing to multiple wounds to lower ext, denies chest pain, nausea, constipation. Denies depression , although flat affect. Poor dentition. - Objective Vital Signs: Vital Signs - Most Recent Temp Pulse Resp BP Pulse Ox 97.4 F L 99 16 96/61 97 03/30/19 11:00 03/30/19 14:24 03/30/19 14:24 03/30/19 11:00 03/30/19 14:24 Palliative Performance Scale: 40 - Physical Exam Constitutional: NAD HEENT: moist MMs, EOMI Respiratory: unlabored breathing Cardiovascular: RRR Gastrointestinal: soft, non-tender Musculoskeletal: edema present Deviation from normal: Paraplegic, no sensation to lower extremities Psychiatric: A&O x 3 Deviation from normal: Depressed Deviation from normal: Multiple wounds as documented. Possible osteomyelitis - Problem List (1) Palliative care encounter Code(s): Z51.5 - ENCOUNTER FOR PALLIATIVE CARE Current Visit: Yes Status: Acute (2) Osteomyelitis of right fibula Code(s): M86.9 - OSTEOMYELITIS, UNSPECIFIED Current Visit: Yes Status: Acute (3) Wound infection Code(s): T14.8XXA - OTHER INJURY OF UNSPECIFIED BODY REGION, INITIAL ENCOUNTER; L08.9 - LOCAL INFECTION OF THE SKIN AND SUBCUTANEOUS TISSUE, UNSP Current Visit: Yes Status: Acute (4) Indwelling catheter present on admission Code(s): Z96.0 - PRESENCE OF UROGENITAL IMPLANTS Current Visit: No Status: Chronic (5) Paraplegia Code(s): G82.20 - PARAPLEGIA, UNSPECIFIED Current Visit: No Status: Chronic - Plan/Recommendations Plan: Lengthy visit with patient in relation to history, current living arrangements, health status, and hopes. Patient with follow up radiology today to determine extent of osteomyelitis and further consideration of amputation of right lower extremity. *Follow up with patient 03/31 to further discuss goals of care related to disease trajectory. *Revisit if patient would like to have a confirmed MPOA establishing his daughters as MPOA. [60] minutes spent on this encounter with >50% of the time in counseling and coordination of care. Thank you for this very appropriate consult.
--- NOTE | 2019-03-31 05:16 | PDOC.FM ---
- Subjective Subjective: Pt is doing well this morning without concerns or complaints. He slept well overnight without any acute events. He states he has thought more about surgery vs wound care and outpatient abx and still wishes to continue to swing bed rehab and consider surgery in the future. No fevers/chills, n/v/d/c, CP, SOB. - Objective MAR Reviewed: Yes Vital Signs & Weight: Vital Signs (12 hours) Temp Pulse Resp BP Pulse Ox 03/31/19 04:12 98.2 F 105 H 16 107/71 95 03/31/19 03:20 97 03/31/19 00:50 98.4 F 106 H 16 100/65 96 03/30/19 22:15 97 03/30/19 19:29 97.9 F 101 H 16 124/80 100 03/30/19 19:20 97 03/30/19 19:18 98 16 98 03/30/19 19:17 94 L Weight Admit Weight 76.657 kg Weight 76.657 kg I&O: 03/29/19 03/30/19 03/31/19 06:59 06:59 06:59 Intake Total 1820 1020 Output Total 2650 1450 Balance -830 -430 Result Diagrams: 03/30/19 03:57 03/30/19 03:57 Phys Exam - Physical Examination Constitutional: NAD HEENT: moist MMs Neck: supple Respiratory: no wheezing, no rales, no rhonchi, clear to auscultation bilateral Cardiovascular: RRR, no rub Systolic murmur present. Gastrointestinal: soft, non-tender, no distention, positive bowel sounds Paraplegic. 1+ Edema of BL LE. Pressure sores on heels with dressing. Large, right lower leg wound, clean and dry with dressing, No erythema. Paraplegic. Psychiatric: normal affect, A&O x 3 Dx/Plan (1) Sepsis Code(s): A41.9 - SEPSIS, UNSPECIFIED ORGANISM Status: Acute Qualifiers: Sepsis type: Escherichia coli Qualified Code(s): A41.51 - Sepsis due to Escherichia coli [E. coli] (2) Wound infection Code(s): T14.8XXA - OTHER INJURY OF UNSPECIFIED BODY REGION, INITIAL ENCOUNTER; L08.9 - LOCAL INFECTION OF THE SKIN AND SUBCUTANEOUS TISSUE, UNSP Status: Acute (3) COPD (chronic obstructive pulmonary disease) Status: Chronic Qualifiers: COPD type: unspecified COPD Qualified Code(s): J44.9 - Chronic obstructive pulmonary disease, unspecified (4) H/O metastatic esophageal cancer Status: Chronic (5) Paraplegia Code(s): G82.20 - PARAPLEGIA, UNSPECIFIED Status: Chronic - Plan Plan: 74-y.o. 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 Osteomyelitis of Right Fibula - Final wound culture: few proteus, E. Coli, same susceptibility as above (UTI) - Consulted Dr. Reich (ID), recommended surgical intervention. Appreciate recs. Continue Cipro. - Surgery consulted. Dr. Louis rec R above-knee amputation vs local debridement /wound vac. Patient declined and wants abx and wound care alone. Dr. Louis will see as needed. Appreciate recs. - Wound care following - Pallative care consulted to help provide longer-term care goals and plan, appreciate recs - XR suggestive of osteo. Discussed results with patient and patient does not wish to undergo further imaging such as MRI and would prefer to be discharged with abx and wound care and f/u if sxs worsen. R/B/A of plan were discussed with patient and he voiced understanding. 2. Sepsis 2/2 UTI from chronic indwelling renee - paraplegia from spinal surgery and cancer mets requiring chronic renee - BCx 1/2 E. Coli susceptible to Cipro. UCx E. coli. - WBC stable. Procal 0.34 - Continue Cipro Day 12/14 - Dr. Reich consulted, rec oral cipro, appreciate recs 3. IZAIAH - Likely 2/2 sepsis and dehydration. Encourage PO intake - Creatinine improved to 0.97. Baseline is 0.65. Continue to monitor 4. COPD - Continue DuoNebs, home spiriva, and supp O2 prn 5. History of metastatic esophageal cancer - Patient also has history of bilateral pulmonary embolism. On ppx LVX. - Case management consulted. F/U oncology as outpatient to assess prognosis - Palliative Care consulted. On board. Appreciate recs. 6. Paraplegia - q2h turns - air pressure mattress DVT PPx: LVX Diet: Regular Code status: FULL Dispo: Pending placement. Appreciate CM assistance.
[2019-03-31] MEDS: Ciprofloxacin 500 MG TAB PO SCH ×2 (05:51→20:24)
[2019-03-31] MEDS: Mometasone/Formoterol 120 PUFF INHALER INH SCH ×2 (06:54→21:56)
[2019-03-31] MEDS: Enoxaparin Sodium 40 MG/0.4 ML SYRINGE SC SCH (08:14)
[2019-03-31] MEDS: Potassium Chloride 20 MEQ TAB PO SCH ×2 (08:14→18:55)
--- NOTE | 2019-03-31 12:01 | PRG ---
DATE OF SERVICE: 03/31/2019 Mr. Hernandez's plain film of his tibia does show probable osteomyelitis. Mr. Hernandez has elected to continue with conservative management of his infection and will be discharged after placement possibly today. Job ID: [id number]
[2019-04-01] MEDS: Ciprofloxacin 500 MG TAB PO SCH ×2 (06:17→20:48)
--- NOTE | 2019-04-01 06:39 | PDOC.FM ---
- Subjective Subjective: Pt doing well without concerns or complaints. Slept well overnight without any acute events. No Cp, SOB, n/v/d/c, fever/chills. He is eager to be discharge to swing bed if possible today. - Objective MAR Reviewed: Yes Vital Signs & Weight: Vital Signs (12 hours) Temp Pulse Resp BP Pulse Ox 04/01/19 04:06 97.6 F 101 H 16 102/68 95 04/01/19 01:36 96 16 95 04/01/19 00:35 97.6 F 103 H 16 106/68 92 L 03/31/19 21:56 95 16 96 03/31/19 20:00 95 03/31/19 19:31 98.5 F 99 16 106/56 L 95 Weight Admit Weight 76.657 kg Weight 76.657 kg I&O: 03/30/19 03/31/19 04/01/19 06:59 06:59 06:59 Intake Total 1020 1140 Output Total 1450 1600 750 Balance -430 -1600 390 Result Diagrams: 03/30/19 03:57 03/30/19 03:57 Phys Exam - Physical Examination Constitutional: NAD HEENT: moist MMs Neck: supple Respiratory: no wheezing, no rales, no rhonchi, clear to auscultation bilateral Cardiovascular: RRR, no rub 2/6 systolic ejection murmur Gastrointestinal: soft, non-tender, no distention, positive bowel sounds paraplegic Deviation from normal: decubitus wounds on ankles and would of right fibula with clean -: and dry dressing in place, no surrounding erythema or exudates Dx/Plan (1) Osteomyelitis of right fibula Code(s): M86.9 - OSTEOMYELITIS, UNSPECIFIED Status: Acute (2) Sepsis Code(s): A41.9 - SEPSIS, UNSPECIFIED ORGANISM Status: Acute Qualifiers: Sepsis type: Escherichia coli Qualified Code(s): A41.51 - Sepsis due to Escherichia coli [E. coli] (3) COPD (chronic obstructive pulmonary disease) Status: Chronic Qualifiers: COPD type: unspecified COPD Qualified Code(s): J44.9 - Chronic obstructive pulmonary disease, unspecified (4) H/O metastatic esophageal cancer Status: Chronic (5) Paraplegia Code(s): G82.20 - PARAPLEGIA, UNSPECIFIED Status: Chronic - Plan Plan: 74-y.o. 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 Osteomyelitis of Right Fibula - Final wound culture: few proteus, E. Coli, susceptible to Cipro. - Consulted Dr. Reich (ID), recommended surgical intervention. Appreciate recs. Continue Cipro for 14d course - Surgery consulted. Dr. Louis rec R above-knee amputation vs local debridement /wound vac. Patient declined and wants abx and wound care alone and states he may f/u with surgery in the future. Dr. Louis will see as needed. Appreciate recs. - Wound care following - Pallative care consulted to help provide longer-term care goals and plan, appreciate recs - XR suggestive of osteo. Discussed results with patient and patient does not wish to undergo further imaging such as MRI and would prefer to be discharged with abx and wound care and f/u if sxs worsen. R/B/A of plan were discussed with patient and he voiced understanding. - Pt plans to go to [facility] for rehab and wound care, awaiting placement. CM said he may not qualify for inpatient rehab and thus may be sent home with home health. Hope to have final decision today. 2. E. Coli Sepsis 2/2 UTI from chronic indwelling renee - paraplegia from spinal surgery and cancer mets requiring chronic renee - BCx 1/2 E. Coli susceptible to Cipro. UCx E. coli. - WBC stable. Procal 0.34 - Continue Cipro Day 01/13 - Dr. Reich consulted, rec oral cipro x14d, appreciate recs 3. IZAIAH - Resolved 4. COPD - Continue DuoNebs, home spiriva, and supp O2 prn 5. History of metastatic esophageal cancer - Patient also has history of bilateral pulmonary embolism. On ppx LVX. - Case management consulted. F/U oncology as outpatient to assess prognosis - Palliative Care consulted. On board. Appreciate recs. 6. Paraplegia - q2h turns - air pressure mattress DVT PPx: LVX Diet: Regular Code status: FULL Dispo: Pending placement. Appreciate CM assistance.
[2019-04-01] MEDS: Mometasone/Formoterol 120 PUFF INHALER INH SCH ×2 (07:00→18:55)
[2019-04-01] MEDS: Enoxaparin Sodium 40 MG/0.4 ML SYRINGE SC SCH (09:56)
[2019-04-01] MEDS: Potassium Chloride 20 MEQ TAB PO SCH ×2 (09:56→18:03)
--- NOTE | 2019-04-01 12:11 | PRG ---
DATE OF SERVICE: 04/01/2019 Mr. Hernandez is resting quietly in bed, in no distress. We are still awaiting a bed placement, otherwise there have been no significant clinical changes. Job ID: [id number]
[2019-04-02] MEDS: Ciprofloxacin 500 MG TAB PO SCH ×2 (05:29→17:56)
--- NOTE | 2019-04-02 06:30 | PDOC.FM ---
- Subjective Subjective: Pt is doing well this morning without any concerns or complaints. He slept well overnight without any acute events. He denies any CP, n/v/d/c, SOB, fever/chills , or pain. He is eager to be discharged to rehab vs home with home health pending acceptance. - Objective MAR Reviewed: Yes Vital Signs & Weight: Vital Signs (12 hours) Temp Pulse Resp BP Pulse Ox 04/02/19 05:00 98.9 F 99 19 110/66 96 04/02/19 01:23 99 18 96 04/02/19 00:00 98.2 F 102 H 18 94/53 L 95 04/01/19 22:57 101 H 18 95 04/01/19 22:17 97.9 F 101 H 18 103/67 94 L 04/01/19 20:45 95 04/01/19 18:55 95 18 93 L 04/01/19 18:54 95 18 93 L Weight Admit Weight 76.657 kg Weight 76.657 kg I&O: 03/31/19 04/01/19 04/02/19 06:59 06:59 06:59 Intake Total 1140 410 Output Total 2082 958 0612 Balance -1600 390 -1440 Result Diagrams: 03/30/19 03:57 03/30/19 03:57 Phys Exam - Physical Examination Constitutional: NAD HEENT: moist MMs Respiratory: no wheezing, no rales, no rhonchi, clear to auscultation bilateral Cardiovascular: RRR, no rub 2-6 systolic ejection murmur Gastrointestinal: soft, non-tender, no distention, positive bowel sounds paraplegic paraplegic Psychiatric: normal affect Deviation from normal: multiple decibutus ulcers with dressings on lower ext. right fibular wound -: with dressing, clean and dry without surround erythema Dx/Plan (1) Osteomyelitis of right fibula Code(s): M86.9 - OSTEOMYELITIS, UNSPECIFIED Status: Acute (2) Sepsis Code(s): A41.9 - SEPSIS, UNSPECIFIED ORGANISM Status: Acute Qualifiers: Sepsis type: Escherichia coli Qualified Code(s): A41.51 - Sepsis due to Escherichia coli [E. coli] (3) COPD (chronic obstructive pulmonary disease) Status: Chronic Qualifiers: COPD type: unspecified COPD Qualified Code(s): J44.9 - Chronic obstructive pulmonary disease, unspecified (4) H/O metastatic esophageal cancer Status: Chronic (5) Paraplegia Code(s): G82.20 - PARAPLEGIA, UNSPECIFIED Status: Chronic - Plan Plan: 74-y.o. 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 Osteomyelitis of Right Fibula - Final wound culture: few proteus, E. Coli, susceptible to Cipro. - Consulted Dr. Reich ([place]), recommended surgical intervention. Appreciate recs. Continue Cipro for 14d total course - Surgery consulted. Dr. Louis rec R above-knee amputation vs local debridement /wound vac. Patient declined surgical intervention and wants abx and wound care alone and states he may f/u with surgery in the future. Appreciate recs. - Wound care following - XR suggestive of osteo. Discussed results with patient and patient does not wish to undergo further imaging such as MRI and would prefer to be discharged with abx and wound care and f/u if sxs worsen. R/B/A of plan were discussed with patient and he voiced understanding. - Awaiting rehab vs home with home health placement, apprec CM assistance. 2. E. Coli Sepsis 2/2 UTI from chronic indwelling renee - paraplegia from spinal surgery and cancer mets requiring chronic renee - BCx 1/2 E. Coli susceptible to Cipro. UCx E. coli. - Continue Cipro Day 6/ - Dr. Reich consulted, rec oral cipro x14d, appreciate recs 3. COPD - Continue DuoNebs, home spiriva, and supp O2 prn 4. History of metastatic esophageal cancer - Patient also has history of bilateral pulmonary embolism. On ppx LVX. - Case management consulted. F/U oncology as outpatient to assess prognosis - Palliative care consulted to help discuss long-term care goals of care, appreciate recs 5. Paraplegia - q2h turns - air pressure mattress DVT PPx: LVX Diet: Regular Code status: FULL Dispo: Pending placement. Appreciate CM assistance.
[2019-04-02] MEDS: Mometasone/Formoterol 120 PUFF INHALER INH SCH (07:09)
[2019-04-02] MEDS: Potassium Chloride 20 MEQ TAB PO SCH ×2 (08:44→17:56)
[2019-04-02] MEDS: Enoxaparin Sodium 40 MG/0.4 ML SYRINGE SC SCH (08:45)
--- NOTE | 2019-04-02 12:04 | PRG ---
DATE OF SERVICE: 04/02/2019 Mr. Hernandez continues to look and feel fine. We are still awaiting a rehab bed placement. Job ID: [id number]
[2019-04-02 17:12] VITALS: BP 111/71; TEMP 98.2
--- NOTE | 2019-04-03 00:08 | DIS ---
DATE OF ADMISSION: 03/24/2019 DATE OF DISCHARGE: 04/02/2019 RESIDENT: Alfonso Lopez MD ADMITTING ATTENDING: Cecilio Herrera MD DISCHARGE ATTENDING: Jeovany Ricardo MD CONSULTS: 1. General Surgery, Ghanshyam Louis MD. 2. Infectious Disease, Socrates Reich MD. 3. Palliative Care, Veronique Dietz. 4. Wound Care. PROCEDURES: 1. Right tibular fibular x-ray - questionable lucency involving the tibia that could be secondary to osteomyelitis. PRIMARY DIAGNOSES: 1. Osteomyelitis of the right fibula. 2. Escherichia coli sepsis due to urinary tract infection from chronic indwelling Mena. SECONDARY DIAGNOSES: 1. Chronic obstructive pulmonary disease. 2. History of metastatic esophageal cancer. 3. Paraplegia. DISCHARGE MEDICATIONS: 1. Symbicort two puffs b.i.d. 2. Aspirin 81 mg p.o. daily. 3. Dapsone 50 mg q.2 days. 4. Dapsone 100 mg p.o. q.2 days. 5. Mucinex 500 mg p.o. q.12 hours p.r.n. 6. Potassium chloride 20 mEq p.o. b.i.d. 7. Flexeril 10 mg p.o. daily p.r.n. 8. Cipro 500 mg p.o. b.i.d. for a total of 14 days. DISCONTINUED MEDICATIONS: Macrobid 100 mg p.o. b.i.d. HISTORY OF PRESENT ILLNESS/HOSPITAL COURSE: Mr. 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 In the outside emergency department, he had hypotension into the 80s/50s with a white blood cell count 12.7 and tachycardia. Multiple possible sources of infection were identified including urinary tract infection from a chronic indwelling Mena catheter, as well as multiple wounds of the lower extremities from being bedridden, stage II sacral ulcer which was currently healing. He stated that his urine looked cloudier than normal and it had been about a month since his Mena had been changed. He denies any fevers, chills, chest pain, or shortness of breath. Due to his paraplegia, he has lost feeling and movement to approximately the T4 level. In the emergency department, he was given 2 L normal saline and empiric antibiotics, and was admitted for further evaluation and management. On physical exam, it was noted that he had multiple pressure ulcers on the heels, bilateral stage I, as well as right knee, right lateral calf, left inner thigh and a stage II sacral ulcer with granulation tissue. No induration, abscesses, or crepitus were noted. His initial potassium was 2.6, this trended up to 3.0 and continued to return to normal and was 4.7 upon discharge. His white blood cell count was initially elevated at 12.7, but then did trend down to 9.6 upon discharge. Urinalysis was obtained as well as urine cultures that ultimately demonstrated E coli susceptible to Cipro. He was initially placed on Zosyn. Dr. Reich was consulted and noted a worsening wound, particularly of the right leg of the lateral aspect with bone exposed and thus associated osteomyelitis. Possible sources of infections include osteomyelitis as well as pneumonia versus UTI. Initial culture of wound did grow E coli with similar susceptibilities to his urine culture. In terms of intervention, Dr. Reich recommended consulting Surgery for possible debridement with concurrent intravenous versus oral antibiotics depending on susceptibilities. Dr. Reich noted that risks, benefits, alternatives should be discussed with patient as well as long-term treatment goals determine the aggressiveness of treating these current infections. Dr. Louis with Surgery was consulted to evaluate the patient. He saw the patient and discussed possible surgical intervention for his right fibular osteomyelitis. He recommended either [id number] amputation versus local debridement with possible excision of portion of the fibula and wound vac. The risks, benefits, and alternatives were discussed with the patient and the patient decided that he did not want to pursue any surgical intervention at this time and would prefer to continue with antibiotics and wound care to possibly pursue surgical intervention at a later time. As culture susceptibilities began to return, it was determined that the patient could be deescalate from Zosyn to oral Cipro, and was continued on a total of 14 -day course as recommended by Dr. Reich. Palliative Care was consulted, discussed with the patient his long-term goals of care as the patient was currently full resuscitation at presentation. After discussing with the patient, Palliative Care stated that they would follow up with the patient regarding medical power of ip attorney as well as future goal cares. The patient initially was wanting more confirmation of his osteomyelitis. X-ray of the fibula was ordered as a result of the above demonstrated likely osteo. Discussed with the patient that we could pursue further imaging to further confirm the diagnosis such as with an MRI. The patient declined MRI and said that he would again like to pursue conservative management with antibiotics and wound care and would like to be discharged to a swing bed for more intensive wound care and then be discharged home. He stated he will follow up with his primary care physician and possibly Surgery in the future for more interventions. Case Management was then consulted to assist with bed placement. Over the next few days bending rehab bed, the patient remained stable and wound care was provided in the hospital. His wounds remained stable with no significant surrounding erythema, exudate or drainage, remained clean and dry with dressings in place. Vitals remained stable. He was continued on his Cipro, as well as home medications. The patient denies any chest pain, shortness of breath, nausea or vomiting, fevers or chills, and was eager to go to the swing bed at [place]. At the time of discharge, the patient was stable and doing well. He voiced agreement and understanding of discharge plan. The risks, benefits, and alternatives of all the treatments options were discussed with him in which he voiced wanting to continue with his current plan. The patient was then discharged to the inpatient rehab facility. DISPOSITION: Stable. DISCHARGE INSTRUCTIONS: 1. Location: Inpatient rehab facility at [place]. 2. Diet: Regular with Ensure twice daily with meals. 3. Activity: He is currently paraplegic and thus will require bed turns and physical therapy while in bed with appropriate wound care. 4. Followup: The patient should follow up with primary care within 1 week of discharge and with Surgery as desired to pursue more aggressive therapy. Job ID: [id number] [facility]
== END 2019-04-02 18:02 | DRG 698 ==
LOC: ERS 15:17 → T4-B 16:47
PROVIDERS: ADMIT Family Medicine; ATTEND Family Medicine
DX: T83.511A Infection and inflammatory reaction due to indwelling urethral catheter, initial encounter (principal); A41.51 Sepsis due to Escherichia coli [E. coli]; G82.21 Paraplegia, complete; N17.9 Acute kidney failure, unspecified; C15.9 Malignant neoplasm of esophagus, unspecified; C77.9 Secondary and unspecified malignant neoplasm of lymph node, unspecified; C79.51 Secondary malignant neoplasm of bone; M86.161 Other acute osteomyelitis, right tibia and fibula; N39.0 Urinary tract infection, site not specified; Z51.5 Encounter for palliative care; J44.9 Chronic obstructive pulmonary disease, unspecified; L89.152 Pressure ulcer of sacral region, stage 2; I10 Essential (primary) hypertension; E87.6 Hypokalemia; D69.6 Thrombocytopenia, unspecified; E83.42 Hypomagnesemia; E83.51 Hypocalcemia; E86.0 Dehydration; Z74.01 Bed confinement status; Z79.51 Long term (current) use of inhaled steroids; Z79.899 Other long term (current) drug therapy; Z87.891 Personal history of nicotine dependence; Z86.711 Personal history of pulmonary embolism; Z79.82 Long term (current) use of aspirin
CPT/HCPCS: 36415; 36416; 80048; 80053; 83605; 83735; 84145; 85025; 94640; 99285; J1650; J2543; J3475; J3490; J7620